=== PATIENT | male | born 1930 | race Caucasian/White ===

== ENCOUNTER 2018-09-04 19:25 | Inpatient (IN) ==
[2018-09-04] MEDS ORDERED: Piperacil/Tazo 3.375 GM Premix 50 ML IV.SIG ONE (21:11)
[2018-09-04] MEDS ORDERED: Vancomycin Inj 1 GM/200 ML PIGGYBACK IV.SIG ONE (21:11)
[2018-09-04] MEDS ORDERED: Sodium Chlor 0.9% Inj 500 ML IV.SIG ONE ×2 (21:11→23:18)
--- NOTE | 2018-09-04 21:28 | ED ---
HPI General Chief complaint: Skin/Abscess/Foreign Body Stated complaint: abscess on R arm and L groin Xtoday Time Seen by Provider: 09/04/18 20:51 Source: patient and family Mode of arrival: ambulatory Limitations: no limitations History of Present Illness HPI narrative: The patient is an 88 year old male who presents to the [facility] emergency department with a history of complaining of groin pain that he reported to his family was related to his hernia approximately a week ago. The patient performs his activities of daily living and grooming himself and showering, therefore the patient's family did not inspect the area until today. The patient reports that related to the pain in his groin he has been using a walker to assist him with his gait. The patient's past medical history is reportedly complicated by having leukopenia that is followed by Dr. Feliz a local stock wetter and oncologist. They report that in the past he was on Neupogen, however he did not respond. He has been referred to the [facility] and had his initial appointment on Tuesday. The patient's family reports that on he did have a low-grade fever with a T-max of 100.7. They report that today when he inspected his groin area he had redness noted and 2 open wounds with drainage in bilateral groins. The worst is on the right compared to the left. The patient's inguinal hernia is involving the left side of the scrotum. The patient's family reports that he has had this hernia for the last 10 years. He has been considered to be nonoperative due to concerns for his healing process with his low white blood cell count. Patient denies having any chest pain or chest pressure. He does report having some shortness of breath with exertion over the last week. He denies having any cough or congestion. He denies having any nausea or vomiting. He reports having problems chronically with constipation alternating with diarrhea. He reports that his last bowel movement was 4 days ago. He denies having any known blood in his stool or black or tarry stools. On review of systems otherwise, the patient denies having any neck pain, abdominal pain, urinary symptoms, or new or focal neurologic symptoms. Related Data Home Medications Medication Instructions Recorded Confirmed aspirin [Aspir-81] 81 mg PO DAILY 09/04/18 09/04/18 doxazosin 8 mg PO DAILY 09/04/18 09/04/18 levothyroxine 150 mcg PO DAILY 09/04/18 09/04/18 lisinopril 5 mg PO BID 09/04/18 09/04/18 nifedipine 30 mg PO DAILY 09/04/18 09/04/18 Allergies Allergy/AdvReac Type Severity Reaction Status Date / Time Sulfa (Sulfonamide Allergy Intermediate RASH, Verified 09/05/18 02:09 Antibiotics) SWELLING Review of Systems ROS: all other systems reviewed are negative PMFSH History History Provided By: Patient and Family Member Social History Social History Substance History: No History of Abuse Second Hand Smoke Exposure: No Smoking Status: Former smoker Tobacco Type: Cigarettes How Often Do You Have a Drink Containing Alcohol: 2 to 4 times a month Recent Travel in [facility] within the Last 8 Weeks: No Recent Out of Country Travel within the Last 8 Weeks: No Exam Const General: cooperative, no acute distress and well developed Nutritional Appearance: well nourished Orientation: alert, awake and oriented x3 HENMT Head: normocephalic and atraumatic Nose: no nasal discharge and no epistaxis Mouth: moist mucous membranes Throat: posterior oropharynx normal and uvula midline Eyes Sclera: normal sclerae Pupils: PERRL EOM: EOM intact bilaterally Neck Neck: no meningeal signs, trachea midline and no JVD Resp Effort & Inspection: no use of accessory muscles Auscultation: clear to auscultation bilaterally Cardio Rate: tachycardic (Sinus tachycardia in the low 100s. No pulse deficits to the extremities on simultaneous auscultation and palpation of his radial artery.) Rhythm: regular rhythm Heart Sounds: no murmurs GI Inspection: distended (The patient is distended related to central obesity. The patient has an abdominal pannus that was gently lifted. The patient has suprapubic, lower pelvis erythema, induration noted. When his hip is flexed on the right, the patient is noted to have erythema that extends down into the groin at the border between the scrotum and inner thigh, and an area of ulceration is noted with purulent foul smelling drainage. The area of ulceration is approximately 3-1/2 cm. When the patient's left hip is flexed and slightly externally rotated another area of ulceration with drainage is noted on the left side between the scrotum and the border to the inner aspect of the hip. This area of ulceration is approximately 2-3 cm. The patient has tenderness on palpation of these areas.) and obesity Palpation: soft, no hepatosplenomegaly, no guarding, not rigid and nontender Auscultation: normal bowel sounds External: scrotal swelling (The patient is noted to have a large inguinal hernia on the left. No palpable incarcerated component is noted. There is no significant tenderness on palpation of this site.) Penis: normal penis Back/Spine/Pelvis Back: no CVA tenderness Skin General: dry skin (warm) Neuro General: alert, awake and oriented x3 Cranial Nerves: CN's II-XI intact bilaterally Speech: speech normal Motor: strength 5/5 throughout and no movement abnormalities noted Sensory Exam: no sensory deficits noted Extrem General: normal to inspection (2+ pulses in all 4 extremities.), no calf tenderness, no clubbing, no cyanosis and edema (Trace pedal edema bilaterally.) Laterality: bilaterally Psych Mood: congruent mood Affect: normal affect Judgment: judgment good Course Consultations Consultation #1: The patient's case including history, pertinent physical examination findings, and laboratory studies were discussed with Dr. Dukes, the packaging line operator. It was agreed that the patient would be admitted to the packaging line operator 's service. Consultation #2: The patient's case including history, pertinent physical examination findings, and laboratory studies were discussed with Bita. He requested that I also discussed the patient's case with the general surgeon. He recommended the patient be transferred to the [facility] in case surgical intervention is necessary. Time: 23:25 Consultation #3: The patient's case including history, pertinent physical examination findings, and laboratory studies were discussed with Dr. Blake. He requested that the patient receive another liter of normal saline IV fluids. He agreed to see the patient in consultation. Time: 23:29 Initial Documented Vital Signs Temperature 99.0 F 09/04/18 19:53 Pulse Rate 109 H 09/04/18 19:53 Respiratory Rate 22 09/04/18 19:53 Blood Pressure 112/59 L 09/04/18 19:53 Pulse Oximetry 97 09/04/18 19:53 Last Documented Vital Signs Temperature 98.5 F 09/05/18 04:00 Pulse Rate 90 09/05/18 06:00 Respiratory Rate 25 H 09/05/18 06:00 Blood Pressure 127/69 09/05/18 06:00 Pulse Oximetry 99 09/05/18 06:00 Critical Care Time Critical Care Time: Yes Total Critical Care Time: 45 Attestation: Aggregate critical care time was 45 minutes. Time to perform other separately billable procedures was not included in the critical care time. My time did not include minutes spent treating any other patients simultaneously or on activities that did not directly contribute to the patient's treatment. The services I provided to this patient were to treat and/or prevent clinically significant deterioration that could result in: Cardiovascular collapse from sepsis, versus fluid overload from crystalloid resuscitation, versus progression of infection I provided critical care services requiring my management, as noted below: Chart data review, documentation time, medication orders and management, vital sign assessments/reviewing monitor data, ordering and reviewing lab tests, ordering and interpreting/reviewing x-rays and diagnostic studies, care of the patient and discussion of the patient with the admitting physicians. Medical Decision Making MDM Narrative Medical decision making narrative: During the course of the patient's emergency department visit, the patient's history, examination, and differential diagnosis were reviewed with the patient. The patient was placed on a cardiac catheterization technologist with oximetry and frequent blood pressure monitoring. The patient had IV access obtained and blood work sent for analysis. A diagnostic evaluation was started regarding the patient's groin wounds and cellulitis involving the pelvis. A sepsis workup was initiated. The patient was initially provided normal saline 500 mL bolus x1, Zosyn 3.375 g IV, vancomycin 1 g IV, coverage for necrotizing fasciitis was also added with clindamycin 900 mg IV. The patient's diagnostic studies are remarkable for a white count of 1.8, hemoglobin 10.1, platelets 493 with neutrophil percent 4, bands 1, lymphocytes 76, monocytes 17, 2 plasma cells, 0.1 neutrophil number. PT 14.5, INR 1.4, PTT 31.2, chemistries remarkable for BUN of 27, GFR 63, glucose 108, lactic acid 2.0 , calcium 7.9, CPK 10, troponin I less than 0.02, albumin 2.3, lipase 113, C- reactive protein is elevated at 12.9. Urinalysis is essentially unremarkable. Chest x-ray shows no focal lung consolidation, tortuous aorta, CT scan of the abdomen and pelvis shows a 7.5 cm inflammatory and edematous area in the right inguinal region containing probable small loculated abscesses, edematous changes extending inferiorly through the lower aspect of both inguinal canals into the scrotum with marked scrotal wall thickening and small locules of air in the upper left scrotum that could represent a necrotizing infection. There is herniation of fat through both inguinal canals, worse on the left side with herniated fat in the left scrotum measuring up to 9.5 cm in diameter. The patient is noted to have hepatospleno megaly, moderate coronary calcifications, small pericardial effusion. A call was placed out to the packaging line operator donor specialist. I spoke to Dr. Dukes he did agree to admit the patient he requested that I speak to the urologist regarding this patient's infection. I spoke to the urologist, Dr. Sunshine regarding this patient's case. He requested that I also get the general surgeon involved regarding the patient's bilateral groin infection. I spoke to Dr. Blake regarding this patient's case. He did agree to see the patient in consultation as well. The patient will be transferred over to the main [place] intensive care unit as the patient will likely require surgical debridement and the urologist requested that the patient be transferred over to that facility for the procedure. The patient's results were discussed with the patient, including the plan of care. I explained that further testing and/ or monitoring is indicated based on the patient's history, examination, and/ or laboratory findings. Therefore, I recommended admission for additional evaluation. The patient expressed understanding and was agreeable with this plan. The patient was admitted to the hospital in critical condition and sent to a bed under the care of the packaging line operator's service. Medical Screen Exam Complete: Yes Emergency Medical Condition: Yes Differential Diagnosis Differential Diagnosis: Necrotizing fasciitis, versus cellulitis, versus deep abscesses, versus sepsis Medical Records Medical records reviewed: Yes I reviewed the patient's medical records. Lab Data Lab results reviewed: Yes I reviewed the patient's lab results. Result diagrams: 09/04/18 21:30 09/04/18 21:30 Lab Results 09/04/18 09/04/18 09/04/18 Range/Units 21:30 21:30 21:30 CBC w Diff Slide review pending WBC 1.9 L (4.0-11.0) th/mm3 Corrected WBC 1.8 L (4.0-11.0) th/mm3 RBC 3.11 L (4.50-5.90) mil/mm3 Hgb 10.1 L (13.0-17.0) gm/dL Hct 29.9 L (39.0-51.0) % MCV 96.2 (80.0-100.0) fL MCH 32.5 (27.0-34.0) pg MCHC 33.8 (32.0-36.0) % RDW 18.5 H (11.6-17.2) % Plt Count 493 H (150-450) th/mm3 MPV 9.4 (7.0-11.0) fL WBC Differential Manual diff final Seg Neuts % (Manual) 4 L (16-70) % Band Neuts % (Manual) 1 (0-6) % Lymphocytes % (Manual) 76 H (9-44) % Monocytes % (Manual) 17 H (0-8) % Plasma Cell % (Manual) 2 H (0-0) % Abs Neuts (Manual) 0.1 L* (1.8-7.7) th/mm3 Nucleated RBCs/100 WBC 8 H (0-0) /100 WBC Differential Comment . Dohle Bodies Present H (None) Platelet Estimate High H (Normal) Platelet Morphology Enlarged H (Normal) Ovalocytes 1+ H (None) PT 14.5 H (9.8-11.6) sec INR 1.4 Ratio APTT 31.2 H (24.3-30.1) sec Sodium 136 (136-145) meq/L Potassium 4.0 (3.5-5.1) meq/L Chloride 104 (98-107) meq/L Carbon Dioxide 24.5 (21.0-32.0) meq/L Anion Gap 8 (5-15) meq/L BUN 27 H (7-18) mg/dL Creatinine 1.10 (0.60-1.30) mg/dL Estimated GFR 63 L (>89) mL/min POC Glucose (68-110) mg/dl Random Glucose 108 H (74-106) mg/dL Lactic Acid (0.4-2.0) mmol/L Calcium 7.9 L (8.5-10.1) mg/dL Magnesium 2.3 (1.5-2.5) mg/dL Total Bilirubin 1.0 (0.2-1.0) mg/dL AST 21 (15-37) U/L ALT 27 (12-78) U/L Alkaline Phosphatase 99 (45-117) U/L Total Creatine Kinase 10 L (39-308) U/L Troponin I Less than 0.02 L (0.02-0.05) ng/mL C-Reactive Protein (0.00-0.30) mg/dL Total Protein 7.9 (6.4-8.2) g/dL Albumin 2.3 L (3.4-5.0) g/dL Lipase 113 (73-393) U/L Urine Color (Yellw/Straw) Urine Clarity (Clear) Urine pH (5.0-8.5) Ur Specific [place] (1.002-1.035) Urine Protein (Neg-Trace) mg/dL Urine Glucose (UA) (Negative) mg/dL Urine Ketones (Negative) mg/dL Urine Occult Blood (Negative) Urine Nitrate (Negative) Urine Bilirubin (Negative) Urine Urobilinogen (Less than 2) mg/dL Ur Leukocyte Esterase (Negative) Urine WBC (0-5) /hpf Ur Squamous Epith Cells (0-5) /hpf Amorphous Sediment (None) /hpf Urine Bacteria (None) /hpf Urine Mucus (Occasional) /lpf Micro UA Comment Ur Microscopic Review Urine Culture Comments Nasal Screen MRSA (PCR) (Negative) 09/04/18 09/04/18 09/04/18 Range/Units 21:30 21:30 22:01 CBC w Diff WBC (4.0-11.0) th/mm3 Corrected WBC (4.0-11.0) th/mm3 RBC (4.50-5.90) mil/mm3 Hgb (13.0-17.0) gm/dL Hct (39.0-51.0) % MCV (80.0-100.0) fL MCH (27.0-34.0) pg MCHC (32.0-36.0) % RDW (11.6-17.2) % Plt Count (150-450) th/mm3 MPV (7.0-11.0) fL WBC Differential Seg Neuts % (Manual) (16-70) % Band Neuts % (Manual) (0-6) % Lymphocytes % (Manual) (9-44) % Monocytes % (Manual) (0-8) % Plasma Cell % (Manual) (0-0) % Abs Neuts (Manual) (1.8-7.7) th/mm3 Nucleated RBCs/100 WBC (0-0) /100 WBC Differential Comment Dohle Bodies (None) Platelet Estimate (Normal) Platelet Morphology (Normal) Ovalocytes (None) PT (9.8-11.6) sec INR Ratio APTT (24.3-30.1) sec Sodium (136-145) meq/L Potassium (3.5-5.1) meq/L Chloride (98-107) meq/L Carbon Dioxide (21.0-32.0) meq/L Anion Gap (5-15) meq/L BUN (7-18) mg/dL Creatinine (0.60-1.30) mg/dL Estimated GFR (>89) mL/min POC Glucose 129 H (68-110) mg/dl Random Glucose (74-106) mg/dL Lactic Acid 2.0 (0.4-2.0) mmol/L Calcium (8.5-10.1) mg/dL Magnesium (1.5-2.5) mg/dL Total Bilirubin (0.2-1.0) mg/dL AST (15-37) U/L ALT (12-78) U/L Alkaline Phosphatase (45-117) U/L Total Creatine Kinase (39-308) U/L Troponin I (0.02-0.05) ng/mL C-Reactive Protein 12.90 H (0.00-0.30) mg/dL Total Protein (6.4-8.2) g/dL Albumin (3.4-5.0) g/dL Lipase (73-393) U/L Urine Color (Yellw/Straw) Urine Clarity (Clear) Urine pH (5.0-8.5) Ur Specific [place] (1.002-1.035) Urine Protein (Neg-Trace) mg/dL Urine Glucose (UA) (Negative) mg/dL Urine Ketones (Negative) mg/dL Urine Occult Blood (Negative) Urine Nitrate (Negative) Urine Bilirubin (Negative) Urine Urobilinogen (Less than 2) mg/dL Ur Leukocyte Esterase (Negative) Urine WBC (0-5) /hpf Ur Squamous Epith Cells (0-5) /hpf Amorphous Sediment (None) /hpf Urine Bacteria (None) /hpf Urine Mucus (Occasional) /lpf Micro UA Comment Ur Microscopic Review Urine Culture Comments Nasal Screen MRSA (PCR) (Negative) 09/04/18 09/05/18 Range/Units 22:20 04:00 CBC w Diff WBC (4.0-11.0) th/mm3 Corrected WBC (4.0-11.0) th/mm3 RBC (4.50-5.90) mil/mm3 Hgb (13.0-17.0) gm/dL Hct (39.0-51.0) % MCV (80.0-100.0) fL MCH (27.0-34.0) pg MCHC (32.0-36.0) % RDW (11.6-17.2) % Plt Count (150-450) th/mm3 MPV (7.0-11.0) fL WBC Differential Seg Neuts % (Manual) (16-70) % Band Neuts % (Manual) (0-6) % Lymphocytes % (Manual) (9-44) % Monocytes % (Manual) (0-8) % Plasma Cell % (Manual) (0-0) % Abs Neuts (Manual) (1.8-7.7) th/mm3 Nucleated RBCs/100 WBC (0-0) /100 WBC Differential Comment Dohle Bodies (None) Platelet Estimate (Normal) Platelet Morphology (Normal) Ovalocytes (None) PT (9.8-11.6) sec INR Ratio APTT (24.3-30.1) sec Sodium (136-145) meq/L Potassium (3.5-5.1) meq/L Chloride (98-107) meq/L Carbon Dioxide (21.0-32.0) meq/L Anion Gap (5-15) meq/L BUN (7-18) mg/dL Creatinine (0.60-1.30) mg/dL Estimated GFR (>89) mL/min POC Glucose (68-110) mg/dl Random Glucose (74-106) mg/dL Lactic Acid (0.4-2.0) mmol/L Calcium (8.5-10.1) mg/dL Magnesium (1.5-2.5) mg/dL Total Bilirubin (0.2-1.0) mg/dL AST (15-37) U/L ALT (12-78) U/L Alkaline Phosphatase (45-117) U/L Total Creatine Kinase (39-308) U/L Troponin I (0.02-0.05) ng/mL C-Reactive Protein (0.00-0.30) mg/dL Total Protein (6.4-8.2) g/dL Albumin (3.4-5.0) g/dL Lipase (73-393) U/L Urine Color Yellow (Yellw/Straw) Urine Clarity Clear (Clear) Urine pH 5.5 (5.0-8.5) Ur Specific [place] 1.020 (1.002-1.035) Urine Protein 30 H (Neg-Trace) mg/dL Urine Glucose (UA) Negative (Negative) mg/dL Urine Ketones Negative (Negative) mg/dL Urine Occult Blood Negative (Negative) Urine Nitrate Negative (Negative) Urine Bilirubin Negative (Negative) Urine Urobilinogen 0.2 (Less than 2) mg/dL Ur Leukocyte Esterase Negative (Negative) Urine WBC 6-8 H (0-5) /hpf Ur Squamous Epith Cells 0-5 (0-5) /hpf Amorphous Sediment Rare H (None) /hpf Urine Bacteria Few H (None) /hpf Urine Mucus Few H (Occasional) /lpf Micro UA Comment Culture not ind Ur Microscopic Review Microscopic reviewed Urine Culture Comments Culture not ind Nasal Screen MRSA (PCR) Not detected (Negative) Imaging Data Radiologist's impression: Abdomen/Pelvis CT 09/04/18 21:11 CONCLUSION: 1. 7.5 cm inflammatory and edematous area in the right inguinal region containing probable small loculated abscesses. Edematous change extends inferiorly through the lower aspect of both inguinal canals into the scrotum with marked scrotal wall thickening and small locules of air in the upper left scrotum that could represent a necrotizing infection. There is herniation of fat through both inguinal canals, worse on the left side with herniated fat in the left scrotum measuring up to 9.5 cm in diameter. 2. Hepatosplenomegaly. Moderate coronary calcifications. Small pericardial effusion. Chest X-Ray 09/04/18 21:11 CONCLUSION: No focal lung consolidation. Tortuous aorta. ECG Data Attestation: I personally reviewed and interpreted this ECG as follows: Interpretation: The patient had an EKG done on arrival that shows what appears to be atrial flutter heart rate of 104, QRS duration 95 ms, QTC [address] segment elevation. An occasional premature ventricular complexes noted. Discharge Plan Discharge Disposition Patient Disposition: 30 Still Patient Discharge Details Diagnosis: Cellulitis, Infected wound, Abscess of groin Physicians Team ED Provider: Cady Chang Primary Care Provider: Frankie Colvin Attending Provider: Merlyn Dukes Other Providers: Obinna Blake ; Jorge Sunshine ; Marlyn Holland ; Tracy Wells Discharge Interventions Interventions: ED Discharge Assessment Last Done: 09/05/18 02:30 Vital Signs Last Done: 09/04/18 23:35 Status ED Status: Left Department Discharge Information Discharge Date/Time: 09/05/18 02:32
[2018-09-04 21:44] LABS: Hematocrit 29.9 % (39.0-51.0); Hemoglobin 10.1 gm/dL (13.0-17.0); Mean Corpuscular HGB Conc 33.8 % (32.0-36.0); Mean Corpuscular Hemoglobin 32.5 pg (27.0-34.0); Mean Corpuscular Volume 96.2 fL (80.0-100.0); Mean Platelet Volume 9.4 fL (7.0-11.0); Platelet Count 493 th/mm3 (150-450); Red Blood Count 3.11 mil/mm3 (4.50-5.90); Red Cell Distribution Width 18.5 % (11.6-17.2); White Blood Count 1.9 th/mm3 (4.0-11.0)
[2018-09-04 21:50] LABS: Chloride 104 meq/L (98-107); Sodium 136 meq/L (136-145)
[2018-09-04 21:53] LABS: Calcium 7.9 mg/dL (8.5-10.1)
[2018-09-04 21:54] LABS: Albumin 2.3 g/dL (3.4-5.0); Anion Gap 8 meq/L (5-15); Blood Urea Nitrogen 27 mg/dL (7-18); Carbon Dioxide 24.5 meq/L (21.0-32.0); Glucose,Random 108 mg/dL (74-106); Lipase 113 U/L (73-393); Magnesium 2.3 mg/dL (1.5-2.5)
[2018-09-04 21:56] LABS: Alanine Aminotransferase 27 U/L (12-78)
[2018-09-04 21:57] LABS: Aspartate Aminotransferase 21 U/L (15-37); Glomerular Filtration Rate 63 mL/min (>89)
[2018-09-04 21:58] LABS: Total Protein 7.9 g/dL (6.4-8.2)
[2018-09-04 21:59] LABS: Activated Partial Thrombo Time 31.2 sec (24.3-30.1); Alkaline Phosphatase 99 U/L (45-117); INR 1.4 Ratio; Prothrombin Time 14.5 sec (9.8-11.6)
[2018-09-04] MEDS ORDERED: Vancomycin Inj 1,000 MG in Sodium Chlor 0.9% Inj 250 ML IV.SIG ONE (22:00)
[2018-09-04 22:04] LABS: Creatine Kinase 10 U/L (39-308)
--- NOTE | 2018-09-04 22:04 | XR ---
EXAM DATE: 09/04/2018 10:00 PM EDT AGE/SEX: 88 years / Male INDICATIONS: Fever. CLINICAL DATA: This is the patient's initial encounter. Patient reports that signs and symptoms have been present for 1 day and indicates a pain score of 0/10. MEDICAL/SURGICAL HISTORY: None. None. COMPARISON: No prior exams available for comparison. FINDINGS: A single AP view of the chest demonstrates cardiomegaly. Tortuous aorta. No effusion. No pneumothorax . No focal consolidation. CONCLUSION: No focal lung consolidation. Tortuous aorta. Electronically signed by: Bhavesh Regalado MD 09/04/2018 10:03 PM EDT
[2018-09-04 22:18] LABS: Corrected White Blood Count 1.8 th/mm3 (4.0-11.0); Lymphocytes 76 % (9-44); Monocytes 17 % (0-8); Plasma Cells 2 % (0-0); Tallied Nucleated RBC 8 (0-0)
[2018-09-04 22:21] LABS: Dohle Bodies Present; Ovalocytes 1+
[2018-09-04 22:29] LABS: Bilirubin,Urine Negative (Negative); Clarity,Urine Clear (Clear); Color,Urine Yellow (Yellw/Straw); Glucose,Urine (UA) Negative (Negative); Leukocyte Esterase,Urine Negative (Negative); Nitrite,Urine Negative (Negative); PH,Urine 5.5 (5.0-8.5); Urobilinogen,Urine 0.2 mg/dL (Less than 2)
[2018-09-04 22:38] LABS: Amorphous Sediment,Urine Rare /hpf; Bacteria,Urine Few /hpf; Mucus,Urine Few /lpf (Occasional); Squamous Epithelial Cell,Urine 0-5 /hpf (0-5)
--- NOTE | 2018-09-04 23:14 | CT ---
EXAM DATE: 09/04/2018 10:57 PM EDT AGE/SEX: 88 years / Male INDICATIONS: Bilateral groin pain and drainage from open wounds. Constipation. Fever. CLINICAL DATA: This is the patient's initial encounter. Patient reports that signs and symptoms have been present for 1 week and indicates a pain score of 8/10. MEDICAL/SURGICAL HISTORY: . Inguinal hernia. None. ORAL CONTRAST: No oral contrast ingested. RADIATION DOSE: 21.94 CTDI (mGy) ; Patient body habitus COMPARISON: POI, CT ABDOMEN AND PELVIS W AND W/O CONTRAST, 09/08/2016. . TECHNIQUE: Multiple contiguous axial images were obtained through the abdomen and pelvis following b olus infusion of 100 ml Omnipaque 350 (iohexol) nonionic water-soluble contrast as a single exam do se. No oral contrast ingested. Using automated exposure control and adjustment of the mA and/or kV a ccording to patient size, radiation dose was kept as low as reasonably achievable to obtain optimal d iagnostic quality images. DICOM format image data is available electronically for review and compari son. FINDINGS: There is some dependent atelectasis in the lungs. Cardiomegaly. Moderate coronary calcifications. Sma ll pericardial effusion. There is hepatosplenomegaly with spleen measuring up to 18 cm and liver 29 cm in maximal length. No gallstones or biliary ductal dilatation. Bilateral renal cysts similar to September 2016. Previous laparotomy and bilateral hip replacement. Mild constipation. No free air. Trace free fluid p robably around the liver. Moderate atherosclerosis of the abdomen aorta without aneurysm. There is a 7.5 cm inflammatory mass in the right inguinal region containing several locules of fluid, probably small abscesses. Inflammatory change extends into the perineal region and scrotum. There is herniation of fat through the left inguinal canal into the scrotum and to a lesser extent on the rig ht. There are some tiny locules of air extending into the left upper scrotal region could represent a n early necrotizing infection. CONCLUSION: 1. 7.5 cm inflammatory and edematous area in the right inguinal region containing probable small loc ulated abscesses. Edematous change extends inferiorly through the lower aspect of both inguinal canal s into the scrotum with marked scrotal wall thickening and small locules of air in the upper left scr otum that could represent a necrotizing infection. There is herniation of fat through both inguinal c anals, worse on the left side with herniated fat in the left scrotum measuring up to 9.5 cm in diamet er. 2. Hepatosplenomegaly. Moderate coronary calcifications. Small pericardial effusion. Electronically signed by: Bhavesh Regalado MD 09/04/2018 11:13 PM EDT
[2018-09-04] MEDS ORDERED: Sod Chloride 0.9% Inj 1,000 ML IV.SIG ONE (23:32)
[2018-09-05] MEDS ORDERED: Sod Chloride 0.9% Inj 1,000 ML IV.CONT SCH (00:30)
[2018-09-05] MEDS ORDERED: Vancomycin Consult Pharmacy OTHER PRN (00:32)
[2018-09-05] MEDS ORDERED: Chlorhexidine Gluconate 2% 1 Pack (2 Cloths) TOPICAL PRN (04:00)
[2018-09-05] MEDS: Piperacil/Tazo 4.5 GM Premix 4.5 GM/100 ML BAG IV.SIG SCH ×4 (04:24→23:02)
--- NOTE | 2018-09-05 04:34 | P.HPCC ---
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 He is independent for ADLs and lives alone, family checks on him periodically. Patient has history of leukopenia, ?MDS followed by Dr. Feliz had Neupogen treatment before but did not respond. He had low-grade fever a few days ago. Initially the groin pain was attributed to his inguinal hernia, however he decided to present to the ER today as he had noticed redness and open wounds with drainage in bilateral groins. In the emergency department patient was evaluated by Dr. Chang, A stat CT of the abdomen pelvis showed 7.5 cm inflammatory and edematous area in the right inguinal region containing probable small loculated abscesses. Edematous change extends inferiorly through the lower aspect of both inguinal canals into the scrotum with marked scrotal wall thickening and small locules of air in the upper left scrotum that could represent a necrotizing infection. There is herniation of fat through both inguinal canals. Patient received crystalloid resuscitation with 3 L normal saline boluses, was also given vancomycin clindamycin and Zosyn. Blood cultures and wound cultures were sent. Dr. Blake from general surgery, and Dr. Sunshine from urology were consulted by Dr. Chang at [place] [facility]. Plan is to transfer patient to the [facility], resuscitate adequately given antibiotics and plan for OR in a.m. I evaluated the patient in the [facility]. Currently he is lying in bed somnolent but wakes up easily using his home BiPAP. Temperature is 99 patient is normotensive after fluid boluses initially was tachycardic. Patient has absolute neutropenia with neutrophil count of 0.1. I will consult hematology - Diagnosis (1) Melina's gangrene (2) Severe sepsis (3) Neutropenia (4) MDS (myelodysplastic syndrome) Inpatient Certification: I certify that the inpatient services were ordered in accordance with Medicare regulations governing the order. This includes certification that hospital inpatient services are reasonable and necessary and in the case of services not specified as inpatient-only under 42 CFR 419.22(n), that they are appropriately provided as inpatient services in accordance to with the 2-midnight benchmark under 43 CFR 412.3(e) Estimated Total Length of Stay (Days): 7 Plans for Post Hospital Care: Not yet determined Review of Systems All other systems reviewed negative except as stated in HPI [facility] - History History Provided By: Patient, Family Member - Medical History Medical History: Medical History (Last Reviewed 09/05/18 @ 04:47 by Merlyn Dukes MD) HTN (hypertension) History of prostate cancer Hx of osteoarthritis Hypothyroidism Myelofibrosis Sleep apnea - Surgical History Surgical History: Surgical History (Last Reviewed 09/05/18 @ 04:47 by Merlyn Dukes MD) History of hernia repair Hx of bilateral hip replacements Hx of prostatectomy - Tobacco History Second Hand Smoke Exposure: No Tobacco Use In Past 30 Days: No Smoking Status: Former smoker Tobacco Type: Cigarettes - Alcohol History How Often Do You Have a Drink Containing Alcohol: 2 to 4 times a month - Substance Use History Substance History: No History of Abuse - Travel History Recent Travel in the [place] Within the Last 8 Weeks: No Recent Travel Out of the Country Within the Last 8 Weeks: No - Immunization History Tetanus Immunization: >5 Years Hx Influenza Vaccine This Season: No Medications and Allergies Active Medications: Active Medications Albuterol (Albuterol Neb (Prn)) 2.5 mg NEB Q2HR NEB PRN PRN Reason: SHORTNESS OF BREATH/WHEEZING Chlorhexidine Gluconate (Chlorhexidine 2% Cloth) 3 pack TOPICAL DAILY@0400 CATHLEEN Stop: 09/10/18 03:59 Chlorhexidine Gluconate (Chlorhexidine 2% Cloth) 3 pack TOPICAL DAILY@0400 PRN PRN Reason: Extra cloth needed Stop: 09/10/18 03:59 Famotidine (Pepcid Pf Inj) 20 mg IV.PUSH Q12HR CATHLEEN Sodium Chloride (Ns Inj) 1,000 mls @ 84 mls/hr IV.CONT .[id number] [facility] Last Admin: 09/05/18 04:25 Dose: 84 mls/hr Piperacillin/Tazobactam/Dextrose (Zosyn 4.5 Gm Premix) 4.5 gm in 100 mls @ 200 mls/hr IV.SIG Q6H [facility] Last Admin: 09/05/18 04:24 Dose: 200 mls/hr Clindamycin Phosphate 900 mg/ (Sodium Chloride) 106 mls @ 100 mls/hr IV.SIG Q8H CATHLEEN Vancomycin HCl 1,250 mg/ (Sodium Chloride) 262.5 mls @ 250 mls/hr IV.SIG Q12H CATHLEEN Lactulose (Lactulose Liq) 30 ml PO DAILY PRN PRN Reason: SEVERE CONSITIPATION Miscellaneous Information ([facility] Ordered Lab Info) 0 each OTHER ONCE@ 0845 ONE Stop: 09/06/18 08:46 Morphine Sulfate (Morphine Inj) 2 mg IV.PUSH Q2H PRN PRN Reason: PAIN SCALE 6 TO 10 Pharmacy Profile Note (Vancomycin Consult Pharmacy) 1 each OTHER UNSCH PRN PRN Reason: Pharmacy to dose Senna/Docusate Sodium (Sunshine-Colace) 1 tab PO BID CATHLEEN Sodium Chloride (Ns Flush) 2 ml IV.FLUSH BID CATHLEEN Sodium Chloride (Ns Flush) 2 ml IV.FLUSH PRN PRN PRN Reason: FLUSH AFTER USING IV ACCESS Allergies Allergy/AdvReac Type Severity Reaction Status Date / Time Sulfa (Sulfonamide Allergy Intermediate RASH, Verified 09/05/18 02:09 Antibiotics) SWELLING Home Medications Medication Instructions Recorded Confirmed Type aspirin [Aspir-81] 81 mg PO DAILY 09/04/18 09/04/18 History doxazosin 8 mg PO DAILY 09/04/18 09/04/18 History levothyroxine 150 mcg PO DAILY 09/04/18 09/04/18 History lisinopril 5 mg PO BID 09/04/18 09/04/18 History nifedipine 30 mg PO DAILY 09/04/18 09/04/18 History Results - Labs CBC & Chem 7: 09/04/18 21:30 09/04/18 21:30 Labs: Short CBC 09/04/18 Range/Units 21:30 WBC 1.9 L (4.0-11.0) th/mm3 Hgb 10.1 L (13.0-17.0) gm/dL Hct 29.9 L (39.0-51.0) % Plt Count 493 H (150-450) th/mm3 BMP 09/04/18 21:30 Sodium 136 Potassium 4.0 Chloride 104 Carbon Dioxide 24.5 BUN 27 H Creatinine 1.10 Calcium 7.9 L Cardiac Enzymes 09/04/18 Range/Units 21:30 Total Creatine Kinase 10 L (39-308) U/L Troponin I Less than 0.02 L (0.02-0.05) ng/mL Liver Function 09/04/18 Range/Units 21:30 Total Bilirubin 1.0 (0.2-1.0) mg/dL AST 21 (15-37) U/L ALT 27 (12-78) U/L Alkaline Phosphatase 99 (45-117) U/L Albumin 2.3 L (3.4-5.0) g/dL Urine 09/04/18 Range/Units 22:20 Urine Color Yellow (Yellw/Straw) Urine Clarity Clear (Clear) Urine pH 5.5 (5.0-8.5) Ur Specific Nordman 1.020 (1.002-1.035) Urine Protein 30 H (Neg-Trace) mg/dL Urine Glucose (UA) Negative (Negative) mg/dL - Imaging Impressions Abdomen/Pelvis CT 09/04/18 21:11 CONCLUSION: 1. 7.5 cm inflammatory and edematous area in the right inguinal region containing probable small loculated abscesses. Edematous change extends inferiorly through the lower aspect of both inguinal canals into the scrotum with marked scrotal wall thickening and small locules of air in the upper left scrotum that could represent a necrotizing infection. There is herniation of fat through both inguinal canals, worse on the left side with herniated fat in the left scrotum measuring up to 9.5 cm in diameter. 2. Hepatosplenomegaly. Moderate coronary calcifications. Small pericardial effusion. Chest X-Ray 09/04/18 21:11 CONCLUSION: No focal lung consolidation. Tortuous aorta. Exam Vital signs: Vital Signs 09/04/18 19:53 09/04/18 21:55 09/04/18 23:35 Temperature 99.0 F 99.0 F Pulse Rate 109 H 93 H Respiratory Rate 22 16 Blood Pressure 112/59 L 121/62 Pulse Oximetry 97 96 95 09/05/18 02:14 Temperature Pulse Rate 89 Respiratory Rate 16 Blood Pressure 116/63 Pulse Oximetry 96 Intake & Output 09/04/18 09/04/18 09/05/18 06:59 18:59 06:59 Intake Total 2406 / 2406 Balance 2406 / 2406 Weight 121 kg Intake: IV 2406 / 2406 Cleocin Inj 900 MG In NS Inj 106 / 106 100 ML @ 100 mls/hr IV.SIG NOW ONE Rx#:[id number] Zosyn 3.375 GM Premix 50 ML @ 50 / 50 100 mls/hr IV.SIG ONCE ONE Rx#: [id number] NS Inj 1,000 ML @ Wide Open IV. 1000 / 1000 SIG BOLUS ONE Rx#:[id number] NS Inj 500 ML @ Wide Open IV. 1000 / 1000 SIG BOLUS ONE Rx#:[id number] Vancomycin Inj 1,000 MG In NS 250 / 250 Inj 250 ML @ 250 mls/hr IV.SIG ONCE ONE Rx#:[id number] Other: Weight On Admission 121 kg Narrative: General: 88-year-old male lying in bed currently on home CPAP machine. Well- nourished obese HEENT: normocephalic and atraumatic. Oral cavity is moist airway patent. Pupils equal Neck: no meningeal signs, trachea midline and no JVD Resp: Air entry equal bilaterally no wheezes or crackles CVS: Initial sinus tachycardia now resolved. No murmurs appreciated GI/: Erythema and induration in suprapubic, inguinal and bilateral scrotal regions. Bilateral draining wounds appears to be in the crease between scrotum and inner thighs, with foul-smelling discharge. No organomegaly or pain to palpation of her abdomen. Large inguinal hernia to the left Neuro: Awake alert hard of hearing. Strength 5/5. No obvious focal deficits Septic Shock Reassessment Septic shock perfusion: reassessment completed Caprini VTE Risk Assessment Caprini VTE Risk Assessment: Moderate/High Risk (score >= 2) Caprini Risk Assessment Model: Point Value = 1 Point Value = 2 Point Value = 3 Point Value = 5 Age 41-60 Minor surgery BMI > 25 kg/m2 Swollen legs Varicose veins or History of unexplained or recurrent spontaneous Oral contraceptives or hormone replacement Sepsis (< 1 month) Serious lung disease, including pneumonia (< 1 month) Abnormal pulmonary function Acute myocardial infarction Congestive heart failure (< 1 month) History of inflammatory bowel disease Medical patient at bed rest Age 61-74 Arthroscopic surgery Major open surgery (> 45 min) Laparoscopic surgery (> 45 min) Malignancy Confined to bed (> 72 hours) Immobilizing plaster cast Central venous access Age >= 75 History of VTE Family history of VTE Factor V Leiden Prothrombin [id number] Lupus anticoagulant Anticardiolipin antibodies Elevated serum homocysteine Heparin-induced thrombocytopenia Other congenital or acquired thrombophilia Stroke (< 1 month) Elective arthroplasty Hip, pelvis, or leg fracture Acute spinal cord injury (< 1 month) Prophylaxis Regimen: Total Risk Factor Score Risk Level Prophylaxis Regimen 0-1 Low Early ambulation 2 Moderate Order ONE of the following: *Sequential Compression Device (SCD) *Heparin 5000 units SQ BID 3-4 Higher Order ONE of the following medications: *Heparin 5000 units SQ TID *Enoxaparin/Lovenox 40 mg SQ daily (WT < 150 kg, CrCl > 30 mL/min) *Enoxaparin/Lovenox 30 mg SQ daily (WT < 150 kg, CrCl > 10-29 mL/min) *Enoxaparin/Lovenox 30 mg SQ BID (WT < 150 kg, CrCl > 30 mL/min) AND/OR *Sequential Compression Device (SCD) 5 or more Highest Order ONE of the following medications: *Heparin 5000 units SQ TID (Preferred with Epidurals) *Enoxaparin/Lovenox 40 mg SQ daily (WT < 150 kg, CrCl > 30 mL/min) *Enoxaparin/Lovenox 30 mg SQ daily (WT < 150 kg, CrCl > 10-29 mL/min) *Enoxaparin/Lovenox 30 mg SQ BID (WT < 150 kg, CrCl > 30 mL/min) AND *Sequential Compression Device (SCD) 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 Status: Acute (2) Severe sepsis Code(s): A41.9 - Sepsis, unspecified organism; R65.20 - Severe sepsis without septic shock Status: Acute (3) Neutropenia Code(s): D70.9 - Neutropenia, unspecified Status: Acute (4) MDS (myelodysplastic syndrome) Code(s): D46.9 - Myelodysplastic syndrome, unspecified Status: Chronic - Assessment and Plan Plan: NEURO: -Pain control with as needed morphine -Tylenol for fever RESP: -Aggressive pulmonary toilet -Albuterol inhaler every 2 hours as needed CV: Sinus tachycardia History of hypertension -Normal saline IV fluids 3 L bolus and 84 mL/h -Lactic acid was 2 -Hold home medications nifedipine and lisinopril GI: -N.p.o., IV famotidine /ID: Melina's gangrene Severe sepsis -Broad-spectrum antibiotics with IV vancomycin, IV Zosyn and IV clindamycin -OR plan for surgical debridement by general surgery Dr. Blake and urology Dr. Rae's -Monitor renal function closely. Diaz catheter. 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 (Dr. Feliz) -Monitor CBC, coags ENDO: Hypothyroidism -Electrolyte replacement per protocol -Change Synthroid to IV at half dose 75 mcg daily until p.o. permitted PROPH: -Bilateral lower extremity SCDs. IV famotidine. Hold chemical DVT prophylaxis in anticipation of surgical intervention LINES: -Utilize peripheral IVs, central line if needed CC time 40 min Code Status: Full Discussed Condition With: Dr. Blake H&P: Quality - VTE Deep Vein Thrombosis/Pulmonary Embolism Present on Admission: No
[2018-09-05] MEDS ORDERED: Potassium Chloride 25 MEQ Effervescent Tablet PO PRN (04:59)
[2018-09-05] MEDS ORDERED: Magnesium Oxide 400 MG Tablet PO PRN (04:59)
[2018-09-05] MEDS ORDERED: Potassium Chlor 20 mEq Premix 20 MEQ/100 ML PIGGYBACK IV.SIG PRN ×2 (04:59)
[2018-09-05] MEDS ORDERED: Sodium Phosphate Inj 30 MMOL in Sodium Chlor 0.9% Inj 250 ML IV.SIG PRN (04:59)
[2018-09-05] MEDS ORDERED: Potassium Phosphate Inj 30 MMOL in Sodium Chlor 0.9% Inj 250 ML IV.SIG PRN (04:59)
[2018-09-05] MEDS ORDERED: Potassium Chlor 40 mEq Premix 40 MEQ/100 ML PIGGYBACK IV.SIG PRN ×2 (04:59)
[2018-09-05] MEDS ORDERED: Magnesium Sulfate Inj 2 GM in Sodium Chlor 0.9% Inj 96 ML IV.SIG PRN (04:59)
[2018-09-05] MEDS ORDERED: Potassium Phosphate 500 MG Soluble Tablet PO PRN ×2 (04:59)
[2018-09-05] MEDS ORDERED: Magnesium Sulfate Inj 4 GM in Sodium Chlor 0.9% Inj 92 ML IV.SIG PRN (04:59)
[2018-09-05] MEDS: Chlorhexidine Gluconate 2% 1 Pack (2 Cloths) TOPICAL SCH (06:10)
[2018-09-05] MEDS ORDERED: Lidocaine 2% Inj 50 ML Vial ONE (06:54)
[2018-09-05] MEDS ORDERED: Bupivacaine PF 0.5% Inj 30 ML Vial ONE (06:55)
[2018-09-05] MEDS ORDERED: Lidocaine PF 1% Inj 5 ML Syringe OTHER ONE (07:09)
[2018-09-05] MEDS ORDERED: Succinylcholine Inj 100 MG/5 ML Syringe IV.PUSH ONE (07:09)
[2018-09-05] MEDS ORDERED: Phenylephrine/NS 1000 MCG/10ML Syringe IV.PUSH ONE (07:09)
[2018-09-05 08:59] LABS: ABG PCO2 47 mmHg (38-42); ABG PO2 108 mmHG (61-120)
[2018-09-05] MEDS ORDERED: Vancomycin Inj 1,250 MG in Sodium Chlor 0.9% Inj 250 ML IV.SIG SCH (09:00)
[2018-09-05] MEDS ORDERED: Ketamine Inj 500 MG/10 ML Vial ONE (09:10)
[2018-09-05] MEDS ORDERED: fentaNYL Citrate Inj 100 MCG/2 ML Ampul ONE (09:10)
--- NOTE | 2018-09-05 09:34 | MB ---
cc: Jorge Sunshine MD DATE: 09/05/2018 REASON FOR CONSULTATION: 1. Scrotal cellulitis. 2. Groin pain. HISTORY OF PRESENT ILLNESS: The patient is an 88-year-old male with a past medical history of prostate cancer, status post external beam radiation therapy with probable myelodysplastic syndrome, who presented to the emergency department late last night with complaints of bilateral groin pain for approximately 1 week. He initially thought his groin pain was attributed to his chronic bilateral inguinal hernias; however, he decided to come to the ER last night after his last 24 hours, he noticed some redness and drainage from his bilateral groin area. He also states he had a low-grade fever and chills for the last several days. In the emergency department, he was evaluated with a CT of the abdomen and pelvis with and without contrast done, which showed a large inflammatory edematous area in his right inguinal region with likely a small loculated abscess, and several questionable pockets of air in his upper left scrotum, concerning for possible Melina gangrene. Both urology and general surgery were consulted for possible bilateral groin cellulitis and Melina gangrene. During workup, he was found to be leukopenic with a white count of 1.9 as he was seen by Dr. Feliz, and given Neupogen treatment for his probable myelodysplastic syndrome. He denies history of diabetes or history of kidney stones or flank pain, abdominal pain at this time. His main complaint is his bilateral groin pain. PAST MEDICAL HISTORY: Significant for prostate cancer, hypertension, hypothyroidism, myelodysplastic syndrome, sleep apnea. PAST SURGICAL HISTORY: Hernia repair, bilateral hip replacements. ALLERGIES: SULFA. HOME MEDICATIONS: Include Synthroid and albuterol. SOCIAL HISTORY: History of tobacco use. Occasional alcohol. Denies illicit drug use. Currently lives alone. FAMILY HISTORY: No urolithiasis or urinary malignancies. REVIEW OF SYSTEMS: See HPI, all systems reviewed, otherwise were negative. PHYSICAL EXAMINATION: VITAL SIGNS: Temperature 98.5, pulse 98, respiratory rate 25, BP . Oxygen saturation 98% on room air. GENERAL: He is alert, oriented x3, in no apparent distress, pleasant and cooperative gentleman, who appears older than stated age. HEENT: Head is normocephalic, atraumatic. Eyes: Sclerae icterus. Extraocular muscles intact. External auditory ear canals normal. Hearing normal. NECK: Supple. Trachea is midline. No JVD. LUNGS: Clear to auscultation bilaterally, no wheezes, rales, rhonchi. HEART: Regular rate and rhythm. No murmur or gallop. ABDOMEN: Soft, but obese, nontender with bilateral erythema of his inguinal areas. On his right side, he has an approximately 2 x 2 cm area of necrotic tissue, that has foul odor, that is indurated, and draining purulent material. On his left side, he has a much smaller area of erythema and necrotic tissue, approximately 0.5 cm in size with draining foul odor of purulent material. GENITOURINARY: His scrotum is enlarged and swollen, but nontender. Edematous, but soft with hernia contents palpable in the left scrotum. His perineum appears to be normal. There is no evidence of necrosis, eschar, or crepitus. EXTREMITIES: Nontender. No clubbing, cyanosis or edema. PSYCHIATRIC: Normal affect. He answers questions appropriately. NEUROLOGIC: Cranial nerves II-XII intact. Strength 5/5 in all 4 extremities. SKIN: Warm and moist. LABORATORY DATA: White count 1.9, hemoglobin 10.1, hematocrit 29.9, platelet count 493. Sodium 136, potassium 4.0, chloride 104, bicarbonate 24.5, BUN 27, creatinine 1.10. INR 1.4. Urine showed 60 white blood cells. IMAGING STUDIES: CT abdomen and pelvis with and without contrast: Images reviewed with radiologist's report. The patient has several small pockets of air within the upper left scrotum with a large 7.5 cm indurated area in his left groin with large hernia contents extending into his left hemiscrotum. ASSESSMENT: The patient is an 88-year-old male with a history of prostate cancer, who presents with bilateral groin cellulitis, possible Melina gangrene of his scrotum. PLAN: Keep the patient n.p.o. Continue current IV antibiotics. We will take the patient to the OR emergently for incision and drainage of his bilateral inguinal region and possible scrotum. This case will be done in conjunction with Dr. Blake, general surgery. MD ANDREA King/rh , 08:03 AM , 08:14 AM
[2018-09-05] MEDS ORDERED: Propofol Inj 500 MG/50 ML Vial ONE (09:41)
--- NOTE | 2018-09-05 09:48 | MP ---
cc: Jorge Sunshine MD DATE OF OPERATION: 09/05/2018 PREOPERATIVE DIAGNOSES: 1. Bilateral inguinal abscess. 2. Melina's gangrene. POSTOPERATIVE DIAGNOSIS: 1. Bilateral inguinal abscess. 2. Melina's gangrene. PROCEDURE PERFORMED: 1. Incision and drainage of bilateral groin abscesses. 2. Exam under anesthesia. SURGEON: Jorge Sunshine MD FORM SETTER: Obinna Blake MD ANESTHESIA: General. COMPLICATIONS: None. DRAINS: Diaz catheter. SPECIMENS: Gram-stain and anaerobic cultures from groins. DISPOSITION: Stable. INDICATIONS: The patient is an 88-year-old male with a history of prostate cancer and myelodysplastic syndrome, who presented to [facility] last night with complaints of bilateral groin pain. 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 The patient was then transferred to the [facility] for further evaluation and care. Due to clinical exam, physical exam and CT findings, he was then set up for emergent debridement of his groin and possible scrotal mass. The risks, benefits and alternatives were explained to the patient, the patient agreed to proceed, and informed consent was obtained. DETAILS OF PROCEDURE: The patient was properly identified, brought back to the operating room, and laid supine on the operating room table. Proper timeout was performed. Under the direction of anesthesiology, the patient was intubated and induced under general anesthetic. Appropriate preoperative antibiotics were given within an hour to the start of the procedure. The patient was then placed in dorsal lithotomy position, prepped and draped in the normal sterile surgical fashion. Exam under anesthesia was carefully performed of his scrotum and perineum. His scrotum appeared to be edematous, but chronic in nature with hernia contents present in his left hemiscrotum. His perineum had some mild exfoliation on it, but there was no evidence of crepitus eschar or necrotic tissue. It appeared after careful examination that the source of the infection was coming from both of his inguinal regions, as this is where the open wounds were present. Starting on the left side, where the wound was already draining, we extended the incision approximately 5 inches cephalad in an oblique fashion to open up this cavity. A tonsil was then used to break up any underlying pockets. Cultures were then obtained from this area. Hemostasis was then achieved. There was minimal necrotic tissue that was visualized on this side. This side appeared to be fairly healthy with good blood flow. At this point, we turned our attention to the opposite side. The large 2 x 2 cm area of necrotic tissue was then excised in an elliptical manner with a scalpel. At this point, there was a foul odor that was emitting from this area. Using a combination of blunt dissection and a hemostat, we then opened up this incision extended cephalad. There was a significant amount of fluid that was drained from this area. The necrotic tissue was debrided with Metzenbaum scissors. Several large vessels were seen, and these were controlled with electrocautery and 3-0 silk ties. At this point, the wound was then copiously irrigated with antibiotic solution. Since the scrotum and perineum did not see any significant involvement, at this point I did step out of the case, and the remaining application of the wound VAC and case would be done by Dr. Blake, so please refer to his operative report for the rest of the case. This concluded my portion of the procedure. The patient remained intubated and stable on the table. I recommended we continue IV antibiotics and keep the Diaz catheter in place for now. Jorge Sunshine MD EMF/jil , 08:08 AM , 08:19 AM
[2018-09-05] MEDS: Senna/Docusate Sodium 8.6/50 MG Tablet PO SCH ×3 (10:20→21:57)
[2018-09-05] MEDS: Famotidine PF Inj 20 MG/2 ML Vial IV.PUSH SCH ×2 (10:21→20:56)
[2018-09-05] MEDS: Morphine Sulfate Inj 2 MG/ML Vial IV.PUSH PRN (10:38)
--- NOTE | 2018-09-05 10:48 | XR ---
EXAM DATE: 09/05/2018 10:45 AM EDT AGE/SEX: 88 years / Male INDICATIONS: Evaluate et tube placement. CLINICAL DATA: This is the patient's subsequent encounter. Patient reports that signs and symptoms h ave been present for 2 days and indicates a pain score of Nonresponsive. MEDICAL/SURGICAL HISTORY: None. None. COMPARISON: [facility], CHEST 1V SINGLE AP, 09/04/2018. . FINDINGS: A single AP view of the chest demonstrates the lungs to be symmetrically aerated without evidence of mass, infiltrate or effusion. ET tube approximately 3.5 cm above the sade. The cardiomediastinal c ontours are unremarkable. Osseous structures are intact. CONCLUSION: Adequate placement of endotracheal tube. Electronically signed by: Ayush Paredes MD 09/05/2018 10:46 AM EDT
[2018-09-05] MEDS: Vancomycin Inj 1,500 MG in Sodium Chlor 0.9% Inj 500 ML IV.SIG SCH (11:35)
[2018-09-05] MEDS: Propofol 1000 mg/100 ml Inj 1,000 MG/100 ML BOTTLE IV.CONT PRN ×3 (11:35→20:55)
[2018-09-05 12:03] LABS: ABG Base Excess -1.9 mmol/L (-2-2); ABG PCO2 42 mmHg (38-42); ABG PO2 126 mmHg (61-120)
--- NOTE | 2018-09-05 14:49 | P.CONID ---
History of Present Illness Service: ID Consult date: 09/05/18 Requesting Physician: Merlyn Dukes Reason for Consult: nec fasc groin Primary Care Provider: Frankie Colvin MD Chief Complaint: Scrotal pain History of Present Illness: 88 yo male unable to provide history HIstory per chart Presented yday with pain pain in his groin The patient's has h/o neutropenia he is followed by Dr. Feliz for it. Pt was on Neupogen in the past , however he did not respond. He has been referred to the [facility] and had his initial appointment on Tuesday. Per patient's family on he had low-grade fever with a T-max of 100.7. Apparently pt has inspected his groin area he had redness noted and 2 open wounds with drainage in bilateral groins. Per patient's family he has had this hernia for the last 10 years. Pt has been considered to be nonoperative due over concerns for his healing process with his low white blood cell count. CT showed 7.5 cm inflammatory and edematous area in the right inguinal region containing probable small loculated abscesses. Edematous change extends inferiorly through the lower aspect of both inguinal canals into the scrotum with marked scrotal wall thickening and small locules of air in the upper left scrotum that could represent a necrotizing infection, herniation of fat through both inguinal canals, worse on the left side with herniated fat in the left scrotum measuring up to 9.5 cm in diameter Pt was seen by urologist and gen surgent STAT and went for emergent surgery On 09/05/2018 he underwent . Incision and drainage of bilateral groin abscesses by Dr Sunshine OP report reviewed. + necrtotic tissue Post op dx confirmed 1. Bilateral inguinal abscess and Melina's gangrene. He is on Piperacillin/Tazobactam+Clindamycin +Vancomycin BP stable, not on pressors afebrile ANC 100 Review of Systems unobtainable due to endotracheal tube, unobtainable due to mental status PMFSH - History History Provided By: Patient, Family Member - Medical History Medical History: Medical History (Last Reviewed 09/05/18 @ 14:26 by Marlyn Holland MD) HTN (hypertension) History of prostate cancer Hx of osteoarthritis Hypothyroidism Myelofibrosis Sleep apnea - Surgical History Surgical History: Surgical History (Last Reviewed 09/05/18 @ 14:26 by Marlyn Holland MD) History of hernia repair Hx of bilateral hip replacements Hx of prostatectomy - Family History Family History: Family History (Last Updated 09/05/18 @ 14:26 by Marlyn Holland MD) Other Family history unobtainable - Social History I have reviewed the patient's Social History: Yes - Tobacco History Second Hand Smoke Exposure: No Tobacco Use In Past 30 Days: No Smoking Status: Former smoker Tobacco Type: Cigarettes - Alcohol History How Often Do You Have a Drink Containing Alcohol: 2 to 4 times a month - Substance Use History Substance History: No History of Abuse - Travel History Recent Travel in the [place] Within the Last 8 Weeks: No Recent Travel Out of the Country Within the Last 8 Weeks: No - Immunization History Tetanus Immunization: >5 Years Hx Influenza Vaccine This Season: No Medications and Allergies Active Medications: Active Medications Albuterol (Albuterol Neb (Prn)) 2.5 mg NEB Q2HR NEB PRN PRN Reason: SHORTNESS OF BREATH/WHEEZING Chlorhexidine Gluconate (Chlorhexidine 2% Cloth) 3 pack TOPICAL DAILY@0400 CATHLEEN Stop: 09/10/18 03:59 Last Admin: 09/05/18 06:10 Dose: 3 pack Chlorhexidine Gluconate (Chlorhexidine 2% Cloth) 3 pack TOPICAL DAILY@0400 PRN PRN Reason: Extra cloth needed Stop: 09/10/18 03:59 Famotidine (Pepcid Pf Inj) 20 mg IV.PUSH Q12HR [facility] Last Admin: 09/05/18 10:21 Dose: 20 mg Piperacillin/Tazobactam/Dextrose (Zosyn 4.5 Gm Premix) 4.5 gm in 100 mls @ 200 mls/hr IV.SIG Q6H [facility] Last Infusion: 09/05/18 11:35 Dose: Infused Clindamycin Phosphate 900 mg/ (Sodium Chloride) 106 mls @ 100 mls/hr IV.SIG Q8H CATHLEEN Last Admin: 09/05/18 14:05 Dose: 100 mls/hr Magnesium Sulfate 2 gm/ Sodium (Chloride) 100 mls @ 50 mls/hr IV.SIG UNSCH PRN PRN Reason: For Magnesium 1.2 - 1.6 mg/dL Potassium Chloride (Kcl 40 Meq Premix Inj) 40 meq in 100 mls @ 25 mls/hr IV.SIG Q2H PRN PRN Reason: For Potassium 2.8 - 3.2 mEq/L Potassium Chloride (Kcl 20 Meq Premix Inj) 20 meq in 100 mls @ 50 mls/hr IV.SIG Q2H PRN PRN Reason: For Potassium 3.3 - 3.5 mEq/L Potassium Chloride (Kcl 40 Meq Premix Inj) 40 meq in 100 mls @ 25 mls/hr IV.SIG UNSCH PRN PRN Reason: For Potassium 3.3 - 3.5 mEq/L Potassium Chloride (Kcl 20 Meq Premix Inj) 20 meq in 100 mls @ 50 mls/hr IV.SIG Q2H PRN PRN Reason: For Potassium 2.8 - 3.2 mEq/L Potassium Phosphate 30 mmol/ (Sodium Chloride) 260 mls @ 42 mls/hr IV.SIG UNSCH PRN PRN Reason: SEE LABEL COMMENTS Sodium Phosphate 30 mmol/ (Sodium Chloride) 260 mls @ 42 mls/hr IV.SIG UNSCH PRN PRN Reason: For Phosphorus < 2.5 mg/dL Magnesium Sulfate 4 gm/ Sodium (Chloride) 100 mls @ 50 mls/hr IV.SIG UNSCH PRN PRN Reason: For Magnesium 0.9 - 1.1 mg/dL Vancomycin HCl 1,500 mg/ (Sodium Chloride) 515 mls @ 250 mls/hr IV.SIG Q18H CATHLEEN Last Infusion: 09/05/18 14:06 Dose: Infused Lactated Ringer's (Lr 1000 Ml Inj) 1,000 mls @ 125 mls/hr IV.CONT .Q8H [facility]ATHLEEN Last Admin: 09/05/18 10:21 Dose: 125 mls/hr Propofol (Diprivan 1000 Mg/100 Ml Inj) 1,000 mg in 100 mls @ 3.63 mls/hr IV.CONT TITRATE PRN; Protocol PRN Reason: Per Protocol Last Admin: 09/05/18 11:35 Dose: 35 mcg/kg/min, 25.41 mls/hr Lactulose (Lactulose Liq) 30 ml PO DAILY PRN PRN Reason: SEVERE CONSITIPATION Levothyroxine Sodium (Synthroid) 150 mcg PO DAILY@0600 CATHLEEN Magnesium Oxide (Mag-Ox) 800 mg PO UNSCH PRN PRN Reason: For Magnesium 1.2 - 1.6 mg/dL Miscellaneous Information (Misc Pharmacy Ordered Lab Info) 0 each OTHER ONCE ONE Stop: 09/07/18 16:46 Morphine Sulfate (Morphine Inj) 2 mg IV.PUSH Q2H PRN PRN Reason: PAIN SCALE 6 TO 10 Last Admin: 09/05/18 10:38 Dose: 2 mg Pharmacy Profile Note (Vancomycin Consult Pharmacy) 1 each OTHER UNSCH PRN PRN Reason: Pharmacy to dose Potassium Bicarb/Potassium Chloride (K-Lyte Cl Eff) 50 meq PO UNSCH PRN PRN Reason: For Potassium 3.3 - 3.5 mEq/L Potassium Phosphate (K-Phos Original) 2,000 mg PO Q4H PRN PRN Reason: Phosphorus Less Than 2.5 mg/dL Potassium Phosphate (K-Phos Original) 2,000 mg PO UNSCH PRN PRN Reason: SEE LABEL COMMENTS Senna/Docusate Sodium (Sunshine-Colace) 1 tab PO BID [facility] Last Admin: 09/05/18 10:20 Dose: Not Given Sodium Chloride (Ns Flush) 2 ml IV.FLUSH BID [facility] Last Admin: 09/05/18 10:21 Dose: 2 ml Sodium Chloride (Ns Flush) 2 ml IV.FLUSH PRN PRN PRN Reason: FLUSH AFTER USING IV ACCESS Allergies Allergy/AdvReac Type Severity Reaction Status Date / Time Sulfa (Sulfonamide Allergy Intermediate RASH, Verified 09/05/18 02:09 Antibiotics) SWELLING Home Medications Medication Instructions Recorded Confirmed Type aspirin [Aspir-81] 81 mg PO DAILY 09/04/18 09/04/18 History doxazosin 8 mg PO DAILY 09/04/18 09/04/18 History levothyroxine 150 mcg PO DAILY 09/04/18 09/04/18 History lisinopril 5 mg PO BID 09/04/18 09/04/18 History nifedipine 30 mg PO DAILY 09/04/18 09/04/18 History Exam Vital signs: Vital Signs 09/04/18 19:53 09/04/18 21:55 09/04/18 23:35 Temperature 99.0 F 99.0 F Pulse Rate 109 H 93 H Respiratory Rate 22 16 Blood Pressure 112/59 L 121/62 Pulse Oximetry 97 96 95 09/05/18 02:14 09/05/18 03:00 09/05/18 04:00 Temperature 98.5 F Pulse Rate 89 98 H 90 Respiratory Rate 16 20 22 Blood Pressure 116/63 129/63 126/65 Pulse Oximetry 96 95 98 09/05/18 05:00 09/05/18 06:00 09/05/18 09:01 Temperature Pulse Rate 92 H 90 Respiratory Rate 19 25 H 14 Blood Pressure 124/66 127/69 Pulse Oximetry 98 99 94 L 09/05/18 09:16 09/05/18 09:24 09/05/18 10:00 Temperature 99.7 F H Pulse Rate 105 H 106 H 113 H Respiratory Rate 14 14 14 Blood Pressure 121/65 Pulse Oximetry 93 L 93 L 93 L 09/05/18 10:24 09/05/18 11:00 09/05/18 11:24 Temperature 99.5 F 99.1 F 99.5 F Pulse Rate 99 H 91 H 96 H Respiratory Rate 14 26 H 31 H Blood Pressure 103/57 L 93/54 L Pulse Oximetry 95 96 97 09/05/18 11:46 09/05/18 12:00 09/05/18 13:00 Temperature 99.5 F 99.0 F Pulse Rate 89 85 Respiratory Rate 20 19 20 Blood Pressure Pulse Oximetry 100 99 100 09/05/18 13:24 Temperature 98.8 F Pulse Rate 82 Respiratory Rate 20 Blood Pressure 93/53 L Pulse Oximetry 100 Intake & Output 09/04/18 09/05/18 09/05/18 18:59 06:59 18:59 Intake Total 2506 / 2506 2321 / 2321 Output Total 350 / 350 250 / 250 Balance 2156 / 2156 2071 / 2071 Weight 121 kg Intake: IV 2506 / 2506 1721 / 1721 Cleocin Inj 900 MG In NS Inj 106 / 106 106 / 106 100 ML @ 100 mls/hr IV.SIG Q8H CATHLEEN Rx#:[id number] LR 1000 mL Inj 1,000 ML @ As 1000 / 1000 Directed IV.SIG BOLUS ONE Rx#: [id number] Zosyn 3.375 GM Premix 50 ML @ 50 / 50 100 mls/hr IV.SIG ONCE ONE Rx#: [id number] Zosyn 4.5 GM Premix 4.5 gm In 100 / 100 100 / 100 100 ml @ 200 mls/hr IV.SIG Q6H CATHLEEN Rx#:[id number] NS Inj 1,000 ML @ Wide Open IV. 1000 / 1000 SIG BOLUS ONE Rx#:[id number] NS Inj 500 ML @ Wide Open IV. 1000 / 1000 SIG BOLUS ONE Rx#:[id number] Vancomycin Inj 1,000 MG In NS 250 / 250 Inj 250 ML @ 250 mls/hr IV.SIG ONCE ONE Rx#:[id number] Vancomycin Inj 1,500 MG In NS 515 / 515 Inj 500 ML @ 250 mls/hr IV.SIG Q18H CATHLEEN Rx#:[id number] Anesthesia Amount 600 / 600 Output: Estimated Blood Loss 100 / 100 Urine Amount (Catheter) 350 / 350 150 / 150 Indwelling Urethral Catheter 350 / 350 150 / 150 Other: Mode Setting Groin Continuous Date of Last Bowel Movement 08/31/18 08/31/18 Weight On Admission 121 kg - Constitutional no acute distress, morbidly obese - Routine HEENT Exam Head: Present: normocephalic, atraumatic Eye: Present: EOMI, PERRL ENT: Present: mucous membranes dry, oropharynx clear - Routine Neck Exam Present: supple. Absent: JVD - Routine Respiratory Exam Present: patient mechanically ventilated, CTA bilaterally. Absent: accessory muscle use - Routine Cardiovascular Exam Present: RRR, S1, S2. Absent: murmur, gallop - Routine Abdominal Exam Present: soft, normoactive bowel sounds, tenderness (Lower abdomen), distended. Absent: organomegaly, mass - Routine Exam Penile: Present: swelling Scrotal: Present: swelling Groin: Present: swelling, erythema Comments: Dressing in place suprapubic area is indurated and erythematous No crepitus VAC in place - Routine Extremities Exam Absent: cyanosis, clubbing, edema - Routine Skin Exam Present: dry, warm. Absent: rash - Routine Neurological Exam Present: moving all extremities. Absent: alert sedated, pt seen post op opens eye to voice - Routine Psychiatric Exam Present: unable to assess Results - Labs CBC & Chem 7: 09/04/18 21:30 09/04/18 21:30 Labs: Laboratory Results - last 24 hr 09/04/18 09/04/18 09/04/18 21:30 21:30 21:30 CBC w Diff Slide review pending WBC 1.9 L Corrected WBC 1.8 L RBC 3.11 L Hgb 10.1 L Hct 29.9 L MCV 96.2 MCH 32.5 MCHC 33.8 RDW 18.5 H Plt Count 493 H MPV 9.4 WBC Differential Manual diff final Seg Neuts % (Manual) 4 L Band Neuts % (Manual) 1 Lymphocytes % (Manual) 76 H Monocytes % (Manual) 17 H Plasma Cell % (Manual) 2 H Abs Neuts (Manual) 0.1 L* Nucleated RBCs/100 WBC 8 H Differential Comment . Dohle Bodies Present H Platelet Estimate High H Platelet Morphology Enlarged H Ovalocytes 1+ H PT 14.5 H INR 1.4 APTT 31.2 H Puncture Site Patient Temperature O2 Saturation ABG pH ABG pCO2 ABG pO2 ABG HCO3 ABG O2 Content ABG Base Excess ABG Methemoglobin Hemoglobin Carboxyhemoglobin O2 Delivery Device Vent Setting Inspired O2 Critical Value Sodium 136 Potassium 4.0 Chloride 104 Carbon Dioxide 24.5 Anion Gap 8 BUN 27 H Creatinine 1.10 Estimated GFR 63 L POC Glucose Random Glucose 108 H Lactic Acid Calcium 7.9 L Magnesium 2.3 Total Bilirubin 1.0 AST 21 ALT 27 Alkaline Phosphatase 99 Total Creatine Kinase 10 L Troponin I Less than 0.02 L C-Reactive Protein Total Protein 7.9 Albumin 2.3 L Lipase 113 Urine Color Urine Clarity Urine pH Ur Specific [place] Urine Protein Urine Glucose (UA) Urine Ketones Urine Occult Blood Urine Nitrate Urine Bilirubin Urine Urobilinogen Ur Leukocyte Esterase Urine WBC Ur Squamous Epith Cells Amorphous Sediment Urine Bacteria Urine Mucus Micro UA Comment Ur Microscopic Review Urine Culture Comments Nasal Screen MRSA (PCR) 09/04/18 09/04/18 09/04/18 21:30 21:30 22:01 CBC w Diff WBC Corrected WBC RBC Hgb Hct MCV MCH MCHC RDW Plt Count MPV WBC Differential Seg Neuts % (Manual) Band Neuts % (Manual) Lymphocytes % (Manual) Monocytes % (Manual) Plasma Cell % (Manual) Abs Neuts (Manual) Nucleated RBCs/100 WBC Differential Comment Dohle Bodies Platelet Estimate Platelet Morphology Ovalocytes PT INR APTT Puncture Site Patient Temperature O2 Saturation ABG pH ABG pCO2 ABG pO2 ABG HCO3 ABG O2 Content ABG Base Excess ABG Methemoglobin Hemoglobin Carboxyhemoglobin O2 Delivery Device Vent Setting Inspired O2 Critical Value Sodium Potassium Chloride Carbon Dioxide Anion Gap BUN Creatinine Estimated GFR POC Glucose 129 H Random Glucose Lactic Acid 2.0 Calcium Magnesium Total Bilirubin AST ALT Alkaline Phosphatase Total Creatine Kinase Troponin I C-Reactive Protein 12.90 H Total Protein Albumin Lipase Urine Color Urine Clarity Urine pH Ur Specific [place] Urine Protein Urine Glucose (UA) Urine Ketones Urine Occult Blood Urine Nitrate Urine Bilirubin Urine Urobilinogen Ur Leukocyte Esterase Urine WBC Ur Squamous Epith Cells Amorphous Sediment Urine Bacteria Urine Mucus Micro UA Comment Ur Microscopic Review Urine Culture Comments Nasal Screen MRSA (PCR) 09/04/18 09/05/18 09/05/18 22:20 04:00 08:51 CBC w Diff WBC Corrected WBC RBC Hgb Hct MCV MCH MCHC RDW Plt Count MPV WBC Differential Seg Neuts % (Manual) Band Neuts % (Manual) Lymphocytes % (Manual) Monocytes % (Manual) Plasma Cell % (Manual) Abs Neuts (Manual) Nucleated RBCs/100 WBC Differential Comment Dohle Bodies Platelet Estimate Platelet Morphology Ovalocytes PT INR APTT Puncture Site Unknown Patient Temperature 98.6 O2 Saturation 95 ABG pH 7.31 L ABG pCO2 47 H ABG pO2 108 ABG HCO3 23 ABG O2 Content 17.5 ABG Base Excess -2.0 ABG Methemoglobin 1.5 Hemoglobin 13.1 Carboxyhemoglobin 0.9 O2 Delivery Device Vent Setting Inspired O2 50 Critical Value No Sodium Potassium Chloride Carbon Dioxide Anion Gap BUN Creatinine Estimated GFR POC Glucose Random Glucose Lactic Acid Calcium Magnesium Total Bilirubin AST ALT Alkaline Phosphatase Total Creatine Kinase Troponin I C-Reactive Protein Total Protein Albumin Lipase Urine Color Yellow Urine Clarity Clear Urine pH 5.5 Ur Specific [place] 1.020 Urine Protein 30 H Urine Glucose (UA) Negative Urine Ketones Negative Urine Occult Blood Negative Urine Nitrate Negative Urine Bilirubin Negative Urine Urobilinogen 0.2 Ur Leukocyte Esterase Negative Urine WBC 6-8 H Ur Squamous Epith Cells 0-5 Amorphous Sediment Rare H Urine Bacteria Few H Urine Mucus Few H Micro UA Comment Culture not ind Ur Microscopic Review Microscopic reviewed Urine Culture Comments Culture not ind Nasal Screen MRSA (PCR) Not detected 09/05/18 11:55 CBC w Diff WBC Corrected WBC RBC Hgb Hct MCV MCH MCHC RDW Plt Count MPV WBC Differential Seg Neuts % (Manual) Band Neuts % (Manual) Lymphocytes % (Manual) Monocytes % (Manual) Plasma Cell % (Manual) Abs Neuts (Manual) Nucleated RBCs/100 WBC Differential Comment Dohle Bodies Platelet Estimate Platelet Morphology Ovalocytes PT INR APTT Puncture Site Art line Patient Temperature 98.6 O2 Saturation 96 ABG pH 7.35 L ABG pCO2 42 ABG pO2 126 H ABG HCO3 23 ABG O2 Content 13.1 ABG Base Excess -1.9 ABG Methemoglobin 1.1 Hemoglobin 9.5 L Carboxyhemoglobin 1.4 O2 Delivery Device Ventilator Vent Setting See comments Inspired O2 40 Critical Value No Sodium Potassium Chloride Carbon Dioxide Anion Gap BUN Creatinine Estimated GFR POC Glucose Random Glucose Lactic Acid Calcium Magnesium Total Bilirubin AST ALT Alkaline Phosphatase Total Creatine Kinase Troponin I C-Reactive Protein Total Protein Albumin Lipase Urine Color Urine Clarity Urine pH Ur Specific [place] Urine Protein Urine Glucose (UA) Urine Ketones Urine Occult Blood Urine Nitrate Urine Bilirubin Urine Urobilinogen Ur Leukocyte Esterase Urine WBC Ur Squamous Epith Cells Amorphous Sediment Urine Bacteria Urine Mucus Micro UA Comment Ur Microscopic Review Urine Culture Comments Nasal Screen MRSA (PCR) - Imaging Impressions Abdomen/Pelvis CT 09/04/18 21:11 CONCLUSION: 1. 7.5 cm inflammatory and edematous area in the right inguinal region containing probable small loculated abscesses. Edematous change extends inferiorly through the lower aspect of both inguinal canals into the scrotum with marked scrotal wall thickening and small locules of air in the upper left scrotum that could represent a necrotizing infection. There is herniation of fat through both inguinal canals, worse on the left side with herniated fat in the left scrotum measuring up to 9.5 cm in diameter. 2. Hepatosplenomegaly. Moderate coronary calcifications. Small pericardial effusion. Chest X-Ray 09/04/18 21:11 CONCLUSION: No focal lung consolidation. Tortuous aorta. Chest X-Ray 09/05/18 00:00 CONCLUSION: Adequate placement of endotracheal tube. Assessment and Plan - Plan Immunosuppresed pt with idiopathic neutropenia. ANC 100 Bilateral inguinal abscess. Melina's gangrene. Sp emergent debridement agree with initial abx choice P cultures Will also add micafungin - pt is immunosuppressed will fu clx dw Dr Naga Andrew
--- NOTE | 2018-09-05 15:09 | ECG ---
Date Performed: 09/05/2018 Time Performed: 05:29:36 PTAGE: 88 years EKG: Atrial fibrillation with rapid ventricular response with PVC(s) or aberrant ventricular con duction. Low QRS voltages in limb leads Since the previous tracing, no significant change noted Abnor mal ECG PREVIOUS TRACING : 09/04/2018 22.02 DOCTOR: Tadeo Holland Interpretating Date/Time 09/05/2018 14:56:25
--- NOTE | 2018-09-05 15:09 | ECG ---
Date Performed: 09/04/2018 Time Performed: 22:02:23 PTAGE: 88 years EKG: ATRIAL FLUTTER/TACHYCARDIA WITH RAPID VENTRICULAR RESPONSE WITH ABERRANT CONDUCTION OR VENT RICULAR PREMATURE COMPLEXES Since the previous tracing, no significant change noted ABNORMAL RHYTHM E CG PREVIOUS TRACING : 03/04/2006 08.13 DOCTOR: Tadeo Holland Interpretating Date/Time 09/05/2018 14:56:17
[2018-09-05] MEDS: Micafungin Inj 150 MG in Sodium Chlor 0.9% Inj 100 ML IV.SIG SCH (16:51)
--- NOTE | 2018-09-05 19:13 | P.CON ---
History of Present Illness Consult date: 09/05/18 Reason for Consult: Bilateral groin abscesses with possible necrotizing infection Primary Care Provider: Frankie Colvin MD Chief Complaint: Scrotal pain History of Present Illness: Patient is an 88-year-old male with a known history of leukopenia with at least a 1 week history of bilateral groin lesions. Family saw this and brought him to the hospital. Scans demonstrate some gas and findings consistent with abscess. He also has a known inguinal hernia that is reducible. PMFSH - History History Provided By: Patient, Family Member - Medical History Medical History: Medical History (Last Reviewed 09/05/18 @ 14:26 by Marlyn Holland MD) HTN (hypertension) History of prostate cancer Hx of osteoarthritis Hypothyroidism Myelofibrosis Sleep apnea - Surgical History Surgical History: Surgical History (Last Reviewed 09/05/18 @ 14:26 by Marlyn Holland MD) History of hernia repair Hx of bilateral hip replacements Hx of prostatectomy - Family History Family History: Family History (Last Updated 09/05/18 @ 14:26 by Marlyn Holland MD) Other Family history unobtainable - Tobacco History Second Hand Smoke Exposure: No Tobacco Use In Past 30 Days: No Smoking Status: Former smoker Tobacco Type: Cigarettes - Alcohol History How Often Do You Have a Drink Containing Alcohol: 2 to 4 times a month - Substance Use History Substance History: No History of Abuse - Travel History Recent Travel in the [place] Within the Last 8 Weeks: No Recent Travel Out of the Country Within the Last 8 Weeks: No - Immunization History Tetanus Immunization: >5 Years Hx Influenza Vaccine This Season: No Medications and Allergies Active Medications: Active Medications Albuterol (Albuterol Neb (Prn)) 2.5 mg NEB Q2HR NEB PRN PRN Reason: SHORTNESS OF BREATH/WHEEZING Chlorhexidine Gluconate (Chlorhexidine 2% Cloth) 3 pack TOPICAL DAILY@0400 [facility]ATH[facility]EN Stop: 09/10/18 03:59 Last Admin: 09/05/18 06:10 Dose: 3 pack Chlorhexidine Gluconate (Chlorhexidine 2% Cloth) 3 pack TOPICAL DAILY@0400 PRN PRN Reason: Extra cloth needed Stop: 09/10/18 03:59 Famotidine (Pepcid Pf Inj) 20 mg IV.PUSH Q12HR CATHLEEN Last Admin: 09/05/18 10:21 Dose: 20 mg Piperacillin/Tazobactam/Dextrose (Zosyn 4.5 Gm Premix) 4.5 gm in 100 mls @ 200 mls/hr IV.SIG Q6H [facility]ATH[facility]EN Last Infusion: 09/05/18 16:52 Dose: Infused Clindamycin Phosphate 900 mg/ (Sodium Chloride) 106 mls @ 100 mls/hr IV.SIG Q8H [facility] Last Infusion: 09/05/18 15:10 Dose: Infused Magnesium Sulfate 2 gm/ Sodium (Chloride) 100 mls @ 50 mls/hr IV.SIG UNSCH PRN PRN Reason: For Magnesium 1.2 - 1.6 mg/dL Potassium Chloride (Kcl 40 Meq Premix Inj) 40 meq in 100 mls @ 25 mls/hr IV.SIG Q2H PRN PRN Reason: For Potassium 2.8 - 3.2 mEq/L Potassium Chloride (Kcl 20 Meq Premix Inj) 20 meq in 100 mls @ 50 mls/hr IV.SIG Q2H PRN PRN Reason: For Potassium 3.3 - 3.5 mEq/L Potassium Chloride (Kcl 40 Meq Premix Inj) 40 meq in 100 mls @ 25 mls/hr IV.SIG UNSCH PRN PRN Reason: For Potassium 3.3 - 3.5 mEq/L Potassium Chloride (Kcl 20 Meq Premix Inj) 20 meq in 100 mls @ 50 mls/hr IV.SIG Q2H PRN PRN Reason: For Potassium 2.8 - 3.2 mEq/L Potassium Phosphate 30 mmol/ (Sodium Chloride) 260 mls @ 42 mls/hr IV.SIG UNSCH PRN PRN Reason: SEE LABEL COMMENTS Sodium Phosphate 30 mmol/ (Sodium Chloride) 260 mls @ 42 mls/hr IV.SIG UNSCH PRN PRN Reason: For Phosphorus < 2.5 mg/dL Magnesium Sulfate 4 gm/ Sodium (Chloride) 100 mls @ 50 mls/hr IV.SIG UNSCH PRN PRN Reason: For Magnesium 0.9 - 1.1 mg/dL Vancomycin HCl 1,500 mg/ (Sodium Chloride) 515 mls @ 250 mls/hr IV.SIG Q18H [facility] Last Infusion: 09/05/18 14:06 Dose: Infused Lactated Ringer's (Lr 1000 Ml Inj) 1,000 mls @ 125 mls/hr IV.CONT .Q8H [facility]ATHLEEN Last Admin: 09/05/18 18:10 Dose: Not Given Propofol (Diprivan 1000 Mg/100 Ml Inj) 1,000 mg in 100 mls @ 3.63 mls/hr IV.CONT TITRATE PRN; Protocol PRN Reason: Per Protocol Last Admin: 09/05/18 16:06 Dose: 25 mcg/kg/min, 18.15 mls/hr Micafungin Sodium 150 mg/ (Sodium Chloride) 100 mls @ 100 mls/hr IV.SIG Q24H [facility] Last Admin: 09/05/18 16:51 Dose: 100 mls/hr Lactulose (Lactulose Liq) 30 ml PO DAILY PRN PRN Reason: SEVERE CONSITIPATION Levothyroxine Sodium (Synthroid) 150 mcg PO DAILY@0600 [facility] Magnesium Oxide (Mag-Ox) 800 mg PO UNSCH PRN PRN Reason: For Magnesium 1.2 - 1.6 mg/dL Miscellaneous Information ([facility] Ordered Lab Info) 0 each OTHER ONCE ONE Stop: 09/07/18 16:46 Morphine Sulfate (Morphine Inj) 2 mg IV.PUSH Q2H PRN PRN Reason: PAIN SCALE 6 TO 10 Last Admin: 09/05/18 10:38 Dose: 2 mg Pharmacy Profile Note (Vancomycin Consult Pharmacy) 1 each OTHER UNSCH PRN PRN Reason: Pharmacy to dose Potassium Bicarb/Potassium Chloride (K-Lyte Cl Eff) 50 meq PO UNSCH PRN PRN Reason: For Potassium 3.3 - 3.5 mEq/L Potassium Phosphate (K-Phos Original) 2,000 mg PO Q4H PRN PRN Reason: Phosphorus Less Than 2.5 mg/dL Potassium Phosphate (K-Phos Original) 2,000 mg PO UNSCH PRN PRN Reason: SEE LABEL COMMENTS Senna/Docusate Sodium (Sunshine-Colace) 1 tab PO BID [facility] Last Admin: 09/05/18 10:20 Dose: Not Given Sodium Chloride (Ns Flush) 2 ml IV.FLUSH BID [facility] Last Admin: 09/05/18 10:21 Dose: 2 ml Sodium Chloride (Ns Flush) 2 ml IV.FLUSH PRN PRN PRN Reason: FLUSH AFTER USING IV ACCESS Allergies Allergy/AdvReac Type Severity Reaction Status Date / Time Sulfa (Sulfonamide Allergy Intermediate RASH, Verified 09/05/18 02:09 Antibiotics) SWELLING Home Medications Medication Instructions Recorded Confirmed Type aspirin [Aspir-81] 81 mg PO DAILY 09/04/18 09/04/18 History doxazosin 8 mg PO DAILY 09/04/18 09/04/18 History levothyroxine 150 mcg PO DAILY 09/04/18 09/04/18 History lisinopril 5 mg PO BID 09/04/18 09/04/18 History nifedipine 30 mg PO DAILY 09/04/18 09/04/18 History Physical Exam Vital signs: Vital Signs 09/04/18 19:53 09/04/18 21:55 09/04/18 23:35 Temperature 99.0 F 99.0 F Pulse Rate 109 H 93 H Respiratory Rate 22 16 Blood Pressure 112/59 L 121/62 Pulse Oximetry 97 96 95 09/05/18 02:14 09/05/18 03:00 09/05/18 04:00 Temperature 98.5 F Pulse Rate 89 98 H 90 Respiratory Rate 16 20 22 Blood Pressure 116/63 129/63 126/65 Pulse Oximetry 96 95 98 09/05/18 05:00 09/05/18 06:00 09/05/18 09:01 Temperature Pulse Rate 92 H 90 Respiratory Rate 19 25 H 14 Blood Pressure 124/66 127/69 Pulse Oximetry 98 99 94 L 09/05/18 09:16 09/05/18 09:24 09/05/18 10:00 Temperature 99.7 F H Pulse Rate 105 H 106 H 113 H Respiratory Rate 14 14 14 Blood Pressure 121/65 Pulse Oximetry 93 L 93 L 93 L 09/05/18 10:24 09/05/18 11:00 09/05/18 11:24 Temperature 99.5 F 99.1 F 99.5 F Pulse Rate 99 H 91 H 96 H Respiratory Rate 14 26 H 31 H Blood Pressure 103/57 L 93/54 L Pulse Oximetry 95 96 97 09/05/18 11:46 09/05/18 12:00 09/05/18 13:00 Temperature 99.5 F 99.0 F Pulse Rate 89 85 Respiratory Rate 20 19 20 Blood Pressure Pulse Oximetry 100 99 100 09/05/18 13:24 09/05/18 13:54 09/05/18 14:00 Temperature 98.8 F 98.8 F 98.6 F Pulse Rate 82 82 78 Respiratory Rate 20 20 19 Blood Pressure 93/53 L 101/59 L Pulse Oximetry 100 100 100 09/05/18 14:54 09/05/18 15:00 09/05/18 15:12 Temperature 98.8 F 98.8 F Pulse Rate 78 78 Respiratory Rate 20 19 19 Blood Pressure 96/54 L Pulse Oximetry 100 100 100 09/05/18 15:54 09/05/18 16:00 09/05/18 16:54 Temperature 99.5 F 99.3 F 99.0 F Pulse Rate 82 81 81 Respiratory Rate 27 H 27 H 27 H Blood Pressure 117/62 103/58 L Pulse Oximetry 100 100 99 09/05/18 17:00 09/05/18 17:54 09/05/18 18:00 Temperature 98.6 F 99.9 F H 99.9 F H Pulse Rate 77 81 81 Respiratory Rate 25 H 26 H 29 H Blood Pressure 109/58 L Pulse Oximetry 99 99 99 Intake & Output 09/05/18 09/05/18 09/06/18 06:59 18:59 06:59 Intake Total 2506 / 2506 3627 / 3627 Output Total 350 / 350 800 / 800 Balance 2156 / 2156 2827 / 2827 Weight 121 kg Intake: IV 2506 / 2506 3027 / 3027 Diprivan 1000 mg/100 ml Inj 1, 100 / 100 000 mg In 100 ml @ 5 MCG/KG/MIN 3.63 mls/hr IV.CONT TITRATE PRN Rx#:[id number] NS Inj 1,000 ML @ 84 mls/hr IV. 1000 / 1000 CONT .[id number] [facility]ATHLEEN Rx#: [id number] Cleocin Inj 900 MG In NS Inj 106 / 106 212 / 212 100 ML @ 100 mls/hr IV.SIG Q8H [facility] Rx#:[id number] LR 1000 mL Inj 1,000 ML @ As 1000 / 1000 Directed IV.SIG BOLUS ONE Rx#: [id number] Zosyn 3.375 GM Premix 50 ML @ 50 / 50 100 mls/hr IV.SIG ONCE ONE Rx#: [id number] Zosyn 4.5 GM Premix 4.5 gm In 100 / 100 200 / 200 100 ml @ 200 mls/hr IV.SIG Q6H [facility]ATHLEEN Rx#:[id number] NS Inj 1,000 ML @ Wide Open IV. 1000 / 1000 SIG BOLUS ONE Rx#:[id number] NS Inj 500 ML @ Wide Open IV. 1000 / 1000 SIG BOLUS ONE Rx#:[id number] Vancomycin Inj 1,000 MG In NS 250 / 250 Inj 250 ML @ 250 mls/hr IV.SIG ONCE ONE Rx#:[id number] Vancomycin Inj 1,500 MG In NS 515 / 515 Inj 500 ML @ 250 mls/hr IV.SIG Q18H [facility] Rx#:[id number] Anesthesia Amount 600 / 600 Output: Estimated Blood Loss 100 / 100 Urine Amount (Catheter) 350 / 350 550 / 550 Indwelling Urethral Catheter 350 / 350 550 / 550 Wound Vac Amount 150 / 150 Groin 150 / 150 Other: Mode Setting Groin Continuous Date of Last Bowel Movement 08/31/18 08/31/18 # Bowel Movements 0 Weight On Admission 121 kg - Constitutional no acute distress - Routine HEENT Exam Head: Present: normocephalic, atraumatic - Routine Respiratory Exam Present: CTA bilaterally - Routine Cardiovascular Exam Present: RRR - Routine Abdominal Exam Present: soft - Routine Exam Patient deferred: groin exam (Erythema and swelling in the suprapubic region on the right; skin breakdown over an area approximately 4 x 4 cm on the right and 1 x 2 cm on the left with drainage) Groin: Present: inguinal hernia, swelling, erythema Perineum Description: Intact - Routine Skin Exam Present: intact - Routine Neurological Exam Present: CN II-XII intact - Urinary Catheter Management Indwelling Urethral Catheter Cath placed during this visit: yes Reason for continuing: Severe pressure ulcer/wound Insertion date: 09/05/18 Insertion time: 00:53 Assessment and Plan - Assessment (1) Cellulitis Code(s): L03.90 - Cellulitis, unspecified Status: Acute (2) Infected wound Code(s): T14.8XXA - Other injury of unspecified body region, initial encounter; L08.9 - Local infection of the skin and subcutaneous tissue, unspecified Status: Acute (3) Neutropenia Code(s): D70.9 - Neutropenia, unspecified Status: Acute (4) Abscess of groin Code(s): L02.214 - Cutaneous abscess of groin Status: Acute Plan: Discussed with Dr. Rae; will examine under anesthesia and debride as needed. I expect he will require extensive debridement and VAC placement. I have discussed this with the patient's daughter and the likelihood of multiple procedures. She vocalizes understanding and agrees to proceed. Patient is aware also and agrees to proceed. - Attending Attestation I attest that I had a [id number] encounter with the patient on the same day, and personally performed and documented my assessment and findings in the medical record. The following services were provided during this hospital visit: Chart data review, vital sign assessments/reviewing monitor data Review of consultation notes if present Medication orders/review and/or management Ordering and/or reviewing lab tests Ordering and/or interpreting/reviewing x-rays and/or diagnostic studies Care of the patient and discussion of the patient with the care team Documentation time To help prompt me to consider important information that might be impacting today's encounter and assessment, Information from prior notes written by myself or my colleagues may have been "brought forward/copy and pasted" into today's note. (1) Cellulitis Qualifiers: Site of cellulitis: other site Qualified Code(s): L03.818 - Cellulitis of other sites
--- NOTE | 2018-09-05 19:26 | P.OP ---
- Preoperative Diagnosis (1) Infected wound (2) Abscess of groin - Postoperative Diagnosis (1) Infected wound (2) Abscess of groin Date of procedure: 09/05/18 Procedure: Incision and drainage bilateral groin abscesses Excision 100 cm skin and subcutaneous tissue. Placement of negative pressure VAC dressing Anesthesia: REGI Surgeon: Obinna Blake MD Applied Researcher: Jorge Sunshine MD Estimated blood loss (mL): 100 IV fluids (mL): 1,000 Pathology: other (Culture and sensitivity both groins to microbiology) Operation and Findings: Patient was taken to the operating room and placed on the operating table in the supine position. After an adequate level of general endotracheal anesthesia was achieved both legs were placed in yellow fin stirrups. The suprapubic region, and groins were shaved prepped and draped. Time-out was taken, confirming the correct patient, site, and procedures to be performed. Attention was turned to the left side first. Incision was made over the patient 's indurated tissue and a small amount of skin and subcutaneous tissue was excised on this side. All loculations were broken up and the wound was irrigated. A small vein was ligated with silk suture. Bleeding points were controlled with electrocautery and the wound packed with a laparotomy sponge. Attention was then turned to the right side. An incision was made around the patient's necrotic skin and a king-shaped piece of skin was removed. Subcutaneous tissue, which was necrotic as well, was sharply excised away. Approximately 100 cm of skin and subcutaneous tissue was removed from both sides. When this was completed, bleeding was meticulously controlled with electrocautery. All loculations were broken up and skin debrided back to bleeding skin. When this had been completed, VAC sponges were placed on both sides and the adhesive fixed down. Good seal was achieved on both sides. Please see Dr. Jorge Rae's dictation for his portion of the procedure. He examined the patient's genitals and perineum to confirm that there was no involvement of the scrotal tissues or penis. Sponge, needle, and instrument counts were reported to be correct. The patient was taken back to intensive care intubated and in stable but critical condition.
[2018-09-05 20:45] LABS: Hematocrit 26.1 % (39.0-51.0); Hemoglobin 8.4 gm/dL (13.0-17.0); Mean Corpuscular Hemoglobin 32.2 pg (27.0-34.0); Mean Corpuscular Volume 100.7 fL (80.0-100.0); Mean Platelet Volume 9.8 fL (7.0-11.0); Platelet Count 367 th/mm3 (150-450); Red Cell Distribution Width 18.8 % (11.6-17.2); White Blood Count 1.4 th/mm3 (4.0-11.0)
--- NOTE | 2018-09-06 00:10 | MB ---
cc: Lionel Wells MD DATE: 09/05/2018 REASON FOR CONSULTATION: Consult requested by bellows assembler, Dr. Dukes, for evaluation of neutropenia in a patient with a history of myelofibrosis. HISTORY OF PRESENT ILLNESS: Bhavesh is an 88-year-old male. He just came back from the OR after having surgery in the inguinal area for abscesses. He is still on the ventilator. History is obtained through review of the records and talking to his daughter over the phone. According to the patient's daughter, he was diagnosed with myelofibrosis in November of this year. He is under the care of Dr. Feliz. The details of exact treatment are not available. According to the daughter, he was given Neupogen for leukopenia, which did work for a while. Recently, his hemoglobin was dropping. Dr. Feliz recommended that the patient should get a second opinion from [facility]. The patient was evaluated by farm operator/oncologist at [facility] last week, Tuesday. They have recommended to repeat the bone marrow biopsy. The patient came home. Over the weekend, the patient noticed wound in his groin area. He has a history of inguinal hernia. There was significant swelling noted in the scrotum. The patient was brought into the emergency room last night. The patient was evaluated by ER physician, Dr. Chang. The patient had a CT scan of the abdomen and pelvis, which showed a 7.5 cm inflammatory edematous area in the right inguinal region containing small loculated abscesses. The edematous changes extends inferiorly through the lower aspect of both inguinal canals into the scrotum with marked scrotal wall thickening and small locules of air in the upper left scrotum that could represent a necrotizing infection. There is herniation of fat through both inguinal canals noted, worse on the left side. He also has hepatosplenomegaly, moderate coronary calcification, and a small pericardial effusion. The spleen is 18 cm and liver is 29 cm. Urologist, Dr. Sunshine, and general surgeon, Dr. Blake, were consulted. The patient was taken to the OR on an urgent basis this morning. He underwent I and D and drainage of the abscess. The patient's blood count on admission showed white count 1.9, hemoglobin 10.1, and platelet count of 493. His absolute neutrophil count is only 100. Because of the neutropenia and myelofibrosis I have been asked to see him for further evaluation. The patient's records of myelofibrosis from Dr. Feliz's office or [facility] are not available. REVIEW OF SYSTEMS: Not possible as the patient is on the ventilator. PAST MEDICAL HISTORY: Myelofibrosis, hypertension, history of prostate cancer, arthritis, hypothyroidism, sleep apnea. PAST SURGICAL HISTORY: Bilateral hip replacement and prostatectomy. ALLERGIES: SULFA. MEDICATIONS: Prior to coming to the hospital: 1. Aspirin. 2. Doxazosin. 3. Levothyroxine. 4. Lisinopril. 5. Nifedipine. FAMILY HISTORY: Unable to obtain. SOCIAL HISTORY: Unable to obtain. PHYSICAL EXAMINATION: GENERAL: A well-developed, elderly male who is on the ventilator, just came from the OR. VITAL SIGNS: Temperature 98.5, heart rate is 90, respiratory rate is 22, blood pressure 126/65. HEENT: ET tube noted. NECK: No lymphadenopathy. LUNGS: Clear. No wheezes, rhonchi or rales. CARDIOVASCULAR: Regular rate and rhythm. ABDOMEN: Spleen and liver both are palpable. GROIN AREA: The patient has surgical dressing from recent surgery. EXTREMITIES: No pedal edema. NEUROLOGIC: The patient is on the ventilator, sedated. SKIN: No significant lesions noted. ASSESSMENT: 1. Leukopenia with neutropenia, normocytic normochromic anemia and thrombocytosis with hepatosplenomegaly. This is consistent with a primary bone marrow disorder, consistent with a myeloproliferative disorder. 2. Neutropenic sepsis. 3. Melina gangrene of the scrotum. PLAN: I have reviewed his available records. I have discussed with the patient's daughter and got some of the information. The patient's white count is 1.9 and his absolute neutrophil count is only 100. Given the nature of the infection, I will start him on Neupogen at 480 mcg daily. Infectious disease has been consulted for the antibiotics management. The patient has been operated on by Dr. Blake early this morning. The patient remains on the ventilator for close monitoring. The patient's daughter states that he was scheduled to have a repeat bone marrow biopsy at [facility] sometime this week, which of course needs to be rescheduled. Once the patient is stable and will go home, his daughter will call [facility] to reschedule the bone marrow biopsy. I do not recommend for a bone marrow biopsy during this admission. The patient's daughter has asked questions and these were answered to her satisfaction. Thank you for asking my opinion. MD PAIGE Coleman/sajan , 10:22 PM , 10:38 PM VILMA
[2018-09-06] MEDS: Propofol 1000 mg/100 ml Inj 1,000 MG/100 ML BOTTLE IV.CONT PRN ×2 (01:37→06:06)
[2018-09-06 04:35] LABS: Hematocrit 26.3 % (39.0-51.0); Hemoglobin 8.4 gm/dL (13.0-17.0); Mean Corpuscular HGB Conc 32.1 % (32.0-36.0); Mean Corpuscular Hemoglobin 32.9 pg (27.0-34.0); Mean Corpuscular Volume 102.5 fL (80.0-100.0); Platelet Count 345 th/mm3 (150-450); Red Blood Count 2.57 mil/mm3 (4.50-5.90); Red Cell Distribution Width 19.2 % (11.6-17.2); White Blood Count 1.4 th/mm3 (4.0-11.0)
[2018-09-06] MEDS: Piperacil/Tazo 4.5 GM Premix 4.5 GM/100 ML BAG IV.SIG SCH ×4 (04:39→21:46)
[2018-09-06 04:41] LABS: INR 1.6 Ratio; Prothrombin Time 15.9 sec (9.8-11.6)
[2018-09-06 04:52] LABS: Calcium 7.4 mg/dL (8.5-10.1); Carbon Dioxide 24.9 meq/L (21.0-32.0); Magnesium 2.2 mg/dL (1.5-2.5); Potassium 3.8 meq/L (3.5-5.1); Total Protein 6.8 g/dL (6.4-8.2)
[2018-09-06] MEDS: Chlorhexidine Gluconate 2% 1 Pack (2 Cloths) TOPICAL SCH (05:22)
[2018-09-06] MEDS: Vancomycin Inj 1,500 MG in Sodium Chlor 0.9% Inj 500 ML IV.SIG SCH (05:25)
[2018-09-06] MEDS: Clindamycin 900 mg/NS Premix 900 MG/50 ML PIGGYBACK IV.SIG SCH ×2 (05:33→12:46)
[2018-09-06] MEDS: Levothyroxine 150 MCG Tablet PO SCH (06:12)
[2018-09-06 06:48] LABS: Lymphocytes 92 % (9-44); Monocytes 7 % (0-8); Tallied Nucleated RBC 2 (0-0)
[2018-09-06 06:50] LABS: Platelet Estimate Normal (Normal)
[2018-09-06 06:51] LABS: Ovalocytes 1+
--- NOTE | 2018-09-06 08:04 | P.PNCC ---
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 He is independent for ADLs and lives alone, family checks on him periodically. Patient has history of leukopenia, ?MDS followed by Dr. Feliz had Neupogen treatment before but did not respond. He had low-grade fever a few days ago. Initially the groin pain was attributed to his inguinal hernia, however he decided to present to the ER today as he had noticed redness and open wounds with drainage in bilateral groins. In the emergency department patient was evaluated by Dr. Chang, A stat CT of the abdomen pelvis showed 7.5 cm inflammatory and edematous area in the right inguinal region containing probable small loculated abscesses. Edematous change extends inferiorly through the lower aspect of both inguinal canals into the scrotum with marked scrotal wall thickening and small locules of air in the upper left scrotum that could represent a necrotizing infection. There is herniation of fat through both inguinal canals. Patient received crystalloid resuscitation with 3 L normal saline boluses, was also given vancomycin clindamycin and Zosyn. Blood cultures and wound cultures were sent. Dr. Blake from general surgery, and Dr. Sunshine from urology were consulted by Dr. Chang at [facility] ED. Plan is to transfer patient to the [facility], resuscitate adequately given antibiotics and plan for OR in a.m. 09/06: Patient is warm and well-perfused. Urine output is low but acceptable. I suspect he will need increased fluids as the day progresses however. Total neutrophil count of 100 is quite worrisome. Neupogen has been started by the hematology service. Timing of extubation will depend to some extent on the timing of subsequent debridement. Glucose control has not been a problem. Objective Vital Signs / I&O: Vital Signs 09/05/18 09:01 09/05/18 09:16 09/05/18 09:24 Temperature Pulse Rate 105 H 106 H Respiratory Rate 14 14 14 Blood Pressure 121/65 Pulse Oximetry 94 L 93 L 93 L 09/05/18 10:00 09/05/18 10:24 09/05/18 11:00 Temperature 99.7 F H 99.5 F 99.1 F Pulse Rate 113 H 99 H 91 H Respiratory Rate 14 14 26 H Blood Pressure 103/57 L Pulse Oximetry 93 L 95 96 09/05/18 11:24 09/05/18 11:46 09/05/18 12:00 Temperature 99.5 F 99.5 F Pulse Rate 96 H 89 Respiratory Rate 31 H 20 19 Blood Pressure 93/54 L Pulse Oximetry 97 100 99 09/05/18 13:00 09/05/18 13:24 09/05/18 13:54 Temperature 99.0 F 98.8 F 98.8 F Pulse Rate 85 82 82 Respiratory Rate 20 20 20 Blood Pressure 93/53 L 101/59 L Pulse Oximetry 100 100 100 09/05/18 14:00 09/05/18 14:54 09/05/18 15:00 Temperature 98.6 F 98.8 F 98.8 F Pulse Rate 78 78 78 Respiratory Rate 19 20 19 Blood Pressure 96/54 L Pulse Oximetry 100 100 100 09/05/18 15:12 09/05/18 15:54 09/05/18 16:00 Temperature 99.5 F 99.3 F Pulse Rate 82 81 Respiratory Rate 19 27 H 27 H Blood Pressure 117/62 Pulse Oximetry 100 100 100 09/05/18 16:54 09/05/18 17:00 09/05/18 17:54 Temperature 99.0 F 98.6 F 99.9 F H Pulse Rate 81 77 81 Respiratory Rate 27 H 25 H 26 H Blood Pressure 103/58 L 109/58 L Pulse Oximetry 99 99 99 09/05/18 18:00 09/05/18 19:00 09/05/18 19:25 Temperature 99.9 F H Pulse Rate 81 78 Respiratory Rate 29 H 27 H 26 H Blood Pressure 128/54 L Pulse Oximetry 99 100 98 09/05/18 20:00 09/05/18 21:00 09/05/18 22:00 Temperature 100.5 F H Pulse Rate 84 82 80 Respiratory Rate 25 H 26 H 21 Blood Pressure 128/52 L 122/52 L 114/48 L Pulse Oximetry 100 100 100 09/05/18 23:00 09/05/18 23:31 09/06/18 00:00 Temperature 98.4 F 98.2 F Pulse Rate 85 73 84 Respiratory Rate 22 24 28 H Blood Pressure 122/52 L 131/61 Pulse Oximetry 100 100 09/06/18 00:42 09/06/18 01:00 09/06/18 02:00 Temperature 99.5 F Pulse Rate 78 82 Respiratory Rate 24 23 25 H Blood Pressure 110/48 L 130/56 L Pulse Oximetry 100 100 100 09/06/18 03:00 09/06/18 04:00 09/06/18 04:27 Temperature 98.6 F Pulse Rate 76 78 Respiratory Rate 25 H 25 H 23 Blood Pressure 118/44 L 114/42 L Pulse Oximetry 100 100 100 09/06/18 05:00 09/06/18 06:00 Temperature 98.2 F 97.5 F L Pulse Rate 78 75 Respiratory Rate 17 20 Blood Pressure 115/50 L 132/58 L Pulse Oximetry 100 100 Intake & Output 09/05/18 09/06/18 09/06/18 18:59 06:59 18:59 Intake Total 3727 / 3727 1707.6 / 1707.6 Output Total 800 / 800 400 / 400 Balance 2927 / 2927 1307.6 / 1307.6 Intake: IV 3127 / 3127 1707.6 / 1707.6 LR 1000 mL Inj 1,000 ML @ 125 1000 / 1000 mls/hr IV.CONT .Q8H [facility] Rx#: [id number] Diprivan 1000 mg/100 ml Inj 1, 100 / 100 300 / 300 000 mg In 100 ml @ 5 MCG/KG/MIN 3.63 mls/hr IV.CONT TITRATE PRN Rx#:[id number] NS Inj 1,000 ML @ 84 mls/hr IV. 1000 / 1000 CONT .[id number] [facility] Rx#: [id number] Cleocin 900 mg/NS Premix 900 mg 50 / 50 In 50 ml @ 100 mls/hr IV.SIG Q8H [facility] Rx#:[id number] Cleocin Inj 900 MG In NS Inj 212 / 212 106 / 106 100 ML @ 100 mls/hr IV.SIG Q8H [facility] Rx#:[id number] Neupogen Inj 480 MCG In D5W Inj 51.6 / 51.6 50 ML @ 100 mls/hr IV.SIG ONCE ONE Rx#:[id number] LR 1000 mL Inj 1,000 ML @ As 1000 / 1000 Directed IV.SIG BOLUS ONE Rx#: [id number] Mycamine Inj 150 MG In NS Inj 100 / 100 100 ML @ 100 mls/hr IV.SIG Q24H [facility] Rx#:[id number] Zosyn 4.5 GM Premix 4.5 gm In 200 / 200 200 / 200 100 ml @ 200 mls/hr IV.SIG Q6H [facility] Rx#:[id number] Vancomycin Inj 1,500 MG In NS 515 / 515 Inj 500 ML @ 250 mls/hr IV.SIG Q18H [facility] Rx#:[id number] Anesthesia Amount 600 / 600 Output: Estimated Blood Loss 100 / 100 Urine Amount (Catheter) 550 / 550 300 / 300 Indwelling Urethral Catheter 550 / 550 300 / 300 Wound Vac Amount 150 / 150 100 / 100 Groin 150 / 150 100 / 100 Other: Mode Setting Groin Continuous Continuous Date of Last Bowel Movement 08/31/18 08/31/18 # Bowel Movements 0 Result Diagrams: 09/06/18 03:07 09/06/18 03:07 Objective Remarks: Narrative: General: 88-year-old male lying in bed, mechanically ventilated, calm. HEENT: normocephalic and atraumatic. Oral tracheal intubation. Pupils equally responsive. Neck: no meningeal signs, trachea midline. Resp: Air entry equal bilaterally no wheezes or crackles. Clear breath sounds, good excursions on ventilator. CVS: Normal S1-S2, regular rate and rhythm, no murmurs appreciated. No JVD. GI/: Wound VAC in place both groins. Abdomen without guarding, bowel sounds present. Neuro: Opens eyes to loud voice. Moves 4 limbs spontaneously. 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 Status: Acute (2) Severe sepsis Code(s): A41.9 - Sepsis, unspecified organism; R65.20 - Severe sepsis without septic shock Status: Acute (3) Neutropenia Code(s): D70.9 - Neutropenia, unspecified Status: Acute (4) MDS (myelodysplastic syndrome) Code(s): D46.9 - Myelodysplastic syndrome, unspecified Status: Chronic - Assessment and Plan Plan: NEURO: -Pain control with as needed morphine -Tylenol for fever RESP: -Aggressive pulmonary toilet -Albuterol inhaler every 2 hours as needed -PRVC vent mode CV: Sinus tachycardia History of hypertension -Normal saline IV fluids 3 L bolus and 84 mL/h -Lactic acid was 2 -Hold home medications nifedipine and lisinopril GI: -N.p.o., IV famotidine -NG to low intermittent suction, feed if okay with general surgery service. /ID: Melina's gangrene Severe sepsis -Broad-spectrum antibiotics with IV vancomycin, IV Zosyn and IV clindamycin. Adjust per ID service. -09/05 surgical debridement by general surgery Dr. Blake and urology Dr. Rae's -Monitor renal function closely. Diaz catheter. 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 (Dr. Feliz) -Monitor CBC, coags -Recommendations by hematology service has been placed. ENDO: Hypothyroidism -Electrolyte replacement per protocol -Change Synthroid to IV at half dose 75 mcg daily until p.o. permitted PROPH: -Bilateral lower extremity SCDs. IV famotidine. Hold chemical DVT prophylaxis in anticipation of surgical intervention, restart when okay with surgical service. LINES: -Utilize peripheral IVs, central line if needed Overall impression: This gentleman is critically ill having developed Melina' s gangrene and requiring surgical debridement in both groins. His care is complicated by neutropenia and age. Critical care 42 minutes aside from procedures.
[2018-09-06] MEDS ORDERED: [UNRECOGNIZED DRUG - REMARK] OTHER ONE (08:45)
[2018-09-06] MEDS: Senna/Docusate Sodium 8.6/50 MG Tablet PO SCH ×2 (09:23→20:16)
[2018-09-06] MEDS: Famotidine PF Inj 20 MG/2 ML Vial IV.PUSH SCH ×2 (09:23→20:16)
[2018-09-06] MEDS: Morphine Sulfate Inj 2 MG/ML Vial IV.PUSH PRN ×3 (09:24→19:37)
--- NOTE | 2018-09-06 10:55 | P.PN ---
Subjective Interval history: Uneventful night; son at bedside. Physical Exam Vital signs: Vital Signs 09/05/18 11:00 09/05/18 11:24 09/05/18 11:46 Temperature 99.1 F 99.5 F Pulse Rate 91 H 96 H Respiratory Rate 26 H 31 H 20 Blood Pressure 93/54 L Pulse Oximetry 96 97 100 09/05/18 12:00 09/05/18 13:00 09/05/18 13:24 Temperature 99.5 F 99.0 F 98.8 F Pulse Rate 89 85 82 Respiratory Rate 19 20 20 Blood Pressure 93/53 L Pulse Oximetry 99 100 100 09/05/18 13:54 09/05/18 14:00 09/05/18 14:54 Temperature 98.8 F 98.6 F 98.8 F Pulse Rate 82 78 78 Respiratory Rate 20 19 20 Blood Pressure 101/59 L 96/54 L Pulse Oximetry 100 100 100 09/05/18 15:00 09/05/18 15:12 09/05/18 15:54 Temperature 98.8 F 99.5 F Pulse Rate 78 82 Respiratory Rate 19 19 27 H Blood Pressure 117/62 Pulse Oximetry 100 100 100 09/05/18 16:00 09/05/18 16:54 09/05/18 17:00 Temperature 99.3 F 99.0 F 98.6 F Pulse Rate 81 81 77 Respiratory Rate 27 H 27 H 25 H Blood Pressure 103/58 L Pulse Oximetry 100 99 99 09/05/18 17:54 09/05/18 18:00 09/05/18 19:00 Temperature 99.9 F H 99.9 F H Pulse Rate 81 81 78 Respiratory Rate 26 H 29 H 27 H Blood Pressure 109/58 L 128/54 L Pulse Oximetry 99 99 100 09/05/18 19:25 09/05/18 20:00 09/05/18 21:00 Temperature 100.5 F H Pulse Rate 84 82 Respiratory Rate 26 H 25 H 26 H Blood Pressure 128/52 L 122/52 L Pulse Oximetry 98 100 100 09/05/18 22:00 09/05/18 23:00 09/05/18 23:31 Temperature 98.4 F Pulse Rate 80 85 73 Respiratory Rate 21 22 24 Blood Pressure 114/48 L 122/52 L Pulse Oximetry 100 100 09/06/18 00:00 09/06/18 00:42 09/06/18 01:00 Temperature 98.2 F Pulse Rate 84 78 Respiratory Rate 28 H 24 23 Blood Pressure 131/61 110/48 L Pulse Oximetry 100 100 100 09/06/18 02:00 09/06/18 03:00 09/06/18 04:00 Temperature 99.5 F 98.6 F Pulse Rate 82 76 78 Respiratory Rate 25 H 25 H 25 H Blood Pressure 130/56 L 118/44 L 114/42 L Pulse Oximetry 100 100 100 09/06/18 04:27 09/06/18 05:00 09/06/18 06:00 Temperature 98.2 F 97.5 F L Pulse Rate 78 75 Respiratory Rate 23 17 20 Blood Pressure 115/50 L 132/58 L Pulse Oximetry 100 100 100 09/06/18 07:42 Temperature Pulse Rate Respiratory Rate 28 H Blood Pressure Pulse Oximetry 100 Intake & Output 09/05/18 09/06/18 09/06/18 18:59 06:59 18:59 Intake Total 3727 / 3727 2707.6 / 2707.6 Output Total 800 / 800 400 / 400 Balance 2927 / 2927 2307.6 / 2307.6 Intake: IV 3127 / 3127 2707.6 / 2707.6 LR 1000 mL Inj 1,000 ML @ 125 2000 / 2000 mls/hr IV.CONT .Q8H [facility] Rx#: [id number] Diprivan 1000 mg/100 ml Inj 1, 100 / 100 300 / 300 000 mg In 100 ml @ 5 MCG/KG/MIN 3.63 mls/hr IV.CONT TITRATE PRN Rx#:[id number] NS Inj 1,000 ML @ 84 mls/hr IV. 1000 / 1000 CONT .[id number] [facility] Rx#: [id number] Cleocin 900 mg/NS Premix 900 mg 50 / 50 In 50 ml @ 100 mls/hr IV.SIG Q8H [facility] Rx#:[id number] Cleocin Inj 900 MG In NS Inj 212 / 212 106 / 106 100 ML @ 100 mls/hr IV.SIG Q8H [facility] Rx#:[id number] Neupogen Inj 480 MCG In D5W Inj 51.6 / 51.6 50 ML @ 100 mls/hr IV.SIG ONCE ONE Rx#:[id number] LR 1000 mL Inj 1,000 ML @ As 1000 / 1000 Directed IV.SIG BOLUS ONE Rx#: [id number] Mycamine Inj 150 MG In NS Inj 100 / 100 100 ML @ 100 mls/hr IV.SIG Q24H [facility] Rx#:[id number] Zosyn 4.5 GM Premix 4.5 gm In 200 / 200 200 / 200 100 ml @ 200 mls/hr IV.SIG Q6H [facility] Rx#:[id number] Vancomycin Inj 1,500 MG In NS 515 / 515 Inj 500 ML @ 250 mls/hr IV.SIG Q18H [facility] Rx#:[id number] Anesthesia Amount 600 / 600 Output: Estimated Blood Loss 100 / 100 Urine Amount (Catheter) 550 / 550 300 / 300 Indwelling Urethral Catheter 550 / 550 300 / 300 Wound Vac Amount 150 / 150 100 / 100 Groin 150 / 150 100 / 100 Other: Mode Setting Groin Continuous Continuous Date of Last Bowel Movement 08/31/18 08/31/18 # Bowel Movements 0 - Constitutional no acute distress - Routine Exam Groin: Present: swelling, erythema (improved) - Urinary Catheter Management Indwelling Urethral Catheter Cath placed during this visit: yes Reason for continuing: Severe pressure ulcer/wound Insertion date: 09/05/18 Insertion time: 00:53 Results - Labs CBC & Chem 7: 09/06/18 03:07 09/06/18 03:07 Laboratory Results - last 24 hr 09/05/18 09/05/18 09/06/18 11:55 19:47 03:07 WBC 1.4 L 1.4 L RBC 2.60 L 2.57 L Hgb 8.4 L 8.4 L Hct 26.1 L 26.3 L MCV 100.7 H D 102.5 H MCH 32.2 32.9 MCHC 32.0 32.1 RDW 18.8 H 19.2 H Plt Count 367 345 MPV 9.8 10.0 Prelim Diff (Auto) Manual diff required WBC Differential Manual diff final Seg Neuts % (Manual) 1 L Lymphocytes % (Manual) 92 H Monocytes % (Manual) 7 Abs Neuts (Manual) 0.0 L* Nucleated RBCs/100 WBC 2 H Differential Comment . Platelet Estimate Normal Platelet Morphology Enlarged H Ovalocytes 1+ H PT INR Puncture Site Art line Patient Temperature 98.6 O2 Saturation 96 ABG pH 7.35 L ABG pCO2 42 ABG pO2 126 H ABG HCO3 23 ABG O2 Content 13.1 ABG Base Excess -1.9 ABG Methemoglobin 1.1 Hemoglobin 9.5 L Carboxyhemoglobin 1.4 O2 Delivery Device Ventilator Vent Setting See comments Inspired O2 40 Critical Value No Sodium Potassium Chloride Carbon Dioxide Anion Gap BUN Creatinine Estimated GFR Random Glucose Calcium Prot Corrected Calcium Magnesium Total Bilirubin AST ALT Alkaline Phosphatase Total Protein Albumin 09/06/18 09/06/18 03:07 03:07 WBC RBC Hgb Hct MCV MCH MCHC RDW Plt Count MPV Prelim Diff (Auto) WBC Differential Seg Neuts % (Manual) Lymphocytes % (Manual) Monocytes % (Manual) Abs Neuts (Manual) Nucleated RBCs/100 WBC Differential Comment Platelet Estimate Platelet Morphology Ovalocytes PT 15.9 H INR 1.6 Puncture Site Patient Temperature O2 Saturation ABG pH ABG pCO2 ABG pO2 ABG HCO3 ABG O2 Content ABG Base Excess ABG Methemoglobin Hemoglobin Carboxyhemoglobin O2 Delivery Device Vent Setting Inspired O2 Critical Value Sodium 144 Potassium 3.8 Chloride 110 H Carbon Dioxide 24.9 Anion Gap 9 BUN 27 H Creatinine 1.38 H Estimated GFR 49 L Random Glucose 79 Calcium 7.4 L* Prot Corrected Calcium 7.6 L Magnesium 2.2 Total Bilirubin 1.1 H AST 9 L ALT 15 Alkaline Phosphatase 59 Total Protein 6.8 D Albumin 2.0 L Microbiology 09/05/18 07:40 Wound - Groin Fungal Smear - Final No fungal elements seen 09/05/18 07:40 Wound - Groin Gram Stain - Final 09/05/18 07:40 Wound - Groin Gram Stain - Final 09/04/18 21:15 Wound - Groin Gram Stain - Final 09/04/18 21:15 Wound - Groin Wound Culture - Preliminary Results Pending 09/04/18 21:15 Wound - Groin Gram Stain - Final 09/04/18 21:15 Wound - Groin Wound Culture - Preliminary Results Pending 09/04/18 21:49 Blood - Peripheral Aerobic Blood Culture - Preliminary No growth in 1 day 09/04/18 21:49 Blood - Peripheral Anaerobic Blood Culture - Preliminary No growth in 1 day 09/04/18 21:30 Blood - Peripheral Aerobic Blood Culture - Preliminary No growth in 1 day 09/04/18 21:30 Blood - Peripheral Anaerobic Blood Culture - Preliminary No growth in 1 day Assessment and Plan - Assessment (1) Cellulitis Code(s): L03.90 - Cellulitis, unspecified Status: Acute (2) Infected wound Code(s): T14.8XXA - Other injury of unspecified body region, initial encounter; L08.9 - Local infection of the skin and subcutaneous tissue, unspecified Status: Acute (3) Neutropenia Code(s): D70.9 - Neutropenia, unspecified Status: Acute (4) Abscess of groin Code(s): L02.214 - Cutaneous abscess of groin Status: Acute Plan: Stable postop; discussed with patient's office manager executive assistant, Dr. Renard Feliz; he recommends trying Neupogen to help with leukopenia. Continue VAC; will change in OR 09/08/18. Need to institute reverse isolation due to neutropenia for patient's protection. - Plan Discussed Condition With: Yolanda Conte RN Patient Son at bedside - Attending Attestation I attest that I had a [id number] encounter with the patient on the same day, and personally performed and documented my assessment and findings in the medical record. The following services were provided during this hospital visit: Chart data review, vital sign assessments/reviewing monitor data Review of consultation notes if present Medication orders/review and/or management Ordering and/or reviewing lab tests Ordering and/or interpreting/reviewing x-rays and/or diagnostic studies Care of the patient and discussion of the patient with the care team Documentation time To help prompt me to consider important information that might be impacting today's encounter and assessment, Information from prior notes written by myself or my colleagues may have been "brought forward/copy and pasted" into today's note. (1) Cellulitis Qualifiers: Qualified Code(s): L03.818 - Cellulitis of other sites
--- NOTE | 2018-09-06 11:11 | P.PNONC ---
Subjective Interval history: T-max 100.5 F. Patient remains intubated, he is getting ready to be extubated. He is alert and oriented he is writing to communicate. Dr. Blake was at the bedside and plans for additional debridement Tuesday at noon. Neutropenic precautions discussed with RN and family member. Objective Vital Signs/Intake & Output: Vital Signs 09/05/18 11:00 09/05/18 11:24 09/05/18 11:46 Temperature 99.1 F 99.5 F Pulse Rate 91 H 96 H Respiratory Rate 26 H 31 H 20 Blood Pressure 93/54 L Pulse Oximetry 96 97 100 09/05/18 12:00 09/05/18 13:00 09/05/18 13:24 Temperature 99.5 F 99.0 F 98.8 F Pulse Rate 89 85 82 Respiratory Rate 19 20 20 Blood Pressure 93/53 L Pulse Oximetry 99 100 100 09/05/18 13:54 09/05/18 14:00 09/05/18 14:54 Temperature 98.8 F 98.6 F 98.8 F Pulse Rate 82 78 78 Respiratory Rate 20 19 20 Blood Pressure 101/59 L 96/54 L Pulse Oximetry 100 100 100 09/05/18 15:00 09/05/18 15:12 09/05/18 15:54 Temperature 98.8 F 99.5 F Pulse Rate 78 82 Respiratory Rate 19 19 27 H Blood Pressure 117/62 Pulse Oximetry 100 100 100 09/05/18 16:00 09/05/18 16:54 09/05/18 17:00 Temperature 99.3 F 99.0 F 98.6 F Pulse Rate 81 81 77 Respiratory Rate 27 H 27 H 25 H Blood Pressure 103/58 L Pulse Oximetry 100 99 99 09/05/18 17:54 09/05/18 18:00 09/05/18 19:00 Temperature 99.9 F H 99.9 F H Pulse Rate 81 81 78 Respiratory Rate 26 H 29 H 27 H Blood Pressure 109/58 L 128/54 L Pulse Oximetry 99 99 100 09/05/18 19:25 09/05/18 20:00 09/05/18 21:00 Temperature 100.5 F H Pulse Rate 84 82 Respiratory Rate 26 H 25 H 26 H Blood Pressure 128/52 L 122/52 L Pulse Oximetry 98 100 100 09/05/18 22:00 09/05/18 23:00 09/05/18 23:31 Temperature 98.4 F Pulse Rate 80 85 73 Respiratory Rate 21 22 24 Blood Pressure 114/48 L 122/52 L Pulse Oximetry 100 100 09/06/18 00:00 09/06/18 00:42 09/06/18 01:00 Temperature 98.2 F Pulse Rate 84 78 Respiratory Rate 28 H 24 23 Blood Pressure 131/61 110/48 L Pulse Oximetry 100 100 100 09/06/18 02:00 09/06/18 03:00 09/06/18 04:00 Temperature 99.5 F 98.6 F Pulse Rate 82 76 78 Respiratory Rate 25 H 25 H 25 H Blood Pressure 130/56 L 118/44 L 114/42 L Pulse Oximetry 100 100 100 09/06/18 04:27 09/06/18 05:00 09/06/18 06:00 Temperature 98.2 F 97.5 F L Pulse Rate 78 75 Respiratory Rate 23 17 20 Blood Pressure 115/50 L 132/58 L Pulse Oximetry 100 100 100 09/06/18 07:42 Temperature Pulse Rate Respiratory Rate 28 H Blood Pressure Pulse Oximetry 100 Intake & Output 09/05/18 09/06/18 09/06/18 18:59 06:59 18:59 Intake Total 3727 / 3727 2707.6 / 2707.6 Output Total 800 / 800 400 / 400 Balance 2927 / 2927 2307.6 / 2307.6 Intake: IV 3127 / 3127 2707.6 / 2707.6 LR 1000 mL Inj 1,000 ML @ 125 2000 / 2000 mls/hr IV.CONT .Q8H [facility] Rx#: [id number] Diprivan 1000 mg/100 ml Inj 1, 100 / 100 300 / 300 000 mg In 100 ml @ 5 MCG/KG/MIN 3.63 mls/hr IV.CONT TITRATE PRN Rx#:[id number] NS Inj 1,000 ML @ 84 mls/hr IV. 1000 / 1000 CONT .[id number] [facility] Rx#: [id number] Cleocin 900 mg/NS Premix 900 mg 50 / 50 In 50 ml @ 100 mls/hr IV.SIG Q8H [facility] Rx#:[id number] Cleocin Inj 900 MG In NS Inj 212 / 212 106 / 106 100 ML @ 100 mls/hr IV.SIG Q8H [facility] Rx#:[id number] Neupogen Inj 480 MCG In D5W Inj 51.6 / 51.6 50 ML @ 100 mls/hr IV.SIG ONCE ONE Rx#:[id number] LR 1000 mL Inj 1,000 ML @ As 1000 / 1000 Directed IV.SIG BOLUS ONE Rx#: [id number] Mycamine Inj 150 MG In NS Inj 100 / 100 100 ML @ 100 mls/hr IV.SIG Q24H [facility] Rx#:[id number] Zosyn 4.5 GM Premix 4.5 gm In 200 / 200 200 / 200 100 ml @ 200 mls/hr IV.SIG Q6H [facility] Rx#:[id number] Vancomycin Inj 1,500 MG In NS 515 / 515 Inj 500 ML @ 250 mls/hr IV.SIG Q18H [facility] Rx#:[id number] Anesthesia Amount 600 / 600 Output: Estimated Blood Loss 100 / 100 Urine Amount (Catheter) 550 / 550 300 / 300 Indwelling Urethral Catheter 550 / 550 300 / 300 Wound Vac Amount 150 / 150 100 / 100 Groin 150 / 150 100 / 100 Other: Mode Setting Groin Continuous Continuous Date of Last Bowel Movement 08/31/18 08/31/18 # Bowel Movements 0 Result Diagrams: 09/06/18 03:07 09/06/18 03:07 Laboratory Results: Laboratory Results - last 24 hr 09/05/18 09/05/18 09/06/18 11:55 19:47 03:07 WBC 1.4 L 1.4 L RBC 2.60 L 2.57 L Hgb 8.4 L 8.4 L Hct 26.1 L 26.3 L MCV 100.7 H D 102.5 H MCH 32.2 32.9 MCHC 32.0 32.1 RDW 18.8 H 19.2 H Plt Count 367 345 MPV 9.8 10.0 Prelim Diff (Auto) Manual diff required WBC Differential Manual diff final Seg Neuts % (Manual) 1 L Lymphocytes % (Manual) 92 H Monocytes % (Manual) 7 Abs Neuts (Manual) 0.0 L* Nucleated RBCs/100 WBC 2 H Differential Comment . Platelet Estimate Normal Platelet Morphology Enlarged H Ovalocytes 1+ H PT INR Puncture Site Art line Patient Temperature 98.6 O2 Saturation 96 ABG pH 7.35 L ABG pCO2 42 ABG pO2 126 H ABG HCO3 23 ABG O2 Content 13.1 ABG Base Excess -1.9 ABG Methemoglobin 1.1 Hemoglobin 9.5 L Carboxyhemoglobin 1.4 O2 Delivery Device Ventilator Vent Setting See comments Inspired O2 40 Critical Value No Sodium Potassium Chloride Carbon Dioxide Anion Gap BUN Creatinine Estimated GFR Random Glucose Calcium Prot Corrected Calcium Magnesium Total Bilirubin AST ALT Alkaline Phosphatase Total Protein Albumin 09/06/18 09/06/18 03:07 03:07 WBC RBC Hgb Hct MCV MCH MCHC RDW Plt Count MPV Prelim Diff (Auto) WBC Differential Seg Neuts % (Manual) Lymphocytes % (Manual) Monocytes % (Manual) Abs Neuts (Manual) Nucleated RBCs/100 WBC Differential Comment Platelet Estimate Platelet Morphology Ovalocytes PT 15.9 H INR 1.6 Puncture Site Patient Temperature O2 Saturation ABG pH ABG pCO2 ABG pO2 ABG HCO3 ABG O2 Content ABG Base Excess ABG Methemoglobin Hemoglobin Carboxyhemoglobin O2 Delivery Device Vent Setting Inspired O2 Critical Value Sodium 144 Potassium 3.8 Chloride 110 H Carbon Dioxide 24.9 Anion Gap 9 BUN 27 H Creatinine 1.38 H Estimated GFR 49 L Random Glucose 79 Calcium 7.4 L* Prot Corrected Calcium 7.6 L Magnesium 2.2 Total Bilirubin 1.1 H AST 9 L ALT 15 Alkaline Phosphatase 59 Total Protein 6.8 D Albumin 2.0 L Culture Results: Microbiology 09/05/18 07:40 Fungal Smear - Final Wound - Groin No fungal elements seen 09/05/18 07:40 Gram Stain - Final Wound - Groin 09/05/18 07:40 Gram Stain - Final Wound - Groin 09/04/18 21:15 Gram Stain - Final Wound - Groin Wound Culture - Preliminary Results Pending 09/04/18 21:15 Gram Stain - Final Wound - Groin Wound Culture - Preliminary Results Pending 09/04/18 21:49 Aerobic Blood Culture - Preliminary Blood - Peripheral No growth in 1 day Anaerobic Blood Culture - Preliminary No growth in 1 day 09/04/18 21:30 Aerobic Blood Culture - Preliminary Blood - Peripheral No growth in 1 day Anaerobic Blood Culture - Preliminary No growth in 1 day Imaging Studies: Impressions Chest X-Ray 09/05/18 00:00 CONCLUSION: Adequate placement of endotracheal tube. Medications: Active Medications Generic Name Dose Route Start Last Admin Trade Name Freq PRN Reason Stop Dose Admin Albuterol 2.5 mg 09/05/18 00:27 09/05/18 23:31 Albuterol Neb (Prn) NEB 2.5 mg Q2HR NEB PRN Administration SHORTNESS OF BREATH/WHEEZING Chlorhexidine Gluconate 3 pack 09/05/18 04:00 09/06/18 05:22 Chlorhexidine 2% Cloth TOPICAL 09/10/18 03:59 3 pack DAILY@0400 [facility] Administration Famotidine 20 mg 09/05/18 09:00 09/06/18 09:23 Pepcid Pf Inj IV.PUSH 20 mg Q12HR [facility] Administration Piperacillin/Tazobactam/Dextrose 4.5 gm in 100 mls @ 200 mls/hr 09/05/18 04: 00 09/06/18 09:23 Zosyn 4.5 Gm Premix IV.SIG 100 mls/hr Q6H [facility] Administration Lactated Ringer's 1,000 mls @ 125 mls/hr 09/05/18 09:45 09/06/18 09:24 Lr 1000 Ml Inj IV.CONT 125 mls/hr .Q8H [facility] Administration Propofol 1,000 mg in 100 mls @ 3.63 mls/hr 09/05/18 09:48 09/06/18 06:06 Diprivan 1000 Mg/100 Ml Inj IV.CONT 30 mcg/kg/min TITRATE PRN 21.78 mls/hr Per Protocol Administration Protocol 5 MCG/KG/MIN Micafungin Sodium 150 mg/ 100 mls @ 100 mls/hr 09/05/18 16:00 09/05/18 17:50 Sodium Chloride IV.SIG Infused Q24H [facility] Infusion Clindamycin/Sodium Chloride 900 mg in 50 mls @ 100 mls/hr 09/06/18 05:00 06:37 Cleocin 900 Mg/Ns Premix IV.SIG Infused Q8H [facility] Infusion Levothyroxine Sodium 150 mcg 09/06/18 06:00 09/06/18 06:12 Synthroid PO 150 mcg DAILY@0600 [facility] Administration Morphine Sulfate 2 mg 09/05/18 00:27 09/06/18 09:24 Morphine Inj IV.PUSH 2 mg Q2H PRN Administration PAIN SCALE 6 TO 10 Senna/Docusate Sodium 1 tab 09/05/18 09:00 09/06/18 09:23 Sunshine-Colace PO Not Given BID [facility] Sodium Chloride 2 ml 09/05/18 09:00 09/06/18 09:25 Ns Flush IV.FLUSH 2 ml BID [facility] Administration Objective Remarks: GENERAL: Chronically ill-appearing elderly male patient, in no acute distress. SKIN: Warm and dry. HEAD: Normocephalic. EYES: No scleral icterus. No injection or drainage. NECK: Supple, trachea midline. CARDIOVASCULAR: Regular rate and rhythm without murmurs. RESPIRATORY: Breath sounds equal bilaterally. No accessory muscle use. +vent FiO2 35. GASTROINTESTINAL: Abdomen soft, non-tender, nondistended. Edema to the scrotum. EXTREMITIES: No cyanosis, or edema. Bilateral groin wound drains. MUSCULOSKELETAL: Adequate muscle tone. NEUROLOGICAL: No obvious focal deficit. Awake, alert, and oriented x3. PSYCHIATRIC: Appropriate mood and affect; insight and judgment normal. Assessment/Plan - Plan Mr. Bishop is a pleasant 88-year-old gentleman, who was hospitalized and currently being treated for inguinal area abscesses. He has been on the ventilator and oncology was consulted for neutropenia. The patient has a history of myelofibrosis, diagnosed in November 2017. He is currently under the care of Dr. Feliz and has recently been evaluated at [facility]. Recommendations: 1. Neutropenia, continue Neupogen. Continue neutropenic precautions. We will continue to monitor closely. 2. 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 Plans for another debridement scheduled for Tuesday at noon. 3. Continue supportive care. - Attending Statement The exam, history, and the medical decision-making described in the above note were completed with the assistance of the mid-level provider. I reviewed and agree with the findings presented. I attest that I had a [id number] encounter with the patient on the same day, and personally performed and documented my assessment and findings in the medical record. Patient is on the ventilator. Awake and alert. May be extubated later today Has low-grade fever Remains neutropenic Continue Neupogen IV On antibiotics per ID Patient may require another debridement per Dr. Blake this Tuesday Patient is improving Monitor CBC Continue supportive care
--- NOTE | 2018-09-06 14:49 | P.PNURO ---
Subjective Patient symptoms today: pt is s/p follow ing procedure on 09/05/18: PROCEDURE PERFORMED: 1. Incision and drainage of bilateral groin abscesses. 2. Exam under anesthesia. He was seen at bed side. no acute events overnight Labs are stable, afebrile. maddox drains yellow urine, he gets spasms of the bladder occasionally. Possibly will have a wound debridement tomorrow Objective Vital Signs: Vital Signs 09/05/18 14:54 09/05/18 15:00 09/05/18 15:12 Temperature 98.8 F 98.8 F Pulse Rate 78 78 Respiratory Rate 20 19 19 Blood Pressure 96/54 L Pulse Oximetry 100 100 100 09/05/18 15:54 09/05/18 16:00 09/05/18 16:54 Temperature 99.5 F 99.3 F 99.0 F Pulse Rate 82 81 81 Respiratory Rate 27 H 27 H 27 H Blood Pressure 117/62 103/58 L Pulse Oximetry 100 100 99 09/05/18 17:00 09/05/18 17:54 09/05/18 18:00 Temperature 98.6 F 99.9 F H 99.9 F H Pulse Rate 77 81 81 Respiratory Rate 25 H 26 H 29 H Blood Pressure 109/58 L Pulse Oximetry 99 99 99 09/05/18 19:00 09/05/18 19:25 09/05/18 20:00 Temperature 100.5 F H Pulse Rate 78 84 Respiratory Rate 27 H 26 H 25 H Blood Pressure 128/54 L 128/52 L Pulse Oximetry 100 98 100 09/05/18 21:00 09/05/18 22:00 09/05/18 23:00 Temperature 98.4 F Pulse Rate 82 80 85 Respiratory Rate 26 H 21 22 Blood Pressure 122/52 L 114/48 L 122/52 L Pulse Oximetry 100 100 100 09/05/18 23:31 09/06/18 00:00 09/06/18 00:42 Temperature 98.2 F Pulse Rate 73 84 Respiratory Rate 24 28 H 24 Blood Pressure 131/61 Pulse Oximetry 100 100 09/06/18 01:00 09/06/18 02:00 09/06/18 03:00 Temperature 99.5 F Pulse Rate 78 82 76 Respiratory Rate 23 25 H 25 H Blood Pressure 110/48 L 130/56 L 118/44 L Pulse Oximetry 100 100 100 09/06/18 04:00 09/06/18 04:27 09/06/18 05:00 Temperature 98.6 F 98.2 F Pulse Rate 78 78 Respiratory Rate 25 H 23 17 Blood Pressure 114/42 L 115/50 L Pulse Oximetry 100 100 100 09/06/18 06:00 09/06/18 07:00 09/06/18 07:42 Temperature 97.5 F L 97.2 F L Pulse Rate 75 74 Respiratory Rate 20 22 28 H Blood Pressure 132/58 L Pulse Oximetry 100 100 100 09/06/18 07:54 09/06/18 08:00 09/06/18 08:54 Temperature 99.1 F 98.8 F 99.3 F Pulse Rate 86 80 83 Respiratory Rate 34 H 27 H 25 H Blood Pressure 113/55 L 98/57 L Pulse Oximetry 99 99 97 09/06/18 09:00 09/06/18 09:54 09/06/18 10:00 Temperature 99.5 F 99.0 F 99.3 F Pulse Rate 83 81 81 Respiratory Rate 26 H 28 H 26 H Blood Pressure 111/66 Pulse Oximetry 98 98 98 09/06/18 10:20 09/06/18 10:54 09/06/18 11:00 Temperature Pulse Rate 83 82 Respiratory Rate 24 26 H Blood Pressure 112/59 L Pulse Oximetry 98 98 99 09/06/18 12:00 09/06/18 12:54 09/06/18 13:00 Temperature 97.9 F Pulse Rate 87 86 82 Respiratory Rate 24 26 H 25 H Blood Pressure 112/55 L Pulse Oximetry 99 95 95 Intake & Output 09/05/18 09/06/18 09/06/18 18:59 06:59 18:59 Intake Total 3727 / 3727 2707.6 / 2707.6 450 / 450 Output Total 800 / 800 400 / 400 Balance 2927 / 2927 2307.6 / 2307.6 450 / 450 Intake: IV 3127 / 3127 2707.6 / 2707.6 450 / 450 LR 1000 mL Inj 1,000 ML @ 125 2000 / 2000 mls/hr IV.CONT .Q8H [facility] Rx#: [id number] Diprivan 1000 mg/100 ml Inj 1, 100 / 100 300 / 300 50 / 50 000 mg In 100 ml @ 5 MCG/KG/MIN 3.63 mls/hr IV.CONT TITRATE PRN Rx#:[id number] NS Inj 1,000 ML @ 84 mls/hr IV. 1000 / 1000 CONT .[id number] [facility] Rx#: [id number] Cleocin 900 mg/NS Premix 900 mg 50 / 50 50 / 50 In 50 ml @ 100 mls/hr IV.SIG Q8H [facility] Rx#:[id number] Cleocin Inj 900 MG In NS Inj 212 / 212 106 / 106 100 ML @ 100 mls/hr IV.SIG Q8H [facility] Rx#:[id number] Neupogen Inj 480 MCG In D5W Inj 51.6 / 51.6 50 ML @ 100 mls/hr IV.SIG ONCE ONE Rx#:[id number] LR 1000 mL Inj 1,000 ML @ As 1000 / 1000 Directed IV.SIG BOLUS ONE Rx#: [id number] Mycamine Inj 150 MG In NS Inj 100 / 100 100 ML @ 100 mls/hr IV.SIG Q24H [facility] Rx#:[id number] Zosyn 4.5 GM Premix 4.5 gm In 200 / 200 200 / 200 100 / 100 100 ml @ 200 mls/hr IV.SIG Q6H [facility] Rx#:[id number] Vancomycin Inj 1,500 MG In NS 515 / 515 250 / 250 Inj 500 ML @ 250 mls/hr IV.SIG Q18H [facility] Rx#:[id number] Anesthesia Amount 600 / 600 Output: Estimated Blood Loss 100 / 100 Urine Amount (Catheter) 550 / 550 300 / 300 Indwelling Urethral Catheter 550 / 550 300 / 300 Wound Vac Amount 150 / 150 100 / 100 Groin 150 / 150 100 / 100 Other: Mode Setting Groin Continuous Continuous Continuous Date of Last Bowel Movement 08/31/18 08/31/18 08/31/18 # Bowel Movements 0 Result Diagrams: 09/06/18 03:07 09/06/18 03:07 Medications and IVs: Active Medications Generic Name Dose Route Start Last Admin Trade Name Freq PRN Reason Stop Dose Admin Acetaminophen 650 mg 09/05/18 22:19 Tylenol Liq NG/OG Q6H PRN TEMP > 101 Albuterol 2.5 mg 09/05/18 00:27 09/05/18 23:31 Albuterol Neb (Prn) NEB 2.5 mg Q2HR NEB PRN Administration SHORTNESS OF BREATH/WHEEZING Chlorhexidine Gluconate 3 pack 09/05/18 04:00 09/06/18 05:22 Chlorhexidine 2% Cloth TOPICAL 09/10/18 03:59 3 pack DAILY@0400 [facility] Administration Chlorhexidine Gluconate 3 pack 09/05/18 04:00 Chlorhexidine 2% Cloth TOPICAL 09/10/18 03:59 DAILY@0400 PRN Extra cloth needed Famotidine 20 mg 09/05/18 09:00 09/06/18 09:23 Pepcid Pf Inj IV.PUSH 20 mg Q12HR [facility] Administration Piperacillin/Tazobactam/Dextrose 4.5 gm in 100 mls @ 200 mls/hr 09/05/18 04: 00 09/06/18 10:30 Zosyn 4.5 Gm Premix IV.SIG Infused Q6H [facility] Infusion Magnesium Sulfate 2 gm/ Sodium 100 mls @ 50 mls/hr 09/05/18 04:59 Chloride IV.SIG UNSCH PRN For Magnesium 1.2 - 1.6 mg/dL Potassium Chloride 40 meq in 100 mls @ 25 mls/hr 09/05/18 04:59 Kcl 40 Meq Premix Inj IV.SIG Q2H PRN For Potassium 2.8 - 3.2 mEq/L Potassium Chloride 20 meq in 100 mls @ 50 mls/hr 09/05/18 04:59 Kcl 20 Meq Premix Inj IV.SIG Q2H PRN For Potassium 3.3 - 3.5 mEq/L Potassium Chloride 40 meq in 100 mls @ 25 mls/hr 09/05/18 04:59 Kcl 40 Meq Premix Inj IV.SIG UNSCH PRN For Potassium 3.3 - 3.5 mEq/L Potassium Chloride 20 meq in 100 mls @ 50 mls/hr 09/05/18 04:59 Kcl 20 Meq Premix Inj IV.SIG Q2H PRN For Potassium 2.8 - 3.2 mEq/L Potassium Phosphate 30 mmol/ 260 mls @ 42 mls/hr 09/05/18 04:59 Sodium Chloride IV.SIG UNSCH PRN SEE LABEL COMMENTS Sodium Phosphate 30 mmol/ 260 mls @ 42 mls/hr 09/05/18 04:59 Sodium Chloride IV.SIG UNSCH PRN For Phosphorus < 2.5 mg/dL Magnesium Sulfate 4 gm/ Sodium 100 mls @ 50 mls/hr 09/05/18 04:59 Chloride IV.SIG UNSCH PRN For Magnesium 0.9 - 1.1 mg/dL Lactated Ringer's 1,000 mls @ 125 mls/hr 09/05/18 09:45 09/06/18 09:24 Lr 1000 Ml Inj IV.CONT 125 mls/hr .Q8H [facility] Administration Propofol 1,000 mg in 100 mls @ 3.63 mls/hr 09/05/18 09:48 09/06/18 08:00 Diprivan 1000 Mg/100 Ml Inj IV.CONT 0 mcg/kg/min TITRATE PRN 0 mls/hr Per Protocol Titration Protocol 5 MCG/KG/MIN Micafungin Sodium 150 mg/ 100 mls @ 100 mls/hr 09/05/18 16:00 09/05/18 17:50 Sodium Chloride IV.SIG Infused Q24H [facility] Infusion Filgrastim 480 mcg/ Dextrose 51.6 mls @ 100 mls/hr 09/06/18 14:00 IV.SIG DAILY@1400 [facility] Clindamycin/Sodium Chloride 900 mg in 50 mls @ 100 mls/hr 09/06/18 05:00 13:23 Cleocin 900 Mg/Ns Premix IV.SIG Infused Q8H [facility] Infusion Vancomycin HCl 1,500 mg/ 515 mls @ 250 mls/hr 09/07/18 05:00 Sodium Chloride IV.SIG Q24H [facility] Lactulose 30 ml 09/05/18 00:27 Lactulose Liq PO DAILY PRN SEVERE CONSITIPATION Levothyroxine Sodium 150 mcg 09/06/18 06:00 09/06/18 06:12 Synthroid PO 150 mcg DAILY@0600 [facility] Administration Magnesium Oxide 800 mg 09/05/18 04:59 Mag-Ox PO UNSCH PRN For Magnesium 1.2 - 1.6 mg/dL Miscellaneous Information 0 each 09/08/18 04:45 [facility] Ordered Lab Info OTHER 09/08/18 04:46 ONCE ONE Morphine Sulfate 2 mg 09/05/18 00:27 09/06/18 09:24 Morphine Inj IV.PUSH 2 mg Q2H PRN Administration PAIN SCALE 6 TO 10 Pharmacy Profile Note 1 each 09/05/18 00:32 Vancomycin Consult Pharmacy OTHER UNSCH PRN Pharmacy to dose Potassium Bicarb/Potassium Chloride 50 meq 09/05/18 04:59 K-Lyte Cl Eff PO UNSCH PRN For Potassium 3.3 - 3.5 mEq/L Potassium Phosphate 2,000 mg 09/05/18 04:59 K-Phos Original PO Q4H PRN Phosphorus Less Than 2.5 mg/dL Potassium Phosphate 2,000 mg 09/05/18 04:59 K-Phos Original PO UNSCH PRN SEE LABEL COMMENTS Senna/Docusate Sodium 1 tab 09/05/18 09:00 09/06/18 09:23 Sunshine-Colace PO Not Given BID [facility] Sodium Chloride 2 ml 09/05/18 09:00 09/06/18 09:25 Ns Flush IV.FLUSH 2 ml BID [facility] Administration Sodium Chloride 2 ml 09/05/18 00:27 Ns Flush IV.FLUSH PRN PRN FLUSH AFTER USING IV ACCESS Objective Remarks: NAD RRR Clear lungs left groin erythema and some necrotic tissue In general healing well Assessment and Plan - Plan 88y/o POD #1 s/p 1. Incision and drainage of bilateral groin abscesses. 2. Exam under anesthesia. - Continue management as per primary / surgical team - Keep maddox in until no longer needed by surgery and treatment of decub small back ulcer Irrigate manually as needed - Flomax daily - Can use Oxybutynin ER 10mg for bladder spasms prn Urology remains available as needed Discussed Condition With: Dr Bita HOPE attending
--- NOTE | 2018-09-06 14:51 | P.DIET ---
Nutritional Evaluation Type of nutrition evaluation: initial Nutrition screening: Weight Loss > 10 lbs Subjective Subjective Comments: Pt reports poor appetite Objective - Diagnosis Pelvic Wall and Groin Cellulitis, Sepsis - Objective % IBW: 166 Body Weight Used for Calculations: IBW (72.7 kg) Energy Needs - Lower Range (kCal/kg): 25 Energy Needs - Upper Range (kCal/kg): 30 Lower Limit kCal/kg (kCals): 1,818 Upper Limit kCal/kg (kCals): 2,181 Lower Limit Protein Factor (Grams per Kg): 1.3 Upper Limit Protein Factor (Grams per Kg): 1.6 Lower Protein Needs (Protein): 95 Upper Protein Needs (Protein): 116 Dietitian Reviewed in Medical Record: Current diet, Curent medications, Intake & Output, Labs, Medical history Diet Order: Regular Objective Comments: PMH includes: 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 Pt has been NPO and diet advanced today. Monitor po intake. Ensure Original TID per MD. Monitor supplement acceptance. Labs reviewed-monitor renal labs. Dietitian will follow. Recommendations: 1. Monitor po intake 2. Ensure Original TID per MD 3. Dietitian will follow Dietitian to Monitor: Lab values, Renal labs, Supplement acceptance, Intake & Output, Diet tolerance, Weight change, PO Intake, Medical course
--- NOTE | 2018-09-06 16:28 | P.PNID ---
Subjective Remarks: pt is extubated doing well no fever growing MSSA and GBS from multiple wound clx ANC 0 BP stabe off pressors Antibiotics: clinda zosyn vanco Past Medical History: neutropenia Allergies/Adverse Reactions: Allergies Sulfa (Sulfonamide Antibiotics) Allergy (Intermediate, Verified 09/05/18 02:09) RASH, SWELLING Objective Vital Signs 09/05/18 16:54 09/05/18 17:00 09/05/18 17:54 Temperature 99.0 F 98.6 F 99.9 F H Pulse Rate 81 77 81 Respiratory Rate 27 H 25 H 26 H Blood Pressure 103/58 L 109/58 L Pulse Oximetry 99 99 99 09/05/18 18:00 09/05/18 19:00 09/05/18 19:25 Temperature 99.9 F H Pulse Rate 81 78 Respiratory Rate 29 H 27 H 26 H Blood Pressure 128/54 L Pulse Oximetry 99 100 98 09/05/18 20:00 09/05/18 21:00 09/05/18 22:00 Temperature 100.5 F H Pulse Rate 84 82 80 Respiratory Rate 25 H 26 H 21 Blood Pressure 128/52 L 122/52 L 114/48 L Pulse Oximetry 100 100 100 09/05/18 23:00 09/05/18 23:31 09/06/18 00:00 Temperature 98.4 F 98.2 F Pulse Rate 85 73 84 Respiratory Rate 22 24 28 H Blood Pressure 122/52 L 131/61 Pulse Oximetry 100 100 09/06/18 00:42 09/06/18 01:00 09/06/18 02:00 Temperature 99.5 F Pulse Rate 78 82 Respiratory Rate 24 23 25 H Blood Pressure 110/48 L 130/56 L Pulse Oximetry 100 100 100 09/06/18 03:00 09/06/18 04:00 09/06/18 04:27 Temperature 98.6 F Pulse Rate 76 78 Respiratory Rate 25 H 25 H 23 Blood Pressure 118/44 L 114/42 L Pulse Oximetry 100 100 100 09/06/18 05:00 09/06/18 06:00 09/06/18 07:00 Temperature 98.2 F 97.5 F L 97.2 F L Pulse Rate 78 75 74 Respiratory Rate 17 20 22 Blood Pressure 115/50 L 132/58 L Pulse Oximetry 100 100 100 09/06/18 07:42 09/06/18 07:54 09/06/18 08:00 Temperature 99.1 F 98.8 F Pulse Rate 86 80 Respiratory Rate 28 H 34 H 27 H Blood Pressure 113/55 L Pulse Oximetry 100 99 99 09/06/18 08:54 09/06/18 09:00 09/06/18 09:54 Temperature 99.3 F 99.5 F 99.0 F Pulse Rate 83 83 81 Respiratory Rate 25 H 26 H 28 H Blood Pressure 98/57 L 111/66 Pulse Oximetry 97 98 98 09/06/18 10:00 09/06/18 10:20 09/06/18 10:54 Temperature 99.3 F Pulse Rate 81 83 Respiratory Rate 26 H 24 Blood Pressure 112/59 L Pulse Oximetry 98 98 98 09/06/18 11:00 09/06/18 12:00 09/06/18 12:54 Temperature 97.9 F Pulse Rate 82 87 86 Respiratory Rate 26 H 24 26 H Blood Pressure 112/55 L Pulse Oximetry 99 99 95 09/06/18 13:00 Temperature Pulse Rate 82 Respiratory Rate 25 H Blood Pressure Pulse Oximetry 95 Intake & Output 09/05/18 09/06/18 09/06/18 18:59 06:59 18:59 Intake Total 3727 / 3727 2707.6 / 2707.6 450 / 450 Output Total 800 / 800 400 / 400 Balance 2927 / 2927 2307.6 / 2307.6 450 / 450 Intake: IV 3127 / 3127 2707.6 / 2707.6 450 / 450 LR 1000 mL Inj 1,000 ML @ 125 2000 / 2000 mls/hr IV.CONT .Q8H [facility] Rx#: [id number] Diprivan 1000 mg/100 ml Inj 1, 100 / 100 300 / 300 50 / 50 000 mg In 100 ml @ 5 MCG/KG/MIN 3.63 mls/hr IV.CONT TITRATE PRN Rx#:[id number] NS Inj 1,000 ML @ 84 mls/hr IV. 1000 / 1000 CONT .[id number] [facility] Rx#: [id number] Cleocin 900 mg/NS Premix 900 mg 50 / 50 50 / 50 In 50 ml @ 100 mls/hr IV.SIG Q8H [facility] Rx#:[id number] Cleocin Inj 900 MG In NS Inj 212 / 212 106 / 106 100 ML @ 100 mls/hr IV.SIG Q8H [facility] Rx#:[id number] Neupogen Inj 480 MCG In D5W Inj 51.6 / 51.6 50 ML @ 100 mls/hr IV.SIG ONCE ONE Rx#:[id number] LR 1000 mL Inj 1,000 ML @ As 1000 / 1000 Directed IV.SIG [facility] Rx#: [id number] Mycamine Inj 150 MG In NS Inj 100 / 100 100 ML @ 100 mls/hr IV.SIG Q24H [facility] Rx#:[id number] Zosyn 4.5 GM Premix 4.5 gm In 200 / 200 200 / 200 100 / 100 100 ml @ 200 mls/hr IV.SIG Q6H [facility] Rx#:[id number] Vancomycin Inj 1,500 MG In NS 515 / 515 250 / 250 Inj 500 ML @ 250 mls/hr IV.SIG Q18H [facility] Rx#:[id number] Anesthesia Amount 600 / 600 Output: Estimated Blood Loss 100 / 100 Urine Amount (Catheter) 550 / 550 300 / 300 Indwelling Urethral Catheter 550 / 550 300 / 300 Wound Vac Amount 150 / 150 100 / 100 Groin 150 / 150 100 / 100 Other: Mode Setting Groin Continuous Continuous Continuous Date of Last Bowel Movement 08/31/18 08/31/18 08/31/18 # Bowel Movements 0 09/05/18 07:40 Wound - Groin Acid Fast Bacilli Smear - Final No acid fast bacilli seen 09/05/18 07:40 Wound - Groin Mycobacterial Culture - Pending 09/05/18 07:40 Wound - Groin Acid Fast Bacilli Smear - Final No acid fast bacilli seen 09/05/18 07:40 Wound - Groin Mycobacterial Culture - Pending 09/05/18 07:40 Wound - Groin Gram Stain - Final 09/05/18 07:40 Wound - Groin Wound Culture - Preliminary Staphylococcus aureus 09/05/18 07:40 Wound - Groin Gram Stain - Final 09/05/18 07:40 Wound - Groin Wound Culture - Preliminary Staphylococcus aureus Group B beta Strep 09/04/18 21:15 Wound - Groin Gram Stain - Final 09/04/18 21:15 Wound - Groin Wound Culture - Preliminary Staphylococcus aureus Group B beta Strep 09/04/18 21:15 Wound - Groin Gram Stain - Final 09/04/18 21:15 Wound - Groin Wound Culture - Preliminary Staphylococcus aureus 09/04/18 21:49 Blood - Peripheral Aerobic Blood Culture - Preliminary No growth in 2 days 09/04/18 21:49 Blood - Peripheral Anaerobic Blood Culture - Preliminary No growth in 2 days 09/04/18 21:30 Blood - Peripheral Aerobic Blood Culture - Preliminary No growth in 2 days 09/04/18 21:30 Blood - Peripheral Anaerobic Blood Culture - Preliminary No growth in 2 days 09/05/18 07:40 Wound - Groin Fungal Smear - Final No fungal elements seen 09/05/18 07:40 Wound - Groin Fungal Culture - Pending 09/05/18 07:40 Wound - Groin Fungal Smear - Pending 09/05/18 07:40 Wound - Groin Fungal Culture - Pending Lab - Hematology Results 09/04/18 09/05/18 09/06/18 21:30 19:47 03:07 CBC w Diff Slide review pending WBC 1.9 L 1.4 L 1.4 L Corrected WBC 1.8 L RBC 3.11 L 2.60 L 2.57 L Hgb 10.1 L 8.4 L 8.4 L Hct 29.9 L 26.1 L 26.3 L MCV 96.2 100.7 H D 102.5 H MCH 32.5 32.2 32.9 MCHC 33.8 32.0 32.1 RDW 18.5 H 18.8 H 19.2 H Plt Count 493 H 367 345 MPV 9.4 9.8 10.0 Prelim Diff (Auto) Manual diff required WBC Differential Manual diff final Manual diff final Seg Neuts % (Manual) 4 L 1 L Band Neuts % (Manual) 1 Lymphocytes % (Manual) 76 H 92 H Monocytes % (Manual) 17 H 7 Plasma Cell % (Manual) 2 H Abs Neuts (Manual) 0.1 L* 0.0 L* Nucleated RBCs/100 WBC 8 H 2 H Differential Comment . . Dohle Bodies Present H Platelet Estimate High H Normal Platelet Morphology Enlarged H Enlarged H Ovalocytes 1+ H 1+ H Lab - Chemistry Results 09/04/18 09/04/18 09/04/18 21:30 21:30 21:30 Sodium 136 Potassium 4.0 Chloride 104 Carbon Dioxide 24.5 Anion Gap 8 BUN 27 H Creatinine 1.10 Estimated GFR 63 L POC Glucose Random Glucose 108 H Lactic Acid 2.0 Calcium 7.9 L Prot Corrected Calcium Magnesium 2.3 Total Bilirubin 1.0 AST 21 ALT 27 Alkaline Phosphatase 99 Total Creatine Kinase 10 L Troponin I Less than 0.02 L C-Reactive Protein 12.90 H Total Protein 7.9 Albumin 2.3 L Lipase 113 09/04/18 09/06/18 22:01 03:07 Sodium 144 Potassium 3.8 Chloride 110 H Carbon Dioxide 24.9 Anion Gap 9 BUN 27 H Creatinine 1.38 H Estimated GFR 49 L POC Glucose 129 H Random Glucose 79 Lactic Acid Calcium 7.4 L* Prot Corrected Calcium 7.6 L Magnesium 2.2 Total Bilirubin 1.1 H AST 9 L ALT 15 Alkaline Phosphatase 59 Total Creatine Kinase Troponin I C-Reactive Protein Total Protein 6.8 D Albumin 2.0 L Lipase Imaging: ITS Impressions Abdomen/Pelvis CT 09/04/18 21:11 CONCLUSION: 1. 7.5 cm inflammatory and edematous area in the right inguinal region containing probable small loculated abscesses. Edematous change extends inferiorly through the lower aspect of both inguinal canals into the scrotum with marked scrotal wall thickening and small locules of air in the upper left scrotum that could represent a necrotizing infection. There is herniation of fat through both inguinal canals, worse on the left side with herniated fat in the left scrotum measuring up to 9.5 cm in diameter. 2. Hepatosplenomegaly. Moderate coronary calcifications. Small pericardial effusion. Chest X-Ray 09/05/18 00:00 CONCLUSION: Adequate placement of endotracheal tube. Physical Exam: GENERAL: NAD SKIN: Warm and dry. no rash EYES: Pupils equal and round. No scleral icterus. No injection or drainage. ENT: No nasal bleeding or discharge. Mucous membranes pink and moist. NECK: Trachea midline. No JVD. CARDIOVASCULAR: Regular rate and rhythm. RESPIRATORY: No accessory muscle use. Clear to auscultation. Breath sounds equal bilaterally. GASTROINTESTINAL: Abdomen soft, non-tender, nondistended. Hepatic and splenic margins not palpable. : + some suprapubic edema, erythea, b/l groin VACs in pace with serosang d/c Penile soft edema maddox inplace with sarita urine MUSCULOSKELETAL: Extremities without clubbing, cyanosis, or edema. No obvious deformities. NEUROLOGICAL: Awake and alert. No obvious cranial nerve deficits. folllows commands Normal speech. PSYCHIATRIC: calm and cooperative Assessment and Plan - Plan Immunosuppresed pt with idiopathic neutropenia. 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
[2018-09-06] MEDS: Micafungin Inj 150 MG in Sodium Chlor 0.9% Inj 100 ML IV.SIG SCH (17:11)
[2018-09-07] MEDS: Piperacil/Tazo 4.5 GM Premix 4.5 GM/100 ML BAG IV.SIG SCH ×4 (04:38→21:24)
[2018-09-07] MEDS ORDERED: Vancomycin Inj 1,500 MG in Sodium Chlor 0.9% Inj 500 ML IV.SIG SCH (05:00)
[2018-09-07 06:20] LABS: Hematocrit 26.4 % (39.0-51.0); Hemoglobin 8.8 gm/dL (13.0-17.0); Mean Corpuscular HGB Conc 33.4 % (32.0-36.0); Mean Corpuscular Hemoglobin 33.1 pg (27.0-34.0); Mean Corpuscular Volume 99.3 fL (80.0-100.0); Mean Platelet Volume 10.2 fL (7.0-11.0); Platelet Count 329 th/mm3 (150-450); Red Blood Count 2.66 mil/mm3 (4.50-5.90); Red Cell Distribution Width 18.7 % (11.6-17.2); White Blood Count 1.9 th/mm3 (4.0-11.0)
[2018-09-07 06:23] LABS: INR 1.5 Ratio; Prothrombin Time 15.4 sec (9.8-11.6)
[2018-09-07 06:47] LABS: Calcium 7.1 mg/dL (8.5-10.1); Carbon Dioxide 23.6 meq/L (21.0-32.0); Potassium 3.6 meq/L (3.5-5.1)
[2018-09-07 07:40] LABS: Total Protein 6.7 g/dL (6.4-8.2)
[2018-09-07 07:44] LABS: Calcium-Albumin Corrected 7.3 mg/dL (8.5-10.1)
[2018-09-07 08:04] LABS: Blast Cells 4 % (0-0); Lymphocytes 55 % (9-44); Monocytes 28 % (0-8); Plasma Cells 2 % (0-0); Tallied Nucleated RBC 18 (0-0)
[2018-09-07 08:06] LABS: Ovalocytes 1+; Platelet Estimate Normal (Normal)
[2018-09-07 08:07] LABS: Basophilic Stippling Moderate
[2018-09-07 08:09] LABS: Dohle Bodies Present; Toxic Granulation 1+
[2018-09-07] MEDS: Famotidine PF Inj 20 MG/2 ML Vial IV.PUSH SCH ×2 (08:31→20:16)
[2018-09-07] MEDS: Levothyroxine 150 MCG Tablet PO SCH (08:31)
[2018-09-07] MEDS: Chlorhexidine Gluconate 2% 1 Pack (2 Cloths) TOPICAL SCH (08:31)
[2018-09-07] MEDS: Senna/Docusate Sodium 8.6/50 MG Tablet PO SCH ×2 (08:32→20:19)
[2018-09-07] MEDS: Morphine Sulfate Inj 2 MG/ML Vial IV.PUSH PRN ×4 (09:00→23:37)
--- NOTE | 2018-09-07 10:53 | P.PNCC ---
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 He is independent for ADLs and lives alone, family checks on him periodically. Patient has history of leukopenia, ?MDS followed by Dr. Feliz had Neupogen treatment before but did not respond. He had low-grade fever a few days ago. Initially the groin pain was attributed to his inguinal hernia, however he decided to present to the ER today as he had noticed redness and open wounds with drainage in bilateral groins. In the emergency department patient was evaluated by Dr. Chang, A stat CT of the abdomen pelvis showed 7.5 cm inflammatory and edematous area in the right inguinal region containing probable small loculated abscesses. Edematous change extends inferiorly through the lower aspect of both inguinal canals into the scrotum with marked scrotal wall thickening and small locules of air in the upper left scrotum that could represent a necrotizing infection. There is herniation of fat through both inguinal canals. Patient received crystalloid resuscitation with 3 L normal saline boluses, was also given vancomycin clindamycin and Zosyn. Blood cultures and wound cultures were sent. Dr. Blake from general surgery, and Dr. Sunshine from urology were consulted by Dr. Chang at [facility] ED. Plan is to transfer patient to the [facility], resuscitate adequately given antibiotics and plan for OR in a.m. 09/06: Patient is warm and well-perfused. Urine output is low but acceptable. I suspect he will need increased fluids as the day progresses however. Total neutrophil count of 100 is quite worrisome. Neupogen has been started by the hematology service. Timing of extubation will depend to some extent on the timing of subsequent debridement. Glucose control has not been a problem. 09/07: Total neutrophil count up to 190. Glucose control acceptable. Antibiotic coverage being narrowed, consistent with culture results. Tolerated extubation and comfortable on his home CPAP machine at night. Plan is for return to the OR on Tuesday. Objective Vital Signs / I&O: Vital Signs 09/06/18 10:54 09/06/18 11:00 09/06/18 12:00 Temperature 97.9 F Pulse Rate 83 82 87 Respiratory Rate 24 26 H 24 Blood Pressure 112/59 L Pulse Oximetry 98 99 99 09/06/18 12:54 09/06/18 13:00 09/06/18 14:00 Temperature Pulse Rate 86 82 85 Respiratory Rate 26 H 25 H 28 H Blood Pressure 112/55 L Pulse Oximetry 95 95 97 09/06/18 14:54 09/06/18 15:00 09/06/18 15:54 Temperature Pulse Rate 81 84 88 Respiratory Rate 26 H 26 H 24 Blood Pressure 119/56 L 117/56 L Pulse Oximetry 98 98 99 09/06/18 16:00 09/06/18 16:54 09/06/18 17:00 Temperature 98.0 F Pulse Rate 88 93 H 95 H Respiratory Rate 24 29 H 28 H Blood Pressure 131/73 Pulse Oximetry 99 94 L 97 09/06/18 17:54 09/06/18 18:00 09/06/18 20:00 Temperature 98.1 F Pulse Rate 89 82 90 Respiratory Rate 26 H 28 H 24 Blood Pressure 123/59 L 129/67 Pulse Oximetry 96 97 98 09/06/18 20:57 09/07/18 00:26 09/07/18 04:00 Temperature 100.6 F H 100.6 F H Pulse Rate 103 H 96 H Respiratory Rate 26 H 27 H Blood Pressure 135/56 L 133/65 Pulse Oximetry 97 93 L 09/07/18 08:00 09/07/18 08:54 09/07/18 09:00 Temperature 100.1 F H Pulse Rate 94 H 99 H 101 H Respiratory Rate 28 H 32 H 30 H Blood Pressure 136/66 Pulse Oximetry 91 L 92 L 91 L 09/07/18 09:54 09/07/18 10:00 Temperature Pulse Rate 98 H 99 H Respiratory Rate 25 H 27 H Blood Pressure 135/65 Pulse Oximetry 97 97 Intake & Output 09/06/18 09/07/18 09/07/18 18:59 06:59 18:59 Intake Total 3416.6 / 3416.6 1340 / 1340 100 / 100 Output Total 725 / 725 700 / 700 Balance 2691.6 / 2691.6 640 / 640 100 / 100 Weight 121 kg Intake: IV 2216.6 / 2216.6 1100 / 1100 100 / 100 LR 1000 mL Inj 1,000 ML @ 125 1000 / 1000 1000 / 1000 mls/hr IV.CONT .Q8H [facility] Rx#: [id number] Diprivan 1000 mg/100 ml Inj 1, 50 / 50 000 mg In 100 ml @ 5 MCG/KG/MIN 3.63 mls/hr IV.CONT TITRATE PRN Rx#:[id number] Cleocin 900 mg/NS Premix 900 mg 50 / 50 In 50 ml @ 100 mls/hr IV.SIG Q8H [facility] Rx#:[id number] Neupogen Inj 480 MCG In D5W Inj 51.6 / 51.6 50 ML @ 100 mls/hr IV.SIG DAILY@1400 [facility] Rx#:[id number] Mycamine Inj 150 MG In NS Inj 100 / 100 100 ML @ 100 mls/hr IV.SIG Q24H [facility] Rx#:[id number] Zosyn 4.5 GM Premix 4.5 gm In 200 / 200 100 / 100 100 / 100 100 ml @ 200 mls/hr IV.SIG Q6H [facility] Rx#:[id number] Vancomycin Inj 1,500 MG In NS 765 / 765 Inj 500 ML @ 250 mls/hr IV.SIG Q18H [facility] Rx#:[id number] Oral 1200 / 1200 240 / 240 Output: Urine 700 / 700 Urine Amount (Catheter) 450 / 450 Indwelling Urethral Catheter 450 / 450 Wound Vac Amount 275 / 275 Groin 275 / 275 Other: Bladder Irrigation Fluid - Amount Instilled Indwelling Urethral Catheter 30 Bladder Irrigation Fluid - Amount Drained Indwelling Urethral Catheter 30 Mode Setting Groin Continuous Continuous Continuous Date of Last Bowel Movement 08/31/18 08/31/18 09/07/18 Result Diagrams: 09/07/18 05:04 09/07/18 05:04 Objective Remarks: Narrative: General: 88-year-old male lying in bed, on home CPAP, calm. HEENT: normocephalic and atraumatic. Oral tracheal intubation. Pupils equally responsive. Neck: no meningeal signs, trachea midline. Airway widely patent, no obstructive noises. Resp: Air entry equal bilaterally no wheezes or crackles. Clear breath sounds, good excursion. CVS: Normal S1-S2, regular rate and rhythm, no murmurs appreciated. No JVD. GI/: Wound VAC in place both groins. Abdomen without guarding, bowel sounds present. Neuro: Opens eyes to loud voice. Conversant. Moves 4 limbs spontaneously. 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 Status: Acute (2) Severe sepsis Code(s): A41.9 - Sepsis, unspecified organism; R65.20 - Severe sepsis without septic shock Status: Acute (3) Neutropenia Code(s): D70.9 - Neutropenia, unspecified Status: Acute (4) MDS (myelodysplastic syndrome) Code(s): D46.9 - Myelodysplastic syndrome, unspecified Status: Chronic - Assessment and Plan Plan: NEURO: -Pain control with as needed morphine -Tylenol for fever RESP: -Aggressive pulmonary toilet -Albuterol inhaler every 2 hours as needed -Extubated 09/06 CV: Sinus tachycardia History of hypertension -Normal saline IV fluids 3 L bolus and 84 mL/h -Lactic acid was 2 -Hold home medications nifedipine and lisinopril GI: -N.p.o., IV famotidine -NG to low intermittent suction, feed if okay with general surgery service. /ID: Melina's gangrene Severe sepsis -Broad-spectrum antibiotics with IV vancomycin, IV Zosyn and IV clindamycin. Adjust per ID service. -09/05 surgical debridement by general surgery Dr. Blake and urology Dr. Rae's -Monitor renal function closely. Diaz catheter. 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 (Dr. Feliz) -Monitor CBC, coags -Recommendations by hematology service has been placed. ENDO: Hypothyroidism -Electrolyte replacement per protocol -Change Synthroid to IV at half dose 75 mcg daily until p.o. permitted PROPH: -Bilateral lower extremity SCDs. IV famotidine. Hold chemical DVT prophylaxis in anticipation of surgical intervention, restart when okay with surgical service. LINES: -Utilize peripheral IVs, central line if needed Overall impression: This gentleman is critically ill having developed Melina' s gangrene and requiring surgical debridement in both groins. His care is complicated by neutropenia and age. The wounds will be inspected tomorrow. Critical care time 35 minutes
--- NOTE | 2018-09-07 11:23 | P.PNGS ---
Subjective Interval history: Hard of hearing Son at bedside No issues overnight Physical Exam Vital signs: Vital Signs 09/06/18 12:00 09/06/18 12:54 09/06/18 13:00 Temperature 97.9 F Pulse Rate 87 86 82 Respiratory Rate 24 26 H 25 H Blood Pressure 112/55 L Pulse Oximetry 99 95 95 09/06/18 14:00 09/06/18 14:54 09/06/18 15:00 Temperature Pulse Rate 85 81 84 Respiratory Rate 28 H 26 H 26 H Blood Pressure 119/56 L Pulse Oximetry 97 98 98 09/06/18 15:54 09/06/18 16:00 09/06/18 16:54 Temperature 98.0 F Pulse Rate 88 88 93 H Respiratory Rate 24 24 29 H Blood Pressure 117/56 L 131/73 Pulse Oximetry 99 99 94 L 09/06/18 17:00 09/06/18 17:54 09/06/18 18:00 Temperature Pulse Rate 95 H 89 82 Respiratory Rate 28 H 26 H 28 H Blood Pressure 123/59 L Pulse Oximetry 97 96 97 09/06/18 20:00 09/06/18 20:57 09/07/18 00:26 Temperature 98.1 F 100.6 F H Pulse Rate 90 103 H Respiratory Rate 24 26 H Blood Pressure 129/67 135/56 L Pulse Oximetry 98 97 93 L 09/07/18 04:00 09/07/18 08:00 09/07/18 08:54 Temperature 100.6 F H 100.1 F H Pulse Rate 96 H 94 H 99 H Respiratory Rate 27 H 28 H 32 H Blood Pressure 133/65 136/66 Pulse Oximetry 91 L 92 L 09/07/18 09:00 09/07/18 09:54 09/07/18 10:00 Temperature Pulse Rate 101 H 98 H 99 H Respiratory Rate 30 H 25 H 27 H Blood Pressure 135/65 Pulse Oximetry 91 L 97 97 Intake & Output 09/06/18 09/07/18 09/07/18 18:59 06:59 18:59 Intake Total 3416.6 / 3416.6 1340 / 1340 100 / 100 Output Total 725 / 725 700 / 700 Balance 2691.6 / 2691.6 640 / 640 100 / 100 Weight 121 kg Intake: IV 2216.6 / 2216.6 1100 / 1100 100 / 100 LR 1000 mL Inj 1,000 ML @ 125 1000 / 1000 1000 / 1000 mls/hr IV.CONT .Q8H [facility] Rx#: [id number] Diprivan 1000 mg/100 ml Inj 1, 50 / 50 000 mg In 100 ml @ 5 MCG/KG/MIN 3.63 mls/hr IV.CONT TITRATE PRN Rx#:[id number] Cleocin 900 mg/NS Premix 900 mg 50 / 50 In 50 ml @ 100 mls/hr IV.SIG Q8H [facility] Rx#:[id number] Neupogen Inj 480 MCG In D5W Inj 51.6 / 51.6 50 ML @ 100 mls/hr IV.SIG DAILY@1400 [facility] Rx#:[id number] Mycamine Inj 150 MG In NS Inj 100 / 100 100 ML @ 100 mls/hr IV.SIG Q24H [facility] Rx#:[id number] Zosyn 4.5 GM Premix 4.5 gm In 200 / 200 100 / 100 100 / 100 100 ml @ 200 mls/hr IV.SIG Q6H [facility] Rx#:[id number] Vancomycin Inj 1,500 MG In NS 765 / 765 Inj 500 ML @ 250 mls/hr IV.SIG Q18H [facility] Rx#:[id number] Oral 1200 / 1200 240 / 240 Output: Urine 700 / 700 Urine Amount (Catheter) 450 / 450 Indwelling Urethral Catheter 450 / 450 Wound Vac Amount 275 / 275 Groin 275 / 275 Other: Bladder Irrigation Fluid - Amount Instilled Indwelling Urethral Catheter 30 Bladder Irrigation Fluid - Amount Drained Indwelling Urethral Catheter 30 Mode Setting Groin Continuous Continuous Continuous Date of Last Bowel Movement 08/31/18 08/31/18 09/07/18 Narrative: Alert and awake Groin: wound vac in place with good seal; induration noted ---LEFT worse than RIGHT - Urinary Catheter Management Indwelling Urethral Catheter Cath placed during this visit: yes Reason for continuing: Severe pressure ulcer/wound Insertion date: 09/05/18 Insertion time: 00:53 Results - Labs 09/09/18 03:58 09/09/18 03:58 Laboratory Results - last 24 hr 09/07/18 09/07/18 09/07/18 05:04 05:04 05:04 WBC 1.9 L RBC 2.66 L Hgb 8.8 L Hct 26.4 L MCV 99.3 MCH 33.1 MCHC 33.4 RDW 18.7 H Plt Count 329 MPV 10.2 Prelim Diff (Auto) Manual diff required WBC Differential Manual diff final Seg Neuts % (Manual) 10 L Band Neuts % (Manual) 1 Lymphocytes % (Manual) 55 H Monocytes % (Manual) 28 H Blast Cells % (Manual) 4 H Plasma Cell % (Manual) 2 H Abs Neuts (Manual) 0.2 L* Nucleated RBCs/100 WBC 18 H Differential Comment . Toxic Granulation 1+ H Dohle Bodies Present H Platelet Estimate Normal Platelet Morphology Enlarged H Basophilic Stippling Moderate H Ovalocytes 1+ H PT 15.4 H INR 1.5 Sodium 145 Potassium 3.6 Chloride 111 H Carbon Dioxide 23.6 Anion Gap 10 BUN 24 H Creatinine 1.29 Estimated GFR 53 L Random Glucose 105 Calcium 7.1 L* Prot Corrected Calcium 7.3 L* Total Protein 6.7 - Imaging Imaging: ITS Impressions Abdomen/Pelvis CT 09/04/18 21:11 CONCLUSION: 1. 7.5 cm inflammatory and edematous area in the right inguinal region containing probable small loculated abscesses. Edematous change extends inferiorly through the lower aspect of both inguinal canals into the scrotum with marked scrotal wall thickening and small locules of air in the upper left scrotum that could represent a necrotizing infection. There is herniation of fat through both inguinal canals, worse on the left side with herniated fat in the left scrotum measuring up to 9.5 cm in diameter. 2. Hepatosplenomegaly. Moderate coronary calcifications. Small pericardial effusion. Chest X-Ray 09/05/18 00:00 CONCLUSION: Adequate placement of endotracheal tube. Assessment and Plan - Assessment (1) Cellulitis Code(s): L03.90 - Cellulitis, unspecified Status: Acute Plan: 88 year old male with Immunosuppresed pt with idiopathic neutropenia. ANC 100; Bilateral inguinal abscess; Melina's gangrene. -S/p emergent debridement---Wound Vac placed -Plan for OR tomorrow -Cont zosyn, micafungin; ID following -Regular diet; NPO after MN -Obtain consents Wound VAC intact without leakage Discussed procedure with patient's son and patient For debridement/replacement VAC tomorrow. The exam, history, and the medical decision-making described in the above note were completed with the assistance of the mid-level provider. I reviewed and agree with the findings presented. I attest that I had a [id number] encounter with the patient on the same day, and personally performed and documented my assessment and findings in the medical record. (2) Infected wound Code(s): T14.8XXA - Other injury of unspecified body region, initial encounter; L08.9 - Local infection of the skin and subcutaneous tissue, unspecified Status: Acute (3) Neutropenia Code(s): D70.9 - Neutropenia, unspecified Status: Acute (4) Abscess of groin Code(s): L02.214 - Cutaneous abscess of groin Status: Acute (1) Cellulitis Qualifiers: Site of cellulitis: other site Qualified Code(s): L03.818 - Cellulitis of other sites
--- NOTE | 2018-09-07 12:44 | P.PNID ---
Subjective Remarks: On NC O2 doing well + low grade fever 100.1F growing MSSA, GBS and mixed anaerobs from multiple wound clx ANC 200 BP stabe off pressors Antibiotics: zosyn micafungin Past Medical History: neutropenia Allergies/Adverse Reactions: Allergies Sulfa (Sulfonamide Antibiotics) Allergy (Intermediate, Verified 09/05/18 02:09) RASH, SWELLING Objective Vital Signs 09/06/18 12:54 09/06/18 13:00 09/06/18 14:00 Temperature Pulse Rate 86 82 85 Respiratory Rate 26 H 25 H 28 H Blood Pressure 112/55 L Pulse Oximetry 95 95 97 09/06/18 14:54 09/06/18 15:00 09/06/18 15:54 Temperature Pulse Rate 81 84 88 Respiratory Rate 26 H 26 H 24 Blood Pressure 119/56 L 117/56 L Pulse Oximetry 98 98 99 09/06/18 16:00 09/06/18 16:54 09/06/18 17:00 Temperature 98.0 F Pulse Rate 88 93 H 95 H Respiratory Rate 24 29 H 28 H Blood Pressure 131/73 Pulse Oximetry 99 94 L 97 09/06/18 17:54 09/06/18 18:00 09/06/18 20:00 Temperature 98.1 F Pulse Rate 89 82 90 Respiratory Rate 26 H 28 H 24 Blood Pressure 123/59 L 129/67 Pulse Oximetry 96 97 98 09/06/18 20:57 09/07/18 00:26 09/07/18 04:00 Temperature 100.6 F H 100.6 F H Pulse Rate 103 H 96 H Respiratory Rate 26 H 27 H Blood Pressure 135/56 L 133/65 Pulse Oximetry 97 93 L 09/07/18 08:00 09/07/18 08:54 09/07/18 09:00 Temperature 100.1 F H Pulse Rate 94 H 99 H 101 H Respiratory Rate 28 H 32 H 30 H Blood Pressure 136/66 Pulse Oximetry 91 L 92 L 91 L 09/07/18 09:54 09/07/18 10:00 Temperature Pulse Rate 98 H 99 H Respiratory Rate 25 H 27 H Blood Pressure 135/65 Pulse Oximetry 97 97 Intake & Output 09/06/18 09/07/18 09/07/18 18:59 06:59 18:59 Intake Total 3416.6 / 3416.6 1340 / 1340 1200 / 1200 Output Total 725 / 725 700 / 700 Balance 2691.6 / 2691.6 640 / 640 1200 / 1200 Weight 121 kg Intake: IV 2216.6 / 2216.6 1100 / 1100 1200 / 1200 LR 1000 mL Inj 1,000 ML @ 75 1000 / 1000 1000 / 1000 1000 / 1000 mls/hr IV.CONT .[id number] [facility] Rx# :[id number] Diprivan 1000 mg/100 ml Inj 1, 50 / 50 000 mg In 100 ml @ 5 MCG/KG/MIN 3.63 mls/hr IV.CONT TITRATE PRN Rx#:[id number] Cleocin 900 mg/NS Premix 900 mg 50 / 50 In 50 ml @ 100 mls/hr IV.SIG Q8H [facility] Rx#:[id number] Neupogen Inj 480 MCG In D5W Inj 51.6 / 51.6 50 ML @ 100 mls/hr IV.SIG DAILY@1400 [facility] Rx#:[id number] Mycamine Inj 150 MG In NS Inj 100 / 100 100 ML @ 100 mls/hr IV.SIG Q24H [facility] Rx#:[id number] Zosyn 4.5 GM Premix 4.5 gm In 200 / 200 100 / 100 200 / 200 100 ml @ 200 mls/hr IV.SIG Q6H [facility] Rx#:[id number] Vancomycin Inj 1,500 MG In NS 765 / 765 Inj 500 ML @ 250 mls/hr IV.SIG Q18H [facility] Rx#:[id number] Oral 1200 / 1200 240 / 240 Output: Urine 700 / 700 Urine Amount (Catheter) 450 / 450 Indwelling Urethral Catheter 450 / 450 Wound Vac Amount 275 / 275 Groin 275 / 275 Other: Bladder Irrigation Fluid - Amount Instilled Indwelling Urethral Catheter 30 Bladder Irrigation Fluid - Amount Drained Indwelling Urethral Catheter 30 Mode Setting Groin Continuous Continuous Continuous Date of Last Bowel Movement 08/31/18 08/31/18 09/07/18 09/05/18 07:40 Wound - Groin Gram Stain - Final 09/05/18 07:40 Wound - Groin Wound Culture - Final Staphylococcus aureus anaerobic gram negative rods 09/04/18 21:49 Blood - Peripheral Aerobic Blood Culture - Preliminary No growth in 3 days 09/04/18 21:49 Blood - Peripheral Anaerobic Blood Culture - Preliminary No growth in 3 days 09/04/18 21:30 Blood - Peripheral Aerobic Blood Culture - Preliminary No growth in 3 days 09/04/18 21:30 Blood - Peripheral Anaerobic Blood Culture - Preliminary No growth in 3 days 09/04/18 21:15 Wound - Groin Gram Stain - Final 09/04/18 21:15 Wound - Groin Wound Culture - Final Staphylococcus aureus Group B beta Strep Mixed Anaerobes 09/04/18 21:15 Wound - Groin Gram Stain - Final 09/04/18 21:15 Wound - Groin Wound Culture - Final Staphylococcus aureus Mixed Anaerobes 09/05/18 07:40 Wound - Groin Gram Stain - Final 09/05/18 07:40 Wound - Groin Wound Culture - Final Staphylococcus aureus Group B beta Strep 09/05/18 07:40 Wound - Groin Fungal Smear - Final No fungal elements seen 09/05/18 07:40 Wound - Groin Fungal Culture - Pending 09/05/18 07:40 Wound - Groin Acid Fast Bacilli Smear - Final No acid fast bacilli seen 09/05/18 07:40 Wound - Groin Mycobacterial Culture - Pending 09/05/18 07:40 Wound - Groin Acid Fast Bacilli Smear - Final No acid fast bacilli seen 09/05/18 07:40 Wound - Groin Mycobacterial Culture - Pending 09/05/18 07:40 Wound - Groin Fungal Smear - Final No fungal elements seen 09/05/18 07:40 Wound - Groin Fungal Culture - Pending Lab - Hematology Results 09/05/18 09/06/18 09/07/18 19:47 03:07 05:04 WBC 1.4 L 1.4 L 1.9 L RBC 2.60 L 2.57 L 2.66 L Hgb 8.4 L 8.4 L 8.8 L Hct 26.1 L 26.3 L 26.4 L MCV 100.7 H D 102.5 H 99.3 MCH 32.2 32.9 33.1 MCHC 32.0 32.1 33.4 RDW 18.8 H 19.2 H 18.7 H Plt Count 367 345 329 MPV 9.8 10.0 10.2 Prelim Diff (Auto) Manual diff required Manual diff required WBC Differential Manual diff final Manual diff final Seg Neuts % (Manual) 1 L 10 L Band Neuts % (Manual) 1 Lymphocytes % (Manual) 92 H 55 H Monocytes % (Manual) 7 28 H Blast Cells % (Manual) 4 H Plasma Cell % (Manual) 2 H Abs Neuts (Manual) 0.0 L* 0.2 L* Nucleated RBCs/100 WBC 2 H 18 H Differential Comment . . Toxic Granulation 1+ H Dohle Bodies Present H Platelet Estimate Normal Normal Platelet Morphology Enlarged H Enlarged H Basophilic Stippling Moderate H Ovalocytes 1+ H 1+ H Lab - Chemistry Results 09/06/18 09/07/18 03:07 05:04 Sodium 144 145 Potassium 3.8 3.6 Chloride 110 H 111 H Carbon Dioxide 24.9 23.6 Anion Gap 9 10 BUN 27 H 24 H Creatinine 1.38 H 1.29 Estimated GFR 49 L 53 L Random Glucose 79 105 Calcium 7.4 L* 7.1 L* Prot Corrected Calcium 7.6 L 7.3 L* Magnesium 2.2 Total Bilirubin 1.1 H AST 9 L ALT 15 Alkaline Phosphatase 59 Total Protein 6.8 D 6.7 Albumin 2.0 L Imaging: ITS Impressions Abdomen/Pelvis CT 09/04/18 21:11 CONCLUSION: 1. 7.5 cm inflammatory and edematous area in the right inguinal region containing probable small loculated abscesses. Edematous change extends inferiorly through the lower aspect of both inguinal canals into the scrotum with marked scrotal wall thickening and small locules of air in the upper left scrotum that could represent a necrotizing infection. There is herniation of fat through both inguinal canals, worse on the left side with herniated fat in the left scrotum measuring up to 9.5 cm in diameter. 2. Hepatosplenomegaly. Moderate coronary calcifications. Small pericardial effusion. Chest X-Ray 09/05/18 00:00 CONCLUSION: Adequate placement of endotracheal tube. Physical Exam: GENERAL: NAD SKIN: Warm and dry. no rash EYES: Pupils equal and round. No scleral icterus. No injection or drainage. ENT: No nasal bleeding or discharge. Mucous membranes pink and moist. NECK: Trachea midline. No JVD. CARDIOVASCULAR: Regular rate and rhythm. RESPIRATORY: No accessory muscle use. Clear to auscultation. Breath sounds equal bilaterally. GASTROINTESTINAL: Abdomen soft, non-tender, nondistended. Hepatic and splenic margins not palpable. : + some suprapubic edema, erythema, L groin w/o induration R groin tender to palpation and indurated b/l groin VACs in pace with serosang d/c Penile soft edema maddox inplace with sarita urine MUSCULOSKELETAL: Extremities without clubbing, cyanosis, or edema. No obvious deformities. NEUROLOGICAL: Awake and alert. No obvious cranial nerve deficits. folllows commands Normal speech. PSYCHIATRIC: calm and cooperative Assessment and Plan - Plan Immunosuppresed pt with idiopathic neutropenia. 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
--- NOTE | 2018-09-07 14:07 | P.PNONC ---
Subjective Interval history: T-max 100.6 F. Patient sleeping on approach, awakens easily to voice. He reports that he is feeling better. He was extubated yesterday. He is accompanied by his son, who reports that he recently had Diaz catheter replacement due to sedimentation. Objective Vital Signs/Intake & Output: Vital Signs 09/06/18 14:54 09/06/18 15:00 09/06/18 15:54 Temperature Pulse Rate 81 84 88 Respiratory Rate 26 H 26 H 24 Blood Pressure 119/56 L 117/56 L Pulse Oximetry 98 98 99 09/06/18 16:00 09/06/18 16:54 09/06/18 17:00 Temperature 98.0 F Pulse Rate 88 93 H 95 H Respiratory Rate 24 29 H 28 H Blood Pressure 131/73 Pulse Oximetry 99 94 L 97 09/06/18 17:54 09/06/18 18:00 09/06/18 20:00 Temperature 98.1 F Pulse Rate 89 82 90 Respiratory Rate 26 H 28 H 24 Blood Pressure 123/59 L 129/67 Pulse Oximetry 96 97 98 09/06/18 20:57 09/07/18 00:26 09/07/18 04:00 Temperature 100.6 F H 100.6 F H Pulse Rate 103 H 96 H Respiratory Rate 26 H 27 H Blood Pressure 135/56 L 133/65 Pulse Oximetry 97 93 L 09/07/18 08:00 09/07/18 08:54 09/07/18 09:00 Temperature 100.1 F H Pulse Rate 94 H 99 H 101 H Respiratory Rate 28 H 32 H 30 H Blood Pressure 136/66 Pulse Oximetry 91 L 92 L 91 L 09/07/18 09:54 09/07/18 10:00 Temperature Pulse Rate 98 H 99 H Respiratory Rate 25 H 27 H Blood Pressure 135/65 Pulse Oximetry 97 97 Intake & Output 09/06/18 09/07/18 09/07/18 18:59 06:59 18:59 Intake Total 3416.6 / 3416.6 1340 / 1340 1200 / 1200 Output Total 725 / 725 700 / 700 Balance 2691.6 / 2691.6 640 / 640 1200 / 1200 Weight 121 kg Intake: IV 2216.6 / 2216.6 1100 / 1100 1200 / 1200 LR 1000 mL Inj 1,000 ML @ 75 1000 / 1000 1000 / 1000 1000 / 1000 mls/hr IV.CONT .[id number] [facility] Rx# :[id number] Diprivan 1000 mg/100 ml Inj 1, 50 / 50 000 mg In 100 ml @ 5 MCG/KG/MIN 3.63 mls/hr IV.CONT TITRATE PRN Rx#:[id number] Cleocin 900 mg/NS Premix 900 mg 50 / 50 In 50 ml @ 100 mls/hr IV.SIG Q8H [facility] Rx#:[id number] Neupogen Inj 480 MCG In D5W Inj 51.6 / 51.6 50 ML @ 100 mls/hr IV.SIG DAILY@1400 [facility] Rx#:[id number] Mycamine Inj 150 MG In NS Inj 100 / 100 100 ML @ 100 mls/hr IV.SIG Q24H [facility] Rx#:[id number] Zosyn 4.5 GM Premix 4.5 gm In 200 / 200 100 / 100 200 / 200 100 ml @ 200 mls/hr IV.SIG Q6H [facility] Rx#:[id number] Vancomycin Inj 1,500 MG In NS 765 / 765 Inj 500 ML @ 250 mls/hr IV.SIG Q18H [facility] Rx#:[id number] Oral 1200 / 1200 240 / 240 Output: Urine 700 / 700 Urine Amount (Catheter) 450 / 450 Indwelling Urethral Catheter 450 / 450 Wound Vac Amount 275 / 275 Groin 275 / 275 Other: Bladder Irrigation Fluid - Amount Instilled Indwelling Urethral Catheter 30 Bladder Irrigation Fluid - Amount Drained Indwelling Urethral Catheter 30 Mode Setting Groin Continuous Continuous Continuous Date of Last Bowel Movement 08/31/18 08/31/18 09/07/18 Result Diagrams: 09/07/18 05:04 09/07/18 05:04 Laboratory Results: Laboratory Results - last 24 hr 09/07/18 09/07/18 09/07/18 05:04 05:04 05:04 WBC 1.9 L RBC 2.66 L Hgb 8.8 L Hct 26.4 L MCV 99.3 MCH 33.1 MCHC 33.4 RDW 18.7 H Plt Count 329 MPV 10.2 Prelim Diff (Auto) Manual diff required WBC Differential Manual diff final Seg Neuts % (Manual) 10 L Band Neuts % (Manual) 1 Lymphocytes % (Manual) 55 H Monocytes % (Manual) 28 H Blast Cells % (Manual) 4 H Plasma Cell % (Manual) 2 H Abs Neuts (Manual) 0.2 L* Nucleated RBCs/100 WBC 18 H Differential Comment . Toxic Granulation 1+ H Dohle Bodies Present H Platelet Estimate Normal Platelet Morphology Enlarged H Basophilic Stippling Moderate H Ovalocytes 1+ H PT 15.4 H INR 1.5 Sodium 145 Potassium 3.6 Chloride 111 H Carbon Dioxide 23.6 Anion Gap 10 BUN 24 H Creatinine 1.29 Estimated GFR 53 L Random Glucose 105 Calcium 7.1 L* Prot Corrected Calcium 7.3 L* Total Protein 6.7 Culture Results: Microbiology 09/05/18 07:40 Gram Stain - Final Wound - Groin Wound Culture - Final Staphylococcus aureus anaerobic gram negative rods 09/04/18 21:49 Aerobic Blood Culture - Preliminary Blood - Peripheral No growth in 3 days Anaerobic Blood Culture - Preliminary No growth in 3 days 09/04/18 21:30 Aerobic Blood Culture - Preliminary Blood - Peripheral No growth in 3 days Anaerobic Blood Culture - Preliminary No growth in 3 days 09/04/18 21:15 Gram Stain - Final Wound - Groin Wound Culture - Final Staphylococcus aureus Group B beta Strep Mixed Anaerobes 09/04/18 21:15 Gram Stain - Final Wound - Groin Wound Culture - Final Staphylococcus aureus Mixed Anaerobes 09/05/18 07:40 Gram Stain - Final Wound - Groin Wound Culture - Final Staphylococcus aureus Group B beta Strep 09/05/18 07:40 Fungal Smear - Final Wound - Groin No fungal elements seen 09/05/18 07:40 Acid Fast Bacilli Smear - Final Wound - Groin No acid fast bacilli seen 09/05/18 07:40 Acid Fast Bacilli Smear - Final Wound - Groin No acid fast bacilli seen 09/05/18 07:40 Fungal Smear - Final Wound - Groin No fungal elements seen Medications: Active Medications Generic Name Dose Route Start Last Admin Trade Name Freq PRN Reason Stop Dose Admin Albuterol 2.5 mg 09/05/18 00:27 09/05/18 23:31 Albuterol Neb (Prn) NEB 2.5 mg Q2HR NEB PRN Administration SHORTNESS OF BREATH/WHEEZING Chlorhexidine Gluconate 3 pack 09/05/18 04:00 09/07/18 08:31 Chlorhexidine 2% Cloth TOPICAL 09/10/18 03:59 Not Given DAILY@0400 [facility] Famotidine 20 mg 09/05/18 09:00 09/07/18 08:31 Pepcid Pf Inj IV.PUSH 20 mg Q12HR [facility] Administration Piperacillin/Tazobactam/Dextrose 4.5 gm in 100 mls @ 200 mls/hr 09/05/18 04: 00 09/07/18 12:06 Zosyn 4.5 Gm Premix IV.SIG Infused Q6H [facility] Infusion Lactated Ringer's 1,000 mls @ 75 mls/hr 09/05/18 09:45 09/07/18 12:06 Lr 1000 Ml Inj IV.CONT 75 mls/hr .[id number] [facility] Administration Propofol 1,000 mg in 100 mls @ 3.63 mls/hr 09/05/18 09:48 09/06/18 08:00 Diprivan 1000 Mg/100 Ml Inj IV.CONT 0 mcg/kg/min TITRATE PRN 0 mls/hr Per Protocol Titration Protocol 5 MCG/KG/MIN Filgrastim 480 mcg/ Dextrose 51.6 mls @ 100 mls/hr 09/06/18 14:00 09/06/18 18 :45 IV.SIG Infused DAILY@1400 [facility] In[facility] Levothyroxine Sodium 150 mcg 09/06/18 06:00 09/07/18 08:31 Synthroid PO 150 mcg DAILY@0600 [facility] Administration Morphine Sulfate 2 mg 09/05/18 00:27 09/07/18 09:00 Morphine Inj IV.PUSH 2 mg Q2H PRN Administration PAIN SCALE 6 TO 10 Senna/Docusate Sodium 1 tab 09/05/18 09:00 09/07/18 08:32 Sunshine-Colace PO Not Given BID [facility] Sodium Chloride 2 ml 09/05/18 09:00 09/07/18 08:32 Ns Flush IV.FLUSH 2 ml BID [facility] Administration Tamsulosin HCl 0.4 mg 09/06/18 20:00 09/07/18 08:31 Flomax PO 0.4 mg DAILY [facility] Administration Objective Remarks: GENERAL: Chronically ill-appearing elderly male patient, in no acute distress. SKIN: Warm and dry. HEAD: Normocephalic. EYES: No scleral icterus. No injection or drainage. NECK: Supple, trachea midline. CARDIOVASCULAR: Regular rate and rhythm without murmurs. RESPIRATORY: Breath sounds equal bilaterally. Nonlabored at rest. GASTROINTESTINAL: Abdomen soft, non-tender, nondistended. Edema to the scrotum. + Diaz catheter, draining yellow urine with sediment. EXTREMITIES: No cyanosis, or edema. Bilateral groin wound drains, draining dark fluid. MUSCULOSKELETAL: Adequate muscle tone. NEUROLOGICAL: No obvious focal deficit. Awake, alert, and oriented x3. PSYCHIATRIC: Appropriate mood and affect; insight and judgment normal. Assessment/Plan - Plan Mr. Bishop is a pleasant 88-year-old gentleman, who was hospitalized and currently being treated for inguinal area abscesses. He has been on the ventilator and oncology was consulted for neutropenia. The patient has a history of myelofibrosis, diagnosed in November 2017. He is currently under the care of Dr. Feliz and has recently been evaluated at [facility]. Recommendations: 1. Neutropenia, continues. Continue Neupogen. 2. 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 Plans for another debridement scheduled for Tuesday at noon. 3. Repeat CBC in the a.m. 4. Continue neutropenic precautions. - Attending Statement The exam, history, and the medical decision-making described in the above note were completed with the assistance of the mid-level provider. I reviewed and agree with the findings presented. I attest that I had a [id number] encounter with the patient on the same day, and personally performed and documented my assessment and findings in the medical record. Patient was extubated yesterday Patient just had morphine and he is sleeping now Patient's daughter is at bedside Patient still has severe neutropenia in spite of Neupogen Continue Neupogen and monitor the CBC Patient is scheduled to have another debridement tomorrow Extensive discussion with the patient's daughter I have answered her questions to her satisfaction
[2018-09-07] MEDS ORDERED: Pharmacy Ordered Lab Info OTHER ONE (16:45)
[2018-09-08] MEDS: Piperacil/Tazo 4.5 GM Premix 4.5 GM/100 ML BAG IV.SIG SCH ×4 (03:53→22:07)
[2018-09-08] MEDS: Chlorhexidine Gluconate 2% 1 Pack (2 Cloths) TOPICAL SCH (03:53)
[2018-09-08] MEDS: Morphine Sulfate Inj 2 MG/ML Vial IV.PUSH PRN ×3 (04:04→23:37)
[2018-09-08] MEDS ORDERED: Pharmacy Ordered Lab Info OTHER ONE (04:45)
[2018-09-08 04:48] LABS: Hematocrit 28.7 % (39.0-51.0); Hemoglobin 9.5 gm/dL (13.0-17.0); Mean Corpuscular HGB Conc 33.1 % (32.0-36.0); Mean Corpuscular Hemoglobin 32.9 pg (27.0-34.0); Mean Corpuscular Volume 99.4 fL (80.0-100.0); Mean Platelet Volume 10.4 fL (7.0-11.0); Platelet Count 333 th/mm3 (150-450); Red Blood Count 2.88 mil/mm3 (4.50-5.90); Red Cell Distribution Width 18.7 % (11.6-17.2); White Blood Count 2.6 th/mm3 (4.0-11.0)
[2018-09-08 04:50] LABS: INR 1.5 Ratio; Prothrombin Time 14.9 sec (9.8-11.6)
[2018-09-08 05:12] LABS: Calcium 7.3 mg/dL (8.5-10.1); Carbon Dioxide 25.7 meq/L (21.0-32.0); Potassium 3.8 meq/L (3.5-5.1); Vancomycin,Trough 5.5 mcg/mL (5.0-10.0)
[2018-09-08] MEDS: Levothyroxine 150 MCG Tablet PO SCH (05:46)
[2018-09-08 06:00] LABS: Calcium-Albumin Corrected 7.5 mg/dL (8.5-10.1); Total Protein 6.8 g/dL (6.4-8.2)
[2018-09-08 07:50] LABS: Blast Cells 11 % (0-0); Lymphocytes 58 % (9-44); Monocytes 24 % (0-8); Plasma Cells 2 % (0-0); Tallied Nucleated RBC 47 (0-0)
[2018-09-08 07:54] LABS: Platelet Estimate Normal (Normal)
[2018-09-08] MEDS: Senna/Docusate Sodium 8.6/50 MG Tablet PO SCH ×2 (09:52→20:19)
[2018-09-08] MEDS: Famotidine PF Inj 20 MG/2 ML Vial IV.PUSH SCH ×2 (09:52→20:25)
--- NOTE | 2018-09-08 12:31 | P.PNCC ---
Subjective Subjective Remarks/Hospital Course: The patient is an 88 year old male with past medical history significant for probable MDS, hypertension, hypothyroidism, history of prostate cancer, chronic bilateral inguinal hernias who presented to the [place] emergency department today with groin pain lasting for approximately 1 week. He is independent for ADLs and lives alone, family checks on him periodically. Patient has history of leukopenia, ?MDS followed by Dr. Feliz had Neupogen treatment before but did not respond. He had low-grade fever a few days ago. Initially the groin pain was attributed to his inguinal hernia, however he decided to present to the ER today as he had noticed redness and open wounds with drainage in bilateral groins. In the emergency department patient was evaluated by Dr. Chang, A stat CT of the abdomen pelvis showed 7.5 cm inflammatory and edematous area in the right inguinal region containing probable small loculated abscesses. Edematous change extends inferiorly through the lower aspect of both inguinal canals into the scrotum with marked scrotal wall thickening and small locules of air in the upper left scrotum that could represent a necrotizing infection. There is herniation of fat through both inguinal canals. Patient received crystalloid resuscitation with 3 L normal saline boluses, was also given vancomycin clindamycin and Zosyn. Blood cultures and wound cultures were sent. Dr. Blake from general surgery, and Dr. Sunshine from urology were consulted by Dr. Chang at [place] ED. Plan is to transfer patient to the [facility], resuscitate adequately given antibiotics and plan for OR in a.m. 09/06: Patient is warm and well-perfused. Urine output is low but acceptable. I suspect he will need increased fluids as the day progresses however. Total neutrophil count of 100 is quite worrisome. Neupogen has been started by the hematology service. Timing of extubation will depend to some extent on the timing of subsequent debridement. Glucose control has not been a problem. 09/07: Total neutrophil count up to 190. Glucose control acceptable. Antibiotic coverage being narrowed, consistent with culture results. Tolerated extubation and comfortable on his home CPAP machine at night. Plan is for return to the OR on Tuesday. 09/08: Lying in bed remains stable. Remains leukopenic 2.6K. Plan for OR today. Family at bedside updated Objective Vital Signs / I&O: Vital Signs 09/07/18 14:00 09/07/18 14:54 09/07/18 15:00 Temperature Pulse Rate 93 H 94 H 101 H Respiratory Rate 24 25 H 28 H Blood Pressure 147/67 H Pulse Oximetry 97 99 99 09/07/18 15:54 09/07/18 16:00 09/07/18 16:54 Temperature 99.6 F Pulse Rate 95 H 91 H 97 H Respiratory Rate 24 22 26 H Blood Pressure 138/65 142/67 H Pulse Oximetry 98 98 94 L 09/07/18 17:00 09/07/18 17:54 09/07/18 18:00 Temperature Pulse Rate 93 H 101 H 98 H Respiratory Rate 24 27 H 26 H Blood Pressure 131/71 Pulse Oximetry 93 L 94 L 92 L 09/07/18 20:00 09/07/18 20:55 09/07/18 22:00 Temperature 98.1 F Pulse Rate 98 H 95 H Respiratory Rate 22 Blood Pressure 156/75 H Pulse Oximetry 95 99 09/08/18 00:00 09/08/18 04:00 09/08/18 07:00 Temperature 98 F 97.6 F Pulse Rate 98 H 100 H 92 H Respiratory Rate 18 14 22 Blood Pressure 153/79 H 159/82 H 128/82 Pulse Oximetry 98 94 L Intake & Output 09/07/18 09/08/18 09/08/18 18:59 06:59 18:59 Intake Total 2851.6 / 2851.6 1200 / 1200 150 / 150 Output Total 800 / 800 950 / 950 Balance 2051.6 / 2051.6 250 / 250 150 / 150 Intake: IV 1351.6 / 1351.6 1200 / 1200 100 / 100 LR 1000 mL Inj 1,000 ML @ 75 1000 / 1000 1000 / 1000 mls/hr IV.CONT .[id number] [facility] Rx# :[id number] Neupogen Inj 480 MCG In D5W Inj 51.6 / 51.6 50 ML @ 100 mls/hr IV.SIG DAILY@1400 [facility] Rx#:[id number] Zosyn 4.5 GM Premix 4.5 gm In 300 / 300 200 / 200 100 / 100 100 ml @ 200 mls/hr IV.SIG Q6H [facility] Rx#:[id number] Oral 1500 / 1500 50 / 50 Output: Urine Amount (Catheter) 700 / 700 900 / 900 Indwelling Urethral Catheter 700 / 700 900 / 900 Wound Vac Amount 100 / 100 50 / 50 Groin 100 / 100 50 / 50 Other: Mode Setting Groin Continuous Continuous Date of Last Bowel Movement 09/07/18 09/08/18 09/08/18 # Bowel Movements 2 1 1 Result Diagrams: 09/08/18 03:29 09/08/18 03:29 Objective Remarks: General: 88-year-old male lying in bed, no distress, calm. HEENT: normocephalic and atraumatic. Airway patent. Pupils equally responsive. Neck: no meningeal signs, trachea midline. Airway widely patent, no obstructive noises. Resp: Air entry equal bilaterally no wheezes or crackles. Clear breath sounds, good excursion. CVS: Normal S1-S2, regular rate and rhythm, no murmurs appreciated. No JVD. GI/: Wound VAC in place bilateral groins. Abdomen without guarding, bowel sounds present. Neuro: Alert awake very hard of hearing. Conversant. Moves 4 limbs spontaneously. 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 Status: Acute (2) Severe sepsis Code(s): A41.9 - Sepsis, unspecified organism; R65.20 - Severe sepsis without septic shock Status: Acute (3) Neutropenia Code(s): D70.9 - Neutropenia, unspecified Status: Acute (4) MDS (myelodysplastic syndrome) Code(s): D46.9 - Myelodysplastic syndrome, unspecified Status: Chronic - Assessment and Plan Plan: NEURO: -Pain control with as needed morphine -Tylenol for fever RESP: -Aggressive pulmonary toilet -Albuterol inhaler every 2 hours as needed -Extubated 09/06 CV: Sinus tachycardia History of hypertension -s/p Normal saline IV fluids 3 L bolus and 84 mL/h -Lactic acid was 2 -Holding home medications nifedipine and lisinopril GI: -N.p.o., IV famotidine -NG to low intermittent suction, feed if okay with general surgery service. /ID: Melina's gangrene Severe sepsis -Broad-spectrum antibiotics with IV vancomycin, IV Zosyn and IV clindamycin. Adjust per ID service. -09/05 surgical debridement by general surgery Dr. Blake and urology Dr. Dyes -Repeat OR planned for today -Monitor renal function closely. Diaz catheter. -Follow-up on blood and urine culture -Predominant organisms MSSA and group B strep, recent cx from 09/05/2018 also gram-negative anaerobes HEME: Neutropenia History of probable MDS History of prostate cancer -Hematology following -Previously has failed Neupogen. (Dr. Feliz) -Monitor CBC, coags -Recommendations by hematology service has been placed. ENDO: Hypothyroidism -Electrolyte replacement per protocol -Synthroid IV 75 mcg daily PROPH: -Bilateral lower extremity SCDs. IV famotidine. Hold chemical DVT prophylaxis in anticipation of surgical intervention, restart when okay with surgical service. LINES: -Utilize peripheral IVs, central line if needed Overall impression: This gentleman is critically ill having developed Melina' s gangrene and requiring surgical debridement in both groins. His care is complicated by neutropenia and age. Going OR today for reexploration. Wound is gangrene along with neutropenia, keep him continue to be critical. Continue ICU management resuscitation and antibiotics surgical intervention Critical care time 35 minutes Code Status: Full
[2018-09-08] MEDS ORDERED: Lidocaine 1% Inj 50 ML Vial ONE (13:30)
[2018-09-08] MEDS ORDERED: Succinylcholine Inj 100 MG/5 ML Syringe IV.PUSH ONE (13:57)
[2018-09-08] MEDS ORDERED: Lidocaine PF 1% Inj 5 ML Syringe OTHER ONE (13:57)
[2018-09-08] MEDS ORDERED: Phenylephrine/NS 1000 MCG/10ML Syringe IV.PUSH ONE (13:57)
--- NOTE | 2018-09-08 13:57 | P.PNID ---
Subjective Remarks: On NC O2 afebrile neutropenic @ 100 to OR today Large formed BM, followed by liquid BMs Antibiotics: zosyn micafungin Past Medical History: neutropenia Allergies/Adverse Reactions: Allergies Sulfa (Sulfonamide Antibiotics) Allergy (Intermediate, Verified 09/05/18 02:09) RASH, SWELLING Objective Vital Signs 09/07/18 14:00 09/07/18 14:54 09/07/18 15:00 Temperature Pulse Rate 93 H 94 H 101 H Respiratory Rate 24 25 H 28 H Blood Pressure 147/67 H Pulse Oximetry 97 99 99 09/07/18 15:54 09/07/18 16:00 09/07/18 16:54 Temperature 99.6 F Pulse Rate 95 H 91 H 97 H Respiratory Rate 24 22 26 H Blood Pressure 138/65 142/67 H Pulse Oximetry 98 98 94 L 09/07/18 17:00 09/07/18 17:54 09/07/18 18:00 Temperature Pulse Rate 93 H 101 H 98 H Respiratory Rate 24 27 H 26 H Blood Pressure 131/71 Pulse Oximetry 93 L 94 L 92 L 09/07/18 20:00 09/07/18 20:55 09/07/18 22:00 Temperature 98.1 F Pulse Rate 98 H 95 H Respiratory Rate 22 Blood Pressure 156/75 H Pulse Oximetry 95 99 09/08/18 00:00 09/08/18 04:00 09/08/18 07:00 Temperature 98 F 97.6 F Pulse Rate 98 H 100 H 92 H Respiratory Rate 18 14 22 Blood Pressure 153/79 H 159/82 H 128/82 Pulse Oximetry 98 94 L 09/08/18 08:00 Temperature Pulse Rate Respiratory Rate Blood Pressure Pulse Oximetry 98 Intake & Output 09/07/18 09/08/18 09/08/18 18:59 06:59 18:59 Intake Total 2851.6 / 2851.6 1200 / 1200 150 / 150 Output Total 800 / 800 950 / 950 550 / 550 Balance 2051.6 / 2051.6 250 / 250 -400 / -400 Intake: IV 1351.6 / 1351.6 1200 / 1200 100 / 100 LR 1000 mL Inj 1,000 ML @ 75 1000 / 1000 1000 / 1000 mls/hr IV.CONT .[id number] [facility] Rx# :[id number] Neupogen Inj 480 MCG In D5W Inj 51.6 / 51.6 50 ML @ 100 mls/hr IV.SIG DAILY@1400 [facility] Rx#:[id number] Zosyn 4.5 GM Premix 4.5 gm In 300 / 300 200 / 200 100 / 100 100 ml @ 200 mls/hr IV.SIG Q6H [facility] Rx#:[id number] Oral 1500 / 1500 50 / 50 Output: Urine Amount (Catheter) 700 / 700 900 / 900 500 / 500 Indwelling Urethral Catheter 700 / 700 900 / 900 500 / 500 Wound Vac Amount 100 / 100 50 / 50 50 / 50 Groin 100 / 100 50 / 50 50 / 50 Other: Mode Setting Groin Continuous Continuous Continuous Date of Last Bowel Movement 09/07/18 09/08/18 09/08/18 # Bowel Movements 2 1 1 09/04/18 21:49 Blood - Peripheral Aerobic Blood Culture - Preliminary No growth in 4 days 09/04/18 21:49 Blood - Peripheral Anaerobic Blood Culture - Preliminary No growth in 4 days 09/04/18 21:30 Blood - Peripheral Aerobic Blood Culture - Preliminary No growth in 4 days 09/04/18 21:30 Blood - Peripheral Anaerobic Blood Culture - Preliminary No growth in 4 days 09/05/18 07:40 Wound - Groin Gram Stain - Final 09/05/18 07:40 Wound - Groin Wound Culture - Final Staphylococcus aureus anaerobic gram negative rods 09/04/18 21:15 Wound - Groin Gram Stain - Final 09/04/18 21:15 Wound - Groin Wound Culture - Final Staphylococcus aureus Group B beta Strep Mixed Anaerobes 09/04/18 21:15 Wound - Groin Gram Stain - Final 09/04/18 21:15 Wound - Groin Wound Culture - Final Staphylococcus aureus Mixed Anaerobes 09/05/18 07:40 Wound - Groin Gram Stain - Final 09/05/18 07:40 Wound - Groin Wound Culture - Final Staphylococcus aureus Group B beta Strep 09/05/18 07:40 Wound - Groin Fungal Smear - Final No fungal elements seen 09/05/18 07:40 Wound - Groin Fungal Culture - Pending 09/05/18 07:40 Wound - Groin Acid Fast Bacilli Smear - Final No acid fast bacilli seen 09/05/18 07:40 Wound - Groin Mycobacterial Culture - Pending 09/05/18 07:40 Wound - Groin Acid Fast Bacilli Smear - Final No acid fast bacilli seen 09/05/18 07:40 Wound - Groin Mycobacterial Culture - Pending 09/05/18 07:40 Wound - Groin Fungal Smear - Final No fungal elements seen 09/05/18 07:40 Wound - Groin Fungal Culture - Pending Lab - Hematology Results 09/07/18 09/08/18 05:04 03:29 WBC 1.9 L 2.6 L RBC 2.66 L 2.88 L Hgb 8.8 L 9.5 L Hct 26.4 L 28.7 L MCV 99.3 99.4 MCH 33.1 32.9 MCHC 33.4 33.1 RDW 18.7 H 18.7 H Plt Count 329 333 MPV 10.2 10.4 Prelim Diff (Auto) Manual diff required Manual diff required WBC Differential Manual diff final Manual diff final Seg Neuts % (Manual) 10 L 5 L Band Neuts % (Manual) 1 Lymphocytes % (Manual) 55 H 58 H Monocytes % (Manual) 28 H 24 H Blast Cells % (Manual) 4 H 11 H Plasma Cell % (Manual) 2 H 2 H Abs Neuts (Manual) 0.2 L* 0.1 L* Nucleated RBCs/100 WBC 18 H 47 H Differential Comment . . Toxic Granulation 1+ H Dohle Bodies Present H Platelet Estimate Normal Normal Platelet Morphology Enlarged H Enlarged H Basophilic Stippling Moderate H Ovalocytes 1+ H Lab - Chemistry Results 09/07/18 09/08/18 05:04 03:29 Sodium 145 144 Potassium 3.6 3.8 Chloride 111 H 110 H Carbon Dioxide 23.6 25.7 Anion Gap 10 8 BUN 24 H 23 H Creatinine 1.29 1.28 Estimated GFR 53 L 53 L Random Glucose 105 122 H Calcium 7.1 L* 7.3 L* Prot Corrected Calcium 7.3 L* 7.5 L Total Protein 6.7 6.8 Imaging: ITS Impressions Abdomen/Pelvis CT 09/04/18 21:11 CONCLUSION: 1. 7.5 cm inflammatory and edematous area in the right inguinal region containing probable small loculated abscesses. Edematous change extends inferiorly through the lower aspect of both inguinal canals into the scrotum with marked scrotal wall thickening and small locules of air in the upper left scrotum that could represent a necrotizing infection. There is herniation of fat through both inguinal canals, worse on the left side with herniated fat in the left scrotum measuring up to 9.5 cm in diameter. 2. Hepatosplenomegaly. Moderate coronary calcifications. Small pericardial effusion. Chest X-Ray 09/05/18 00:00 CONCLUSION: Adequate placement of endotracheal tube. Physical Exam: GENERAL: NAD SKIN: Warm and dry. no rash EYES: Pupils equal and round. No scleral icterus. No injection or drainage. ENT: No nasal bleeding or discharge. Mucous membranes pink and moist. NECK: Trachea midline. No JVD. CARDIOVASCULAR: Regular rate and rhythm. RESPIRATORY: No accessory muscle use. Clear to auscultation. Breath sounds equal bilaterally. GASTROINTESTINAL: Abdomen soft, non-tender, nondistended. Hepatic and splenic margins not palpable. : + some suprapubic edema, erythema, L groin w/o induration R groin tender to palpation and indurated, but seems less prominent than yday b/l groin VACs in pace with serosang d/c Penile soft edema maddox inplace with sarita urine MUSCULOSKELETAL: Extremities without clubbing, cyanosis, or edema. No obvious deformities. NEUROLOGICAL: Awake and alert. No obvious cranial nerve deficits. folllows commands Normal speech. PSYCHIATRIC: calm and cooperative Assessment and Plan - Plan Immunosuppresed pt with idiopathic neutropenia. ANC 100 Bilateral inguinal abscess. Melina's gangrene: mixed aerobic/anaerobic infx Sp emergent debridement JIM - GFR improved slighly cont zosyn plan for closure L groin wound and debridement of R wound will chk stool for c.diff if cont to have liquid BMs dw RN dw son @ b/s
[2018-09-08 15:11] LABS: Bilirubin,Urine Negative (Negative); Clarity,Urine Hazy (Clear); Color,Urine Yellow (Yellw/Straw); Glucose,Urine (UA) Negative (Negative); Leukocyte Esterase,Urine Negative (Negative); Mucus,Urine Few /lpf (Occasional); Nitrite,Urine Negative (Negative); Specific Gravity,Urine 1.017 (1.002-1.035)
--- NOTE | 2018-09-08 15:42 | P.OP ---
- Preoperative Diagnosis (1) Infected wound (2) MDS (myelodysplastic syndrome) (3) Abscess of groin - Postoperative Diagnosis (1) Infected wound (2) MDS (myelodysplastic syndrome) (3) Abscess of groin Date of procedure: 09/08/18 Procedure: Irrigation and debridement bilateral groin wounds with 100 cm skin and subcutaneous tissue debrided. Reapplication of VAC dressings bilaterally with partial wound closure Anesthesia: SHIA Surgeon: Obinna Blake MD Explosive Specialist: ANAND Hillman Estimated blood loss (mL): 50 IV fluids (mL): 1,000 Pathology: none sent Operation and Findings: Patient was taken to the operating room and placed on the operating table in the supine position. After an adequate level of general endotracheal anesthesia was achieved, the patient's legs were placed in yellow fins and the groins were prepped and draped bilaterally after removal of the VAC dressings. Timeout was taken, confirming the correct patient, site, and procedures to be performed. Skin and subcutaneous tissue on the left side was debrided back and pulse lavage irrigation was used to irrigate the groin. When this was completed, the inferior portion of the wound was closed with 0 Prolene sutures as was the most superior portion. The wound was otherwise left largely open with a VAC sponge applied and the adhesive placed over the sponge. The sponge was suctioned down and good seal was achieved after placing a section suction device with sponge over the sutured portion of the scrotum. Attention was then turned to the right side where further debridement was required of skin and subcutaneous tissues. A total of 100 cm of skin and subcutaneous tissue was debrided from both sides with the bulk of the debridement coming from the right side. Over three quarters of the debridement was on the right side. When this was completed, small bleeding points were controlled with electrocautery. Pulse lavage irrigation was utilized on this side as well and when this was completed the lower portion of the wound was closed slightly with 0 Prolene sutures as well as the very superior portion with 2 sutures. VAC sponges were placed inside once again with 3 pieces of sponge utilized. Adhesive strips were placed down and good suction and seal was achieved. Sponge needle and instrument counts were reported to be correct. The patient was placed back supine and taken back to the intensive care unit in stable condition. He tolerated the procedure well.
[2018-09-08] MEDS ORDERED: fentaNYL Citrate Inj 100 MCG/2 ML Ampul ONE (16:10)
--- NOTE | 2018-09-08 17:08 | P.PNONC ---
Subjective Interval history: Patient denies any new complaint Objective Vital Signs/Intake & Output: Vital Signs 09/07/18 17:54 09/07/18 18:00 09/07/18 20:00 Temperature Pulse Rate 101 H 98 H 98 H Respiratory Rate 27 H 26 H Blood Pressure 131/71 Pulse Oximetry 94 L 92 L 09/07/18 20:55 09/07/18 22:00 09/08/18 00:00 Temperature 98.1 F 98 F Pulse Rate 95 H 98 H Respiratory Rate 22 18 Blood Pressure 156/75 H 153/79 H Pulse Oximetry 95 99 98 09/08/18 04:00 09/08/18 07:00 09/08/18 07:54 Temperature 97.6 F Pulse Rate 100 H 92 H 96 H Respiratory Rate 14 22 22 Blood Pressure 159/82 H 128/82 161/88 H Pulse Oximetry 94 L 97 09/08/18 08:00 09/08/18 08:13 09/08/18 08:54 Temperature 98.0 F Pulse Rate 103 H 106 H 101 H Respiratory Rate 22 38 H 30 H Blood Pressure 136/68 136/68 132/63 Pulse Oximetry 97 93 L 94 L 09/08/18 09:00 09/08/18 09:54 09/08/18 10:00 Temperature Pulse Rate 102 H 104 H 95 H Respiratory Rate 27 H 25 H 23 Blood Pressure 148/82 H Pulse Oximetry 95 96 96 09/08/18 10:54 09/08/18 11:00 09/08/18 11:54 Temperature Pulse Rate 101 H 96 H 93 H Respiratory Rate 28 H 25 H 25 H Blood Pressure 143/84 H 160/79 H Pulse Oximetry 84 L 95 100 09/08/18 12:00 09/08/18 12:54 09/08/18 13:00 Temperature 98.2 F Pulse Rate 101 H 91 H 92 H Respiratory Rate 24 23 24 Blood Pressure 150/80 H 150/80 H Pulse Oximetry 85 L 97 100 09/08/18 15:56 Temperature Pulse Rate Respiratory Rate Blood Pressure Pulse Oximetry 99 Intake & Output 09/07/18 09/08/18 09/08/18 18:59 06:59 18:59 Intake Total 2851.6 / 2851.6 1200 / 1200 150 / 150 Output Total 800 / 800 950 / 950 550 / 550 Balance 2051.6 / 2051.6 250 / 250 -400 / -400 Intake: IV 1351.6 / 1351.6 1200 / 1200 100 / 100 LR 1000 mL Inj 1,000 ML @ 75 1000 / 1000 1000 / 1000 mls/hr IV.CONT .[id number] [facility] Rx# :[id number] Neupogen Inj 480 MCG In D5W Inj 51.6 / 51.6 50 ML @ 100 mls/hr IV.SIG DAILY@1400 [facility] Rx#:[id number] Zosyn 4.5 GM Premix 4.5 gm In 300 / 300 200 / 200 100 / 100 100 ml @ 200 mls/hr IV.SIG Q6H [facility] Rx#:[id number] Oral 1500 / 1500 50 / 50 Output: Urine Amount (Catheter) 700 / 700 900 / 900 500 / 500 Indwelling Urethral Catheter 700 / 700 900 / 900 500 / 500 Wound Vac Amount 100 / 100 50 / 50 50 / 50 Groin 100 / 100 50 / 50 50 / 50 Other: Mode Setting Groin Continuous Continuous Continuous Date of Last Bowel Movement 09/07/18 09/08/18 09/08/18 # Bowel Movements 2 1 1 Result Diagrams: 09/08/18 03:29 09/08/18 03:29 Laboratory Results: Laboratory Results - last 24 hr 09/08/18 09/08/18 09/08/18 03:29 03:29 03:29 WBC 2.6 L RBC 2.88 L Hgb 9.5 L Hct 28.7 L MCV 99.4 MCH 32.9 MCHC 33.1 RDW 18.7 H Plt Count 333 MPV 10.4 Prelim Diff (Auto) Manual diff required WBC Differential Manual diff final Seg Neuts % (Manual) 5 L Lymphocytes % (Manual) 58 H Monocytes % (Manual) 24 H Blast Cells % (Manual) 11 H Plasma Cell % (Manual) 2 H Abs Neuts (Manual) 0.1 L* Nucleated RBCs/100 WBC 47 H Differential Comment . Platelet Estimate Normal Platelet Morphology Enlarged H PT 14.9 H INR 1.5 Sodium 144 Potassium 3.8 Chloride 110 H Carbon Dioxide 25.7 Anion Gap 8 BUN 23 H Creatinine 1.28 Estimated GFR 53 L POC Glucose Random Glucose 122 H Calcium 7.3 L* Prot Corrected Calcium 7.5 L Total Protein 6.8 Urine Color Urine Clarity Urine pH Ur Specific [place] Urine Protein Urine Glucose (UA) Urine Ketones Urine Occult Blood Urine Nitrate Urine Bilirubin Urine Urobilinogen Ur Leukocyte Esterase Urine RBC Urine WBC Urine Mucus Micro UA Comment Ur Microscopic Review Urine Culture Comments Vancomycin Trough 5.5 09/08/18 09/08/18 12:28 15:49 WBC RBC Hgb Hct MCV MCH MCHC RDW Plt Count MPV Prelim Diff (Auto) WBC Differential Seg Neuts % (Manual) Lymphocytes % (Manual) Monocytes % (Manual) Blast Cells % (Manual) Plasma Cell % (Manual) Abs Neuts (Manual) Nucleated RBCs/100 WBC Differential Comment Platelet Estimate Platelet Morphology PT INR Sodium Potassium Chloride Carbon Dioxide Anion Gap BUN Creatinine Estimated GFR POC Glucose 124 H Random Glucose Calcium Prot Corrected Calcium Total Protein Urine Color Yellow Urine Clarity Hazy H Urine pH 5.0 Ur Specific [place] 1.017 Urine Protein 30 H Urine Glucose (UA) Negative Urine Ketones Negative Urine Occult Blood Small H Urine Nitrate Negative Urine Bilirubin Negative Urine Urobilinogen Less than 2 Ur Leukocyte Esterase Negative Urine RBC 4 H Urine WBC 1 Urine Mucus Few H Micro UA Comment Cath-culture ind Ur Microscopic Review Not Reportable Urine Culture Comments Cath-cult indicated Vancomycin Trough Culture Results: Microbiology 09/04/18 21:49 Aerobic Blood Culture - Preliminary Blood - Peripheral No growth in 4 days Anaerobic Blood Culture - Preliminary No growth in 4 days 09/04/18 21:30 Aerobic Blood Culture - Preliminary Blood - Peripheral No growth in 4 days Anaerobic Blood Culture - Preliminary No growth in 4 days 09/05/18 07:40 Gram Stain - Final Wound - Groin Wound Culture - Final Staphylococcus aureus anaerobic gram negative rods 09/04/18 21:15 Gram Stain - Final Wound - Groin Wound Culture - Final Staphylococcus aureus Group B beta Strep Mixed Anaerobes 09/04/18 21:15 Gram Stain - Final Wound - Groin Wound Culture - Final Staphylococcus aureus Mixed Anaerobes 09/05/18 07:40 Gram Stain - Final Wound - Groin Wound Culture - Final Staphylococcus aureus Group B beta Strep 09/05/18 07:40 Fungal Smear - Final Wound - Groin No fungal elements seen 09/05/18 07:40 Acid Fast Bacilli Smear - Final Wound - Groin No acid fast bacilli seen 09/05/18 07:40 Acid Fast Bacilli Smear - Final Wound - Groin No acid fast bacilli seen 09/05/18 07:40 Fungal Smear - Final Wound - Groin No fungal elements seen Medications: Active Medications Generic Name Dose Route Start Last Admin Trade Name Freq PRN Reason Stop Dose Admin Albuterol 2.5 mg 09/05/18 00:27 09/05/18 23:31 Albuterol Neb (Prn) NEB 2.5 mg Q2HR NEB PRN Administration SHORTNESS OF BREATH/WHEEZING Chlorhexidine Gluconate 3 pack 09/05/18 04:00 09/08/18 03:53 Chlorhexidine 2% Cloth TOPICAL 09/10/18 03:59 3 pack DAILY@0400 [facility] Administration Famotidine 20 mg 09/05/18 09:00 09/08/18 09:52 Pepcid Pf Inj IV.PUSH 20 mg Q12HR [facility] Administration Piperacillin/Tazobactam/Dextrose 4.5 gm in 100 mls @ 200 mls/hr 09/05/18 04: 00 09/08/18 11:19 Zosyn 4.5 Gm Premix IV.SIG Infused Q6H [facility] Infusion Lactated Ringer's 1,000 mls @ 75 mls/hr 09/05/18 09:45 09/08/18 02:09 Lr 1000 Ml Inj IV.CONT 75 mls/hr .[id number] [facility] Administration Propofol 1,000 mg in 100 mls @ 3.63 mls/hr 09/05/18 09:48 09/06/18 08:00 Diprivan 1000 Mg/100 Ml Inj IV.CONT 0 mcg/kg/min TITRATE PRN 0 mls/hr Per Protocol Titration Protocol 5 MCG/KG/MIN Filgrastim 480 mcg/ Dextrose 51.6 mls @ 100 mls/hr 09/06/18 14:00 09/08/18 15 :20 IV.SIG 100 mls/hr DAILY@1400 [facility] Administration Levothyroxine Sodium 150 mcg 09/06/18 06:00 09/08/18 05:46 Synthroid PO 150 mcg DAILY@0600 [facility] Administration Morphine Sulfate 2 mg 09/05/18 00:27 09/08/18 04:04 Morphine Inj IV.PUSH 2 mg Q2H PRN Administration PAIN SCALE 6 TO 10 Senna/Docusate Sodium 1 tab 09/05/18 09:00 09/08/18 09:52 Sunshine-Colace PO Not Given BID [facility] Sodium Chloride 2 ml 09/05/18 09:00 09/08/18 09:53 Ns Flush IV.FLUSH 2 ml BID [facility] Administration Tamsulosin HCl 0.4 mg 09/06/18 20:00 09/08/18 09:52 Flomax PO 0.4 mg DAILY [facility] Administration Objective Remarks: GENERAL: Chronically ill-appearing elderly male patient, in no acute distress. SKIN: Warm and dry. HEAD: Normocephalic. EYES: No scleral icterus. No injection or drainage. NECK: Supple, trachea midline. CARDIOVASCULAR: Regular rate and rhythm without murmurs. RESPIRATORY: Breath sounds equal bilaterally. Nonlabored at rest. GASTROINTESTINAL: Abdomen soft, non-tender, nondistended. Edema to the scrotum. + Diaz catheter, draining yellow urine with sediment. EXTREMITIES: No cyanosis, or edema. Bilateral groin wound drains, draining dark fluid. NEUROLOGICAL: No obvious focal deficit. Awake, alert, and oriented x3. Assessment/Plan - Plan Mr. Bishop is a pleasant 88-year-old gentleman, who was hospitalized and currently being treated for inguinal area abscesses. He has been on the ventilator and oncology was consulted for neutropenia. The patient has a history of myelofibrosis, diagnosed in November 2017. He is currently under the care of Dr. Feliz and has recently been evaluated at [facility]. Recommendations: 1. Neutropenia, continues. Continue Neupogen. 2. 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 Plans for another debridement scheduled for Tuesday at noon. 3. Repeat CBC in the a.m. 4. Continue neutropenic precautions. 09/08/2018 Leukopenia is improving but remains profoundly neutropenic. ANC is 100 Continue daily Neupogen Patient will be taken to or are later today for second debridement by Dr. Blake Continue to monitor CBC Over team will follow
[2018-09-09] MEDS: Chlorhexidine Gluconate 2% 1 Pack (2 Cloths) TOPICAL SCH (05:08)
[2018-09-09] MEDS: Piperacil/Tazo 4.5 GM Premix 4.5 GM/100 ML BAG IV.SIG SCH ×4 (05:08→22:18)
[2018-09-09] MEDS: Morphine Sulfate Inj 2 MG/ML Vial IV.PUSH PRN (05:08)
[2018-09-09] MEDS: Levothyroxine 150 MCG Tablet PO SCH (05:08)
[2018-09-09 05:09] LABS: Hematocrit 27.3 % (39.0-51.0); Hemoglobin 9.1 gm/dL (13.0-17.0); Mean Corpuscular HGB Conc 33.1 % (32.0-36.0); Mean Corpuscular Hemoglobin 33.2 pg (27.0-34.0); Mean Corpuscular Volume 100.3 fL (80.0-100.0); Mean Platelet Volume 10.6 fL (7.0-11.0); Platelet Count 289 th/mm3 (150-450); Red Blood Count 2.73 mil/mm3 (4.50-5.90); Red Cell Distribution Width 19.1 % (11.6-17.2); White Blood Count 3.1 th/mm3 (4.0-11.0)
[2018-09-09 05:44] LABS: Calcium 6.7 mg/dL (8.5-10.1); Carbon Dioxide 23.9 meq/L (21.0-32.0); Potassium 4.2 meq/L (3.5-5.1)
[2018-09-09 06:02] LABS: Total Protein 6.7 g/dL (6.4-8.2)
[2018-09-09 06:18] LABS: Calcium-Albumin Corrected 6.9 mg/dL (8.5-10.1)
[2018-09-09] MEDS: Famotidine PF Inj 20 MG/2 ML Vial IV.PUSH SCH ×2 (08:46→22:17)
[2018-09-09] MEDS: Senna/Docusate Sodium 8.6/50 MG Tablet PO SCH ×2 (08:46→22:17)
[2018-09-09 11:07] LABS: Blast Cells 16 % (0-0); Lymphocytes 42 % (9-44); Monocytes 23 % (0-8); Plasma Cells 7 % (0-0); Tallied Nucleated RBC 42 (0-0)
--- NOTE | 2018-09-09 11:13 | P.PNCC ---
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 He is independent for ADLs and lives alone, family checks on him periodically. Patient has history of leukopenia, ?MDS followed by Dr. Feliz had Neupogen treatment before but did not respond. He had low-grade fever a few days ago. Initially the groin pain was attributed to his inguinal hernia, however he decided to present to the ER today as he had noticed redness and open wounds with drainage in bilateral groins. In the emergency department patient was evaluated by Dr. Chang, A stat CT of the abdomen pelvis showed 7.5 cm inflammatory and edematous area in the right inguinal region containing probable small loculated abscesses. Edematous change extends inferiorly through the lower aspect of both inguinal canals into the scrotum with marked scrotal wall thickening and small locules of air in the upper left scrotum that could represent a necrotizing infection. There is herniation of fat through both inguinal canals. Patient received crystalloid resuscitation with 3 L normal saline boluses, was also given vancomycin clindamycin and Zosyn. Blood cultures and wound cultures were sent. Dr. Blake from general surgery, and Dr. Sunshine from urology were consulted by Dr. Chang at [place] ED. Plan is to transfer patient to the [facility], resuscitate adequately given antibiotics and plan for OR in a.m. 09/06: Patient is warm and well-perfused. Urine output is low but acceptable. I suspect he will need increased fluids as the day progresses however. Total neutrophil count of 100 is quite worrisome. Neupogen has been started by the hematology service. Timing of extubation will depend to some extent on the timing of subsequent debridement. Glucose control has not been a problem. 09/07: Total neutrophil count up to 190. Glucose control acceptable. Antibiotic coverage being narrowed, consistent with culture results. Tolerated extubation and comfortable on his home CPAP machine at night. Plan is for return to the OR on Tuesday. 09/08: Lying in bed remains stable. Remains leukopenic 2.6K. Plan for OR today. Family at bedside updated. 09/09: Improving leukopenia. Patient verbal and well spoken this morning. He does appear a bit confused however. No complaints of pain and he is hungry. He underwent an additional debridement yesterday afternoon which was well- tolerated. He requires a Diaz catheter in order to prevent contamination of the local area where there are large open wounds. Objective Vital Signs / I&O: Vital Signs 09/08/18 11:54 09/08/18 12:00 09/08/18 12:54 Temperature 98.2 F Pulse Rate 93 H 101 H 91 H Respiratory Rate 25 H 24 23 Blood Pressure 160/79 H 150/80 H 150/80 H Pulse Oximetry 100 85 L 97 09/08/18 13:00 09/08/18 15:56 09/08/18 16:00 Temperature 98.4 F Pulse Rate 92 H 96 H Respiratory Rate 24 24 Blood Pressure 150/72 H Pulse Oximetry 100 99 100 09/08/18 16:30 09/08/18 17:19 09/08/18 17:21 Temperature 98.4 F Pulse Rate 104 H 92 H Respiratory Rate 24 26 H Blood Pressure 128/77 162/96 H 156/87 H Pulse Oximetry 100 87 L 09/08/18 17:24 09/08/18 17:26 09/08/18 17:29 Temperature Pulse Rate 92 H 93 H 90 Respiratory Rate 26 H 26 H 24 Blood Pressure 171/85 H 154/82 H 148/79 H Pulse Oximetry 100 100 100 09/08/18 17:31 09/08/18 17:34 09/08/18 17:36 Temperature Pulse Rate 92 H 90 89 Respiratory Rate 25 H 22 21 Blood Pressure 141/73 H 161/78 H 150/79 H Pulse Oximetry 100 100 100 09/08/18 17:39 09/08/18 17:41 09/08/18 17:44 Temperature Pulse Rate 88 90 88 Respiratory Rate 21 27 H 23 Blood Pressure 149/81 H 154/91 H 143/87 H Pulse Oximetry 100 100 100 09/08/18 17:46 09/08/18 17:49 09/08/18 17:51 Temperature Pulse Rate 88 91 H 92 H Respiratory Rate 21 25 H 26 H Blood Pressure 157/80 H 190/105 H 139/85 Pulse Oximetry 100 100 100 09/08/18 17:54 09/08/18 17:56 09/08/18 17:59 Temperature Pulse Rate 88 91 H 89 Respiratory Rate 24 23 21 Blood Pressure 160/79 H 149/81 H 148/82 H Pulse Oximetry 100 100 100 09/08/18 18:00 09/08/18 18:01 09/08/18 18:04 Temperature Pulse Rate 88 Respiratory Rate 21 Blood Pressure 155/84 H 155/84 H 155/81 H Pulse Oximetry 100 09/08/18 18:06 09/08/18 18:09 09/08/18 18:11 Temperature Pulse Rate 86 91 H 91 H Respiratory Rate 21 24 25 H Blood Pressure 143/80 H 163/91 H 155/108 H Pulse Oximetry 100 100 100 09/08/18 18:14 09/08/18 18:16 09/08/18 18:19 Temperature Pulse Rate 88 89 86 Respiratory Rate 26 H 23 20 Blood Pressure 158/88 H 153/84 H 153/83 H Pulse Oximetry 100 100 100 09/08/18 19:00 09/08/18 20:00 09/08/18 21:00 Temperature 99.8 F H Pulse Rate 88 88 96 H Respiratory Rate 26 H 25 H 20 Blood Pressure 148/82 H 146/77 H 147/79 H Pulse Oximetry 99 100 100 09/08/18 21:08 09/08/18 22:00 09/08/18 23:00 Temperature Pulse Rate 82 80 Respiratory Rate 18 Blood Pressure 150/78 H 141/77 H Pulse Oximetry 100 100 09/09/18 00:00 09/09/18 02:00 09/09/18 03:00 Temperature Pulse Rate 88 84 83 Respiratory Rate 20 19 19 Blood Pressure 145/77 H 140/77 158/87 H Pulse Oximetry 91 L 99 99 09/09/18 04:00 09/09/18 04:02 09/09/18 05:00 Temperature 98.8 F Pulse Rate 105 H 101 H Respiratory Rate 18 40 H Blood Pressure 180/100 H 164/88 H 180/107 H Pulse Oximetry 98 09/09/18 05:26 09/09/18 08:00 09/09/18 11:05 Temperature Pulse Rate 87 86 Respiratory Rate 19 18 Blood Pressure 143/84 H Pulse Oximetry 100 100 99 Intake & Output 09/08/18 09/09/18 09/09/18 18:59 06:59 18:59 Intake Total 1301.6 / 1301.6 200 / 200 1100 / 1100 Output Total 770 / 770 1100 / 1100 Balance 531.6 / 531.6 -900 / -900 1100 / 1100 Intake: IV 1251.6 / 1251.6 200 / 200 1100 / 1100 LR 1000 mL Inj 1,000 ML @ 75 1000 / 1000 1000 / 1000 mls/hr IV.CONT .[id number] [facility] Rx# :[id number] Neupogen Inj 480 MCG In D5W Inj 51.6 / 51.6 50 ML @ 100 mls/hr IV.SIG DAILY@1400 [facility] Rx#:[id number] Zosyn 4.5 GM Premix 4.5 gm In 200 / 200 200 / 200 100 / 100 100 ml @ 200 mls/hr IV.SIG Q6H [facility] Rx#:[id number] Oral 50 / 50 Output: Urine Amount (Catheter) 720 / 720 1100 / 1100 Indwelling Urethral Catheter 720 / 720 1100 / 1100 Wound Vac Amount 50 / 50 Groin 50 / 50 Other: Mode Setting Groin Continuous Continuous Continuous Date of Last Bowel Movement 09/08/18 09/08/18 09/08/18 # Bowel Movements 1 1 Result Diagrams: 09/09/18 03:58 09/09/18 03:58 Objective Remarks: General: 88-year-old male lying in bed, no distress, calm. Conversant. HEENT: Normocephalic and atraumatic. Pupils equally responsive. Neck: Appropriately stiff for age, trachea midline. Airway widely patent, no obstructive noises. Resp: Air entry equal bilaterally no wheezes or crackles. Clear breath sounds, good excursion. Nonlabored pattern. CVS: Normal S1-S2, regular rate and rhythm, no murmurs appreciated. No JVD. GI/: Wound VAC in place bilateral groins. Abdomen without guarding, bowel sounds present. Neuro: Alert, awake very hard of hearing. Conversant. Moves 4 limbs spontaneously. 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 Status: Acute (2) Severe sepsis Code(s): A41.9 - Sepsis, unspecified organism; R65.20 - Severe sepsis without septic shock Status: Acute (3) Neutropenia Code(s): D70.9 - Neutropenia, unspecified Status: Acute (4) MDS (myelodysplastic syndrome) Code(s): D46.9 - Myelodysplastic syndrome, unspecified Status: Chronic - Assessment and Plan Plan: NEURO: -Pain control with as needed morphine -Tylenol for fever RESP: -Aggressive pulmonary toilet -Albuterol inhaler every 2 hours as needed -Extubated 09/06 CV: Sinus tachycardia History of hypertension -s/p Normal saline IV fluids 3 L bolus and 84 mL/h -Lactic acid was 2 -Holding home medications nifedipine and lisinopril GI: -N.p.o., IV famotidine -NG to low intermittent suction, feed if okay with general surgery service. /ID: Melina's gangrene Severe sepsis -Broad-spectrum antibiotics with IV vancomycin, IV Zosyn and IV clindamycin. Adjust per ID service. -09/05 surgical debridement by general surgery Dr. Blake and urology Dr. Rae's -Repeat OR planned for today -Monitor renal function closely. Diaz catheter. -Follow-up on blood and urine culture -Predominant organisms MSSA and group B strep, recent cx from 09/05/2018 also gram-negative anaerobes -Diaz catheter is required to prevent contamination of the local wounds. 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 (Dr. Feliz) -Monitor CBC, coags -Recommendations by hematology service reviewed, appreciated ENDO: Hypothyroidism -Electrolyte replacement per protocol -Synthroid IV 75 mcg daily PROPH: -Bilateral lower extremity SCDs. IV famotidine. Hold chemical DVT prophylaxis in anticipation of surgical intervention, restart when okay with surgical service. LINES: -Utilize peripheral IVs, central line if needed Overall impression: This gentleman is ill having developed Melina's gangrene and requiring surgical debridement in both groins. His care is complicated by neutropenia and age. Continue antibiotics and surgical debridement.
[2018-09-09 11:14] LABS: Ovalocytes 1+; Platelet Estimate Normal (Normal); Toxic Granulation 2+
[2018-09-09 11:15] LABS: Dohle Bodies Present
[2018-09-09] MEDS ORDERED: Calcium Chloride Inj 2 GM in Sodium Chlor 0.9% Inj 100 ML IV.SIG ONE (13:30)
--- NOTE | 2018-09-09 16:38 | P.PNONC ---
Subjective Interval history: Afebrile Patient mildly confused Son at bedside Patient had additional debridement yesterday of Melina gangrene of scrotum Currently has bilateral wound vac in place No acute complaints Objective Vital Signs/Intake & Output: Vital Signs 09/08/18 17:19 09/08/18 17:21 09/08/18 17:24 Temperature Pulse Rate 92 H 92 H Respiratory Rate 26 H 26 H Blood Pressure 162/96 H 156/87 H 171/85 H Pulse Oximetry 87 L 100 09/08/18 17:26 09/08/18 17:29 09/08/18 17:31 Temperature Pulse Rate 93 H 90 92 H Respiratory Rate 26 H 24 25 H Blood Pressure 154/82 H 148/79 H 141/73 H Pulse Oximetry 100 100 100 09/08/18 17:34 09/08/18 17:36 09/08/18 17:39 Temperature Pulse Rate 90 89 88 Respiratory Rate 22 21 21 Blood Pressure 161/78 H 150/79 H 149/81 H Pulse Oximetry 100 100 100 09/08/18 17:41 09/08/18 17:44 09/08/18 17:46 Temperature Pulse Rate 90 88 88 Respiratory Rate 27 H 23 21 Blood Pressure 154/91 H 143/87 H 157/80 H Pulse Oximetry 100 100 100 09/08/18 17:49 09/08/18 17:51 09/08/18 17:54 Temperature Pulse Rate 91 H 92 H 88 Respiratory Rate 25 H 26 H 24 Blood Pressure 190/105 H 139/85 160/79 H Pulse Oximetry 100 100 100 09/08/18 17:56 09/08/18 17:59 09/08/18 18:00 Temperature Pulse Rate 91 H 89 88 Respiratory Rate 23 21 21 Blood Pressure 149/81 H 148/82 H 155/84 H Pulse Oximetry 100 100 100 09/08/18 18:01 09/08/18 18:04 09/08/18 18:06 Temperature Pulse Rate 86 Respiratory Rate 21 Blood Pressure 155/84 H 155/81 H 143/80 H Pulse Oximetry 100 09/08/18 18:09 09/08/18 18:11 09/08/18 18:14 Temperature Pulse Rate 91 H 91 H 88 Respiratory Rate 24 25 H 26 H Blood Pressure 163/91 H 155/108 H 158/88 H Pulse Oximetry 100 100 100 09/08/18 18:16 11/02/18 18:19 09/08/18 19:00 Temperature 99.8 F H Pulse Rate 89 86 88 Respiratory Rate 23 20 26 H Blood Pressure 153/84 H 153/83 H 148/82 H Pulse Oximetry 100 100 99 09/08/18 20:00 09/08/18 21:00 09/08/18 21:08 Temperature Pulse Rate 88 96 H Respiratory Rate 25 H 20 Blood Pressure 146/77 H 147/79 H Pulse Oximetry 100 100 100 09/08/18 22:00 09/08/18 23:00 09/09/18 00:00 Temperature Pulse Rate 82 80 88 Respiratory Rate 18 20 Blood Pressure 150/78 H 141/77 H 145/77 H Pulse Oximetry 100 91 L 09/09/18 02:00 09/09/18 03:00 09/09/18 04:00 Temperature 98.8 F Pulse Rate 84 83 105 H Respiratory Rate 19 19 18 Blood Pressure 140/77 158/87 H 180/100 H Pulse Oximetry 99 99 09/09/18 04:02 09/09/18 05:00 09/09/18 05:26 Temperature Pulse Rate 101 H 87 Respiratory Rate 40 H 19 Blood Pressure 164/88 H 180/107 H 143/84 H Pulse Oximetry 98 100 09/09/18 06:00 09/09/18 07:00 09/09/18 08:00 Temperature 98.6 F Pulse Rate 82 79 78 Respiratory Rate 17 19 19 Blood Pressure 157/81 H 143/75 H 155/74 H Pulse Oximetry 100 95 97 09/09/18 09:00 09/09/18 09:07 09/09/18 10:00 Temperature Pulse Rate 90 89 88 Respiratory Rate 24 26 H 20 Blood Pressure 162/120 H 132/82 159/79 H Pulse Oximetry 94 L 95 98 09/09/18 11:00 09/09/18 11:05 Temperature Pulse Rate 90 Respiratory Rate 20 Blood Pressure 151/74 H Pulse Oximetry 99 99 Intake & Output 09/08/18 09/09/18 09/09/18 18:59 06:59 18:59 Intake Total 1301.6 / 1301.6 200 / 200 1220 / 1220 Output Total 770 / 770 1100 / 1100 Balance 531.6 / 531.6 -900 / -900 1220 / 1220 Intake: IV 1251.6 / 1251.6 200 / 200 1220 / 1220 LR 1000 mL Inj 1,000 ML @ 75 1000 / 1000 1000 / 1000 mls/hr IV.CONT .[id number] [facility] Rx# :[id number] Calcium Chloride Inj 2 GM In NS 120 / 120 Inj 100 ML @ 120 mls/hr IV.SIG ONCE ONE Rx#:[id number] Neupogen Inj 480 MCG In D5W Inj 51.6 / 51.6 50 ML @ 100 mls/hr IV.SIG DAILY@1400 [facility] Rx#:[id number] Zosyn 4.5 GM Premix 4.5 gm In 200 / 200 200 / 200 100 / 100 100 ml @ 200 mls/hr IV.SIG Q6H [facility] Rx#:[id number] Oral 50 / 50 Output: Urine Amount (Catheter) 720 / 720 1100 / 1100 Indwelling Urethral Catheter 720 / 720 1100 / 1100 Wound Vac Amount 50 / 50 Groin 50 / 50 Other: Mode Setting Groin Continuous Continuous Continuous Date of Last Bowel Movement 09/08/18 09/08/18 09/09/18 # Bowel Movements 1 1 Result Diagrams: 09/09/18 03:58 09/09/18 03:58 Laboratory Results: Laboratory Results - last 24 hr 09/09/18 09/09/18 03:58 03:58 WBC 3.1 L RBC 2.73 L Hgb 9.1 L Hct 27.3 L MCV 100.3 H MCH 33.2 MCHC 33.1 RDW 19.1 H Plt Count 289 MPV 10.6 Prelim Diff (Auto) Slide review pending WBC Differential Manual diff final Seg Neuts % (Manual) 6 L Band Neuts % (Manual) 5 Lymphocytes % (Manual) 42 Monocytes % (Manual) 23 H Basophils % (Manual) 1 Blast Cells % (Manual) 16 H Plasma Cell % (Manual) 7 H Abs Neuts (Manual) 0.3 L* Nucleated RBCs/100 WBC 42 H Differential Comment . Toxic Granulation 2+ H Dohle Bodies Present H Platelet Estimate Normal Platelet Morphology Enlarged H Ovalocytes 1+ H Sodium 145 Potassium 4.2 Chloride 112 H Carbon Dioxide 23.9 Anion Gap 9 BUN 24 H Creatinine 1.32 H Estimated GFR 51 L Random Glucose 105 Calcium 6.7 L* Prot Corrected Calcium 6.9 L* Total Protein 6.7 Culture Results: Microbiology 09/08/18 12:28 Urine Culture - Preliminary Clean Catch Urine No growth in 24 hours 09/04/18 21:49 Aerobic Blood Culture - Final Blood - Peripheral No growth in 5 days Anaerobic Blood Culture - Final No growth in 5 days 09/04/18 21:30 Aerobic Blood Culture - Final Blood - Peripheral No growth in 5 days Anaerobic Blood Culture - Final No growth in 5 days 09/05/18 07:40 Gram Stain - Final Wound - Groin Wound Culture - Final Staphylococcus aureus anaerobic gram negative rods 09/04/18 21:15 Gram Stain - Final Wound - Groin Wound Culture - Final Staphylococcus aureus Group B beta Strep Mixed Anaerobes 09/04/18 21:15 Gram Stain - Final Wound - Groin Wound Culture - Final Staphylococcus aureus Mixed Anaerobes 09/05/18 07:40 Gram Stain - Final Wound - Groin Wound Culture - Final Staphylococcus aureus Group B beta Strep 09/05/18 07:40 Fungal Smear - Final Wound - Groin No fungal elements seen 09/05/18 07:40 Acid Fast Bacilli Smear - Final Wound - Groin No acid fast bacilli seen 09/05/18 07:40 Acid Fast Bacilli Smear - Final Wound - Groin No acid fast bacilli seen Medications: Active Medications Generic Name Dose Route Start Last Admin Trade Name Freq PRN Reason Stop Dose Admin Albuterol 2.5 mg 09/05/18 00:27 09/05/18 23:31 Albuterol Neb (Prn) NEB 2.5 mg Q2HR NEB PRN Administration SHORTNESS OF BREATH/WHEEZING Chlorhexidine Gluconate 3 pack 09/05/18 04:00 09/09/18 05:08 Chlorhexidine 2% Cloth TOPICAL 09/10/18 03:59 3 pack DAILY@0400 [facility] Administration Famotidine 20 mg 09/05/18 09:00 09/09/18 08:46 Pepcid Pf Inj IV.PUSH 20 mg Q12HR [facility] Administration Piperacillin/Tazobactam/Dextrose 4.5 gm in 100 mls @ 200 mls/hr 09/05/18 04: 00 09/09/18 16:29 Zosyn 4.5 Gm Premix IV.SIG 100 mls/hr Q6H [facility] Administration Lactated Ringer's 1,000 mls @ 75 mls/hr 09/05/18 09:45 09/09/18 09:48 Lr 1000 Ml Inj IV.CONT 75 mls/hr .[id number] [facility] Administration Propofol 1,000 mg in 100 mls @ 3.63 mls/hr 09/05/18 09:48 09/06/18 08:00 Diprivan 1000 Mg/100 Ml Inj IV.CONT 0 mcg/kg/min TITRATE PRN 0 mls/hr Per Protocol Titration Protocol 5 MCG/KG/MIN Filgrastim 480 mcg/ Dextrose 51.6 mls @ 100 mls/hr 09/06/18 14:00 09/09/18 13 :19 IV.SIG 100 mls/hr DAILY@1400 [facility] Administration Levothyroxine Sodium 150 mcg 09/06/18 06:00 09/09/18 05:08 Synthroid PO 150 mcg DAILY@0600 [facility] Administration Morphine Sulfate 2 mg 09/05/18 00:27 09/09/18 05:08 Morphine Inj IV.PUSH 2 mg Q2H PRN Administration PAIN SCALE 6 TO 10 Senna/Docusate Sodium 1 tab 09/05/18 09:00 09/09/18 08:46 Sunshine-Colace PO 1 tab BID [facility] Administration Sodium Chloride 2 ml 09/05/18 09:00 09/09/18 08:47 Ns Flush IV.FLUSH 2 ml BID [facility] Administration Tamsulosin HCl 0.4 mg 09/06/18 20:00 09/09/18 08:46 Flomax PO 0.4 mg DAILY [facility] Administration Objective Remarks: GENERAL: Chronically ill-appearing elderly male patient, in no acute distress. SKIN: Warm and dry. HEAD: Normocephalic. EYES: No scleral icterus. No injection or drainage. NECK: Supple, trachea midline. CARDIOVASCULAR: Irregular rhythm RESPIRATORY: Breath sounds equal bilaterally. Nonlabored at rest. GASTROINTESTINAL: Abdomen soft, non-tender, nondistended. : Significant scrotal edema. Wound VAC in place bilaterally to scrotum/ groin. + Diaz catheter EXTREMITIES: No cyanosis, or edema. MUSCULOSKELETAL: Generalized weakness Assessment/Plan - Plan Mr. Bishop is a pleasant 88-year-old gentleman, who was hospitalized and currently being treated for inguinal area abscesses. He has been on the ventilator and oncology was consulted for neutropenia. The patient has a history of myelofibrosis, diagnosed in November 2017. He is currently under the care of Dr. Feliz and has recently been evaluated at [facility]. Recommendations: 1. Patient continues on Neupogen for his leukopenia/neutropenia. His ANC is up to 300 today. 2. 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 Patient is status post a second debridement yesterday 3. Daily CBC 4. Continue neutropenic precautions. - Attending Statement The exam, history, and the medical decision-making described in the above note were completed with the assistance of the mid-level provider. I reviewed and agree with the findings presented. I attest that I had a [id number] encounter with the patient on the same day, and personally performed and documented my assessment and findings in the medical record. Discussed with patient and son at bedside the Neupogen IV administered. He seems to be responding with improvement in the leukopenia. ANC is still noted to be low. He is afebrile. He feels hot despite the room temperature cool. Continues to have a lot of scrotal edema. Diaz catheter in place. Pneumatic compression stockings are in place for DVT prevention. He is encouraged to move his legs.
[2018-09-10 04:22] LABS: Hematocrit 27.8 % (39.0-51.0); Mean Corpuscular HGB Conc 32.5 % (32.0-36.0); Mean Corpuscular Volume 101.7 fL (80.0-100.0); Mean Platelet Volume 10.8 fL (7.0-11.0); Platelet Count 245 th/mm3 (150-450); Red Blood Count 2.73 mil/mm3 (4.50-5.90); White Blood Count 1.6 th/mm3 (4.0-11.0)
[2018-09-10 04:51] LABS: Calcium 7.8 mg/dL (8.5-10.1)
[2018-09-10 04:52] LABS: Lymphocytes 90 % (9-44); Monocytes 2 % (0-8); Ovalocytes 1+; Platelet Estimate Normal (Normal); Platelet Morphology Normal (Normal); Tallied Nucleated RBC 37 (0-0)
[2018-09-10] MEDS: Piperacil/Tazo 4.5 GM Premix 4.5 GM/100 ML BAG IV.SIG SCH ×2 (05:45→10:28)
[2018-09-10] MEDS: Levothyroxine 150 MCG Tablet PO SCH (05:46)
[2018-09-10] MEDS: Senna/Docusate Sodium 8.6/50 MG Tablet PO SCH ×2 (10:03→20:26)
[2018-09-10] MEDS: Famotidine PF Inj 20 MG/2 ML Vial IV.PUSH SCH ×2 (10:27→20:25)
--- NOTE | 2018-09-10 11:08 | P.PNCC ---
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 He is independent for ADLs and lives alone, family checks on him periodically. Patient has history of leukopenia, ?MDS followed by Dr. Feliz had Neupogen treatment before but did not respond. He had low-grade fever a few days ago. Initially the groin pain was attributed to his inguinal hernia, however he decided to present to the ER today as he had noticed redness and open wounds with drainage in bilateral groins. In the emergency department patient was evaluated by Dr. Chang, A stat CT of the abdomen pelvis showed 7.5 cm inflammatory and edematous area in the right inguinal region containing probable small loculated abscesses. Edematous change extends inferiorly through the lower aspect of both inguinal canals into the scrotum with marked scrotal wall thickening and small locules of air in the upper left scrotum that could represent a necrotizing infection. There is herniation of fat through both inguinal canals. Patient received crystalloid resuscitation with 3 L normal saline boluses, was also given vancomycin clindamycin and Zosyn. Blood cultures and wound cultures were sent. Dr. Blake from general surgery, and Dr. Sunshine from urology were consulted by Dr. Chang at [facility]. Plan is to [facility], resuscitate adequately given antibiotics and plan for OR in a.m. 09/06: Patient is warm and well-perfused. Urine output is low but acceptable. I suspect he will need increased fluids as the day progresses however. Total neutrophil count of 100 is quite worrisome. Neupogen has been started by the hematology service. Timing of extubation will depend to some extent on the timing of subsequent debridement. Glucose control has not been a problem. 09/07: Total neutrophil count up to 190. Glucose control acceptable. Antibiotic coverage being narrowed, consistent with culture results. Tolerated extubation and comfortable on his home CPAP machine at night. Plan is for return to the OR on Tuesday. 09/08: Lying in bed remains stable. Remains leukopenic 2.6K. Plan for OR today. Family at bedside updated. 09/09: Improving leukopenia. Patient verbal and well spoken this morning. He does appear a bit confused however. No complaints of pain and he is hungry. He underwent an additional debridement yesterday afternoon which was well- tolerated. He requires a Diaz catheter in order to prevent contamination of the local area where there are large open wounds. 09/10: Pain controlled. Alert, conversant. Tolerating diet. Objective Vital Signs / I&O: Vital Signs 09/09/18 13:00 09/09/18 14:00 09/09/18 15:00 Temperature 98.7 F Pulse Rate 82 79 84 Respiratory Rate 19 18 21 Blood Pressure 131/80 145/74 H 156/74 H Pulse Oximetry 99 99 98 09/09/18 20:00 09/09/18 20:33 09/10/18 00:00 Temperature 98.0 F 98.4 F Pulse Rate 92 H 81 Respiratory Rate 21 20 Blood Pressure 154/86 H 143/78 H Pulse Oximetry 99 99 98 09/10/18 04:00 Temperature 98.6 F Pulse Rate 84 Respiratory Rate 22 Blood Pressure 155/83 H Pulse Oximetry 97 Intake & Output 09/09/18 09/10/18 09/10/18 19:59 06:59 18:59 Intake Total 100 / 100 Output Total Balance 100 / 100 Weight Intake: IV 100 / 100 LR 1000 mL Inj 1,000 ML @ 75 mls/hr IV.CONT .[id number] COUNTS INCLUDE 234 BEDS AT THE [facility] Rx# :[id number] Calcium Chloride Inj 2 GM In NS Inj 100 ML @ 120 mls/hr IV.SIG ONCE ONE Rx#:[id number] Neupogen Inj 480 MCG In D5W Inj 50 ML @ 100 mls/hr IV.SIG DAILY@1400 COUNTS INCLUDE 234 BEDS AT THE [facility] Rx#:[id number] Zosyn 4.5 GM Premix 4.5 gm In 100 / 100 100 ml @ 200 mls/hr IV.SIG Q6H COUNTS INCLUDE 234 BEDS AT THE [facility] Rx#:[id number] Oral Output: Urine Amount (Catheter) Indwelling Urethral Catheter Wound Vac Amount Groin Other: Mode Setting Groin Date of Last Bowel Movement # Bowel Movements Result Diagrams: 09/10/18 03:34 09/10/18 03:34 Objective Remarks: General: 88-year-old male lying in bed, no distress, calm. Conversant. HEENT: Normocephalic and atraumatic. Pupils equally responsive. Neck: Appropriately stiff for age, trachea midline. Airway widely patent, no obstructive noises. Resp: Air entry equal bilaterally no wheezes or crackles. Clear breath sounds, good excursion. Nonlabored pattern. CVS: Normal S1-S2, regular rate and rhythm, no murmurs appreciated. No JVD. GI/: Wound VAC in place bilateral groins. Abdomen without guarding, bowel sounds present. BS active. Neuro: Alert, awake very hard of hearing. Conversant. Moves 4 limbs spontaneously. 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 Status: Acute (2) Severe sepsis Code(s): A41.9 - Sepsis, unspecified organism; R65.20 - Severe sepsis without septic shock Status: Acute (3) Neutropenia Code(s): D70.9 - Neutropenia, unspecified Status: Acute (4) MDS (myelodysplastic syndrome) Code(s): D46.9 - Myelodysplastic syndrome, unspecified Status: Chronic - Assessment and Plan Plan: NEURO: -Pain control with as needed morphine -Tylenol for fever RESP: -Aggressive pulmonary toilet -Albuterol inhaler every 2 hours as needed -Extubated 09/06 CV: Sinus tachycardia History of hypertension -s/p Normal saline IV fluids 3 L bolus and 84 mL/h -Lactic acid was 2 -Holding home medications nifedipine and lisinopril GI: -N.p.o., IV famotidine -NG to low intermittent suction, feed if okay with general surgery service. /ID: Melina's gangrene Severe sepsis -Broad-spectrum antibiotics with IV vancomycin, IV Zosyn and IV clindamycin. Adjust per ID service. -09/05 surgical debridement by general surgery Dr. Blake and urology Dr. Rae's -Repeat OR planned for today -Monitor renal function closely. Diaz catheter. -Follow-up on blood and urine culture -Predominant organisms MSSA and group B strep, recent cx from 09/05/2018 also gram-negative anaerobes -Diaz catheter is required to prevent contamination of the local wounds. 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 (Dr. Feliz) -Monitor CBC, coags -Recommendations by hematology service reviewed, appreciated ENDO: Hypothyroidism -Electrolyte replacement per protocol -Synthroid IV 75 mcg daily PROPH: -Bilateral lower extremity SCDs. IV famotidine. Hold chemical DVT prophylaxis in anticipation of surgical intervention, restart when okay with surgical service. LINES: -Utilize peripheral IVs, central line if needed Overall impression: This gentleman is ill having developed Emlina's gangrene and requiring surgical debridement in both groins. His care is complicated by neutropenia and age. Continue antibiotics and surgical debridement.
--- NOTE | 2018-09-10 11:10 | P.PNONC ---
Subjective Interval history: Afebrile Complains of some tenderness in his scrotum Son at bedside; discussed drop in ANC overnight Objective Vital Signs/Intake & Output: Vital Signs 09/09/18 13:00 09/09/18 14:00 09/09/18 15:00 Temperature 98.7 F Pulse Rate 82 79 84 Respiratory Rate 19 18 21 Blood Pressure 131/80 145/74 H 156/74 H Pulse Oximetry 99 99 98 09/09/18 20:00 09/09/18 20:33 09/10/18 00:00 Temperature 98.0 F 98.4 F Pulse Rate 92 H 81 Respiratory Rate 21 20 Blood Pressure 154/86 H 143/78 H Pulse Oximetry 99 99 98 09/10/18 04:00 Temperature 98.6 F Pulse Rate 84 Respiratory Rate 22 Blood Pressure 155/83 H Pulse Oximetry 97 Intake & Output 09/09/18 09/10/18 09/10/18 19:59 06:59 18:59 Intake Total 100 / 100 Output Total Balance 100 / 100 Weight Intake: IV 100 / 100 LR 1000 mL Inj 1,000 ML @ 75 mls/hr IV.CONT .[id number] [facility] Rx# :[id number] Calcium Chloride Inj 2 GM In NS Inj 100 ML @ 120 mls/hr IV.SIG ONCE ONE Rx#:[id number] Neupogen Inj 480 MCG In D5W Inj 50 ML @ 100 mls/hr IV.SIG DAILY@1400 [facility] Rx#:[id number] Zosyn 4.5 GM Premix 4.5 gm In 100 / 100 100 ml @ 200 mls/hr IV.SIG Q6H [facility] Rx#:[id number] Oral Output: Urine Amount (Catheter) Indwelling Urethral Catheter Wound Vac Amount Groin Other: Mode Setting Groin Date of Last Bowel Movement # Bowel Movements Result Diagrams: 09/10/18 03:34 09/10/18 03:34 Laboratory Results: Laboratory Results - last 24 hr 09/10/18 09/10/18 03:34 03:34 WBC 1.6 L RBC 2.73 L Hgb 9.0 L Hct 27.8 L MCV 101.7 H MCH 33.0 MCHC 32.5 RDW 19.0 H Plt Count 245 MPV 10.8 Prelim Diff (Auto) Slide review pending WBC Differential Manual diff final Seg Neuts % (Manual) 8 L Lymphocytes % (Manual) 90 H Monocytes % (Manual) 2 Abs Neuts (Manual) 0.1 L* Nucleated RBCs/100 WBC 37 H Differential Comment . Platelet Estimate Normal Platelet Morphology Normal Ovalocytes 1+ H Sodium 144 Potassium 4.0 Chloride 111 H Carbon Dioxide 25.0 Anion Gap 8 BUN 26 H Creatinine 1.46 H Estimated GFR 46 L Random Glucose 89 Calcium 7.8 L D Culture Results: Microbiology 09/08/18 12:28 Urine Culture - Final Clean Catch Urine No growth in 48 hours 09/04/18 21:49 Aerobic Blood Culture - Final Blood - Peripheral No growth in 5 days Anaerobic Blood Culture - Final No growth in 5 days 09/04/18 21:30 Aerobic Blood Culture - Final Blood - Peripheral No growth in 5 days Anaerobic Blood Culture - Final No growth in 5 days 09/05/18 07:40 Gram Stain - Final Wound - Groin Wound Culture - Final Staphylococcus aureus anaerobic gram negative rods 09/04/18 21:15 Gram Stain - Final Wound - Groin Wound Culture - Final Staphylococcus aureus Group B beta Strep Mixed Anaerobes 09/04/18 21:15 Gram Stain - Final Wound - Groin Wound Culture - Final Staphylococcus aureus Mixed Anaerobes 09/05/18 07:40 Gram Stain - Final Wound - Groin Wound Culture - Final Staphylococcus aureus Group B beta Strep Medications: Active Medications Generic Name Dose Route Start Last Admin Trade Name Freq PRN Reason Stop Dose Admin Albuterol 2.5 mg 09/05/18 00:27 09/05/18 23:31 Albuterol Neb (Prn) NEB 2.5 mg Q2HR NEB PRN Administration SHORTNESS OF BREATH/WHEEZING Famotidine 20 mg 09/05/18 09:00 09/10/18 10:27 Pepcid Pf Inj IV.PUSH 20 mg Q12HR CATHLEEN Administration Piperacillin/Tazobactam/Dextrose 4.5 gm in 100 mls @ 200 mls/hr 09/05/18 04: 00 09/10/18 10:28 Zosyn 4.5 Gm Premix IV.SIG 200 mls/hr Q6H CATHLEEN Administration Lactated Ringer's 1,000 mls @ 75 mls/hr 09/05/18 09:45 09/10/18 02:09 Lr 1000 Ml Inj IV.CONT 75 mls/hr .[id number] CATHLEEN Administration Propofol 1,000 mg in 100 mls @ 3.63 mls/hr 09/05/18 09:48 09/06/18 08:00 Diprivan 1000 Mg/100 Ml Inj IV.CONT 0 mcg/kg/min TITRATE PRN 0 mls/hr Per Protocol Titration Protocol 5 MCG/KG/MIN Filgrastim 480 mcg/ Dextrose 51.6 mls @ 100 mls/hr 09/06/18 14:00 09/09/18 16 :53 IV.SIG Infused DAILY@1400 CATHLEEN Infusion Levothyroxine Sodium 150 mcg 09/06/18 06:00 09/10/18 05:46 Synthroid PO 150 mcg DAILY@0600 CATHLEEN Administration Morphine Sulfate 2 mg 09/05/18 00:27 09/09/18 05:08 Morphine Inj IV.PUSH 2 mg Q2H PRN Administration PAIN SCALE 6 TO 10 Senna/Docusate Sodium 1 tab 09/05/18 09:00 09/10/18 10:03 Sunshine-Colace PO Not Given BID CATHLEEN Sodium Chloride 2 ml 09/05/18 09:00 09/10/18 10:28 Ns Flush IV.FLUSH 2 ml BID CATHLEEN Administration Tamsulosin HCl 0.4 mg 09/06/18 20:00 09/10/18 10:27 Flomax PO 0.4 mg DAILY CATHLEEN Administration Objective Remarks: GENERAL: Chronically ill-appearing elderly male patient, in no acute distress. SKIN: Warm and dry. HEAD: Normocephalic. EYES: No scleral icterus. No injection or drainage. NECK: Supple, trachea midline. CARDIOVASCULAR: Irregular rhythm RESPIRATORY: Breath sounds equal bilaterally. Nonlabored at rest. GASTROINTESTINAL: Abdomen soft, non-tender, nondistended. : Significant scrotal edema. Wound VAC in place bilaterally to scrotum/ groin. + Diaz catheter EXTREMITIES: No cyanosis, or edema. MUSCULOSKELETAL: Generalized weakness Assessment/Plan - Plan Mr. Bishop is a pleasant 88-year-old gentleman, who was hospitalized and currently being treated for inguinal area abscesses. He has been on the ventilator and oncology was consulted for neutropenia. The patient has a history of myelofibrosis, diagnosed in November 2017. He is currently under the care of Dr. Feliz and has recently been evaluated at [facility]. Recommendations: 1. Patient continues on Neupogen for his leukopenia/neutropenia. His ANC trended down to 100 today. 2. Patient had a second debridement on Tuesday by Dr. Blake for his Melina gangrene of the scrotum 3. Daily CBC 4. Continue neutropenic precautions. - Attending Statement The exam, history, and the medical decision-making described in the above note were completed with the assistance of the mid-level provider. I reviewed and agree with the findings presented. I attest that I had a [id number] encounter with the patient on the same day, and personally performed and documented my assessment and findings in the medical record. Lengthy discussion with family at bedside. They had many questions about what about [facility] in the bone marrow biopsy that was pending to be done there. Discussed that there is been no response to Neupogen administered over the last several days. Supportive treatment continue. Debridement is pending for tomorrow. Encouraged him to reach out to the [facility] physician about the patient's status. Bone marrow biopsy can be done locally however it is the [facility] expertise that they are seeking. Dr. Wells discussed with the patient's local oncologist Dr. Feliz about his recent admission. We will continue these but discussion about the best option for support.
--- NOTE | 2018-09-10 12:04 | P.PNID ---
Subjective Remarks: On [place] O2 afebrile neutropenic @ 100 Antibiotics: zosyn micafungin Past Medical History: neutropenia Allergies/Adverse Reactions: Allergies Sulfa (Sulfonamide Antibiotics) Allergy (Intermediate, Verified 09/05/18 02:09) RASH, SWELLING Objective Vital Signs 09/09/18 13:00 09/09/18 14:00 09/09/18 15:00 Temperature 98.7 F Pulse Rate 82 79 84 Respiratory Rate 19 18 21 Blood Pressure 131/80 145/74 H 156/74 H Pulse Oximetry 99 99 98 09/09/18 20:00 09/09/18 20:33 09/10/18 00:00 Temperature 98.0 F 98.4 F Pulse Rate 92 H 81 Respiratory Rate 21 20 Blood Pressure 154/86 H 143/78 H Pulse Oximetry 99 99 98 09/10/18 04:00 09/10/18 07:00 09/10/18 08:00 Temperature 98.6 F 97.9 F Pulse Rate 84 77 88 Respiratory Rate 22 17 23 Blood Pressure 155/83 H 157/88 H 169/85 H Pulse Oximetry 97 99 95 09/10/18 09:00 09/10/18 10:00 09/10/18 11:00 Temperature Pulse Rate 87 94 H 89 Respiratory Rate 22 24 22 Blood Pressure 169/89 H 163/91 H 161/82 H Pulse Oximetry 96 96 96 Intake & Output 09/09/18 09/10/18 09/10/18 19:59 06:59 18:59 Intake Total 200 / 200 Output Total Balance 200 / 200 Weight Intake: IV 200 / 200 LR 1000 mL Inj 1,000 ML @ 75 mls/hr IV.CONT .[id number] [facility] Rx# :[id number] Calcium Chloride Inj 2 GM In NS Inj 100 ML @ 120 mls/hr IV.SIG ONCE ONE Rx#:[id number] Neupogen Inj 480 MCG In D5W Inj 50 ML @ 100 mls/hr IV.SIG DAILY@1400 [facility] Rx#:[id number] Zosyn 4.5 GM Premix 4.5 gm In 200 / 200 100 ml @ 200 mls/hr IV.SIG Q6H [facility] Rx#:[id number] Oral Output: Urine Amount (Catheter) Indwelling Urethral Catheter Wound Vac Amount Groin Other: Mode Setting Groin Date of Last Bowel Movement # Bowel Movements 09/08/18 12:28 Clean Catch Urine Urine Culture - Final No growth in 48 hours 09/04/18 21:49 Blood - Peripheral Aerobic Blood Culture - Final No growth in 5 days 09/04/18 21:49 Blood - Peripheral Anaerobic Blood Culture - Final No growth in 5 days 09/04/18 21:30 Blood - Peripheral Aerobic Blood Culture - Final No growth in 5 days 09/04/18 21:30 Blood - Peripheral Anaerobic Blood Culture - Final No growth in 5 days 09/05/18 07:40 Wound - Groin Gram Stain - Final 09/05/18 07:40 Wound - Groin Wound Culture - Final Staphylococcus aureus anaerobic gram negative rods 09/04/18 21:15 Wound - Groin Gram Stain - Final 09/04/18 21:15 Wound - Groin Wound Culture - Final Staphylococcus aureus Group B beta Strep Mixed Anaerobes 09/04/18 21:15 Wound - Groin Gram Stain - Final 09/04/18 21:15 Wound - Groin Wound Culture - Final Staphylococcus aureus Mixed Anaerobes 09/05/18 07:40 Wound - Groin Gram Stain - Final 09/05/18 07:40 Wound - Groin Wound Culture - Final Staphylococcus aureus Group B beta Strep Lab - Hematology Results 09/09/18 09/10/18 03:58 03:34 WBC 3.1 L 1.6 L RBC 2.73 L 2.73 L Hgb 9.1 L 9.0 L Hct 27.3 L 27.8 L MCV 100.3 H 101.7 H MCH 33.2 33.0 MCHC 33.1 32.5 RDW 19.1 H 19.0 H Plt Count 289 245 MPV 10.6 10.8 Prelim Diff (Auto) Slide review pending Slide review pending WBC Differential Manual diff final Manual diff final Seg Neuts % (Manual) 6 L 8 L Band Neuts % (Manual) 5 Lymphocytes % (Manual) 42 90 H Monocytes % (Manual) 23 H 2 Basophils % (Manual) 1 Blast Cells % (Manual) 16 H Plasma Cell % (Manual) 7 H Abs Neuts (Manual) 0.3 L* 0.1 L* Nucleated RBCs/100 WBC 42 H 37 H Differential Comment . . Toxic Granulation 2+ H Dohle Bodies Present H Platelet Estimate Normal Normal Platelet Morphology Enlarged H Normal Ovalocytes 1+ H 1+ H Lab - Chemistry Results 09/08/18 09/09/18 09/10/18 15:49 03:58 03:34 Sodium 145 144 Potassium 4.2 4.0 Chloride 112 H 111 H Carbon Dioxide 23.9 25.0 Anion Gap 9 8 BUN 24 H 26 H Creatinine 1.32 H 1.46 H Estimated GFR 51 L 46 L POC Glucose 124 H Random Glucose 105 89 Calcium 6.7 L* 7.8 L D Prot Corrected Calcium 6.9 L* Total Protein 6.7 Imaging: ITS Impressions Abdomen/Pelvis CT 09/04/18 21:11 CONCLUSION: 1. 7.5 cm inflammatory and edematous area in the right inguinal region containing probable small loculated abscesses. Edematous change extends inferiorly through the lower aspect of both inguinal canals into the scrotum with marked scrotal wall thickening and small locules of air in the upper left scrotum that could represent a necrotizing infection. There is herniation of fat through both inguinal canals, worse on the left side with herniated fat in the left scrotum measuring up to 9.5 cm in diameter. 2. Hepatosplenomegaly. Moderate coronary calcifications. Small pericardial effusion. Chest X-Ray 09/05/18 00:00 CONCLUSION: Adequate placement of endotracheal tube. Physical Exam: GENERAL: NAD SKIN: Warm and dry. no rash EYES: Pupils equal and round. No scleral icterus. No injection or drainage. ENT: No nasal bleeding or discharge. Mucous membranes pink and moist. NECK: Trachea midline. No JVD. CARDIOVASCULAR: Regular rate and rhythm. RESPIRATORY: No accessory muscle use. Clear to auscultation. Breath sounds equal bilaterally. GASTROINTESTINAL: Abdomen soft, non-tender, nondistended. Hepatic and splenic margins not palpable. : + some suprapubic edema, erythema, L groin w/o induration R groin tender to palpation and indurated, b/l groin VACs in pace with serosang d/c Penile soft edema maddox in place with sarita urine MUSCULOSKELETAL: Extremities without clubbing, cyanosis, or edema. No obvious deformities. NEUROLOGICAL: Awake and alert. No obvious cranial nerve deficits. folllows commands Normal speech. PSYCHIATRIC: calm and cooperative Assessment and Plan - Plan Immunosuppresed pt with idiopathic neutropenia. ANC 100 - probably myelofibrosis Bilateral inguinal abscess. Melina's gangrene: mixed aerobic/anaerobic infx Sp emergent debridement JIM - GFR improved slighly will change zosyn to unasyn will chk stool for c.diff dw RN dw hem/onc [employer]
[2018-09-10] MEDS: Ampicillin/Sulbactam Inj 3 GM in Sodium Chloride 0.9% Inj 100 ML IV.SIG SCH ×2 (13:29→20:25)
--- NOTE | 2018-09-10 15:53 | P.PNGS ---
Subjective Patient reports: feels better (He says he is bored) Interval history: DAILY PROGRESS NOTE FOR SURGICAL ATTENDING, DR. [address] Patient wants to know when he is going home Minimal discomfort Knows he has surgery tomorrow Physical Exam Vital signs: Vital Signs 09/09/18 20:00 09/09/18 20:33 09/10/18 00:00 Temperature 98.0 F 98.4 F Pulse Rate 92 H 81 Respiratory Rate 21 20 Blood Pressure 154/86 H 143/78 H Pulse Oximetry 99 99 98 09/10/18 04:00 09/10/18 07:00 09/10/18 08:00 Temperature 98.6 F 97.9 F Pulse Rate 84 77 88 Respiratory Rate 22 17 23 Blood Pressure 155/83 H 157/88 H 169/85 H Pulse Oximetry 97 99 95 09/10/18 09:00 09/10/18 10:00 09/10/18 11:00 Temperature Pulse Rate 87 94 H 89 Respiratory Rate 22 24 22 Blood Pressure 169/89 H 163/91 H 161/82 H Pulse Oximetry 96 96 96 Intake & Output 09/09/18 09/10/18 09/10/18 19:59 06:59 18:59 Intake Total 200 / 200 Output Total Balance 200 / 200 Weight Intake: IV 200 / 200 LR 1000 mL Inj 1,000 ML @ 75 mls/hr IV.CONT .[id number] [facility] Rx# :[id number] Calcium Chloride Inj 2 GM In NS Inj 100 ML @ 120 mls/hr IV.SIG ONCE ONE Rx#:[id number] Neupogen Inj 480 MCG In D5W Inj 50 ML @ 100 mls/hr IV.SIG DAILY@1400 [facility] Rx#:[id number] Zosyn 4.5 GM Premix 4.5 gm In 200 / 200 100 ml @ 200 mls/hr IV.SIG Q6H [facility] Rx#:[id number] Oral Output: Urine Amount (Catheter) Indwelling Urethral Catheter Wound Vac Amount Groin Other: Mode Setting Groin Continuous Date of Last Bowel Movement 09/09/18 # Bowel Movements Narrative: Alert and awake Groin: wound vac in place with good seal; induration noted ---LEFT worse than RIGHT - Urinary Catheter Management Indwelling Urethral Catheter Cath placed during this visit: yes Reason for continuing: Severe pressure ulcer/wound Insertion date: 09/05/18 Insertion time: 00:53 Results - Labs 09/10/18 03:34 09/10/18 03:34 Laboratory Results - last 24 hr 09/10/18 09/10/18 03:34 03:34 WBC 1.6 L RBC 2.73 L Hgb 9.0 L Hct 27.8 L MCV 101.7 H MCH 33.0 MCHC 32.5 RDW 19.0 H Plt Count 245 MPV 10.8 Prelim Diff (Auto) Slide review pending WBC Differential Manual diff final Seg Neuts % (Manual) 8 L Lymphocytes % (Manual) 90 H Monocytes % (Manual) 2 Abs Neuts (Manual) 0.1 L* Nucleated RBCs/100 WBC 37 H Differential Comment . Platelet Estimate Normal Platelet Morphology Normal Ovalocytes 1+ H Sodium 144 Potassium 4.0 Chloride 111 H Carbon Dioxide 25.0 Anion Gap 8 BUN 26 H Creatinine 1.46 H Estimated GFR 46 L Random Glucose 89 Calcium 7.8 L D - Imaging Imaging: ITS Impressions Abdomen/Pelvis CT 09/04/18 21:11 CONCLUSION: 1. 7.5 cm inflammatory and edematous area in the right inguinal region containing probable small loculated abscesses. Edematous change extends inferiorly through the lower aspect of both inguinal canals into the scrotum with marked scrotal wall thickening and small locules of air in the upper left scrotum that could represent a necrotizing infection. There is herniation of fat through both inguinal canals, worse on the left side with herniated fat in the left scrotum measuring up to 9.5 cm in diameter. 2. Hepatosplenomegaly. Moderate coronary calcifications. Small pericardial effusion. Chest X-Ray 09/05/18 00:00 CONCLUSION: Adequate placement of endotracheal tube. Assessment and Plan - Assessment (1) Cellulitis Code(s): L03.90 - Cellulitis, unspecified Status: Acute Plan: 88 year old male with Immunosuppresed pt with idiopathic neutropenia. ANC 100; Bilateral inguinal abscess; Melina's gangrene. -S/p emergent debridement---Wound Vac placed -Plan for OR tomorrow -Cont zosyn, micafungin; ID following -Regular diet; NPO after MN -Obtain consents Wound VAC intact without leakage Discussed procedure with patient's son and patient For debridement/replacement VAC tomorrow. (2) Infected wound Code(s): T14.8XXA - Other injury of unspecified body region, initial encounter; L08.9 - Local infection of the skin and subcutaneous tissue, unspecified Status: Acute (3) Neutropenia Code(s): D70.9 - Neutropenia, unspecified Status: Acute (4) Abscess of groin Code(s): L02.214 - Cutaneous abscess of groin Status: Acute (1) Cellulitis Qualifiers: Site of cellulitis: other site Qualified Code(s): L03.818 - Cellulitis of other sites
[2018-09-10] MEDS: Morphine Sulfate Inj 2 MG/ML Vial IV.PUSH PRN (20:25)
[2018-09-11] MEDS: Ampicillin/Sulbactam Inj 3 GM in Sodium Chloride 0.9% Inj 100 ML IV.SIG SCH ×4 (01:19→20:25)
[2018-09-11] MEDS: Levothyroxine 150 MCG Tablet PO SCH (05:49)
[2018-09-11 06:07] LABS: Hematocrit 28.8 % (39.0-51.0); Hemoglobin 9.5 gm/dL (13.0-17.0); Mean Corpuscular HGB Conc 32.9 % (32.0-36.0); Mean Corpuscular Hemoglobin 33.2 pg (27.0-34.0); Mean Corpuscular Volume 100.9 fL (80.0-100.0); Mean Platelet Volume 10.6 fL (7.0-11.0); Platelet Count 272 th/mm3 (150-450); Red Blood Count 2.85 mil/mm3 (4.50-5.90); White Blood Count 1.9 th/mm3 (4.0-11.0)
[2018-09-11 06:18] LABS: Calcium 7.9 mg/dL (8.5-10.1); Carbon Dioxide 25.1 meq/L (21.0-32.0); Potassium 3.7 meq/L (3.5-5.1)
[2018-09-11] MEDS ORDERED: Lidocaine PF 1% Inj 5 ML Syringe OTHER ONE (07:25)
[2018-09-11] MEDS ORDERED: Phenylephrine/NS 1000 MCG/10ML Syringe IV.PUSH ONE (07:25)
[2018-09-11] MEDS ORDERED: ceFAZolin 1 GM Premix Inj 0 GM/0 ML FROZ.PIGGY IV.SIG ONE (07:49)
[2018-09-11] MEDS ORDERED: Ampicillin/Sulbactam Inj 3 GM in Sodium Chloride 0.9% Inj 100 ML IV.SIG ONE (08:00)
--- NOTE | 2018-09-11 08:21 | P.OP ---
- Preoperative Diagnosis (1) Abscess of groin - Postoperative Diagnosis (1) Abscess of groin Date of procedure: 09/11/18 Procedure: Irrigation bilateral groin wounds with replacement of VAC dressing on the right Packing of wound on the left Anesthesia: REGI Surgeon: Obinna Blake MD Racing Manager: Karel Diaz CFA Estimated blood loss (mL): 5 IV fluids (mL): 400 Pathology: none sent Operation and Findings: Patient was taken to the operating room and placed on the operating table in the supine position. After an adequate level of general endotracheal anesthesia was achieved the patient's legs were placed in yellowfin stirrups; the old VAC dressings were removed on both sides and the groins prepped and draped. Time-out was taken, confirming the correct patient, site, and procedures to be performed. The left side was addressed first. This was irrigated with antibiotic irrigation. No necrotic tissue was encountered and no bleeding was noted. The wound was packed with a Betadine soaked 4 inch Franck. Attention was turned to the right side. The wound was irrigated copiously with the remaining antibiotic irrigation. One small bleeding point was controlled with electrocautery. Once again, no necrotic tissue was noted and no debridement was necessary. A small sponge vac was applied to this side with minimal undermining superiorly. Sponge was placed inferiorly and medially where there was still a fair amount of undermining, approximately 8 cm medially and approximately 6 cm inferiorly. The adhesive was applied and good seal was obtained. The patient was extubated and taken back to the recovery room in stable condition. Sponge and needle counts were reported to be correct.
[2018-09-11] MEDS: Famotidine PF Inj 20 MG/2 ML Vial IV.PUSH SCH ×2 (08:47→20:24)
[2018-09-11] MEDS: Senna/Docusate Sodium 8.6/50 MG Tablet PO SCH ×2 (08:47→20:24)
[2018-09-11 09:33] LABS: Blast Cells 34 % (0-0); Lymphocytes 56 % (9-44); Monocytes 4 % (0-8); Platelet Estimate Normal (Normal); Tallied Nucleated RBC 45 (0-0)
[2018-09-11] MEDS: Morphine Sulfate Inj 2 MG/ML Vial IV.PUSH PRN (10:19)
--- NOTE | 2018-09-11 12:52 | P.PN ---
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 He is independent for ADLs and lives alone, family checks on him periodically. Patient has history of leukopenia, ?MDS followed by Dr. Feliz had Neupogen treatment before but did not respond. He had low-grade fever a few days ago. Initially the groin pain was attributed to his inguinal hernia, however he decided to present to the ER today as he had noticed redness and open wounds with drainage in bilateral groins. In the emergency department patient was evaluated by Dr. Chang, A stat CT of the abdomen pelvis showed 7.5 cm inflammatory and edematous area in the right inguinal region containing probable small loculated abscesses. Edematous change extends inferiorly through the lower aspect of both inguinal canals into the scrotum with marked scrotal wall thickening and small locules of air in the upper left scrotum that could represent a necrotizing infection. There is herniation of fat through both inguinal canals. Patient received crystalloid resuscitation with 3 L normal saline boluses, was also given vancomycin clindamycin and Zosyn. Blood cultures and wound cultures were sent. Dr. Blake from general surgery, and Dr. Sunshine from urology were consulted by Dr. Chang at [place] ED. Plan is to transfer patient to the [facility], resuscitate adequately given antibiotics and plan for OR in a.m. 09/06: Patient is warm and well-perfused. Urine output is low but acceptable. I suspect he will need increased fluids as the day progresses however. Total neutrophil count of 100 is quite worrisome. Neupogen has been started by the hematology service. Timing of extubation will depend to some extent on the timing of subsequent debridement. Glucose control has not been a problem. 09/07: Total neutrophil count up to 190. Glucose control acceptable. Antibiotic coverage being narrowed, consistent with culture results. Tolerated extubation and comfortable on his home CPAP machine at night. Plan is for return to the OR on Tuesday. 09/08: Lying in bed remains stable. Remains leukopenic 2.6K. Plan for OR today. Family at bedside updated. 09/09: Improving leukopenia. Patient verbal and well spoken this morning. He does appear a bit confused however. No complaints of pain and he is hungry. He underwent an additional debridement yesterday afternoon which was well- tolerated. He requires a Diaz catheter in order to prevent contamination of the local area where there are large open wounds. 09/10: Pain controlled. Alert, conversant. Tolerating diet. Hospitalist Notes: 09/11: now transferred to medical Team, patient seen in his bedroom and discussed with patient and his Son in the room asking to be discharged. no nausea, vomit or diarrhea, continue antibiotics. Physical Exam Vital signs: Vital Signs 09/10/18 13:00 09/10/18 14:00 09/10/18 15:00 Temperature Pulse Rate 86 88 90 Respiratory Rate 24 24 26 H Blood Pressure 159/79 H 159/86 H 177/82 H Pulse Oximetry 95 95 96 09/10/18 16:00 09/10/18 17:00 09/10/18 18:00 Temperature 97.9 F Pulse Rate 88 94 H 96 H Respiratory Rate 24 25 H 25 H Blood Pressure 143/83 H 150/78 H 174/100 H Pulse Oximetry 95 95 95 09/10/18 18:08 09/10/18 18:39 09/10/18 18:49 Temperature Pulse Rate 103 H 113 H 111 H Respiratory Rate 30 H 26 H 27 H Blood Pressure 188/97 H 189/102 H 178/91 H Pulse Oximetry 91 L 96 95 09/10/18 19:00 09/10/18 20:00 09/10/18 21:00 Temperature 98.2 F Pulse Rate 104 H 103 H 98 H Respiratory Rate 26 H 20 24 Blood Pressure 161/92 H 168/77 H 156/86 H Pulse Oximetry 95 95 97 09/10/18 22:00 09/10/18 23:00 09/11/18 00:00 Temperature Pulse Rate 100 H 97 H 98 H Respiratory Rate 24 23 26 H Blood Pressure 155/83 H 163/86 H Pulse Oximetry 96 95 82 L 09/11/18 01:00 09/11/18 02:00 09/11/18 03:00 Temperature Pulse Rate 95 H 92 H 85 Respiratory Rate 24 23 22 Blood Pressure 166/82 H 168/96 H 175/97 H Pulse Oximetry 95 97 96 09/11/18 04:00 09/11/18 05:00 09/11/18 06:00 Temperature Pulse Rate 87 76 88 Respiratory Rate 20 19 19 Blood Pressure 164/91 H 158/88 H 187/86 H Pulse Oximetry 97 97 98 09/11/18 06:28 09/11/18 07:00 09/11/18 08:26 Temperature 97.4 F L Pulse Rate 92 H 90 115 H Respiratory Rate 21 21 Blood Pressure 176/88 H 168/97 H 139/66 Pulse Oximetry 99 97 09/11/18 08:30 09/11/18 08:45 09/11/18 09:00 Temperature Pulse Rate 110 H 105 H 103 H Respiratory Rate 25 H 20 20 Blood Pressure 144/74 H 159/86 H 162/88 H Pulse Oximetry 96 96 95 Intake & Output 09/10/18 09/11/18 09/11/18 18:59 06:59 18:59 Intake Total 1831.6 / 1831.6 320 / 320 400 / 400 Output Total 825 / 825 650 / 650 80 / 80 Balance 1006.6 / 1006.6 -330 / -330 320 / 320 Weight 131.1 kg Intake: IV 1351.6 / 1351.6 200 / 200 LR 1000 mL Inj 1,000 ML @ 75 1000 / 1000 mls/hr IV.CONT .[id number] [facility] Rx# :[id number] Unasyn Inj 3 GM In NS Inj 100 100 / 100 200 / 200 ML @ 200 mls/hr IV.SIG Q6H [facility] Rx#:[id number] Neupogen Inj 480 MCG In D5W Inj 51.6 / 51.6 50 ML @ 100 mls/hr IV.SIG DAILY@1400 [facility] Rx#:[id number] Zosyn 4.5 GM Premix 4.5 gm In 200 / 200 100 ml @ 200 mls/hr IV.SIG Q6H [facility] Rx#:[id number] Oral 480 / 480 120 / 120 Anesthesia Amount 400 / 400 Output: Estimated Blood Loss 5 / 5 Urine Amount (Catheter) 800 / 800 650 / 650 75 / 75 Indwelling Urethral Catheter 800 / 800 650 / 650 75 / 75 Wound Vac Amount 25 / 25 Groin 25 / 25 Other: Mode Setting Groin Continuous Continuous Right Groin Continuous Date of Last Bowel Movement 09/10/18 09/10/18 # Bowel Movements 1 2 Narrative: GENERAL: No acute distress. CARDIOVASCULAR: Regular rate and rhythm without murmurs, gallops, or rubs. RESPIRATORY: Clear to auscultation. Breath sounds equal bilaterally. No wheezes , rales, or rhonchi. GASTROINTESTINAL: Abdomen soft, non-tender, Right groin with wound vac in place indurated bilateral. MUSCULOSKELETAL: Extremities without clubbing, cyanosis, or edema. NEURO: Alert & Oriented x4 to person, place, time, situation. Moves all ext x4 - Urinary Catheter Management Indwelling Urethral Catheter Cath placed during this visit: yes Reason for continuing: Severe pressure ulcer/wound Insertion date: 09/05/18 Insertion time: 00:53 Results - Labs CBC & Chem 7: 09/11/18 05:19 09/11/18 05:19 Laboratory Results - last 24 hr 09/10/18 09/11/18 09/11/18 16:50 05:19 05:19 WBC 1.9 L RBC 2.85 L Hgb 9.5 L Hct 28.8 L MCV 100.9 H MCH 33.2 MCHC 32.9 RDW 19.0 H Plt Count 272 MPV 10.6 Prelim Diff (Auto) Manual diff required WBC Differential Manual diff final Seg Neuts % (Manual) 4 L Band Neuts % (Manual) 2 Lymphocytes % (Manual) 56 H Monocytes % (Manual) 4 Blast Cells % (Manual) 34 H Abs Neuts (Manual) 0.1 L* Nucleated RBCs/100 WBC 90 H Differential Comment . Platelet Estimate Normal Platelet Morphology Enlarged H Sodium 144 Potassium 3.7 Chloride 111 H Carbon Dioxide 25.1 Anion Gap 8 BUN 26 H Creatinine 1.62 H Estimated GFR 41 L Random Glucose 102 Calcium 7.9 L Stl C.difficile DNA Amp Negative St C. diff Tox Epid 027 Negative Microbiology 09/08/18 12:28 Clean Catch Urine Urine Culture - Final No growth in 48 hours - Imaging Abdomen/Pelvis CT 09/04/18 21:11 CONCLUSION: 1. 7.5 cm inflammatory and edematous area in the right inguinal region containing probable small loculated abscesses. Edematous change extends inferiorly through the lower aspect of both inguinal canals into the scrotum with marked scrotal wall thickening and small locules of air in the upper left scrotum that could represent a necrotizing infection. There is herniation of fat through both inguinal canals, worse on the left side with herniated fat in the left scrotum measuring up to 9.5 cm in diameter. 2. Hepatosplenomegaly. Moderate coronary calcifications. Small pericardial effusion. Chest X-Ray 09/05/18 00:00 CONCLUSION: Adequate placement of endotracheal tube. - Procedures - Preoperative Diagnosis (1) Infected wound (2) Abscess of groin - Postoperative Diagnosis (1) Infected wound (2) Abscess of groin Date of procedure: 09/05/18 Procedure: Incision and drainage bilateral groin abscesses Excision 100 cm skin and subcutaneous tissue. 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 on Broad spectrum antibiotics Vancomycin, Zosyn, Clindamycin, ID specialist following 09/05 status post Surgical debridement by Doctor Blake and Urology specialist Doctor Sunshine Following Blood cultures and Urine culture, MSSA and Group B strep, culture 09/05/18 showed Gram negative anaerobes, Discontinued Vancomycin yesterday and continued on Zosyn and Micafungin discontinued Clindamycin yesterday. today status post I and D bilateral and Vacuum replacement dressed on the right and Packing on the Left. 2. Neutropenia/History of MDS/History of Prostate Cancer, public affairs specialist following failed Neupogen, 3. Hypothyroidism to continue Hormonal replacement. 4. VDRF improved, to continue Aggressive Pulmonary Toilet, Bronchodilators Extubated 09/06 5. Hypertension controlled off antihypertensives continue on hold GI prophylaxis with Famotidine Hold chemical prophylaxis due to Code Status: Full code. Discussed Condition With: Patient, Nurse and his Son in the room Discharge Planning: once cleared by specialists.
--- NOTE | 2018-09-11 17:32 | P.PNONC ---
Subjective Interval history: Patient sleeping on approach, awakens easily to voice. His son is at the bedside. He is status post wound debridement this a.m. Objective Vital Signs/Intake & Output: Vital Signs 09/10/18 18:00 09/10/18 18:08 09/10/18 18:39 Temperature Pulse Rate 96 H 103 H 113 H Respiratory Rate 25 H 30 H 26 H Blood Pressure 174/100 H 188/97 H 189/102 H Pulse Oximetry 95 91 L 96 09/10/18 18:49 09/10/18 19:00 09/10/18 20:00 Temperature 98.2 F Pulse Rate 111 H 104 H 103 H Respiratory Rate 27 H 26 H 20 Blood Pressure 178/91 H 161/92 H 168/77 H Pulse Oximetry 95 95 95 09/10/18 21:00 09/10/18 22:00 09/10/18 23:00 Temperature Pulse Rate 98 H 100 H 97 H Respiratory Rate 24 24 23 Blood Pressure 156/86 H 155/83 H 163/86 H Pulse Oximetry 97 96 95 09/11/18 00:00 09/11/18 01:00 09/11/18 02:00 Temperature Pulse Rate 98 H 95 H 92 H Respiratory Rate 26 H 24 23 Blood Pressure 166/82 H 168/96 H Pulse Oximetry 82 L 95 97 09/11/18 03:00 09/11/18 04:00 09/11/18 05:00 Temperature Pulse Rate 85 87 76 Respiratory Rate 22 20 19 Blood Pressure 175/97 H 164/91 H 158/88 H Pulse Oximetry 96 97 97 09/11/18 06:00 09/11/18 06:28 09/11/18 07:00 Temperature Pulse Rate 88 92 H 90 Respiratory Rate 19 21 21 Blood Pressure 187/86 H 176/88 H 168/97 H Pulse Oximetry 98 99 97 09/11/18 07:15 09/11/18 08:26 09/11/18 08:30 Temperature 97.4 F L Pulse Rate 97 H 115 H 110 H Respiratory Rate 24 25 H Blood Pressure 139/66 144/74 H Pulse Oximetry 97 96 09/11/18 08:45 09/11/18 09:00 09/11/18 09:13 Temperature Pulse Rate 105 H 103 H Respiratory Rate 20 20 Blood Pressure 159/86 H 162/88 H 158/91 H Pulse Oximetry 96 95 09/11/18 09:14 09/11/18 10:00 09/11/18 10:22 Temperature Pulse Rate 96 H 97 H 95 H Respiratory Rate 23 25 H 24 Blood Pressure 196/100 H 168/89 H Pulse Oximetry 96 99 99 09/11/18 10:48 09/11/18 11:00 09/11/18 11:48 Temperature Pulse Rate 91 H 93 H 85 Respiratory Rate 23 24 19 Blood Pressure 178/85 H 162/85 H Pulse Oximetry 99 100 99 09/11/18 12:00 09/11/18 12:48 09/11/18 13:00 Temperature 97.7 F Pulse Rate 83 94 H 86 Respiratory Rate 18 15 21 Blood Pressure 209/93 H Pulse Oximetry 99 91 L 97 09/11/18 13:06 09/11/18 13:08 09/11/18 13:48 Temperature Pulse Rate 84 86 89 Respiratory Rate 19 22 23 Blood Pressure 165/131 H 176/93 H 166/93 H Pulse Oximetry 96 99 94 L 09/11/18 14:00 09/11/18 14:48 09/11/18 15:00 Temperature Pulse Rate 88 88 87 Respiratory Rate 20 21 19 Blood Pressure 160/85 H Pulse Oximetry 90 L 94 L 93 L 09/11/18 15:48 09/11/18 16:00 09/11/18 16:48 Temperature Pulse Rate 89 86 84 Respiratory Rate 19 21 21 Blood Pressure 153/84 H 172/88 H Pulse Oximetry 96 97 97 09/11/18 16:50 09/11/18 17:00 Temperature Pulse Rate 84 Respiratory Rate 22 Blood Pressure Pulse Oximetry 96 95 Intake & Output 09/10/18 09/11/18 09/11/18 18:59 06:59 18:59 Intake Total 1831.6 / 1831.6 320 / 320 1651.6 / 1651.6 Output Total 825 / 825 650 / 650 80 / 80 Balance 1006.6 / 1006.6 -330 / -330 1571.6 / 1571.6 Weight 131.1 kg Intake: IV 1351.6 / 1351.6 200 / 200 1251.6 / 1251.6 LR 1000 mL Inj 1,000 ML @ 75 1000 / 1000 1000 / 1000 mls/hr IV.CONT .[id number] [facility] Rx# :[id number] Unasyn Inj 3 GM In NS Inj 100 100 / 100 200 / 200 200 / 200 ML @ 200 mls/hr IV.SIG Q6H [facility] Rx#:[id number] Neupogen Inj 480 MCG In D5W Inj 51.6 / 51.6 51.6 / 51.6 50 ML @ 100 mls/hr IV.SIG DAILY@1400 [facility] Rx#:[id number] Zosyn 4.5 GM Premix 4.5 gm In 200 / 200 100 ml @ 200 mls/hr IV.SIG Q6H [facility] Rx#:[id number] Oral 480 / 480 120 / 120 Anesthesia Amount 400 / 400 Output: Estimated Blood Loss 5 / 5 Urine Amount (Catheter) 800 / 800 650 / 650 75 / 75 Indwelling Urethral Catheter 800 / 800 650 / 650 75 / 75 Wound Vac Amount 25 / 25 Groin 25 / 25 Other: Mode Setting Groin Continuous Continuous Right Groin Continuous Date of Last Bowel Movement 09/10/18 09/10/18 # Bowel Movements 1 2 Result Diagrams: 09/11/18 05:19 09/11/18 05:19 Laboratory Results: Laboratory Results - last 24 hr 09/10/18 09/11/18 09/11/18 16:50 05:19 05:19 WBC 1.9 L RBC 2.85 L Hgb 9.5 L Hct 28.8 L MCV 100.9 H MCH 33.2 MCHC 32.9 RDW 19.0 H Plt Count 272 MPV 10.6 Prelim Diff (Auto) Manual diff required WBC Differential Manual diff final Seg Neuts % (Manual) 4 L Band Neuts % (Manual) 2 Lymphocytes % (Manual) 56 H Monocytes % (Manual) 4 Blast Cells % (Manual) 34 H Abs Neuts (Manual) 0.1 L* Nucleated RBCs/100 WBC 90 H Differential Comment . Platelet Estimate Normal Platelet Morphology Enlarged H Sodium 144 Potassium 3.7 Chloride 111 H Carbon Dioxide 25.1 Anion Gap 8 BUN 26 H Creatinine 1.62 H Estimated GFR 41 L Random Glucose 102 Calcium 7.9 L Stl C.difficile DNA Amp Negative St C. diff Tox Epid 027 Negative Culture Results: Microbiology 09/08/18 12:28 Urine Culture - Final Clean Catch Urine No growth in 48 hours 09/04/18 21:49 Aerobic Blood Culture - Final Blood - Peripheral No growth in 5 days Anaerobic Blood Culture - Final No growth in 5 days 09/04/18 21:30 Aerobic Blood Culture - Final Blood - Peripheral No growth in 5 days Anaerobic Blood Culture - Final No growth in 5 days Medications: Active Medications Generic Name Dose Route Start Last Admin Trade Name Freq PRN Reason Stop Dose Admin Albuterol 2.5 mg 09/05/18 00:27 09/05/18 23:31 Albuterol Neb (Prn) NEB 2.5 mg Q2HR NEB PRN Administration SHORTNESS OF BREATH/WHEEZING Famotidine 20 mg 09/05/18 09:00 09/11/18 08:47 Pepcid Pf Inj IV.PUSH Not Given Q12HR [facility] Lactated Ringer's 1,000 mls @ 75 mls/hr 09/05/18 09:45 09/11/18 15:05 Lr 1000 Ml Inj IV.CONT 75 mls/hr .[id number] [facility] Administration Propofol 1,000 mg in 100 mls @ 3.63 mls/hr 09/05/18 09:48 09/06/18 08:00 Diprivan 1000 Mg/100 Ml Inj IV.CONT 0 mcg/kg/min TITRATE PRN 0 mls/hr Per Protocol Titration Protocol 5 MCG/KG/MIN Filgrastim 480 mcg/ Dextrose 51.6 mls @ 100 mls/hr 09/06/18 14:00 09/11/18 14 :05 IV.SIG Infused DAILY@1400 [facility] Infusion Ampicillin Sodium/Sulbactam 100 mls @ 200 mls/hr 09/10/18 14:00 09/11/18 14: 00 Sodium 3 gm/ Sodium Chloride IV.SIG Infused Q6H [facility] In[facility] Levothyroxine Sodium 150 mcg 09/06/18 06:00 09/11/18 05:49 Synthroid PO 150 mcg DAILY@0600 [facility] Administration Morphine Sulfate 2 mg 09/05/18 00:27 09/11/18 10:19 Morphine Inj IV.PUSH 2 mg Q2H PRN Administration PAIN SCALE 6 TO 10 Senna/Docusate Sodium 1 tab 09/05/18 09:00 09/11/18 08:47 Sunshine-Colace PO Not Given BID [facility] Sodium Chloride 2 ml 09/05/18 09:00 09/11/18 08:47 Ns Flush IV.FLUSH Not Given BID [facility] Tamsulosin HCl 0.4 mg 09/06/18 20:00 09/11/18 08:47 Flomax PO Not Given DAILY [facility] Objective Remarks: GENERAL: Chronically ill-appearing elderly male patient, in no acute distress. SKIN: Warm and dry. HEAD: Normocephalic. EYES: No scleral icterus. No injection or drainage. NECK: Supple, trachea midline. CARDIOVASCULAR: Regular rate and rhythm without murmurs. RESPIRATORY: Breath sounds equal bilaterally. Nonlabored at rest. GASTROINTESTINAL: Abdomen soft, non-tender, nondistended. Edema to the scrotum. + Diaz catheter, draining yellow urine with sediment. EXTREMITIES: No cyanosis, or edema. Right groin wound drain, left groin dressing. MUSCULOSKELETAL: Adequate muscle tone. NEUROLOGICAL: No obvious focal deficit. alert, and oriented x3. PSYCHIATRIC: Appropriate mood and affect; insight and judgment normal. Assessment/Plan - Plan Mr. Bishop is a pleasant 88-year-old gentleman, who was hospitalized and currently being treated for inguinal area abscesses. He has been on the ventilator and oncology was consulted for neutropenia. The patient has a history of myelofibrosis, diagnosed in November 2017. He is currently under the care of Dr. Feliz and has recently been evaluated at [facility]. Recommendations: 1. Neutropenia, ANC 100 today. Continue Neupogen. 2. Patient had third debridement this a.m. by Dr. Blake for his Melina gangrene of the scrotum. 3. Daily CBC 4. Continue neutropenic precautions. - Attending Statement The exam, history, and the medical decision-making described in the above note were completed with the assistance of the mid-level provider. I reviewed and agree with the findings presented. I attest that I had a [id number] encounter with the patient on the same day, and personally performed and documented my assessment and findings in the medical record. Patient is awake and alert He was taken to the OR third time today for another debridement. Patient does not have any more fever He is on the antibiotics He has a wound VAC on the right side and the left side is been removed Extensive discussion with the patient's son at the bedside Patient remains profoundly neutropenic in spite of high doses of Neupogen for at least 1 week. ANC is on 100 despite of having Neupogen high-dose for at least 7 days.. I will discontinue Neupogen Discussed with patient's RN Monitor CBC
[2018-09-12] MEDS: Ampicillin/Sulbactam Inj 3 GM in Sodium Chloride 0.9% Inj 100 ML IV.SIG SCH ×4 (01:21→19:45)
[2018-09-12] MEDS: Levothyroxine 150 MCG Tablet PO SCH (06:15)
[2018-09-12] MEDS: Morphine Sulfate Inj 2 MG/ML Vial IV.PUSH PRN ×4 (06:18→22:03)
[2018-09-12] MEDS: Senna/Docusate Sodium 8.6/50 MG Tablet PO SCH ×2 (08:23→21:11)
[2018-09-12] MEDS: Famotidine PF Inj 20 MG/2 ML Vial IV.PUSH SCH ×2 (08:23→21:11)
--- NOTE | 2018-09-12 09:40 | P.PNIM ---
Subjective Interval history: Follow-up bilateral inguinal hernia with I&D, hypertension, hypothyroidism, and chronic neutropenia with history of MDS and prostate cancer. Patient seen and examined laying in bed, slightly hard of hearing, complaint of shortness of breath. Patient denies any pain at this time, however with some discomfort on the abdomen and the groin area. Patient complaining about pain in urination stated he cannot urinate, discussed he had Diaz catheter and should be able to go and does not need to bear and going. Patient verbalized understanding. Patient denies any fever or chills, denies any headache or dizziness, denies any chest pain. Nurse in the room, repositioned in bed Nurse address concern about patient complaining of pain with the medication treatment not enough for him. Physical Exam Vital signs: Vital Signs 09/11/18 10:00 09/11/18 10:22 09/11/18 10:48 Temperature Pulse Rate 97 H 95 H 91 H Respiratory Rate 25 H 24 23 Blood Pressure 196/100 H 168/89 H 178/85 H Pulse Oximetry 99 99 99 09/11/18 11:00 09/11/18 11:48 09/11/18 12:00 Temperature 97.7 F Pulse Rate 93 H 85 83 Respiratory Rate 24 19 18 Blood Pressure 162/85 H Pulse Oximetry 100 99 99 09/11/18 12:48 09/11/18 13:00 09/11/18 13:06 Temperature Pulse Rate 94 H 86 84 Respiratory Rate 15 21 19 Blood Pressure 209/93 H 165/131 H Pulse Oximetry 91 L 97 96 09/11/18 13:08 09/11/18 13:48 09/11/18 14:00 Temperature Pulse Rate 86 89 88 Respiratory Rate 22 23 20 Blood Pressure 176/93 H 166/93 H Pulse Oximetry 99 94 L 90 L 09/11/18 14:48 09/11/18 15:00 09/11/18 15:48 Temperature Pulse Rate 88 87 89 Respiratory Rate 21 19 19 Blood Pressure 160/85 H 153/84 H Pulse Oximetry 94 L 93 L 96 09/11/18 16:00 09/11/18 16:48 09/11/18 16:50 Temperature Pulse Rate 86 84 Respiratory Rate 21 21 Blood Pressure 172/88 H Pulse Oximetry 97 97 96 09/11/18 17:00 09/11/18 17:48 09/11/18 18:00 Temperature Pulse Rate 84 89 79 Respiratory Rate 22 20 19 Blood Pressure 163/90 H Pulse Oximetry 95 91 L 92 L 09/11/18 18:48 09/11/18 19:00 09/11/18 19:48 Temperature Pulse Rate 80 80 83 Respiratory Rate 19 20 20 Blood Pressure 162/79 H 162/89 H Pulse Oximetry 93 L 93 L 92 L 09/11/18 20:00 09/11/18 20:42 09/11/18 21:00 Temperature 98.2 F Pulse Rate 85 77 Respiratory Rate 20 19 Blood Pressure 173/90 H 150/81 H Pulse Oximetry 92 L 92 L 92 L 09/11/18 23:00 09/12/18 04:00 Temperature 97.2 F L 97.2 F L Pulse Rate 79 82 Respiratory Rate 18 18 Blood Pressure 163/89 H 165/88 H Pulse Oximetry 97 95 Intake & Output 09/11/18 09/12/18 09/12/18 18:59 06:59 18:59 Intake Total 2151.6 / 2151.6 1320 / 1320 100 / 100 Output Total 630 / 630 200 / 200 Balance 1521.6 / 1521.6 1120 / 1120 100 / 100 Weight 134.6 kg Intake: IV 1251.6 / 1251.6 1200 / 1200 100 / 100 LR 1000 mL Inj 1,000 ML @ 75 1000 / 1000 1000 / 1000 mls/hr IV.CONT .[id number] [facility] Rx# :[id number] Unasyn Inj 3 GM In NS Inj 100 200 / 200 200 / 200 100 / 100 ML @ 200 mls/hr IV.SIG Q6H [facility] Rx#:[id number] Neupogen Inj 480 MCG In D5W Inj 51.6 / 51.6 50 ML @ 100 mls/hr IV.SIG DAILY@1400 [facility] Rx#:[id number] Oral 500 / 500 120 / 120 Anesthesia Amount 400 / 400 Output: Estimated Blood Loss 5 / 5 Urine Amount (Catheter) 625 / 625 200 / 200 Indwelling Urethral Catheter 625 / 625 200 / 200 Other: Mode Setting Right Groin Continuous Continuous Date of Last Bowel Movement 09/11/18 # Bowel Movements 3 1 Narrative: GENERAL: Well-developed, obese male, lying in bed in no acute distress SKIN: Warm and dry. HEAD: Atraumatic. Normocephalic. EYES: Pupils equal and round. No scleral icterus. No injection or drainage. ENT: No nasal bleeding or discharge. Mucous membranes pink and moist. NECK: Trachea midline. No JVD. CARDIOVASCULAR: Regular rate and rhythm. RESPIRATORY: No accessory muscle use. Clear to auscultation. Breath sounds equal bilaterally. GASTROINTESTINAL: Abdomen obese soft, non-tender, slight distended. Hepatic and splenic margins not palpable. : Diaz catheter in place, scrotal and penile edema noted. Right groin site with wound VAC in place noted some slight drainage. Left groin site dressed with packing slight drainage noted MUSCULOSKELETAL: Extremities without clubbing, cyanosis, or edema. No obvious deformities. NEUROLOGICAL: Awake and alert and oriented x3. No obvious cranial nerve deficits. Motor grossly within normal limits. Generalized weakness, moving all 4 extremities. Normal speech PSYCHIATRIC: Appropriate mood and affect; insight and judgment unreliable - Urinary Catheter Management Indwelling Urethral Catheter Cath placed during this visit: yes Reason for continuing: Severe pressure ulcer/wound Insertion date: 09/05/18 Insertion time: 00:53 Results - Labs CBC & Chem 7: 09/11/18 05:19 09/11/18 05:19 - Procedures - Preoperative Diagnosis (1) Infected wound (2) Abscess of groin - Postoperative Diagnosis (1) Infected wound (2) Abscess of groin Date of procedure: 09/05/18 Procedure: Incision and drainage bilateral groin abscesses Excision 100 cm skin and subcutaneous tissue. Placement of negative pressure VAC dressing Anesthesia: SHIA Surgeon: Obinna Blake MD Side Panel Padder: Jorge Sunshine MD - Preoperative Diagnosis (1) Abscess of groin - Postoperative Diagnosis (1) Abscess of groin Date of procedure: 09/11/18 Procedure: Irrigation bilateral groin wounds with replacement of VAC dressing on the right Packing of wound on the left Anesthesia: GETA Surgeon: Obinna Blake MD Assessment and Plan - Assessment (1) Cellulitis Code(s): L03.90 - Cellulitis, unspecified Status: Acute (2) Infected wound Code(s): T14.8XXA - Other injury of unspecified body region, initial encounter; L08.9 - Local infection of the skin and subcutaneous tissue, unspecified Status: Acute (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 Status: Acute (4) Severe sepsis Code(s): A41.9 - Sepsis, unspecified organism; R65.20 - Severe sepsis without septic shock Status: Acute (5) Neutropenia Code(s): D70.9 - Neutropenia, unspecified Status: Acute (6) MDS (myelodysplastic syndrome) Code(s): D46.9 - Myelodysplastic syndrome, unspecified Status: Chronic (7) Abscess of groin Code(s): L02.214 - Cutaneous abscess of groin Status: Acute - Plan The patient is an 88 year old male with past medical history significant for probable MDS, hypertension, hypothyroidism, history of prostate cancer, chronic bilateral inguinal hernias who presented to the [place] emergency department today with groin pain lasting for approximately 1 week. Melina's Gangrene/Severe Sepsis/Bilateral Inguinal abscess/ Immunosuppression. - on Broad spectrum antibiotics Vancomycin, Zosyn, Clindamycin, -ID specialist following - 09/05 status post Surgical debridement by Doctor Blake and Urology specialist Doctor Sunshine - Following Blood cultures and Urine culture, MSSA and Group B strep, culture showed Gram negative anaerobes, - Discontinued Vancomycin and Clindamycin - changed Zosyn to Unasyn IV, per ID recommendation -Status post I and D bilateral groin with right groin wound Vacuum replacement , left groin dressed with Packing -start on prn pain medication for pain control and bowel regimen -check CXray and KUB for SOB and bowel distention -CXRAY: slight CHF -Abdominal Xray: nonobstructive bowel gas pattern most characteristic of an ileus or gastroenteritis -increase frieda-colace, add Miralax and prn Dulcolax Suppository Neutropenia/History of MDS History of Prostate Cancer -early childhood specialist following -failed Neupogen -monitor Hypothyroidism -monitor TSH -continue Levothyroxine VDRF improved -continue Aggressive Pulmonary Toilet - Bronchodilators Extubated 09/06 Hypertension Sinus Tachycardia, improved BP elevated -restart on Nifedipine -hold on Lisinopril due to JIM -monitor BP JIM Creat 1.1 on admission, increasing to 1.62 today -avoid nephrotoxins -monitor BMP -continue IVF DVT prophylaxis: Hold chemical prophylaxis due to surgery, will restart when cleared with surgical services GI prophylaxis with Famotidine E-FORCSE Prescription Drug Monitoring Database has been queried and verified prior to prescribing the controlled substance. Acute pain exception. This patient has normal, predicted, physiological, and time limited response to an adverse mechanical stimulus associated with surgery, trauma, or acute illness as described in my notes. There is a lack of alternative treatment options other than to include the prescribed narcotic treatment for this condition. Code Status: full code Discussed Condition With: patient, nurse Gen Surgery: Kristel Bell (1) Cellulitis Qualifiers: Site of cellulitis: other site Qualified Code(s): L03.818 - Cellulitis of other sites
--- NOTE | 2018-09-12 11:21 | XR ---
EXAM DATE: 09/12/2018 11:14 AM EST AGE/SEX: 88 years / Male INDICATIONS: Distention CLINICAL DATA: This is the patient's initial encounter. Patient reports that signs and symptoms have been present for 2 days and indicates a pain score of Nonresponsive. MEDICAL/SURGICAL HISTORY: . inguinal hernia . none known COMPARISON: No prior exams available for comparison. FINDINGS: 2 AP supine views of the abdomen and pelvis were obtained and demonstrate gas and stool noted segmen ts of colon. There are multiple loops of nondilated air-containing small bowel in the central abdomen . There is no evidence of free air or mass effect on the supine study. The patient is status post alexy ateral hip arthroplasties. There are multiple surgical clips and estela in the pelvis. Degenerative disc changes are noted greatest in the lumbar spine. CONCLUSION: Nonspecific, nonobstructive bowel gas pattern most characteristic of an ileus or gastroenteritis. Electronically signed by: Obinna Almonte MD 09/12/2018 11:20 AM EST
--- NOTE | 2018-09-12 11:28 | XR ---
EXAM DATE: 09/12/2018 11:11 AM EST AGE/SEX: 88 years / Male INDICATIONS: Short of breath. CLINICAL DATA: This is the patient's initial encounter. Patient reports that signs and symptoms have been present for 2 days and indicates a pain score of Nonresponsive. MEDICAL/SURGICAL HISTORY: . inguinal hernia . not known COMPARISON: [facility] [place], CHEST 1V SINGLE AP, 09/05/2018. . FINDINGS: There is mild haziness to the perivascular structures most likely pulmonary edema. Slight cardiomegaly seen. Focal consolidation is not seen. CONCLUSION: Slight CHF. Electronically signed by: Johan Terrazas MD 09/12/2018 11:27 AM EST
[2018-09-12] MEDS ORDERED: Bisacodyl 10 MG Supp RECTAL PRN (13:25)
[2018-09-12] MEDS: Polyethylene Glycol 3350 17 GM Packet PO SCH (14:34)
--- NOTE | 2018-09-12 15:02 | P.PNGS ---
Subjective Interval history: Seen this AM---quite upset and agitated--asking for a fan Grunt like breathing Repositioned in bed with FRONT END LOADER OPERATOR Penelope---appears more comfortable Physical Exam Vital signs: Vital Signs 09/11/18 15:00 09/11/18 15:48 09/11/18 16:00 Temperature Pulse Rate 87 89 86 Respiratory Rate 19 19 21 Blood Pressure 153/84 H Pulse Oximetry 93 L 96 97 09/11/18 16:48 09/11/18 16:50 09/11/18 17:00 Temperature Pulse Rate 84 84 Respiratory Rate 21 22 Blood Pressure 172/88 H Pulse Oximetry 97 96 95 09/11/18 17:48 09/11/18 18:00 09/11/18 18:48 Temperature Pulse Rate 89 79 80 Respiratory Rate 20 19 19 Blood Pressure 163/90 H 162/79 H Pulse Oximetry 91 L 92 L 93 L 09/11/18 19:00 09/11/18 19:48 09/11/18 20:00 Temperature 98.2 F Pulse Rate 80 83 85 Respiratory Rate 20 20 20 Blood Pressure 162/89 H 173/90 H Pulse Oximetry 93 L 92 L 92 L 09/11/18 20:42 09/11/18 21:00 09/11/18 23:00 Temperature 97.2 F L Pulse Rate 77 79 Respiratory Rate 19 18 Blood Pressure 150/81 H 163/89 H Pulse Oximetry 92 L 92 L 97 09/12/18 04:00 09/12/18 08:00 09/12/18 12:00 Temperature 97.2 F L 98.6 F 97.1 F L Pulse Rate 82 96 H 88 Respiratory Rate 18 15 16 Blood Pressure 165/88 H 172/92 H 158/85 H Pulse Oximetry 95 95 97 Intake & Output 09/11/18 09/12/18 09/12/18 18:59 06:59 18:59 Intake Total 2151.6 / 2151.6 1320 / 1320 100 / 100 Output Total 630 / 630 200 / 200 Balance 1521.6 / 1521.6 1120 / 1120 100 / 100 Weight 134.6 kg Intake: IV 1251.6 / 1251.6 1200 / 1200 100 / 100 LR 1000 mL Inj 1,000 ML @ 75 1000 / 1000 1000 / 1000 mls/hr IV.CONT .[id number] [facility] Rx# :[id number] Unasyn Inj 3 GM In NS Inj 100 200 / 200 200 / 200 100 / 100 ML @ 200 mls/hr IV.SIG Q6H [facility] Rx#:[id number] Neupogen Inj 480 MCG In D5W Inj 51.6 / 51.6 50 ML @ 100 mls/hr IV.SIG DAILY@1400 [facility] Rx#:[id number] Oral 500 / 500 120 / 120 Anesthesia Amount 400 / 400 Output: Estimated Blood Loss 5 / 5 Urine Amount (Catheter) 625 / 625 200 / 200 Indwelling Urethral Catheter 625 / 625 200 / 200 Other: Mode Setting Right Groin Continuous Continuous Continuous Date of Last Bowel Movement 09/11/18 # Bowel Movements 3 1 Narrative: Alert and awake although extremely hard of hearing Abd: soft; distended RIGHT groin--- wound vac in place with good seal LEFT groin--We tot dry dressing in place - Urinary Catheter Management Indwelling Urethral Catheter Cath placed during this visit: yes Reason for continuing: Severe pressure ulcer/wound Insertion date: 09/05/18 Insertion time: 00:53 Results - Labs 09/13/18 07:37 09/13/18 07:37 - Imaging Imaging: ITS Impressions Abdomen/Pelvis CT 09/04/18 21:11 CONCLUSION: 1. 7.5 cm inflammatory and edematous area in the right inguinal region containing probable small loculated abscesses. Edematous change extends inferiorly through the lower aspect of both inguinal canals into the scrotum with marked scrotal wall thickening and small locules of air in the upper left scrotum that could represent a necrotizing infection. There is herniation of fat through both inguinal canals, worse on the left side with herniated fat in the left scrotum measuring up to 9.5 cm in diameter. 2. Hepatosplenomegaly. Moderate coronary calcifications. Small pericardial effusion. Abdomen X-Ray 09/12/18 00:00 CONCLUSION: Nonspecific, nonobstructive bowel gas pattern most characteristic of an ileus or gastroenteritis. Chest X-Ray 09/12/18 00:00 CONCLUSION: Slight CHF. Assessment and Plan - Assessment (1) Cellulitis Code(s): L03.90 - Cellulitis, unspecified Status: Acute Plan: 88 year old male with Immunosuppresed pt with idiopathic neutropenia. ANC 100; Bilateral inguinal abscess; Melina's gangrene. -Dressing change to LEFT groin daily and PRN -Continue Wound vac to RIGHT groin -CXR and KUB today -Diet as tolerated -OOB as tolerated -ID following Left groin clean Right groin VAC intact The exam, history, and the medical decision-making described in the above note were completed with the assistance of the mid-level provider. I reviewed and agree with the findings presented. I attest that I had a [id number] encounter with the patient on the same day, and personally performed and documented my assessment and findings in the medical record. (2) Infected wound Code(s): T14.8XXA - Other injury of unspecified body region, initial encounter; L08.9 - Local infection of the skin and subcutaneous tissue, unspecified Status: Acute (3) Neutropenia Code(s): D70.9 - Neutropenia, unspecified Status: Acute (4) Abscess of groin Code(s): L02.214 - Cutaneous abscess of groin Status: Acute (1) Cellulitis Qualifiers: Site of cellulitis: other site Qualified Code(s): L03.818 - Cellulitis of other sites
--- NOTE | 2018-09-12 15:36 | P.PNONC ---
Subjective Interval history: Afebrile. Patient sleeping on approach, awakens easily to voice. His son is at the bedside. Patient remains neutropenic despite Neupogen. His son has been talking to the patient's dental floss packer at [facility] and has questions in regards to possible bone marrow biopsy here. Patient reports "feeling pretty good". He denies abdominal pain. His son reports he has been sleeping a lot. Objective Vital Signs/Intake & Output: Vital Signs 09/11/18 15:48 09/11/18 16:00 09/11/18 16:48 Temperature Pulse Rate 89 86 84 Respiratory Rate 19 21 21 Blood Pressure 153/84 H 172/88 H Pulse Oximetry 96 97 97 09/11/18 16:50 09/11/18 17:00 09/11/18 17:48 Temperature Pulse Rate 84 89 Respiratory Rate 22 20 Blood Pressure 163/90 H Pulse Oximetry 96 95 91 L 09/11/18 18:00 09/11/18 18:48 09/11/18 19:00 Temperature Pulse Rate 79 80 80 Respiratory Rate 19 19 20 Blood Pressure 162/79 H Pulse Oximetry 92 L 93 L 93 L 09/11/18 19:48 09/11/18 20:00 09/11/18 20:42 Temperature 98.2 F Pulse Rate 83 85 Respiratory Rate 20 20 Blood Pressure 162/89 H 173/90 H Pulse Oximetry 92 L 92 L 92 L 09/11/18 21:00 09/11/18 23:00 09/12/18 04:00 Temperature 97.2 F L 97.2 F L Pulse Rate 77 79 82 Respiratory Rate 19 18 18 Blood Pressure 150/81 H 163/89 H 165/88 H Pulse Oximetry 92 L 97 95 09/12/18 08:00 09/12/18 12:00 Temperature 98.6 F 97.1 F L Pulse Rate 96 H 88 Respiratory Rate 15 16 Blood Pressure 172/92 H 158/85 H Pulse Oximetry 95 97 Intake & Output 09/11/18 09/12/18 09/12/18 18:59 06:59 18:59 Intake Total 2151.6 / 2151.6 1320 / 1320 100 / 100 Output Total 630 / 630 200 / 200 Balance 1521.6 / 1521.6 1120 / 1120 100 / 100 Weight 134.6 kg Intake: IV 1251.6 / 1251.6 1200 / 1200 100 / 100 LR 1000 mL Inj 1,000 ML @ 75 1000 / 1000 1000 / 1000 mls/hr IV.CONT .[id number] [facility] Rx# :[id number] Unasyn Inj 3 GM In NS Inj 100 200 / 200 200 / 200 100 / 100 ML @ 200 mls/hr IV.SIG Q6H [facility] Rx#:[id number] Neupogen Inj 480 MCG In D5W Inj 51.6 / 51.6 50 ML @ 100 mls/hr IV.SIG DAILY@1400 [facility] Rx#:[id number] Oral 500 / 500 120 / 120 Anesthesia Amount 400 / 400 Output: Estimated Blood Loss 5 / 5 Urine Amount (Catheter) 625 / 625 200 / 200 Indwelling Urethral Catheter 625 / 625 200 / 200 Other: Mode Setting Right Groin Continuous Continuous Continuous Date of Last Bowel Movement 09/11/18 # Bowel Movements 3 1 Result Diagrams: 09/11/18 05:19 09/11/18 05:19 Culture Results: Microbiology 09/05/18 07:40 Fungal Smear - Final Wound - Groin No fungal elements seen Fungal Culture - Preliminary No growth in 1 week 09/05/18 07:40 Acid Fast Bacilli Smear - Final Wound - Groin No acid fast bacilli seen Mycobacterial Culture - Preliminary No growth in 1 week 09/05/18 07:40 Fungal Smear - Final Wound - Groin No fungal elements seen Fungal Culture - Preliminary No growth in 1 week 09/05/18 07:40 Acid Fast Bacilli Smear - Final Wound - Groin No acid fast bacilli seen Mycobacterial Culture - Preliminary No growth in 1 week 09/08/18 12:28 Urine Culture - Final Clean Catch Urine No growth in 48 hours Imaging Studies: Impressions Abdomen X-Ray 09/12/18 00:00 CONCLUSION: Nonspecific, nonobstructive bowel gas pattern most characteristic of an ileus or gastroenteritis. Chest X-Ray 09/12/18 00:00 CONCLUSION: Slight CHF. Medications: Active Medications Generic Name Dose Route Start Last Admin Trade Name Freq PRN Reason Stop Dose Admin Albuterol 2.5 mg 09/05/18 00:27 09/05/18 23:31 Albuterol Neb (Prn) NEB 2.5 mg Q2HR NEB PRN Administration SHORTNESS OF BREATH/WHEEZING Famotidine 20 mg 09/05/18 09:00 09/12/18 08:23 Pepcid Pf Inj IV.PUSH 20 mg Q12HR [facility] Administration Lactated Ringer's 1,000 mls @ 75 mls/hr 09/05/18 09:45 09/12/18 05:52 Lr 1000 Ml Inj IV.CONT Not Given .[id number] [facility] Propofol 1,000 mg in 100 mls @ 3.63 mls/hr 09/05/18 09:48 09/06/18 08:00 Diprivan 1000 Mg/100 Ml Inj IV.CONT 0 mcg/kg/min TITRATE PRN 0 mls/hr Per Protocol Titration Protocol 5 MCG/KG/MIN Ampicillin Sodium/Sulbactam 100 mls @ 200 mls/hr 09/10/18 14:00 09/12/18 14: 34 Sodium 3 gm/ Sodium Chloride IV.SIG 200 mls/hr Q6H [facility] Administration Morphine Sulfate 2 mg 09/05/18 00:27 09/12/18 10:26 Morphine Inj IV.PUSH 2 mg Q2H PRN Administration PAIN SCALE 6 TO 10 Nifedipine 30 mg 09/12/18 13:45 09/12/18 14:34 Procardia Xl PO 30 mg DAILY [facility] Administration Polyethylene Glycol 17 gm 09/12/18 13:30 09/12/18 14:34 Miralax PO Not Given DAILY [facility] Senna/Docusate Sodium 1 tab 09/05/18 09:00 09/12/18 08:23 Sunshine-Colace PO 1 tab BID [facility] Administration Sodium Chloride 2 ml 09/05/18 09:00 09/12/18 08:56 Ns Flush IV.FLUSH Not Given BID [facility] Tamsulosin HCl 0.4 mg 09/06/18 20:00 09/12/18 08:23 Flomax PO 0.4 mg DAILY [facility] Administration Objective Remarks: GENERAL: Chronically ill-appearing elderly male patient, sleeping on approach, awakens easily to voice. SKIN: Warm and dry. Wound VAC to right groin, left groin with dressing dry/ intact. HEAD: Normocephalic. EYES: No scleral icterus. No injection or drainage. NECK: Supple, trachea midline. CARDIOVASCULAR: Regular rate and rhythm without murmurs. RESPIRATORY: Breath sounds equal bilaterally. Nonlabored at rest. GASTROINTESTINAL: Abdomen large, soft, non-tender, nondistended. Edema to the scrotum. + Diaz catheter, draining yellow urine with sediment. EXTREMITIES: No cyanosis, or edema. MUSCULOSKELETAL: Adequate muscle tone. NEUROLOGICAL: No obvious focal deficit. Sleeping on approach, awakens easily to voice. PSYCHIATRIC: Appropriate mood and affect; insight and judgment normal. Assessment/Plan - Plan Mr. Bishop is a pleasant 88-year-old gentleman, who was hospitalized and currently being treated for inguinal area abscesses. He has been on the ventilator and oncology was consulted for neutropenia. The patient has a history of myelofibrosis, diagnosed in November 2017. He is currently under the care of Dr. Feliz and has recently been evaluated at [facility]. Recommendations: 1. Neutropenia, ANC remains low at 100 today. Neupogen has been discontinued. 2. Patient had third debridement yesterday by Dr. Blake for his Melina gangrene of the scrotum. 3. Lethargic, likely secondary to medications. Monitor for oversedation. 4. Patient under the care of Kamari Chen, dental floss packer at [facility]. He was pending bone marrow biopsy prior to this hospitalization. 5. Continue neutropenic precautions.
[2018-09-13] MEDS: Ampicillin/Sulbactam Inj 3 GM in Sodium Chloride 0.9% Inj 100 ML IV.SIG SCH ×4 (01:22→19:47)
[2018-09-13] MEDS: Morphine Sulfate Inj 2 MG/ML Vial IV.PUSH PRN (01:22)
[2018-09-13] MEDS: Levothyroxine 150 MCG Tablet PO SCH (06:18)
[2018-09-13] MEDS: Famotidine PF Inj 20 MG/2 ML Vial IV.PUSH SCH ×2 (08:04→21:25)
[2018-09-13] MEDS: Senna/Docusate Sodium 8.6/50 MG Tablet PO SCH ×2 (08:05→21:25)
[2018-09-13] MEDS: Polyethylene Glycol 3350 17 GM Packet PO SCH (08:05)
[2018-09-13 08:29] LABS: Hematocrit 28.2 % (39.0-51.0); Hemoglobin 9.2 gm/dL (13.0-17.0); Mean Corpuscular HGB Conc 32.8 % (32.0-36.0); Mean Corpuscular Hemoglobin 33.4 pg (27.0-34.0); Mean Corpuscular Volume 101.9 fL (80.0-100.0); Mean Platelet Volume 10.6 fL (7.0-11.0); Platelet Count 177 th/mm3 (150-450); Red Blood Count 2.76 mil/mm3 (4.50-5.90); Red Cell Distribution Width 19.6 % (11.6-17.2); White Blood Count 3.7 th/mm3 (4.0-11.0)
[2018-09-13 08:46] LABS: Albumin 2.1 g/dL (3.4-5.0); Anion Gap 10 meq/L (5-15); Aspartate Aminotransferase 17 U/L (15-37); Blood Urea Nitrogen 26 mg/dL (7-18); Carbon Dioxide 24.5 meq/L (21.0-32.0); Chloride 114 meq/L (98-107); Glomerular Filtration Rate 39 mL/min (>89); Glucose,Random 108 mg/dL (74-106); Potassium 3.7 meq/L (3.5-5.1); Sodium 148 meq/L (136-145)
[2018-09-13 08:48] LABS: Alanine Aminotransferase 12 U/L (12-78)
[2018-09-13 08:49] LABS: Alkaline Phosphatase 53 U/L (45-117); Total Protein 6.8 g/dL (6.4-8.2)
[2018-09-13 10:40] LABS: Blast Cells 40 % (0-0); Lymphocytes 35 % (9-44); Monocytes 23 % (0-8); Ovalocytes 1+; Platelet Estimate Normal (Normal); Platelet Morphology Normal (Normal); Tallied Nucleated RBC 141 (0-0)
--- NOTE | 2018-09-13 11:46 | P.PNIM ---
Subjective Interval history: Follow-up bilateral inguinal hernia with I&D, hypertension, hypothyroidism, and chronic neutropenia with history of MDS and prostate cancer. Patient seen and examined, laying in bed, denies any pain or shortness of breath. Patient denies any abdominal pain, groin pain or discomfort. Family at bedside, address concern about pain medication, stated does not not want to be on the pain medication and was worried about patient participating in his care and will not be able to do that while on morphine. Son wants the patient to be totally of pain medication. Discussed also discharge planning son wants him to be going home and not going to any rehab facility. Stated that his sister lives with the father and should be able to take care of him. The patient denies any headache or dizziness, denies any chest pain or shortness of breath, denies any abdominal pain, diarrhea or constipation. Patient stated he just had a bowel movement today. Patient denies any fever or chills. Physical Exam Vital signs: Vital Signs 09/12/18 12:00 09/12/18 16:00 09/12/18 20:00 Temperature 97.1 F L 98.1 F 97.2 F L Pulse Rate 88 87 88 Respiratory Rate 16 15 20 Blood Pressure 158/85 H 175/97 H 159/90 H Pulse Oximetry 97 96 95 09/13/18 00:00 09/13/18 04:00 09/13/18 08:00 Temperature 97.1 F L 97.9 F 98.3 F Pulse Rate 92 H 95 H 89 Respiratory Rate 18 20 20 Blood Pressure 170/98 H 152/78 H 156/92 H Pulse Oximetry 94 L 94 L 91 L Intake & Output 09/12/18 09/13/18 09/13/18 18:59 06:59 18:59 Intake Total 200 / 200 1320 / 1320 1100 / 1100 Output Total 1900 / 1900 Balance 200 / 200 -580 / -580 1100 / 1100 Weight 135.2 kg Intake: IV 200 / 200 1200 / 1200 1100 / 1100 LR 1000 mL Inj 1,000 ML @ 75 1000 / 1000 1000 / 1000 mls/hr IV.CONT .[id number] [facility] Rx# :[id number] Unasyn Inj 3 GM In NS Inj 100 200 / 200 200 / 200 100 / 100 ML @ 200 mls/hr IV.SIG Q6H [facility] Rx#:[id number] Oral 120 / 120 Output: Urine 1900 / 1900 Other: Mode Setting Right Groin Continuous Continuous Continuous Date of Last Bowel Movement 09/11/18 09/11/18 - Urinary Catheter Management Indwelling Urethral Catheter Cath placed during this visit: yes, but has since been removed by the nurse Reason for continuing: Severe pressure ulcer/wound Insertion date: 09/05/18 Insertion time: 00:53 Removal date: 09/13/18 Removal time: 01:15 Results - Labs CBC & Chem 7: 09/13/18 07:37 09/13/18 07:37 Laboratory Results - last 24 hr 09/13/18 09/13/18 07:37 07:37 WBC 3.7 L RBC 2.76 L Hgb 9.2 L Hct 28.2 L MCV 101.9 H MCH 33.4 MCHC 32.8 RDW 19.6 H Plt Count 177 D MPV 10.6 Prelim Diff (Auto) Manual diff required WBC Differential Manual diff final Seg Neuts % (Manual) 2 L Lymphocytes % (Manual) 35 Monocytes % (Manual) 23 H Blast Cells % (Manual) 40 H Abs Neuts (Manual) 0.1 L* Nucleated RBCs/100 WBC 141 H Differential Comment . Platelet Estimate Normal Platelet Morphology Normal Ovalocytes 1+ H Sodium 148 H Potassium 3.7 Chloride 114 H Carbon Dioxide 24.5 Anion Gap 10 BUN 26 H Creatinine 1.66 H Estimated GFR 39 L Random Glucose 108 H Calcium 8.0 L Total Bilirubin 0.7 AST 17 ALT 12 Alkaline Phosphatase 53 Total Protein 6.8 Albumin 2.1 L Microbiology 09/05/18 07:40 Wound - Groin Fungal Smear - Final No fungal elements seen 09/05/18 07:40 Wound - Groin Fungal Culture - Preliminary No growth in 1 week 09/05/18 07:40 Wound - Groin Acid Fast Bacilli Smear - Final No acid fast bacilli seen 09/05/18 07:40 Wound - Groin Mycobacterial Culture - Preliminary No growth in 1 week 09/05/18 07:40 Wound - Groin Fungal Smear - Final No fungal elements seen 09/05/18 07:40 Wound - Groin Fungal Culture - Preliminary No growth in 1 week 09/05/18 07:40 Wound - Groin Acid Fast Bacilli Smear - Final No acid fast bacilli seen 09/05/18 07:40 Wound - Groin Mycobacterial Culture - Preliminary No growth in 1 week - Procedures - Preoperative Diagnosis (1) Infected wound (2) Abscess of groin - Postoperative Diagnosis (1) Infected wound (2) Abscess of groin Date of procedure: 09/05/18 Procedure: Incision and drainage bilateral groin abscesses Excision 100 cm skin and subcutaneous tissue. Placement of negative pressure VAC dressing Anesthesia: SHIA Surgeon: Obinna Blake MD Sergeant At Arms: oJrge Sunshine MD - Preoperative Diagnosis (1) Abscess of groin - Postoperative Diagnosis (1) Abscess of groin Date of procedure: 09/11/18 Procedure: Irrigation bilateral groin wounds with replacement of VAC dressing on the right Packing of wound on the left Anesthesia: GETA Surgeon: Obinna Blake MD Assessment and Plan - Assessment (1) Cellulitis Code(s): L03.90 - Cellulitis, unspecified Status: Acute (2) Infected wound Code(s): T14.8XXA - Other injury of unspecified body region, initial encounter; L08.9 - Local infection of the skin and subcutaneous tissue, unspecified Status: Acute (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 Status: Acute (4) Severe sepsis Code(s): A41.9 - Sepsis, unspecified organism; R65.20 - Severe sepsis without septic shock Status: Acute (5) Neutropenia Code(s): D70.9 - Neutropenia, unspecified Status: Acute (6) MDS (myelodysplastic syndrome) Code(s): D46.9 - Myelodysplastic syndrome, unspecified Status: Chronic (7) Abscess of groin Code(s): L02.214 - Cutaneous abscess of groin Status: Acute - Plan The patient is an 88 year old male with past medical history significant for probable MDS, hypertension, hypothyroidism, history of prostate cancer, chronic bilateral inguinal hernias who presented to the [place] emergency department today with groin pain lasting for approximately 1 week. Melina's Gangrene/Severe Sepsis/Bilateral Inguinal abscess/ Immunosuppression. - on Broad spectrum antibiotics Vancomycin, Zosyn, Clindamycin, -ID specialist following - 09/05 status post Surgical debridement by Doctor Blake and Urology specialist Doctor Sunshine - Following Blood cultures and Urine culture, MSSA and Group B strep, culture showed Gram negative anaerobes, - Discontinued Vancomycin and Clindamycin - changed Zosyn to Unasyn IV, per ID recommendation -Status post I and D bilateral groin with right groin wound Vacuum replacement , left groin dressed with Packing -start on prn pain medication for pain control and bowel regimen -check CXray and KUB for SOB and bowel distention -CXRAY: slight CHF -Abdominal Xray: nonobstructive bowel gas pattern most characteristic of an ileus or gastroenteritis -increase frieda-colace, add Miralax and prn Dulcolax Suppository Neutropenia/History of MDS History of Prostate Cancer -claim processing specialist following -failed Neupogen -monitor Hypothyroidism -monitor TSH -continue Levothyroxine VDRF improved -continue Aggressive Pulmonary Toilet - Bronchodilators Extubated 09/06 Hypertension Sinus Tachycardia, improved BP elevated -restart on Nifedipine -hold on Lisinopril due to JIM -monitor BP JIM Creat 1.1 on admission, increasing to 1.62 today -avoid nephrotoxins -monitor BMP -continue IVF DVT prophylaxis: Hold chemical prophylaxis due to surgery, will restart when cleared with surgical services GI prophylaxis with Famotidine E-FORCSE Prescription Drug Monitoring Database has been queried and verified prior to prescribing the controlled substance. Acute pain exception. This patient has normal, predicted, physiological, and time limited response to an adverse mechanical stimulus associated with surgery, trauma, or acute illness as described in my notes. There is a lack of alternative treatment options other than to include the prescribed narcotic treatment for this condition. (1) Cellulitis Qualifiers: Site of cellulitis: other site Qualified Code(s): L03.818 - Cellulitis of other sites
[2018-09-13] MEDS ORDERED: Morphine Sulfate Inj 2 MG/ML Vial IV.PUSH PRN (13:07)
--- NOTE | 2018-09-13 13:31 | P.PNIM ---
Subjective Interval history: Follow-up bilateral inguinal hernia with I&D, hypertension, hypothyroidism, and chronic neutropenia with history of MDS and prostate cancer. Patient seen and examined, laying in bed, denies any pain or shortness of breath. Patient denies any abdominal pain, groin pain or discomfort. Family at bedside, addressed concern about pain medication, stated does not not want to be on the pain medication and was worried about patient participating in his care and will not be able to do that while on morphine. Son wants the patient to be totally of pain medication. Discussed also discharge planning son wants him to be going home and not going to any rehab facility. Stated that his sister lives with the father and should be able to take care of him. The patient denies any headache or dizziness, denies any chest pain or shortness of breath, denies any abdominal pain, diarrhea or constipation. Patient stated he just had a bowel movement today. Patient denies any fever or chills. Physical Exam Vital signs: Vital Signs 09/12/18 16:00 09/12/18 20:00 09/13/18 00:00 Temperature 98.1 F 97.2 F L 97.1 F L Pulse Rate 87 88 92 H Respiratory Rate 15 20 18 Blood Pressure 175/97 H 159/90 H 170/98 H Pulse Oximetry 96 95 94 L 09/13/18 04:00 09/13/18 08:00 Temperature 97.9 F 98.3 F Pulse Rate 95 H 89 Respiratory Rate 20 20 Blood Pressure 152/78 H 156/92 H Pulse Oximetry 94 L 91 L Intake & Output 09/12/18 09/13/18 09/13/18 18:59 06:59 18:59 Intake Total 200 / 200 1320 / 1320 1100 / 1100 Output Total 1900 / 1900 Balance 200 / 200 -580 / -580 1100 / 1100 Weight 135.2 kg Intake: IV 200 / 200 1200 / 1200 1100 / 1100 LR 1000 mL Inj 1,000 ML @ 75 1000 / 1000 1000 / 1000 mls/hr IV.CONT .[id number] [facility] Rx# :[id number] Unasyn Inj 3 GM In NS Inj 100 200 / 200 200 / 200 100 / 100 ML @ 200 mls/hr IV.SIG Q6H [facility] Rx#:[id number] Oral 120 / 120 Output: Urine 1900 / 1900 Other: Mode Setting Right Groin Continuous Continuous Continuous Date of Last Bowel Movement 09/11/18 09/11/18 Narrative: GENERAL: Well-developed, obese male, lying in bed in no acute distress SKIN: Warm and dry. HEAD: Atraumatic. Normocephalic. EYES: Pupils equal and round. No scleral icterus. No injection or drainage. ENT: No nasal bleeding or discharge. Mucous membranes pink and moist. NECK: Trachea midline. No JVD. CARDIOVASCULAR: Regular rate and rhythm. RESPIRATORY: No accessory muscle use. Clear to auscultation. Breath sounds equal bilaterally. GASTROINTESTINAL: Abdomen obese soft, non-tender, no abdominal distention. Hepatic and splenic margins not palpable. : Diaz catheter in place, scrotal and penile edema noted. Right groin site with wound VAC in place noted some slight drainage. Left groin site dressed with gauze packing no drainage noted MUSCULOSKELETAL: Extremities without clubbing, cyanosis, or edema. No obvious deformities. NEUROLOGICAL: Awake and alert and oriented x3. No obvious cranial nerve deficits. Motor grossly within normal limits. Generalized weakness, moving all 4 extremities. Normal speech PSYCHIATRIC: Appropriate mood and affect; insight and judgment unreliable - Urinary Catheter Management Indwelling Urethral Catheter Cath placed during this visit: yes, but has since been removed by the nurse Reason for continuing: Severe pressure ulcer/wound Insertion date: 09/05/18 Insertion time: 00:53 Removal date: 09/13/18 Removal time: 01:15 Results - Labs CBC & Chem 7: 09/13/18 07:37 09/13/18 07:37 Laboratory Results - last 24 hr 09/13/18 09/13/18 07:37 07:37 WBC 3.7 L RBC 2.76 L Hgb 9.2 L Hct 28.2 L MCV 101.9 H MCH 33.4 MCHC 32.8 RDW 19.6 H Plt Count 177 D MPV 10.6 Prelim Diff (Auto) Manual diff required WBC Differential Manual diff final Seg Neuts % (Manual) 2 L Lymphocytes % (Manual) 35 Monocytes % (Manual) 23 H Blast Cells % (Manual) 40 H Abs Neuts (Manual) 0.1 L* Nucleated RBCs/100 WBC 141 H Differential Comment . Platelet Estimate Normal Platelet Morphology Normal Ovalocytes 1+ H Sodium 148 H Potassium 3.7 Chloride 114 H Carbon Dioxide 24.5 Anion Gap 10 BUN 26 H Creatinine 1.66 H Estimated GFR 39 L Random Glucose 108 H Calcium 8.0 L Total Bilirubin 0.7 AST 17 ALT 12 Alkaline Phosphatase 53 Total Protein 6.8 Albumin 2.1 L Microbiology 09/05/18 07:40 Wound - Groin Fungal Smear - Final No fungal elements seen 09/05/18 07:40 Wound - Groin Fungal Culture - Preliminary No growth in 1 week 09/05/18 07:40 Wound - Groin Acid Fast Bacilli Smear - Final No acid fast bacilli seen 09/05/18 07:40 Wound - Groin Mycobacterial Culture - Preliminary No growth in 1 week 09/05/18 07:40 Wound - Groin Fungal Smear - Final No fungal elements seen 09/05/18 07:40 Wound - Groin Fungal Culture - Preliminary No growth in 1 week 09/05/18 07:40 Wound - Groin Acid Fast Bacilli Smear - Final No acid fast bacilli seen 09/05/18 07:40 Wound - Groin Mycobacterial Culture - Preliminary No growth in 1 week - Procedures - Preoperative Diagnosis (1) Infected wound (2) Abscess of groin - Postoperative Diagnosis (1) Infected wound (2) Abscess of groin Date of procedure: 09/05/18 Procedure: Incision and drainage bilateral groin abscesses Excision 100 cm skin and subcutaneous tissue. Placement of negative pressure VAC dressing Anesthesia: SHIA Surgeon: Obinna Blake MD Personal Fitness Manager: Jorge Sunshine MD - Preoperative Diagnosis (1) Abscess of groin - Postoperative Diagnosis (1) Abscess of groin Date of procedure: 09/11/18 Procedure: Irrigation bilateral groin wounds with replacement of VAC dressing on the right Packing of wound on the left Anesthesia: SHIA Surgeon: Obinna Blake MD Assessment and Plan - Assessment (1) Cellulitis Code(s): L03.90 - Cellulitis, unspecified Status: Acute (2) Infected wound Code(s): T14.8XXA - Other injury of unspecified body region, initial encounter; L08.9 - Local infection of the skin and subcutaneous tissue, unspecified Status: Acute (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 Status: Acute (4) Severe sepsis Code(s): A41.9 - Sepsis, unspecified organism; R65.20 - Severe sepsis without septic shock Status: Acute (5) Neutropenia Code(s): D70.9 - Neutropenia, unspecified Status: Acute (6) MDS (myelodysplastic syndrome) Code(s): D46.9 - Myelodysplastic syndrome, unspecified Status: Chronic (7) Abscess of groin Code(s): L02.214 - Cutaneous abscess of groin Status: Acute - Plan The patient is an 88 year old male with past medical history significant for probable MDS, hypertension, hypothyroidism, history of prostate cancer, chronic bilateral inguinal hernias who presented to the [facility] emergency department today with groin pain lasting for approximately 1 week. Melina's Gangrene/Severe Sepsis/Bilateral Inguinal abscess/ Immunosuppression. - on Broad spectrum antibiotics Vancomycin, Zosyn, Clindamycin, -ID specialist following - 09/05 status post Surgical debridement by Doctor Blake and Urology specialist Doctor Sunshine - Following Blood cultures and Urine culture, MSSA and Group B strep, culture showed Gram negative anaerobes, - Discontinued Vancomycin and Clindamycin - changed Zosyn to Unasyn IV, per ID recommendation -Status post I and D bilateral groin with right groin wound Vacuum replacement , left groin dressed with Packing -start on prn pain medication for pain control and bowel regimen -check CXray and KUB for SOB and bowel distention -Abdominal Xray: nonobstructive bowel gas pattern most characteristic of an ileus or gastroenteritis -continue increase dose frieda-colace,continue Miralax and prn Dulcolax Suppository, had good bowel movement today Neutropenia/History of MDS History of Prostate Cancer -project management it specialist following -failed Neupogen -monitor Hypothyroidism -monitor TSH -continue Levothyroxine VDRF improved -continue Aggressive Pulmonary Toilet - Bronchodilators Extubated 09/06 Hypertension Sinus Tachycardia, improved BP elevated CHF on CXray, no known history, likely due to IVF CXray: slight CHF/pulmonary edema, No SOB, DC IVF, give Lasix 20 mg IV now and KCL, monitor BMP -2Decho, repeat CXray in am -continue dose of Nifedipine, resume doxazosin -hold on Lisinopril due to JIM -prn clonidine for SBP>160 or DBP >90 -monitor BP, adjust medications as necessary JIM Creat 1.1 on admission, increasing to 1.66 today -avoid nephrotoxins, Hold Lisinopril -monitor BMP -continue IVF DVT prophylaxis: Hold chemical prophylaxis due to surgery, will restart when cleared with surgical services GI prophylaxis with Famotidine E-FORCSE Prescription Drug Monitoring Database has been queried and verified prior to prescribing the controlled substance. Acute pain exception. This patient has normal, predicted, physiological, and time limited response to an adverse mechanical stimulus associated with surgery, trauma, or acute illness as described in my notes. There is a lack of alternative treatment options other than to include the prescribed narcotic treatment for this condition. Code Status: full code Discussed Condition With: patient, family/son and nurse Discharge Planning: Plan to discharge home with family when cleared with general surgery and oncology. banking services advisor please assist with home health care and physical therapy in- house for strengthening and gait training (1) Cellulitis Qualifiers: Site of cellulitis: other site Qualified Code(s): L03.818 - Cellulitis of other sites
--- NOTE | 2018-09-13 13:44 | P.PNONC ---
Subjective Interval history: Pt awake and alert, eating lunch. Discussed bone marrow biopsy with pt and son. The son wishes to proceed with BM biopsy. Pt reports continued pain, per son transitioning to Tylenol so that the pt is not as lethargic. Objective Vital Signs/Intake & Output: Vital Signs 09/12/18 16:00 09/12/18 20:00 09/13/18 00:00 Temperature 98.1 F 97.2 F L 97.1 F L Pulse Rate 87 88 92 H Respiratory Rate 15 20 18 Blood Pressure 175/97 H 159/90 H 170/98 H Pulse Oximetry 96 95 94 L 09/13/18 04:00 09/13/18 08:00 09/13/18 12:00 Temperature 97.9 F 98.3 F 98.1 F Pulse Rate 95 H 89 83 Respiratory Rate 20 20 20 Blood Pressure 152/78 H 156/92 H 153/85 H Pulse Oximetry 94 L 91 L 92 L 09/13/18 13:17 Temperature Pulse Rate Respiratory Rate Blood Pressure Pulse Oximetry 92 L Intake & Output 09/12/18 09/13/18 09/13/18 18:59 06:59 18:59 Intake Total 200 / 200 1320 / 1320 1100 / 1100 Output Total 1900 / 1900 Balance 200 / 200 -580 / -580 1100 / 1100 Weight 135.2 kg Intake: IV 200 / 200 1200 / 1200 1100 / 1100 LR 1000 mL Inj 1,000 ML @ 75 1000 / 1000 1000 / 1000 mls/hr IV.CONT .[id number] [facility] Rx# :[id number] Unasyn Inj 3 GM In NS Inj 100 200 / 200 200 / 200 100 / 100 ML @ 200 mls/hr IV.SIG Q6H [facility] Rx#:[id number] Oral 120 / 120 Output: Urine 1900 / 1900 Other: Mode Setting Right Groin Continuous Continuous Continuous Date of Last Bowel Movement 09/11/18 09/11/18 Result Diagrams: 09/13/18 07:37 09/13/18 07:37 Laboratory Results: Laboratory Results - last 24 hr 09/13/18 09/13/18 07:37 07:37 WBC 3.7 L RBC 2.76 L Hgb 9.2 L Hct 28.2 L MCV 101.9 H MCH 33.4 MCHC 32.8 RDW 19.6 H Plt Count 177 D MPV 10.6 Prelim Diff (Auto) Manual diff required WBC Differential Manual diff final Seg Neuts % (Manual) 2 L Lymphocytes % (Manual) 35 Monocytes % (Manual) 23 H Blast Cells % (Manual) 40 H Abs Neuts (Manual) 0.1 L* Nucleated RBCs/100 WBC 141 H Differential Comment . Platelet Estimate Normal Platelet Morphology Normal Ovalocytes 1+ H Sodium 148 H Potassium 3.7 Chloride 114 H Carbon Dioxide 24.5 Anion Gap 10 BUN 26 H Creatinine 1.66 H Estimated GFR 39 L Random Glucose 108 H Calcium 8.0 L Total Bilirubin 0.7 AST 17 ALT 12 Alkaline Phosphatase 53 Total Protein 6.8 Albumin 2.1 L Culture Results: Microbiology 09/05/18 07:40 Fungal Smear - Final Wound - Groin No fungal elements seen Fungal Culture - Preliminary No growth in 1 week 09/05/18 07:40 Acid Fast Bacilli Smear - Final Wound - Groin No acid fast bacilli seen Mycobacterial Culture - Preliminary No growth in 1 week 09/05/18 07:40 Fungal Smear - Final Wound - Groin No fungal elements seen Fungal Culture - Preliminary No growth in 1 week 09/05/18 07:40 Acid Fast Bacilli Smear - Final Wound - Groin No acid fast bacilli seen Mycobacterial Culture - Preliminary No growth in 1 week 09/08/18 12:28 Urine Culture - Final Clean Catch Urine No growth in 48 hours Medications: Active Medications Generic Name Dose Route Start Last Admin Trade Name Freq PRN Reason Stop Dose Admin Albuterol 2.5 mg 09/05/18 00:27 09/05/18 23:31 Albuterol Neb (Prn) NEB 2.5 mg Q2HR NEB PRN Administration SHORTNESS OF BREATH/WHEEZING Clonidine HCl 0.1 mg 09/12/18 18:29 09/12/18 18:48 Catapres PO 0.1 mg Q8H PRN Administration SBP>160 DBP>90 Famotidine 10 mg 09/12/18 21:00 09/13/18 08:04 Pepcid Pf Inj IV.PUSH 10 mg Q12HR [facility] Administration Propofol 1,000 mg in 100 mls @ 3.63 mls/hr 09/05/18 09:48 09/06/18 08:00 Diprivan 1000 Mg/100 Ml Inj IV.CONT 0 mcg/kg/min TITRATE PRN 0 mls/hr Per Protocol Titration Protocol 5 MCG/KG/MIN Ampicillin Sodium/Sulbactam 100 mls @ 200 mls/hr 09/10/18 14:00 09/13/18 10: 02 Sodium 3 gm/ Sodium Chloride IV.SIG Infused Q6H [facility] Infusion Levothyroxine Sodium 150 mcg 09/13/18 06:00 09/13/18 06:18 Synthroid PO 150 mcg DAILY@0600 [facility] Administration Polyethylene Glycol 17 gm 09/12/18 13:30 09/13/18 08:05 Miralax PO 17 gm DAILY [facility] Administration Senna/Docusate Sodium 1 tab 09/05/18 09:00 09/13/18 08:05 Sunshine-Colace PO 1 tab BID [facility] Administration Sodium Chloride 2 ml 09/05/18 09:00 09/13/18 08:05 Ns Flush IV.FLUSH Not Given BID [facility] Tamsulosin HCl 0.4 mg 09/06/18 20:00 09/13/18 08:05 Flomax PO 0.4 mg DAILY [facility] Administration Objective Remarks: GENERAL: Chronically ill-appearing elderly male patient, in no acute distress. SKIN: Warm and dry. Wound VAC to right groin, left groin with dressing dry/ intact. HEAD: Normocephalic. EYES: No scleral icterus. No injection or drainage. NECK: Supple, trachea midline. CARDIOVASCULAR: Regular rate and rhythm without murmurs. RESPIRATORY: Breath sounds equal bilaterally. Nonlabored at rest. GASTROINTESTINAL: Abdomen large, hard, non-tender. Edema to the scrotum. + Diaz catheter, draining yellow urine with sediment. EXTREMITIES: No cyanosis, or edema. MUSCULOSKELETAL: Adequate muscle tone. NEUROLOGICAL: No obvious focal deficit. Awake and alert. PSYCHIATRIC: Appropriate mood and affect; insight and judgment normal. Assessment/Plan - Plan Mr. Bishop is a pleasant 88-year-old gentleman, who was hospitalized and currently being treated for inguinal area abscesses. He has been on the ventilator and oncology was consulted for neutropenia. The patient has a history of myelofibrosis, diagnosed in November 2017. He is currently under the care of Dr. Feliz and has recently been evaluated at [facility]. Recommendations: 1. Neutropenia, ANC remains low at 100 today. Neupogen has been discontinued. Pt received 8 days of neupogen. 2. 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 3. Patient under the care of Kamari Chen, inside sales account representative at [facility]. He was pending bone marrow biopsy prior to this hospitalization. Pt son would like BM biopsy here. This will be scheduled. 4. Continue neutropenic precautions. - Attending Statement The exam, history, and the medical decision-making described in the above note were completed with the assistance of the mid-level provider. I reviewed and agree with the findings presented. I attest that I had a [id number] encounter with the patient on the same day, and personally performed and documented my assessment and findings in the medical record. Patient is awake and alert He is feeling better Antibiotics per ID Bilateral inguinal infection per surgery No response to 8 days of Neupogen Patient son wanted to have a bone marrow biopsy done here We will consult IR for the procedure
[2018-09-13] MEDS: Doxazosin 4 MG Tablet PO SCH (14:28)
--- NOTE | 2018-09-13 16:15 | P.DIET ---
Nutritional Evaluation Type of nutrition evaluation: follow-up Nutrition screening: Weight Loss > 10 lbs Subjective Subjective Comments: Pt receiving care/therapy when visit attempted. RN Viola confirms pt w/very poor po intake. Pt's son has been encouraged to bring food in from outside for this pt. Objective - Diagnosis Pelvic Wall and Groin Cellulitis, Sepsis - Objective % IBW: 166 Body Weight Used for Calculations: IBW (72.7 kg) Energy Needs - Lower Range (kCal/kg): 25 Energy Needs - Upper Range (kCal/kg): 30 Lower Limit kCal/kg (kCals): 1,818 Upper Limit kCal/kg (kCals): 2,181 Lower Limit Protein Factor (Grams per Kg): 1.3 Upper Limit Protein Factor (Grams per Kg): 1.6 Lower Protein Needs (Protein): 95 Upper Protein Needs (Protein): 116 Dietitian Reviewed in Medical Record: Current diet, Curent medications, Intake & Output, Labs, Medical history, Wound/DTI Diet Order: Regular Objective Comments: PMH includes: 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 Pt w/Inadequate po intake 50% or less for meals. Continue Ensure Original TID per MD. Send Ensure Pudding TID(= 170 kcal and 4g protein per serving). Labs reviewed-continue to monitor renal labs closely. Wt changes noted. Dietitian following. Recommendations: 1. Continue Ensure Original TID per MD 2. Send Ensure Pudding TID 3. Dietitian following Dietitian to Monitor: Lab values, Renal labs, Supplement acceptance, Intake & Output, Diet tolerance, Weight change, PO Intake, Medical course
--- NOTE | 2018-09-13 17:20 | P.PNGS ---
Subjective Interval history: Up to chair Family at bedside asking if they can bring food from home Physical Exam Vital signs: Vital Signs 09/12/18 20:00 09/13/18 00:00 09/13/18 04:00 Temperature 97.2 F L 97.1 F L 97.9 F Pulse Rate 88 92 H 95 H Respiratory Rate 20 18 20 Blood Pressure 159/90 H 170/98 H 152/78 H Pulse Oximetry 95 94 L 94 L 09/13/18 08:00 09/13/18 12:00 09/13/18 13:17 Temperature 98.3 F 98.1 F Pulse Rate 89 83 Respiratory Rate 20 20 Blood Pressure 156/92 H 153/85 H Pulse Oximetry 91 L 92 L 92 L 09/13/18 16:00 Temperature Pulse Rate Respiratory Rate 18 Blood Pressure Pulse Oximetry Intake & Output 09/12/18 09/13/18 09/13/18 18:59 06:59 18:59 Intake Total 200 / 200 1320 / 1320 1200 / 1200 Output Total 1900 / 1900 Balance 200 / 200 -580 / -580 1200 / 1200 Weight 135.2 kg Intake: IV 200 / 200 1200 / 1200 1200 / 1200 LR 1000 mL Inj 1,000 ML @ 75 1000 / 1000 1000 / 1000 mls/hr IV.CONT .[id number] [facility] Rx# :[id number] Unasyn Inj 3 GM In NS Inj 100 200 / 200 200 / 200 200 / 200 ML @ 200 mls/hr IV.SIG Q6H [facility] Rx#:[id number] Oral 120 / 120 Output: Urine 1900 / 1900 Other: Mode Setting Right Groin Continuous Continuous Continuous Date of Last Bowel Movement 09/11/18 09/11/18 Narrative: Alert and awake RIGHT groin wound vac in place LEFT wet to dry dressing in place - Urinary Catheter Management Indwelling Urethral Catheter Cath placed during this visit: yes, but has since been removed by the nurse Reason for continuing: Severe pressure ulcer/wound Insertion date: 09/05/18 Insertion time: 00:53 Removal date: 09/13/18 Removal time: 01:15 Results - Labs 09/17/18 07:50 09/17/18 07:50 Laboratory Results - last 24 hr 09/13/18 09/13/18 07:37 07:37 WBC 3.7 L RBC 2.76 L Hgb 9.2 L Hct 28.2 L MCV 101.9 H MCH 33.4 MCHC 32.8 RDW 19.6 H Plt Count 177 D MPV 10.6 Prelim Diff (Auto) Manual diff required WBC Differential Manual diff final Seg Neuts % (Manual) 2 L Lymphocytes % (Manual) 35 Monocytes % (Manual) 23 H Blast Cells % (Manual) 40 H Abs Neuts (Manual) 0.1 L* Nucleated RBCs/100 WBC 141 H Differential Comment . Platelet Estimate Normal Platelet Morphology Normal Ovalocytes 1+ H Sodium 148 H Potassium 3.7 Chloride 114 H Carbon Dioxide 24.5 Anion Gap 10 BUN 26 H Creatinine 1.66 H Estimated GFR 39 L Random Glucose 108 H Calcium 8.0 L Total Bilirubin 0.7 AST 17 ALT 12 Alkaline Phosphatase 53 Total Protein 6.8 Albumin 2.1 L - Imaging Imaging: ITS Impressions Abdomen/Pelvis CT 09/04/18 21:11 CONCLUSION: 1. 7.5 cm inflammatory and edematous area in the right inguinal region containing probable small loculated abscesses. Edematous change extends inferiorly through the lower aspect of both inguinal canals into the scrotum with marked scrotal wall thickening and small locules of air in the upper left scrotum that could represent a necrotizing infection. There is herniation of fat through both inguinal canals, worse on the left side with herniated fat in the left scrotum measuring up to 9.5 cm in diameter. 2. Hepatosplenomegaly. Moderate coronary calcifications. Small pericardial effusion. Abdomen X-Ray 09/12/18 00:00 CONCLUSION: Nonspecific, nonobstructive bowel gas pattern most characteristic of an ileus or gastroenteritis. Chest X-Ray 09/12/18 00:00 CONCLUSION: Slight CHF. Assessment and Plan - Assessment (1) Cellulitis Code(s): L03.90 - Cellulitis, unspecified Status: Acute Plan: 88 year old male with Immunosuppresed pt with idiopathic neutropenia. ANC 100; Bilateral inguinal abscess; Melina's gangrene. -Dressing change to LEFT groin daily and PRN -Continue Wound vac to RIGHT groin---will remove tomorrow and transition to wet to dry dressing -Diet as tolerated---okay for family to bring food from home -OOB as tolerated -ID following Left wound is clean; VAC intact on right groin. No erythema. Plan as above. Patient will need to go to rehab. Family aware, as is the patient The exam, history, and the medical decision-making described in the above note were completed with the assistance of the mid-level provider. I reviewed and agree with the findings presented. I attest that I had a [id number] encounter with the patient on the same day, and personally performed and documented my assessment and findings in the medical record. (2) Infected wound Code(s): T14.8XXA - Other injury of unspecified body region, initial encounter; L08.9 - Local infection of the skin and subcutaneous tissue, unspecified Status: Acute (3) Neutropenia Code(s): D70.9 - Neutropenia, unspecified Status: Acute (4) Abscess of groin Code(s): L02.214 - Cutaneous abscess of groin Status: Acute (1) Cellulitis Qualifiers: Site of cellulitis: other site Qualified Code(s): L03.818 - Cellulitis of other sites
[2018-09-14] MEDS: Ampicillin/Sulbactam Inj 3 GM in Sodium Chloride 0.9% Inj 100 ML IV.SIG SCH ×4 (02:00→21:35)
[2018-09-14] MEDS: Levothyroxine 150 MCG Tablet PO SCH (05:52)
--- NOTE | 2018-09-14 06:44 | XR ---
EXAM DATE: 09/14/2018 6:34 AM EST AGE/SEX: 88 years / Male INDICATIONS: Short of breath CLINICAL DATA: This is the patient's subsequent encounter. Patient reports that signs and symptoms h ave been present for 4 - 6 days and indicates a pain score of Nonresponsive. MEDICAL/SURGICAL HISTORY: Sepsis. pelvic wall and groin cellulitis Non-responsive. COMPARISON: [facility], CHEST 1V SINGLE AP, 09/12/2018. . FINDINGS: Vascular congestion with hazy bilateral primarily perihilar and basilar pleural-parenchymal opacity p ersists. Borderline heart size. No new acute findings. CONCLUSION: Stable chest appearance Electronically signed by: Ernst Decker MD 09/14/2018 6:43 AM EST
[2018-09-14 07:12] LABS: Hematocrit 26.5 % (39.0-51.0); Hemoglobin 8.9 gm/dL (13.0-17.0); Mean Corpuscular HGB Conc 33.6 % (32.0-36.0); Mean Corpuscular Hemoglobin 33.4 pg (27.0-34.0); Mean Corpuscular Volume 99.5 fL (80.0-100.0); Mean Platelet Volume 10.7 fL (7.0-11.0); Platelet Count 156 th/mm3 (150-450); Red Blood Count 2.67 mil/mm3 (4.50-5.90); Red Cell Distribution Width 19.8 % (11.6-17.2); White Blood Count 3.3 th/mm3 (4.0-11.0)
[2018-09-14 07:38] LABS: Albumin 2.1 g/dL (3.4-5.0); Anion Gap 9 meq/L (5-15); Aspartate Aminotransferase 21 U/L (15-37); Blood Urea Nitrogen 21 mg/dL (7-18); Calcium 8.1 mg/dL (8.5-10.1); Carbon Dioxide 25.8 meq/L (21.0-32.0); Chloride 114 meq/L (98-107); Glomerular Filtration Rate 40 mL/min (>89); Glucose,Random 105 mg/dL (74-106); Potassium 3.7 meq/L (3.5-5.1); Sodium 149 meq/L (136-145)
[2018-09-14 07:39] LABS: Alanine Aminotransferase 12 U/L (12-78)
[2018-09-14 07:49] LABS: Alkaline Phosphatase 51 U/L (45-117); Total Protein 6.9 g/dL (6.4-8.2)
[2018-09-14] MEDS: Senna/Docusate Sodium 8.6/50 MG Tablet PO SCH ×2 (08:12→21:35)
[2018-09-14] MEDS: Doxazosin 4 MG Tablet PO SCH (08:12)
[2018-09-14] MEDS: Famotidine PF Inj 20 MG/2 ML Vial IV.PUSH SCH ×2 (08:12→21:35)
[2018-09-14] MEDS: Polyethylene Glycol 3350 17 GM Packet PO SCH (08:12)
[2018-09-14 08:39] LABS: Blast Cells 31 % (0-0); Lymphocytes 47 % (9-44); Monocytes 19 % (0-8); Plasma Cells 1 % (0-0); Tallied Nucleated RBC 179 (0-0)
[2018-09-14 08:40] LABS: Basophilic Stippling Moderate; Ovalocytes 1+
[2018-09-14 08:41] LABS: Platelet Estimate Normal (Normal); Platelet Morphology Normal (Normal)
[2018-09-14] MEDS ORDERED: fentaNYL Citrate Inj 250 MCG/5 ML Ampul ONE (10:03)
--- NOTE | 2018-09-14 11:16 | P.RAD ---
Post CT Procedure Prog Note - Procedure Information Procedure Date: 09/14/18 Supervising Radiologist: Anjel Boss MD Estimated blood loss (mL): 5 Anesthesia: Conscious Sedation - Plan of Activity Patient to Unit: [facility] Patient condition: Good See PACS Report for procedural detail/treatment.
[2018-09-14] MEDS ORDERED: Lidocaine 1%/Epinephrine 1:100,000 Inj 20 ML Vial I-DERMAL ONE (11:36)
--- NOTE | 2018-09-14 13:56 | P.PNIM ---
Subjective Interval history: The patient is an 88 year old male with past medical history significant for probable MDS, hypertension, hypothyroidism, history of prostate cancer, chronic bilateral inguinal hernias who presented to the [place] emergency department today with groin pain lasting for approximately 1 week. He is independent for ADLs and lives alone, family checks on him periodically. Patient has history of leukopenia, ?MDS followed by Dr. Feliz had Neupogen treatment before but did not respond. He had low-grade fever a few days ago. Initially the groin pain was attributed to his inguinal hernia, however he decided to present to the ER today as he had noticed redness and open wounds with drainage in bilateral groins. In the emergency department patient was evaluated by Dr. Chang, A stat CT of the abdomen pelvis showed 7.5 cm inflammatory and edematous area in the right inguinal region containing probable small loculated abscesses. Edematous change extends inferiorly through the lower aspect of both inguinal canals into the scrotum with marked scrotal wall thickening and small locules of air in the upper left scrotum that could represent a necrotizing infection. There is herniation of fat through both inguinal canals. Patient received crystalloid resuscitation with 3 L normal saline boluses, was also given vancomycin clindamycin and Zosyn. Blood cultures and wound cultures were sent. Dr. Blake from general surgery, and Dr. Sunshine from urology were consulted by Dr. Chang at [place] ED. Plan is to transfer patient to the [facility], resuscitate adequately given antibiotics and plan for OR in a.m. 09/06: Patient is warm and well-perfused. Urine output is low but acceptable. I suspect he will need increased fluids as the day progresses however. Total neutrophil count of 100 is quite worrisome. Neupogen has been started by the hematology service. Timing of extubation will depend to some extent on the timing of subsequent debridement. Glucose control has not been a problem. 09/07: Total neutrophil count up to 190. Glucose control acceptable. Antibiotic coverage being narrowed, consistent with culture results. Tolerated extubation and comfortable on his home CPAP machine at night. Plan is for return to the OR on Tuesday. 09/08: Lying in bed remains stable. Remains leukopenic 2.6K. Plan for OR today. Family at bedside updated. 09/09: Improving leukopenia. Patient verbal and well spoken this morning. He does appear a bit confused however. No complaints of pain and he is hungry. He underwent an additional debridement yesterday afternoon which was well- tolerated. He requires a Diaz catheter in order to prevent contamination of the local area where there are large open wounds. 09/10: Pain controlled. Alert, conversant. Tolerating diet. 11-5 now transferred to medical Team, patient seen in his bedroom and discussed with patient and his Son in the room asking to be discharged. no nausea, vomit or diarrhea, continue antibiotics. 11-6 Follow-up bilateral inguinal hernia with I&D, hypertension, hypothyroidism , and chronic neutropenia with history of MDS and prostate cancer. Patient seen and examined laying in bed, slightly hard of hearing, complaint of shortness of breath. Patient denies any pain at this time, however with some discomfort on the abdomen and the groin area. Patient complaining about pain in urination stated he cannot urinate, discussed he had Diaz catheter and should be able to go and does not need to bear and going. Patient verbalized understanding. Patient denies any fever or chills, denies any headache or dizziness, denies any chest pain. Nurse in the room, repositioned in bed Nurse address concern about patient complaining of pain with the medication treatment not enough for him. 11-7 Follow-up bilateral inguinal hernia with I&D, hypertension, hypothyroidism , and chronic neutropenia with history of MDS and prostate cancer. Patient seen and examined, laying in bed, denies any pain or shortness of breath. Patient denies any abdominal pain, groin pain or discomfort. Family at bedside , address concern about pain medication, stated does not not want to be on the pain medication and was worried about patient participating in his care and will not be able to do that while on morphine. Son wants the patient to be totally of pain medication. Discussed also discharge planning son wants him to be going home and not going to any rehab facility. Stated that his sister lives with the father and should be able to take care of him. The patient denies any headache or dizziness, denies any chest pain or shortness of breath, denies any abdominal pain, diarrhea or constipation. Patient stated he just had a bowel movement today. Patient denies any fever or chills. 11-8 HAD BONE MARROW BIOPSY TODAY WITH INTERVENTIONAL RADIOLOGY DW RN AND PT AND FAMILY AND CM STILL HAS WOUND VACC IN PLACE DW SURGERY AM LABS Physical Exam Vital signs: Vital Signs 09/13/18 16:00 09/13/18 20:00 09/14/18 00:00 Temperature 97.2 F L 97.2 F L 97.4 F L Pulse Rate 92 H 89 86 Respiratory Rate 20 18 18 Blood Pressure 115/64 145/76 H 149/79 H Pulse Oximetry 94 L 93 L 96 09/14/18 00:44 09/14/18 08:00 09/14/18 11:35 Temperature 97.3 F L 97.8 F Pulse Rate 81 94 H 93 H Respiratory Rate 20 18 18 Blood Pressure 165/87 H 129/79 Pulse Oximetry 93 L 92 L 09/14/18 11:50 09/14/18 12:20 Temperature Pulse Rate 98 H 101 H Respiratory Rate 18 20 Blood Pressure 129/73 118/74 Pulse Oximetry 95 94 L Intake & Output 09/13/18 09/14/18 09/14/18 18:59 06:59 18:59 Intake Total 1200 / 1200 1200 / 1200 100 / 100 Output Total 1550 / 1550 2325 / 2325 Balance -350 / -350 -1125 / -1125 100 / 100 Weight 138.2 kg Intake: IV 1200 / 1200 200 / 200 100 / 100 LR 1000 mL Inj 1,000 ML @ 75 1000 / 1000 mls/hr IV.CONT .[id number] [facility] Rx# :[id number] Unasyn Inj 3 GM In NS Inj 100 200 / 200 200 / 200 100 / 100 ML @ 200 mls/hr IV.SIG Q6H [facility] Rx#:[id number] Oral 1000 / 1000 Output: Urine 1550 / 1550 2300 / 2300 Wound Vac Amount 25 / 25 Right Groin 25 / 25 Other: Mode Setting Right Groin Continuous Continuous Continuous Date of Last Bowel Movement 09/11/18 09/13/18 09/14/18 # Bowel Movements 4 1 Narrative: GENERAL: Well-developed, obese male, lying in bed in no acute distress SKIN: Warm and dry. HEAD: Atraumatic. Normocephalic. EYES: Pupils equal and round. No scleral icterus. No injection or drainage. ENT: No nasal bleeding or discharge. Mucous membranes pink and moist. NECK: Trachea midline. No JVD. CARDIOVASCULAR: Regular rate and rhythm. RESPIRATORY: No accessory muscle use. Clear to auscultation. Breath sounds equal bilaterally. GASTROINTESTINAL: Abdomen obese soft, non-tender, no abdominal distention. Hepatic and splenic margins not palpable. : Diaz catheter in place, scrotal and penile edema noted. Right groin site with wound VAC in place noted some slight drainage. Left groin site dressed with gauze packing no drainage noted MUSCULOSKELETAL: Extremities without clubbing, cyanosis, or edema. No obvious deformities. NEUROLOGICAL: Awake and alert and oriented x3. No obvious cranial nerve deficits. Motor grossly within normal limits. Generalized weakness, moving all 4 extremities. Normal speech PSYCHIATRIC: Appropriate mood and affect; insight and judgment unreliable - Urinary Catheter Management Indwelling Urethral Catheter Cath placed during this visit: yes, but has since been removed by the nurse Reason for continuing: Severe pressure ulcer/wound Insertion date: 09/05/18 Insertion time: 00:53 Removal date: 09/13/18 Removal time: 01:15 Results - Labs CBC & Chem 7: 09/14/18 06:34 09/14/18 06:34 Laboratory Results - last 24 hr 09/14/18 09/14/18 06:34 06:34 WBC 3.3 L RBC 2.67 L Hgb 8.9 L Hct 26.5 L MCV 99.5 MCH 33.4 MCHC 33.6 RDW 19.8 H Plt Count 156 MPV 10.7 Prelim Diff (Auto) Manual diff required WBC Differential Manual diff final Seg Neuts % (Manual) 2 L Lymphocytes % (Manual) 47 H Monocytes % (Manual) 19 H Blast Cells % (Manual) 31 H Plasma Cell % (Manual) 1 H Abs Neuts (Manual) 0.1 L* Nucleated RBCs/100 WBC 179 H Differential Comment . Platelet Estimate Normal Platelet Morphology Normal Basophilic Stippling Moderate H Ovalocytes 1+ H Sodium 149 H Potassium 3.7 Chloride 114 H Carbon Dioxide 25.8 Anion Gap 9 BUN 21 H Creatinine 1.64 H Estimated GFR 40 L Random Glucose 105 Calcium 8.1 L Total Bilirubin 0.8 AST 21 ALT 12 Alkaline Phosphatase 51 Total Protein 6.9 Albumin 2.1 L TSH 2.160 - Imaging Impressions Chest X-Ray 09/14/18 06:00 CONCLUSION: Stable chest appearance - Procedures - Preoperative Diagnosis (1) Infected wound (2) Abscess of groin - Postoperative Diagnosis (1) Infected wound (2) Abscess of groin Date of procedure: 09/05/18 Procedure: Incision and drainage bilateral groin abscesses Excision 100 cm skin and subcutaneous tissue. Placement of negative pressure VAC dressing Anesthesia: GETA Surgeon: Obinna Blake MD Fire Extinguisher Mechanic: Jorge Sunshine MD - Preoperative Diagnosis (1) Abscess of groin - Postoperative Diagnosis (1) Abscess of groin Date of procedure: 09/11/18 Procedure: Irrigation bilateral groin wounds with replacement of VAC dressing on the right Packing of wound on the left Anesthesia: GETA Surgeon: Obinna Blake MD 11-8 BONE MARROW BIOPSY BY INTERVENTIONAL RADIOLOGY Assessment and Plan - Assessment (1) Cellulitis Code(s): L03.90 - Cellulitis, unspecified Status: Acute (2) Infected wound Code(s): T14.8XXA - Other injury of unspecified body region, initial encounter; L08.9 - Local infection of the skin and subcutaneous tissue, unspecified Status: Acute (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 Status: Acute (4) Severe sepsis Code(s): A41.9 - Sepsis, unspecified organism; R65.20 - Severe sepsis without septic shock Status: Acute (5) Neutropenia Code(s): D70.9 - Neutropenia, unspecified Status: Acute (6) MDS (myelodysplastic syndrome) Code(s): D46.9 - Myelodysplastic syndrome, unspecified Status: Chronic (7) Abscess of groin Code(s): L02.214 - Cutaneous abscess of groin Status: Acute - Plan The patient is an 88 year old male with past medical history significant for probable MDS, hypertension, hypothyroidism, history of prostate cancer, chronic bilateral inguinal hernias who presented to the [place] emergency department today with groin pain lasting for approximately 1 week. Melina's Gangrene/Severe Sepsis/Bilateral Inguinal abscess/ Immunosuppression. - on Broad spectrum antibiotics Vancomycin, Zosyn, Clindamycin, -ID specialist following - 09/05 status post Surgical debridement by Doctor Blake and Urology specialist Doctor Sunshine - Following Blood cultures and Urine culture, MSSA and Group B strep, culture showed Gram negative anaerobes, - Discontinued Vancomycin and Clindamycin - changed Zosyn to Unasyn IV, per ID recommendation -Status post I and D bilateral groin with right groin wound Vacuum replacement , left groin dressed with Packing -start on prn pain medication for pain control and bowel regimen -check CXray and KUB for SOB and bowel distention -Abdominal Xray: nonobstructive bowel gas pattern most characteristic of an ileus or gastroenteritis -continue increase dose frieda-colace,continue Miralax and prn Dulcolax Suppository, had good bowel movement today Neutropenia/History of MDS History of Prostate Cancer -web site specialist following -failed Neupogen -monitor -SP BONE MARROW BIOPSY ON 09-14 Hypothyroidism -monitor TSH -continue Levothyroxine VDRF improved -continue Aggressive Pulmonary Toilet - Bronchodilators - Extubated 09/06 Hypertension Sinus Tachycardia, improved BP elevated CHF on CXray, no known history, likely due to IVF CXray: slight CHF/pulmonary edema, No SOB, DC IVF, give Lasix 20 mg IV now and KCL, monitor BMP -2Decho, repeat CXray in am -continue dose of Nifedipine, resume doxazosin -hold on Lisinopril due to JIM -prn clonidine for SBP>160 or DBP >90 -monitor BP, adjust medications as necessary JIM Creat 1.1 on admission, increasing to 1.66 today -avoid nephrotoxins, Hold Lisinopril -monitor BMP -continue IVF DVT prophylaxis: Hold chemical prophylaxis due to surgery, will restart when cleared with surgical services GI prophylaxis with Famotidine Code Status: FULL CODE Discussed Condition With: RN AND PT AND CM AND FAMILY AND SURGERY Discharge Planning: PENDING CLEARANCE BY ALL (1) Cellulitis Qualifiers: Site of cellulitis: other site Qualified Code(s): L03.818 - Cellulitis of other sites
[2018-09-14 14:04] LABS: Iron Stain Bone Marrow Done
--- NOTE | 2018-09-14 14:08 | ECHRPT ---
Indication: HEART FAILURE CONCLUSIONS Normal left ventricular size. Moderate concentric left ventricular hypertrophy. The left ventricular systolic function is low normal with an estimated ejection fraction in the rang e of 50- 55%. Trace mitral valve regurgitation. Mild thickening of the aortic valve leaflets. The estimated pulmonary arterial pressure is 49 mmHg. BP: / HR: Rhythm: MEASUREMENTS (Male / Female) Normal Values Technical Quality: 2D ECHO LV Diastolic Diameter PLAX 5.0 cm 4.2 - 5.9 / 3.9 - 5.3 cm LV Systolic Diameter PLAX 3.1 cm IVS Diastolic Thickness 1.7 cm 0.6 - 1.0 / 0.6 - 0.9 cm LVPW Diastolic Thickness 1.6 cm 0.6 - 1.0 / 0.6 - 0.9 cm LV Relative Wall Thickness 0.7 RV Internal Dim ED PLAX 3.7 cm LVOT Diameter 2.4 cm Aortic Root Diameter 3.9 cm LA Systolic Diameter LX 4.9 cm 3.0 - 4.0 / 2.7 - 3.8 cm LV Ejection Fraction MOD BP 48.7 % >= 55 % LV Ejection Fraction MOD 4C 50.0 % LV Ejection Fraction 4C AL 50.5 % LV Ejection Fraction MOD 2C 52.3 % LV Ejection Fraction 2C AL 54.3 % M-MODE Aortic Root Diameter MM 4.1 cm LA Systolic Diameter MM 5.9 cm LA Ao Ratio MM 1.4 AV Cusp Separation MM 2.5 cm DOPPLER AV Peak Velocity 139.0 cm/s AV Peak Gradient 7.7 mmHg AI Peak Velocity 302.0 cm/s AI Peak Gradient 36.5 mmHg AI Pressure Half Time 335.0 ms Mitral E Point Velocity 71.1 cm/s Mitral A Point Velocity 40.1 cm/s Mitral E to A Ratio 1.8 LV E' Lateral Velocity 9.1 cm/s Mitral E to LV E' Lateral Ratio 7.8 LV E' Septal Velocity 9.2 cm/s Mitral E to LV E' Septal Ratio 7.8 TR Peak Velocity 312.0 cm/s TR Peak Gradient 38.9 mmHg Right Atrial Pressure 10.0 mmHg Pulmonary Artery Systolic Pressu 48.9 mmHg Right Ventricular Systolic Press 48.9 mmHg PV Peak Velocity 84.2 cm/s PV Peak Gradient 2.8 mmHg FINDINGS LEFT VENTRICLE Normal left ventricular size. Moderate concentric left ventricular hypertrophy. The left ventricular systolic function is low normal with an estimated ejection fraction in the rang e of 50- 55%. RIGHT VENTRICLE Normal right ventricular size and systolic function. LEFT ATRIUM The left atrial size is normal. RIGHT ATRIUM The right atrial size is normal. ATRIAL SEPTUM Normal atrial septal thickness without atrial level shunting by limited color doppler interrogation. AORTA The aortic root and proximal ascending aorta are normal in size on limited imaging. MITRAL VALVE Trace mitral valve regurgitation. AORTIC VALVE Mild thickening of the aortic valve leaflets. TRICUSPID VALVE The estimated pulmonary arterial pressure is 49 mmHg. PULMONARY VALVE No pulmonary valve regurgitation or stenosis. VESSELS The inferior vena cava is normal in size. PERICARDIUM No pericardial effusion. Tadeo Holland MD, FACC, FSCAI (Electronically Signed) Final Date:14 September 2018 14:07
--- NOTE | 2018-09-14 14:57 | P.PNONC ---
Subjective Interval history: Afebrile, remains neutropenic. Patient status post bone marrow biopsy today. Objective Vital Signs/Intake & Output: Vital Signs 09/13/18 16:00 09/13/18 20:00 09/14/18 00:00 Temperature 97.2 F L 97.2 F L 97.4 F L Pulse Rate 92 H 89 86 Respiratory Rate 20 18 18 Blood Pressure 115/64 145/76 H 149/79 H Pulse Oximetry 94 L 93 L 96 09/14/18 00:44 09/14/18 08:00 09/14/18 11:35 Temperature 97.3 F L 97.8 F Pulse Rate 81 94 H 93 H Respiratory Rate 20 18 18 Blood Pressure 165/87 H 129/79 Pulse Oximetry 93 L 92 L 09/14/18 11:50 09/14/18 12:20 Temperature Pulse Rate 98 H 101 H Respiratory Rate 18 20 Blood Pressure 129/73 118/74 Pulse Oximetry 95 94 L Intake & Output 09/13/18 09/14/18 09/14/18 18:59 06:59 18:59 Intake Total 1200 / 1200 1200 / 1200 100 / 100 Output Total 1550 / 1550 2325 / 2325 Balance -350 / -350 -1125 / -1125 100 / 100 Weight 138.2 kg Intake: IV 1200 / 1200 200 / 200 100 / 100 LR 1000 mL Inj 1,000 ML @ 75 1000 / 1000 mls/hr IV.CONT .[id number] [facility] Rx# :[id number] Unasyn Inj 3 GM In NS Inj 100 200 / 200 200 / 200 100 / 100 ML @ 200 mls/hr IV.SIG Q6H [facility] Rx#:[id number] Oral 1000 / 1000 Output: Urine 1550 / 1550 2300 / 2300 Wound Vac Amount 25 / 25 Right Groin 25 / 25 Other: Mode Setting Right Groin Continuous Continuous Continuous Date of Last Bowel Movement 09/11/18 09/13/18 09/14/18 # Bowel Movements 4 1 Result Diagrams: 09/14/18 06:34 09/14/18 06:34 Laboratory Results: Laboratory Results - last 24 hr 09/14/18 09/14/18 06:34 06:34 WBC 3.3 L RBC 2.67 L Hgb 8.9 L Hct 26.5 L MCV 99.5 MCH 33.4 MCHC 33.6 RDW 19.8 H Plt Count 156 MPV 10.7 Prelim Diff (Auto) Manual diff required WBC Differential Manual diff final Seg Neuts % (Manual) 2 L Lymphocytes % (Manual) 47 H Monocytes % (Manual) 19 H Blast Cells % (Manual) 31 H Plasma Cell % (Manual) 1 H Abs Neuts (Manual) 0.1 L* Nucleated RBCs/100 WBC 179 H Differential Comment . Platelet Estimate Normal Platelet Morphology Normal Basophilic Stippling Moderate H Ovalocytes 1+ H Sodium 149 H Potassium 3.7 Chloride 114 H Carbon Dioxide 25.8 Anion Gap 9 BUN 21 H Creatinine 1.64 H Estimated GFR 40 L Random Glucose 105 Calcium 8.1 L Total Bilirubin 0.8 AST 21 ALT 12 Alkaline Phosphatase 51 Total Protein 6.9 Albumin 2.1 L TSH 2.160 Culture Results: Microbiology 09/05/18 07:40 Fungal Smear - Final Wound - Groin No fungal elements seen Fungal Culture - Preliminary No growth in 1 week 09/05/18 07:40 Acid Fast Bacilli Smear - Final Wound - Groin No acid fast bacilli seen Mycobacterial Culture - Preliminary No growth in 1 week 09/05/18 07:40 Fungal Smear - Final Wound - Groin No fungal elements seen Fungal Culture - Preliminary No growth in 1 week 09/05/18 07:40 Acid Fast Bacilli Smear - Final Wound - Groin No acid fast bacilli seen Mycobacterial Culture - Preliminary No growth in 1 week Imaging Studies: Impressions Chest X-Ray 09/14/18 06:00 CONCLUSION: Stable chest appearance Medications: Active Medications Generic Name Dose Route Start Last Admin Trade Name Freq PRN Reason Stop Dose Admin Acetaminophen 650 mg 09/05/18 22:19 09/13/18 14:24 Tylenol Liq NG/OG 650 mg Q6H PRN Administration TEMP > 101 Albuterol 2.5 mg 09/05/18 00:27 09/14/18 00:46 Albuterol Neb (Prn) NEB 2.5 mg Q2HR NEB PRN Administration SHORTNESS OF BREATH/WHEEZING Clonidine HCl 0.1 mg 09/12/18 18:29 09/12/18 18:48 Catapres PO 0.1 mg Q8H PRN Administration SBP>160 DBP>90 Diphenhydramine HCl 25 mg 09/13/18 23:57 09/14/18 00:00 Benadryl PO 25 mg HS PRN Administration INSOMNIA Doxazosin Mesylate 8 mg 09/13/18 15:00 09/14/18 08:12 Cardura PO 8 mg DAILY [facility] Administration Famotidine 10 mg 09/12/18 21:00 09/14/18 08:12 Pepcid Pf Inj IV.PUSH 10 mg Q12HR [facility] Administration Propofol 1,000 mg in 100 mls @ 3.63 mls/hr 09/05/18 09:48 09/06/18 08:00 Diprivan 1000 Mg/100 Ml Inj IV.CONT 0 mcg/kg/min TITRATE PRN 0 mls/hr Per Protocol Titration Protocol 5 MCG/KG/MIN Ampicillin Sodium/Sulbactam 100 mls @ 200 mls/hr 09/10/18 14:00 09/14/18 09: 00 Sodium 3 gm/ Sodium Chloride IV.SIG Infused Q6H [facility] Infusion Levothyroxine Sodium 150 mcg 09/13/18 06:00 09/14/18 05:52 Synthroid PO 150 mcg DAILY@0600 [facility] Administration Nifedipine 30 mg 09/13/18 14:15 09/14/18 08:12 Procardia Xl PO 30 mg DAILY [facility] Administration Polyethylene Glycol 17 gm 09/12/18 13:30 09/14/18 08:12 Miralax PO 17 gm DAILY [facility] Administration Senna/Docusate Sodium 1 tab 09/05/18 09:00 09/14/18 08:12 Sunshine-Colace PO 1 tab BID [facility] Administration Sodium Chloride 2 ml 09/05/18 09:00 09/14/18 08:12 Ns Flush IV.FLUSH Not Given BID [facility] Tamsulosin HCl 0.4 mg 09/06/18 20:00 09/14/18 08:12 Flomax PO 0.4 mg DAILY [facility] Administration Objective Remarks: GENERAL: Chronically ill-appearing elderly male patient, in no acute distress. SKIN: Warm and dry. Wound VAC to right groin, left groin with dressing dry/ intact. 2 x 2 gauze dressing to posterior iliac dry, intact. HEAD: Normocephalic. EYES: No scleral icterus. No injection or drainage. NECK: Supple, trachea midline. CARDIOVASCULAR: Regular rate and rhythm without murmurs. RESPIRATORY: Breath sounds equal bilaterally. Nonlabored at rest. GASTROINTESTINAL: Abdomen large, soft, non-tender. Edema to the scrotum. + Diaz catheter, draining yellow urine with sediment. EXTREMITIES: No cyanosis, or edema. MUSCULOSKELETAL: Decreased muscle tone. NEUROLOGICAL: No obvious focal deficit. Awake and alert. TETLIN. PSYCHIATRIC: Appropriate mood and affect; insight and judgment normal. Assessment/Plan - Plan Mr. Bishop is a pleasant 88-year-old gentleman, who was hospitalized and currently being treated for inguinal area abscesses. He has been on the ventilator and oncology was consulted for neutropenia. The patient has a history of myelofibrosis, diagnosed in November 2017. He is currently under the care of Dr. Feliz and has recently been evaluated at [facility]. Recommendations: 1. Neutropenia, ANC remains low at 100 today. Neupogen has been discontinued. Pt received 8 days of neupogen. Status post bone marrow biopsy today. 2. 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 Surgery plans to remove wound VAC today. 3. Await bone marrow biopsy results. 4. Continue neutropenic precautions.
--- NOTE | 2018-09-14 16:33 | CT ---
EXAM DATE: 09/14/2018 11:31 AM EST AGE/SEX: 88 years / Male INDICATIONS: Leukemia. CLINICAL DATA: This is the patient's initial encounter. Patient reports that signs and symptoms have been present for 1 day and indicates a pain score of 0/10. MEDICAL/SURGICAL HISTORY: Hypertension. Osteoarthritis. Hypothyroidism. Prostatectomy. Bilate ral hip surgery. COMPARISON: No prior exams available for comparison. BIOPSY SITE: Right bone marrow MEDICATION(S): 1.5mg midazolam (Versed) IV 75mcg fentanyl (Sublimaze) IV DEVICE(S): 11 gauge Bone marrow biopsy needle One core specimen(s) sent to the laboratory for pathologic evaluation. . . PROCEDURE: CT guided Right bone marrow biopsy Prior to the procedure informed consent was obtained. Any appropriate prior imaging studies were rev iewed. Using automated exposure control and adjustment of the mA and/or kV according to patient size , radiation dose was kept as low as reasonably achievable to obtain optimal diagnostic quality images . DICOM format image data is available electronically for review and comparison. The site was prepped in a sterile fashion. Full sterile technique was used, including cap, mask, lyssa rile gloves and gown and a large sterile sheet. Hand hygiene and 2% chlorhexidine and/or betadine/al cohol prep was utilized per protocol for cutaneous antisepsis. The skin and subcutaneous tissues wer e infiltrated with local anesthetic solution. With CT guidance the previously identified target was localized. Biopsy was performed using the presc ribed needle as above. Following biopsy marrow aspiration was performed with repeat puncture. Adequa te hemostasis was obtained with compression at the puncture site. Follow-up CT scan reveals no hemorrhage. Conscious sedation was performed with the prescribed dosages and duration as above in the presence of an independent trained radiology nurse to assist in the monitoring of the patient. EKG and oximetry remained stable throughout the procedure. The patient tolerated the procedure well and there were no complications. The patient was sent to Radiology Outpatient Unit in stable condition. CONCLUSION: 1. Uncomplicated CT guided bone marrow aspirate. 2. Uncomplicated CT guided bone marrow biopsy. Electronically signed by: Anjel Boss MD 09/14/2018 4:32 PM EST
--- NOTE | 2018-09-14 17:09 | P.PNGS ---
Subjective Interval history: No acute events overnight Family at bedside Physical Exam Vital signs: Vital Signs 09/13/18 20:00 09/14/18 00:00 09/14/18 00:44 Temperature 97.2 F L 97.4 F L Pulse Rate 89 86 81 Respiratory Rate 18 18 20 Blood Pressure 145/76 H 149/79 H Pulse Oximetry 93 L 96 09/14/18 08:00 09/14/18 11:35 09/14/18 11:50 Temperature 97.3 F L 97.8 F Pulse Rate 94 H 93 H 98 H Respiratory Rate 18 Blood Pressure 165/87 H 129/79 129/73 Pulse Oximetry 93 L 92 L 95 09/14/18 12:20 Temperature Pulse Rate 101 H Respiratory Rate 20 Blood Pressure 118/74 Pulse Oximetry 94 L Intake & Output 09/13/18 09/14/18 09/14/18 18:59 06:59 18:59 Intake Total 1200 / 1200 1200 / 1200 200 / 200 Output Total 1550 / 1550 2325 / 2325 Balance -350 / -350 -1125 / -1125 200 / 200 Weight 138.2 kg Intake: IV 1200 / 1200 200 / 200 200 / 200 LR 1000 mL Inj 1,000 ML @ 75 1000 / 1000 mls/hr IV.CONT .[id number] [facility] Rx# :[id number] Unasyn Inj 3 GM In NS Inj 100 200 / 200 200 / 200 200 / 200 ML @ 200 mls/hr IV.SIG Q6H [facility] Rx#:[id number] Oral 1000 / 1000 Output: Urine 1550 / 1550 2300 / 2300 Wound Vac Amount 25 / 25 Right Groin 25 / Other: Mode Setting Right Groin Continuous Continuous Continuous Date of Last Bowel Movement 09/11/18 09/13/18 09/14/18 # Bowel Movements 4 1 Narrative: Alert and awake LEFT groin--- packing removed--- wound clean and dry--re-packed RIGHT groin---Wound Vac removed--- wound clean and dry--- packing inserted - Urinary Catheter Management Indwelling Urethral Catheter Cath placed during this visit: yes, but has since been removed by the nurse Reason for continuing: Severe pressure ulcer/wound Insertion date: 09/05/18 Insertion time: 00:53 Removal date: 09/13/18 Removal time: 01:15 Results - Labs 09/17/18 07:50 09/17/18 07:50 Laboratory Results - last 24 hr 09/14/18 09/14/18 06:34 06:34 WBC 3.3 L RBC 2.67 L Hgb 8.9 L Hct 26.5 L MCV 99.5 MCH 33.4 MCHC 33.6 RDW 19.8 H Plt Count 156 MPV 10.7 Prelim Diff (Auto) Manual diff required WBC Differential Manual diff final Seg Neuts % (Manual) 2 L Lymphocytes % (Manual) 47 H Monocytes % (Manual) 19 H Blast Cells % (Manual) 31 H Plasma Cell % (Manual) 1 H Abs Neuts (Manual) 0.1 L* Nucleated RBCs/100 WBC 179 H Differential Comment . Platelet Estimate Normal Platelet Morphology Normal Basophilic Stippling Moderate H Ovalocytes 1+ H Sodium 149 H Potassium 3.7 Chloride 114 H Carbon Dioxide 25.8 Anion Gap 9 BUN 21 H Creatinine 1.64 H Estimated GFR 40 L Random Glucose 105 Calcium 8.1 L Total Bilirubin 0.8 AST 21 ALT 12 Alkaline Phosphatase 51 Total Protein 6.9 Albumin 2.1 L TSH 2.160 - Imaging Imaging: ITS Impressions Abdomen/Pelvis CT 09/04/18 21:11 CONCLUSION: 1. 7.5 cm inflammatory and edematous area in the right inguinal region containing probable small loculated abscesses. Edematous change extends inferiorly through the lower aspect of both inguinal canals into the scrotum with marked scrotal wall thickening and small locules of air in the upper left scrotum that could represent a necrotizing infection. There is herniation of fat through both inguinal canals, worse on the left side with herniated fat in the left scrotum measuring up to 9.5 cm in diameter. 2. Hepatosplenomegaly. Moderate coronary calcifications. Small pericardial effusion. Abdomen X-Ray 09/12/18 00:00 CONCLUSION: Nonspecific, nonobstructive bowel gas pattern most characteristic of an ileus or gastroenteritis. Bone Marrow Biopsy w/ CT 09/14/18 00:00 CONCLUSION: 1. Uncomplicated CT guided bone marrow aspirate. 2. Uncomplicated CT guided bone marrow biopsy. 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 ANC 100; Bilateral inguinal abscess; Melina's gangrene. -Wound Vac removed -Dressing changes to bilateral groin daily and PRN -Diet as tolerated---okay for family to bring food from home -OOB as tolerated -ID following -Discussed with Azalia Matias--- she will discuss with the family about inpatient rehab---likely early next week Wounds clean; needs continued dressing changes and showering The exam, history, and the medical decision-making described in the above note were completed with the assistance of the mid-level provider. I reviewed and agree with the findings presented. I attest that I had a [id number] encounter with the patient on the same day, and personally performed and documented my assessment and findings in the medical record. (2) Infected wound Code(s): T14.8XXA - Other injury of unspecified body region, initial encounter; L08.9 - Local infection of the skin and subcutaneous tissue, unspecified Status: Acute (3) Neutropenia Code(s): D70.9 - Neutropenia, unspecified Status: Acute (4) Abscess of groin Code(s): L02.214 - Cutaneous abscess of groin Status: Acute (1) Cellulitis Qualifiers: Site of cellulitis: other site Qualified Code(s): L03.818 - Cellulitis of other sites
[2018-09-15] MEDS: Ampicillin/Sulbactam Inj 3 GM in Sodium Chloride 0.9% Inj 100 ML IV.SIG SCH ×4 (02:45→20:35)
[2018-09-15] MEDS: Levothyroxine 150 MCG Tablet PO SCH (05:26)
[2018-09-15 07:33] LABS: Hematocrit 24.8 % (39.0-51.0); Hemoglobin 8.4 gm/dL (13.0-17.0); Mean Corpuscular HGB Conc 33.7 % (32.0-36.0); Mean Corpuscular Hemoglobin 33.5 pg (27.0-34.0); Mean Corpuscular Volume 99.4 fL (80.0-100.0); Mean Platelet Volume 10.4 fL (7.0-11.0); Platelet Count 159 th/mm3 (150-450); Red Cell Distribution Width 19.8 % (11.6-17.2)
[2018-09-15 07:57] LABS: Albumin 2.3 g/dL (3.4-5.0); Anion Gap 10 meq/L (5-15); Aspartate Aminotransferase 17 U/L (15-37); Blood Urea Nitrogen 17 mg/dL (7-18); Calcium 7.7 mg/dL (8.5-10.1); Carbon Dioxide 28.5 meq/L (21.0-32.0); Chloride 111 meq/L (98-107); Glomerular Filtration Rate 40 mL/min (>89); Glucose,Random 114 mg/dL (74-106); Magnesium 1.8 mg/dL (1.5-2.5); Potassium 3.2 meq/L (3.5-5.1); Sodium 149 meq/L (136-145)
[2018-09-15 07:58] LABS: Alanine Aminotransferase 14 U/L (12-78); Phosphorus 3.1 mg/dL (2.5-4.9)
[2018-09-15 08:01] LABS: Alkaline Phosphatase 56 U/L (45-117); Total Protein 6.8 g/dL (6.4-8.2)
[2018-09-15 08:40] LABS: Basophilic Stippling Moderate; Blast Cells 27 % (0-0); Lymphocytes 48 % (9-44); Monocytes 23 % (0-8); Myelocytes 1 % (0-0); Tallied Nucleated RBC 146 (0-0)
[2018-09-15 08:41] LABS: Polychromasia 2.5 % (0.0-1.9)
[2018-09-15 08:42] LABS: Ovalocytes 1+; Platelet Estimate Normal (Normal)
[2018-09-15] MEDS: Polyethylene Glycol 3350 17 GM Packet PO SCH (08:46)
[2018-09-15] MEDS: Famotidine PF Inj 20 MG/2 ML Vial IV.PUSH SCH ×2 (08:48→20:36)
[2018-09-15] MEDS: Doxazosin 4 MG Tablet PO SCH (08:48)
[2018-09-15] MEDS: Senna/Docusate Sodium 8.6/50 MG Tablet PO SCH ×2 (08:49→20:35)
--- NOTE | 2018-09-15 11:55 | P.PNIM ---
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 He is independent for ADLs and lives alone, family checks on him periodically. Patient has history of leukopenia, ?MDS followed by Dr. Feliz had Neupogen treatment before but did not respond. He had low-grade fever a few days ago. Initially the groin pain was attributed to his inguinal hernia, however he decided to present to the ER today as he had noticed redness and open wounds with drainage in bilateral groins. In the emergency department patient was evaluated by Dr. Chang, A stat CT of the abdomen pelvis showed 7.5 cm inflammatory and edematous area in the right inguinal region containing probable small loculated abscesses. Edematous change extends inferiorly through the lower aspect of both inguinal canals into the scrotum with marked scrotal wall thickening and small locules of air in the upper left scrotum that could represent a necrotizing infection. There is herniation of fat through both inguinal canals. Patient received crystalloid resuscitation with 3 L normal saline boluses, was also given vancomycin clindamycin and Zosyn. Blood cultures and wound cultures were sent. Dr. Blake from general surgery, and Dr. Sunshine from urology were consulted by Dr. Chang at [place] ED. Plan is to transfer patient to the [facility], resuscitate adequately given antibiotics and plan for OR in a.m. 09/06: Patient is warm and well-perfused. Urine output is low but acceptable. I suspect he will need increased fluids as the day progresses however. Total neutrophil count of 100 is quite worrisome. Neupogen has been started by the hematology service. Timing of extubation will depend to some extent on the timing of subsequent debridement. Glucose control has not been a problem. 09/07: Total neutrophil count up to 190. Glucose control acceptable. Antibiotic coverage being narrowed, consistent with culture results. Tolerated extubation and comfortable on his home CPAP machine at night. Plan is for return to the OR on Tuesday. 09/08: Lying in bed remains stable. Remains leukopenic 2.6K. Plan for OR today. Family at bedside updated. 09/09: Improving leukopenia. Patient verbal and well spoken this morning. He does appear a bit confused however. No complaints of pain and he is hungry. He underwent an additional debridement yesterday afternoon which was well- tolerated. He requires a Diaz catheter in order to prevent contamination of the local area where there are large open wounds. 09/10: Pain controlled. Alert, conversant. Tolerating diet. 5 now transferred to medical Team, patient seen in his bedroom and discussed with patient and his Son in the room asking to be discharged. no nausea, vomit or diarrhea, continue antibiotics. 11-6 Follow-up bilateral inguinal hernia with I&D, hypertension, hypothyroidism , and chronic neutropenia with history of MDS and prostate cancer. Patient seen and examined laying in bed, slightly hard of hearing, complaint of shortness of breath. Patient denies any pain at this time, however with some discomfort on the abdomen and the groin area. Patient complaining about pain in urination stated he cannot urinate, discussed he had Diaz catheter and should be able to go and does not need to bear and going. Patient verbalized understanding. Patient denies any fever or chills, denies any headache or dizziness, denies any chest pain. Nurse in the room, repositioned in bed Nurse address concern about patient complaining of pain with the medication treatment not enough for him. 7 Follow-up bilateral inguinal hernia with I&D, hypertension, hypothyroidism , and chronic neutropenia with history of MDS and prostate cancer. Patient seen and examined, laying in bed, denies any pain or shortness of breath. Patient denies any abdominal pain, groin pain or discomfort. Family at bedside , address concern about pain medication, stated does not not want to be on the pain medication and was worried about patient participating in his care and will not be able to do that while on morphine. Son wants the patient to be totally of pain medication. Discussed also discharge planning son wants him to be going home and not going to any rehab facility. Stated that his sister lives with the father and should be able to take care of him. The patient denies any headache or dizziness, denies any chest pain or shortness of breath, denies any abdominal pain, diarrhea or constipation. Patient stated he just had a bowel movement today. Patient denies any fever or chills. 11-8 HAD BONE MARROW BIOPSY TODAY WITH INTERVENTIONAL RADIOLOGY DW RN AND PT AND FAMILY AND CM STILL HAS WOUND VACC IN PLACE DW SURGERY AM LABS 09-15 AWAIT BONE MARROW RESULTS WOUND VACC HAS BEEN REMOVED DW RN AND PT AND SURGERY HOPEFULLY TO [facility] OR [facility] NEXT WEEK Physical Exam Vital signs: Vital Signs 09/14/18 12:20 09/14/18 16:00 09/14/18 20:00 Temperature 97.2 F L 97.1 F L Pulse Rate 101 H 83 86 Respiratory Rate 20 17 18 Blood Pressure 118/74 137/70 149/83 H Pulse Oximetry 94 L 96 96 09/15/18 00:00 09/15/18 04:00 09/15/18 08:00 Temperature 97.8 F 97.4 F L 97.4 F L Pulse Rate 72 82 77 Respiratory Rate 17 17 18 Blood Pressure 150/81 H 160/80 H 165/84 H Pulse Oximetry 96 95 96 Intake & Output 09/14/18 09/15/18 09/15/18 18:59 06:59 18:59 Intake Total 200 / 200 680 / 680 Output Total 1800 / 1800 1999 Balance -1600 / -1600 -1320 / -1320 Weight 138 kg Intake: IV 200 / 200 200 / 200 Unasyn Inj 3 GM In NS Inj 100 200 / 200 200 / 200 ML @ 200 mls/hr IV.SIG Q6H CATHLEEN Rx#:[id number] Oral 480 / 480 Output: Urine 1800 / 1800 Urine Amount (Catheter) 1999 Indwelling Urethral Catheter 1999 Other: Mode Setting Right Groin Continuous Date of Last Bowel Movement 09/14/18 # Bowel Movements 1 Narrative: GENERAL: Well-developed, obese male, lying in bed in no acute distress SKIN: Warm and dry. HEAD: Atraumatic. Normocephalic. EYES: Pupils equal and round. No scleral icterus. No injection or drainage. ENT: No nasal bleeding or discharge. Mucous membranes pink and moist. NECK: Trachea midline. No JVD. CARDIOVASCULAR: Regular rate and rhythm. RESPIRATORY: No accessory muscle use. Clear to auscultation. Breath sounds equal bilaterally. GASTROINTESTINAL: Abdomen obese soft, non-tender, no abdominal distention. Hepatic and splenic margins not palpable. : Diaz catheter in place, scrotal and penile edema noted. Right groin site with wound VAC in place noted some slight drainage. Left groin site dressed with gauze packing no drainage noted MUSCULOSKELETAL: Extremities without clubbing, cyanosis, or edema. No obvious deformities. NEUROLOGICAL: Awake and alert and oriented x3. No obvious cranial nerve deficits. Motor grossly within normal limits. Generalized weakness, moving all 4 extremities. Normal speech PSYCHIATRIC: Appropriate mood and affect; insight and judgment unreliable - Urinary Catheter Management Indwelling Urethral Catheter Cath placed during this visit: yes, but has since been removed by the nurse Reason for continuing: Chronic Urinary Retention Insertion date: 09/05/18 Insertion time: 00:53 Removal date: 09/13/18 Removal time: 01:15 Results - Labs CBC & Chem 7: 09/15/18 06:53 09/15/18 06:53 Laboratory Results - last 24 hr 09/15/18 09/15/18 06:53 06:53 WBC 3.0 L RBC 2.50 L Hgb 8.4 L Hct 24.8 L MCV 99.4 MCH 33.5 MCHC 33.7 RDW 19.8 H Plt Count 159 MPV 10.4 Prelim Diff (Auto) Manual diff required WBC Differential Manual diff final Seg Neuts % (Manual) 1 L Lymphocytes % (Manual) 48 H Monocytes % (Manual) 23 H Myelocytes % (Man) 1 H Blast Cells % (Manual) 27 H Abs Neuts (Manual) 0.1 L* Nucleated RBCs/100 WBC 146 H Differential Comment . Platelet Estimate Normal Platelet Morphology Enlarged H Polychromasia 2.5 H Basophilic Stippling Moderate H Ovalocytes 1+ H Sodium 149 H Potassium 3.2 L Chloride 111 H Carbon Dioxide 28.5 Anion Gap 10 BUN 17 Creatinine 1.64 H Estimated GFR 40 L Random Glucose 114 H Calcium 7.7 L Phosphorus 3.1 Magnesium 1.8 Total Bilirubin 0.9 AST 17 ALT 14 Alkaline Phosphatase 56 Total Protein 6.8 Albumin 2.3 L - Imaging Impressions Bone Marrow Biopsy w/ CT 09/14/18 00:00 CONCLUSION: 1. Uncomplicated CT guided bone marrow aspirate. 2. Uncomplicated CT guided bone marrow biopsy. - Procedures - Preoperative Diagnosis (1) Infected wound (2) Abscess of groin - Postoperative Diagnosis (1) Infected wound (2) Abscess of groin Date of procedure: 09/05/18 Procedure: Incision and drainage bilateral groin abscesses Excision 100 cm skin and subcutaneous tissue. Placement of negative pressure VAC dressing Anesthesia: GETA Surgeon: Obinna Blake MD Elevator Attendant: Jorge Sunshine MD - Preoperative Diagnosis (1) Abscess of groin - Postoperative Diagnosis (1) Abscess of groin Date of procedure: 09/11/18 Procedure: Irrigation bilateral groin wounds with replacement of VAC dressing on the right Packing of wound on the left Anesthesia: GETA Surgeon: Obinna Blake MD 11-8 BONE MARROW BIOPSY BY INTERVENTIONAL RADIOLOGY Assessment and Plan - Assessment (1) Cellulitis Code(s): L03.90 - Cellulitis, unspecified Status: Acute (2) Infected wound Code(s): T14.8XXA - Other injury of unspecified body region, initial encounter; L08.9 - Local infection of the skin and subcutaneous tissue, unspecified Status: Acute (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 Status: Acute (4) Severe sepsis Code(s): A41.9 - Sepsis, unspecified organism; R65.20 - Severe sepsis without septic shock Status: Acute (5) Neutropenia Code(s): D70.9 - Neutropenia, unspecified Status: Acute (6) MDS (myelodysplastic syndrome) Code(s): D46.9 - Myelodysplastic syndrome, unspecified Status: Chronic (7) Abscess of groin Code(s): L02.214 - Cutaneous abscess of groin Status: Acute - Plan The patient is an 88 year old male with past medical history significant for 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 Melina's Gangrene/Severe Sepsis/Bilateral Inguinal abscess/ Immunosuppression. - on Broad spectrum antibiotics Vancomycin, Zosyn, Clindamycin, -ID specialist following - 09/05 status post Surgical debridement by Doctor Blake and Urology specialist Doctor Sunshine - Following Blood cultures and Urine culture, MSSA and Group B strep, culture showed Gram negative anaerobes, - Discontinued Vancomycin and Clindamycin - changed Zosyn to Unasyn IV, per ID recommendation -Status post I and D bilateral groin with right groin wound Vacuum replacement , left groin dressed with Packing -start on prn pain medication for pain control and bowel regimen -check CXray and KUB for SOB and bowel distention -Abdominal Xray: nonobstructive bowel gas pattern most characteristic of an ileus or gastroenteritis -continue increase dose frieda-colace,continue Miralax and prn Dulcolax Suppository, had good bowel movement today HAD WOUND VACC REMOVED BY SURGERY 09-14 Neutropenia/History of MDS History of Prostate Cancer -clinical trials specialist following -failed Neupogen -monitor -SP BONE MARROW BIOPSY ON 09-14 Hypothyroidism -monitor TSH -continue Levothyroxine VDRF improved -continue Aggressive Pulmonary Toilet - Bronchodilators - Extubated 09/06 Hypertension Sinus Tachycardia, improved BP elevated CHF on CXray, no known history, likely due to IVF CXray: slight CHF/pulmonary edema, No SOB, DC IVF, give Lasix 20 mg IV now and KCL, monitor BMP -2Decho, repeat CXray in am -continue dose of Nifedipine, resume doxazosin -hold on Lisinopril due to JIM -prn clonidine for SBP>160 or DBP >90 -monitor BP, adjust medications as necessary JIM Creat 1.1 on admission, increasing to 1.66 today -avoid nephrotoxins, Hold Lisinopril -monitor BMP -continue IVF DVT prophylaxis: Hold chemical prophylaxis due to surgery, will restart when cleared with surgical services GI prophylaxis with Famotidine HYPOKALEMIA WILL REPLACE Code Status: FULL CODE Discussed Condition With: RN AND PATIENT AND CM AND SURGERY Discharge Planning: PENDING CLEARANCE BY ALL TO [facility] OR [facility] NEXT WEEK (1) Cellulitis Qualifiers: Site of cellulitis: other site Qualified Code(s): L03.818 - Cellulitis of other sites
[2018-09-15] MEDS: Dextrose 5% in Water Inj 1,000 ML IV.CONT SCH (14:36)
--- NOTE | 2018-09-15 15:02 | P.PNGS ---
Subjective Interval history: Resting in bed Daughter at bedside CELESTINE Wylie at bedside Happy because he got a shower Physical Exam Vital signs: Vital Signs 09/14/18 16:00 09/14/18 20:00 09/15/18 00:00 Temperature 97.2 F L 97.1 F L 97.8 F Pulse Rate 83 86 72 Respiratory Rate 17 18 17 Blood Pressure 137/70 149/83 H 150/81 H Pulse Oximetry 96 96 96 09/15/18 04:00 09/15/18 08:00 09/15/18 12:00 Temperature 97.4 F L 97.4 F L 97.6 F Pulse Rate 82 77 81 Respiratory Rate 17 18 19 Blood Pressure 160/80 H 165/84 H 143/75 H Pulse Oximetry 95 98 96 Intake & Output 09/14/18 09/15/18 09/15/18 18:59 06:59 18:59 Intake Total 200 / 200 680 / 680 100 / 100 Output Total 1800 / 1800 1999 Balance -1600 / -1600 -1320 / -1320 100 / 100 Weight 138 kg Intake: IV 200 / 200 200 / 200 100 / 100 Unasyn Inj 3 GM In NS Inj 100 200 / 200 200 / 200 100 / 100 ML @ 200 mls/hr IV.SIG Q6H CATHLEEN Rx#:[id number] Oral 480 / 480 Output: Urine 1800 / 1800 Urine Amount (Catheter) 1999 Indwelling Urethral Catheter 1999 Other: Mode Setting Right Groin Continuous Date of Last Bowel Movement 09/14/18 # Bowel Movements 1 Narrative: Alert and awake Bilateral groins--- cleaned wound with Peroxide; packed loosely with moist 4x4 and secured ABD over with paper tape - Urinary Catheter Management Indwelling Urethral Catheter Cath placed during this visit: yes, but has since been removed by the nurse Reason for continuing: Chronic Urinary Retention Insertion date: 09/05/18 Insertion time: 00:53 Removal date: 09/13/18 Removal time: 01:15 Results - Labs 09/17/18 07:50 09/17/18 07:50 Laboratory Results - last 24 hr 09/15/18 09/15/18 06:53 06:53 WBC 3.0 L RBC 2.50 L Hgb 8.4 L Hct 24.8 L MCV 99.4 MCH 33.5 MCHC 33.7 RDW 19.8 H Plt Count 159 MPV 10.4 Prelim Diff (Auto) Manual diff required WBC Differential Manual diff final Seg Neuts % (Manual) 1 L Lymphocytes % (Manual) 48 H Monocytes % (Manual) 23 H Myelocytes % (Man) 1 H Blast Cells % (Manual) 27 H Abs Neuts (Manual) 0.1 L* Nucleated RBCs/100 WBC 146 H Differential Comment . Platelet Estimate Normal Platelet Morphology Enlarged H Polychromasia 2.5 H Basophilic Stippling Moderate H Ovalocytes 1+ H Sodium 149 H Potassium 3.2 L Chloride 111 H Carbon Dioxide 28.5 Anion Gap 10 BUN 17 Creatinine 1.64 H Estimated GFR 40 L Random Glucose 114 H Calcium 7.7 L Phosphorus 3.1 Magnesium 1.8 Total Bilirubin 0.9 AST 17 ALT 14 Alkaline Phosphatase 56 Total Protein 6.8 Albumin 2.3 L - Imaging Imaging: ITS Impressions Abdomen/Pelvis CT 09/04/18 21:11 CONCLUSION: 1. 7.5 cm inflammatory and edematous area in the right inguinal region containing probable small loculated abscesses. Edematous change extends inferiorly through the lower aspect of both inguinal canals into the scrotum with marked scrotal wall thickening and small locules of air in the upper left scrotum that could represent a necrotizing infection. There is herniation of fat through both inguinal canals, worse on the left side with herniated fat in the left scrotum measuring up to 9.5 cm in diameter. 2. Hepatosplenomegaly. Moderate coronary calcifications. Small pericardial effusion. Abdomen X-Ray 09/12/18 00:00 CONCLUSION: Nonspecific, nonobstructive bowel gas pattern most characteristic of an ileus or gastroenteritis. Bone Marrow Biopsy w/ CT 09/14/18 00:00 CONCLUSION: 1. Uncomplicated CT guided bone marrow aspirate. 2. Uncomplicated CT guided bone marrow biopsy. 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 ANC 100; Bilateral inguinal abscess; Melina's gangrene. -Dressing changes to bilateral groin daily and PRN -Diet as tolerated---okay for family to bring food from home -Okay to shower in between dressing changes ---remove packing prior -OOB as tolerated -ID following -Discussed with Azalia Matias--- she will discuss with the family about inpatient rehab---likely early next week ---Insurance authorization has been sent -GS will see PRN over the weekend; Please call with any questions Stable wounds; clean Rehab next week The exam, history, and the medical decision-making described in the above note were completed with the assistance of the mid-level provider. I reviewed and agree with the findings presented. I attest that I had a [id number] encounter with the patient on the same day, and personally performed and documented my assessment and findings in the medical record. (2) Infected wound Code(s): T14.8XXA - Other injury of unspecified body region, initial encounter; L08.9 - Local infection of the skin and subcutaneous tissue, unspecified Status: Acute (3) Neutropenia Code(s): D70.9 - Neutropenia, unspecified Status: Acute (4) Abscess of groin Code(s): L02.214 - Cutaneous abscess of groin Status: Acute (1) Cellulitis Qualifiers: Site of cellulitis: other site Qualified Code(s): L03.818 - Cellulitis of other sites
--- NOTE | 2018-09-15 19:31 | P.PNONC ---
Subjective Interval history: Patient feels better denies any fever Anxious to know the results of the bone marrow biopsy Objective Vital Signs/Intake & Output: Vital Signs 09/14/18 20:00 09/15/18 00:00 09/15/18 04:00 Temperature 97.1 F L 97.8 F 97.4 F L Pulse Rate 86 72 82 Respiratory Rate 18 17 17 Blood Pressure 149/83 H 150/81 H 160/80 H Pulse Oximetry 96 96 95 09/15/18 08:00 09/15/18 12:00 09/15/18 16:00 Temperature 97.4 F L 97.6 F 97.6 F Pulse Rate 77 81 80 Respiratory Rate 18 19 19 Blood Pressure 165/84 H 143/75 H 163/80 H Pulse Oximetry 98 96 96 Intake & Output 09/15/18 09/15/18 09/16/18 06:59 18:59 06:59 Intake Total 680 / 680 1400 / 1400 Output Total 1999 2600 / 2600 Balance -1320 / -1320 -1200 / -1200 Weight 138 kg Intake: IV 200 / 200 200 / 200 Unasyn Inj 3 GM In NS Inj 100 200 / 200 200 / 200 ML @ 200 mls/hr IV.SIG Q6H CATHLEEN Rx#:[id number] Oral 480 / 480 1200 / 1200 Output: Urine Amount (Catheter) 1999 2600 / 2600 Indwelling Urethral Catheter 1999 2600 / 2600 Other: # Bowel Movements 1 Result Diagrams: 09/15/18 06:53 09/15/18 06:53 Laboratory Results: Laboratory Results - last 24 hr 09/15/18 09/15/18 06:53 06:53 WBC 3.0 L RBC 2.50 L Hgb 8.4 L Hct 24.8 L MCV 99.4 MCH 33.5 MCHC 33.7 RDW 19.8 H Plt Count 159 MPV 10.4 Prelim Diff (Auto) Manual diff required WBC Differential Manual diff final Seg Neuts % (Manual) 1 L Lymphocytes % (Manual) 48 H Monocytes % (Manual) 23 H Myelocytes % (Man) 1 H Blast Cells % (Manual) 27 H Abs Neuts (Manual) 0.1 L* Nucleated RBCs/100 WBC 146 H Differential Comment . Platelet Estimate Normal Platelet Morphology Enlarged H Polychromasia 2.5 H Basophilic Stippling Moderate H Ovalocytes 1+ H Sodium 149 H Potassium 3.2 L Chloride 111 H Carbon Dioxide 28.5 Anion Gap 10 BUN 17 Creatinine 1.64 H Estimated GFR 40 L Random Glucose 114 H Calcium 7.7 L Phosphorus 3.1 Magnesium 1.8 Total Bilirubin 0.9 AST 17 ALT 14 Alkaline Phosphatase 56 Total Protein 6.8 Albumin 2.3 L Medications: Active Medications Generic Name Dose Route Start Last Admin Trade Name Freq PRN Reason Stop Dose Admin Acetaminophen 650 mg 09/05/18 22:19 09/13/18 14:24 Tylenol Liq NG/OG 650 mg Q6H PRN Administration TEMP > 101 Albuterol 2.5 mg 09/05/18 00:27 09/14/18 00:46 Albuterol Neb (Prn) NEB 2.5 mg Q2HR NEB PRN Administration SHORTNESS OF BREATH/WHEEZING Clonidine HCl 0.1 mg 09/12/18 18:29 09/15/18 05:56 Catapres PO 0.1 mg Q8H PRN Administration SBP>160 DBP>90 Diphenhydramine HCl 25 mg 09/13/18 23:57 09/14/18 00:00 Benadryl PO 25 mg HS PRN Administration INSOMNIA Doxazosin Mesylate 8 mg 09/13/18 15:00 09/15/18 08:48 Cardura PO 8 mg DAILY CATHLEEN Administration Famotidine 10 mg 09/12/18 21:00 09/15/18 08:48 Pepcid Pf Inj IV.PUSH 10 mg Q12HR CATHLEEN Administration Ampicillin Sodium/Sulbactam 100 mls @ 200 mls/hr 09/10/18 14:00 09/15/18 15: 20 Sodium 3 gm/ Sodium Chloride IV.SIG Infused Q6H CATHLEEN Infusion Dextrose 1,000 mls @ 84 mls/hr 09/15/18 12:00 09/15/18 14:36 D5w Inj IV.CONT 84 mls/hr .[id number] CATHLEEN Administration Levothyroxine Sodium 150 mcg 09/13/18 06:00 09/15/18 05:26 Synthroid PO 150 mcg DAILY@0600 CATHLEEN Administration Nifedipine 30 mg 09/13/18 14:15 09/15/18 08:48 Procardia Xl PO 30 mg DAILY CATHLEEN Administration Polyethylene Glycol 17 gm 09/12/18 13:30 09/15/18 08:46 Miralax PO Not Given DAILY CATHLEEN Senna/Docusate Sodium 1 tab 09/05/18 09:00 09/15/18 08:49 Sunshine-Colace PO Not Given BID CATHLEEN Sodium Chloride 2 ml 09/05/18 09:00 09/15/18 08:48 Ns Flush IV.FLUSH 2 ml BID CATHLEEN Administration Tamsulosin HCl 0.4 mg 09/06/18 20:00 09/15/18 08:48 Flomax PO 0.4 mg DAILY CATHLEEN Administration Objective Remarks: GENERAL: Chronically ill-appearing elderly male patient, in no acute distress. SKIN: Warm and dry. Wound VAC to right groin, left groin with dressing dry/ intact. 2 x 2 gauze dressing to posterior iliac dry, intact. HEAD: Normocephalic. EYES: No scleral icterus. No injection or drainage. NECK: Supple, trachea midline. CARDIOVASCULAR: Regular rate and rhythm without murmurs. RESPIRATORY: Breath sounds equal bilaterally. Nonlabored at rest. GASTROINTESTINAL: Abdomen large, soft, non-tender. Edema to the scrotum. + Diaz catheter, draining yellow urine with sediment. EXTREMITIES: No cyanosis, or edema. MUSCULOSKELETAL: Decreased muscle tone. NEUROLOGICAL: No obvious focal deficit. Awake and alert. INUPIAT. PSYCHIATRIC: Appropriate mood and affect; insight and judgment normal. Assessment/Plan - Plan Mr. Bishop is a pleasant 88-year-old gentleman, who was hospitalized and currently being treated for inguinal area abscesses. He has been on the ventilator and oncology was consulted for neutropenia. The patient has a history of myelofibrosis, diagnosed in November 2017. He is currently under the care of Dr. Feliz and has recently been evaluated at [facility]. Recommendations: 1. Neutropenia, ANC remains low at 100 today. Neupogen has been discontinued. Pt received 8 days of neupogen. Status post bone marrow biopsy today. 2. 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 Surgery plans to remove wound VAC today. 3. Await bone marrow biopsy results. 4. Continue neutropenic precautions. 09/15/2018 Patient remains neutropenic Bone marrow aspirate and biopsy result is still pending Wound is improving. Wound VAC has been removed from the right side as well Patient will benefit from going to [facility]
[2018-09-16] MEDS: Ampicillin/Sulbactam Inj 3 GM in Sodium Chloride 0.9% Inj 100 ML IV.SIG SCH ×4 (02:28→19:38)
[2018-09-16] MEDS: Dextrose 5% in Water Inj 1,000 ML IV.CONT SCH ×4 (02:28→23:58)
[2018-09-16] MEDS: Levothyroxine 150 MCG Tablet PO SCH (05:25)
[2018-09-16 06:06] LABS: Hematocrit 25.5 % (39.0-51.0); Hemoglobin 8.5 gm/dL (13.0-17.0); Mean Corpuscular HGB Conc 33.4 % (32.0-36.0); Mean Corpuscular Hemoglobin 33.1 pg (27.0-34.0); Mean Corpuscular Volume 99.1 fL (80.0-100.0); Mean Platelet Volume 10.9 fL (7.0-11.0); Platelet Count 138 th/mm3 (150-450); Red Blood Count 2.57 mil/mm3 (4.50-5.90); Red Cell Distribution Width 20.1 % (11.6-17.2); White Blood Count 3.1 th/mm3 (4.0-11.0)
[2018-09-16 06:38] LABS: Alanine Aminotransferase 13 U/L (12-78); Albumin 2.1 g/dL (3.4-5.0); Anion Gap 9 meq/L (5-15); Aspartate Aminotransferase 17 U/L (15-37); Calcium 7.7 mg/dL (8.5-10.1); Carbon Dioxide 27.7 meq/L (21.0-32.0); Chloride 110 meq/L (98-107); Glomerular Filtration Rate 42 mL/min (>89); Glucose,Random 97 mg/dL (74-106); Magnesium 1.7 mg/dL (1.5-2.5); Phosphorus 3.1 mg/dL (2.5-4.9); Potassium 3.5 meq/L (3.5-5.1); Sodium 147 meq/L (136-145)
[2018-09-16 06:40] LABS: Alkaline Phosphatase 59 U/L (45-117); Blood Urea Nitrogen 14 mg/dL (7-18); Total Protein 6.5 g/dL (6.4-8.2)
[2018-09-16 08:05] LABS: Blast Cells 15 % (0-0); Lymphocytes 60 % (9-44); Monocytes 24 % (0-8); Tallied Nucleated RBC 97 (0-0)
[2018-09-16 08:12] LABS: Ovalocytes 1+; Polychromasia 3.1 % (0.0-1.9)
[2018-09-16 08:13] LABS: Basophilic Stippling Moderate
[2018-09-16] MEDS: Polyethylene Glycol 3350 17 GM Packet PO SCH (09:55)
[2018-09-16] MEDS: Famotidine PF Inj 20 MG/2 ML Vial IV.PUSH SCH ×2 (09:56→20:09)
[2018-09-16] MEDS: Doxazosin 4 MG Tablet PO SCH (09:57)
[2018-09-16] MEDS: Senna/Docusate Sodium 8.6/50 MG Tablet PO SCH ×2 (09:57→20:12)
--- NOTE | 2018-09-16 11:13 | P.PNIM ---
Subjective Interval history: Pt seen and examined for f/u inguinal abscesses, Melina's, and neutropenia. Patient's son and daughter present at the bedside. Agree to try and remove Diaz for bladder trials. Patient is anxious to get his bone marrow biopsy results and go home. Case management and family working with [facility]. Denies CP, SOB, abdominal pain, N/V. Tolerating PO. Family reports green, loose stools multiple times throughout the day and incontinence. Patient with some lesions in his mouth and discomfort when he eats. Family requesting appetite stimulant. Physical Exam Vital signs: Vital Signs 09/15/18 12:00 09/15/18 16:00 09/15/18 20:00 Temperature 97.6 F 97.6 F 97.2 F L Pulse Rate 81 80 89 Respiratory Rate 19 19 18 Blood Pressure 143/75 H 163/80 H 136/72 Pulse Oximetry 96 96 97 09/16/18 00:00 09/16/18 08:00 Temperature 97.8 F 97.6 F Pulse Rate 81 73 Respiratory Rate 18 17 Blood Pressure 127/70 145/79 H Pulse Oximetry 96 95 Intake & Output 09/15/18 09/16/18 09/16/18 18:59 06:59 18:59 Intake Total 1400 / 1400 1958 / 1958 Output Total 2600 / 2600 1800 / 1800 Balance -1200 / -1200 158 / 158 Weight 138 kg Intake: IV 200 / 200 1478 / 1478 D5W Inj 1,000 ML @ 84 mls/hr IV 1278 / 1278 .CONT .[id number] CATHLEEN Rx#:[id number] Unasyn Inj 3 GM In NS Inj 100 200 / 200 200 / 200 ML @ 200 mls/hr IV.SIG Q6H CATHLEEN Rx#:[id number] Oral 1200 / 1200 480 / 480 Output: Urine 1800 / 1800 Urine Amount (Catheter) 2600 / 2600 Indwelling Urethral Catheter 2600 / 2600 Other: Date of Last Bowel Movement 09/15/18 # Bowel Movements 1 Narrative: GENERAL: WN, WD male sitting up in chair in NAD. SKIN: Warm and dry. Seborrheic keratosis over neck, back, and chest. HEENT: AT/NC. Pupils equal and round. MMM. +oral thrush. HEART: RRR no m/r/g. LUNGS: CTAB without wheezes or crackles. ABDOMEN: +BS, soft, NT, ND. EXTREMITIES: No LE edema. Calves supple. NEURO: Awake and alert. Very hard of hearing. PSYCH: Depressed affect. - Urinary Catheter Management Indwelling Urethral Catheter Cath placed during this visit: yes, but has since been removed by the nurse Reason for continuing: Chronic Urinary Retention Insertion date: 09/05/18 Insertion time: 00:53 Removal date: 09/13/18 Removal time: 01:15 Results - Labs CBC & Chem 7: 09/16/18 05:00 09/16/18 05:00 Laboratory Results - last 24 hr 09/14/18 09/16/18 09/16/18 10:30 05:00 05:00 WBC 3.1 L RBC 2.57 L Hgb 8.5 L Hct 25.5 L MCV 99.1 MCH 33.1 MCHC 33.4 RDW 20.1 H Plt Count 138 L MPV 10.9 Prelim Diff (Auto) Manual diff required WBC Differential Manual diff final Seg Neuts % (Manual) 1 L Lymphocytes % (Manual) 60 H Monocytes % (Manual) 24 H Blast Cells % (Manual) 15 H Abs Neuts (Manual) 0.0 L* Nucleated RBCs/100 WBC 97 H Differential Comment . Platelet Estimate Low L Platelet Morphology Enlarged H Polychromasia 3.1 H Basophilic Stippling Moderate H Ovalocytes 1+ H Sodium 147 H Potassium 3.5 Chloride 110 H Carbon Dioxide 27.7 Anion Gap 9 BUN 14 Creatinine 1.57 H Estimated GFR 42 L Random Glucose 97 Calcium 7.7 L Phosphorus 3.1 Magnesium 1.7 Total Bilirubin 0.9 AST 17 ALT 13 Alkaline Phosphatase 59 Total Protein 6.5 Albumin 2.1 L Marrow Immunophenotype - Procedures - Preoperative Diagnosis (1) Infected wound (2) Abscess of groin - Postoperative Diagnosis (1) Infected wound (2) Abscess of groin Date of procedure: 09/05/18 Procedure: Incision and drainage bilateral groin abscesses Excision 100 cm skin and subcutaneous tissue. Placement of negative pressure VAC dressing Anesthesia: REGI Surgeon: Obinna Blake MD Smelter Charger: Jorge Sunshine MD - Preoperative Diagnosis (1) Abscess of groin - Postoperative Diagnosis (1) Abscess of groin Date of procedure: 09/11/18 Procedure: Irrigation bilateral groin wounds with replacement of VAC dressing on the right Packing of wound on the left Anesthesia: SHIA Surgeon: Obinna Blake MD 09-14 BONE MARROW BIOPSY BY INTERVENTIONAL RADIOLOGY Assessment and Plan - Assessment (1) Cellulitis Code(s): L03.90 - Cellulitis, unspecified Status: Acute (2) Infected wound Code(s): T14.8XXA - Other injury of unspecified body region, initial encounter; L08.9 - Local infection of the skin and subcutaneous tissue, unspecified Status: Acute (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 Status: Acute (4) Severe sepsis Code(s): A41.9 - Sepsis, unspecified organism; R65.20 - Severe sepsis without septic shock Status: Acute (5) Neutropenia Code(s): D70.9 - Neutropenia, unspecified Status: Acute (6) MDS (myelodysplastic syndrome) Code(s): D46.9 - Myelodysplastic syndrome, unspecified Status: Chronic (7) Abscess of groin Code(s): L02.214 - Cutaneous abscess of groin Status: Acute - Plan 88 year old male with leukopenia, ?MDS, HTN, hypothryoidism, history of prostate cancer, and chronic bilateral inguinal hernias admitted on 09/04 for fever, pain, and bilateral open wounds along his groin. CT scan showed 7.5 cm inflammatory and edematous area in the right inguinal region containing probable small loculated abscesses. Edematous change extends inferiorly through the lower aspect of both inguinal canals into the scrotum with marked scrotal wall thickening and small locules of air in the upper left scrotum that could represent a necrotizing infection. There is herniation of fat through both inguinal canals. 1. Sepsis - Met sepsis criteria based on tachycardia, hypotension, and source of infection (bilateral inguinal abscess/Melina's gangrene), lactic acid 2.0 - Patient originally admitted to ICU, resuscitated with IV fluids, and started on broad-spectrum abx - ID following - Blood cultures negative - Wound culture growing MSSA, Group B strep, and mixed anaerobes - See plans below regarding infection 2. Melina's gangrene, bilateral inguinal abscess - General surgery and urology consulted - S/P debridement with wound vac placed on 09/05, 09/08, and 09/11 - Wound vac removed 09/14 - ID following, changed to Unasyn, last seen on 09/10 3. Neutropenia - ?h/o MDS - Hematology following - Received 8 days of Neupogen - Bone marrow biopsy done on 09/14 - Neutropenic precautions 4. Diarrhea - Likely secondary to antibiotics but will repeat C. diff - D/C Miralax - Start Lactinex 5. Hypothyroidism - Continue levothyroxine 6. Hypertension - BPs stable - Continue nifedipine and doxazosin - Holding home Lisinopril due to JIM - Clonidine PRN - Continue to monitor BPs 7. Pulmonary edema - resolved - 2D echo 09/14 with EF 50-55% - Caution with fluids 8. Hypernatremia - Sodium coming down (147 this AM), continue D5W and monitor 9. JIM - Creatinine 1.1 on admission, increased up to 1.66 - Down slightly to 1.57 this AM - Continue gentle hydration - Avoid nephrotoxins - Continue to monitor renal function 10. Thrush - Start Nystatin s&s 11. 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
--- NOTE | 2018-09-16 14:46 | P.PNONC ---
Subjective Interval history: Afebrile. Patient sleeping on approach, awakens easily to voice. His son and daughter at the bedside. Family reports the patient is "not doing too good". They report a sore on his bottom lip and diarrhea which began yesterday. They have questions in regards to rehab and would like to discuss this further with case management. Objective Vital Signs/Intake & Output: Vital Signs 09/15/18 16:00 09/15/18 20:00 09/16/18 00:00 Temperature 97.6 F 97.2 F L 97.8 F Pulse Rate 80 89 81 Respiratory Rate 19 18 18 Blood Pressure 163/80 H 136/72 127/70 Pulse Oximetry 96 97 96 09/16/18 08:00 09/16/18 12:00 Temperature 97.6 F 97.9 F Pulse Rate 73 78 Respiratory Rate 17 15 Blood Pressure 145/79 H 133/66 Pulse Oximetry 95 98 Intake & Output 09/15/18 09/16/18 09/16/18 18:59 06:59 18:59 Intake Total 1400 / 1400 1958 / 1958 100 / 100 Output Total 2600 / 2600 1800 / 1800 Balance -1200 / -1200 158 / 158 100 / 100 Weight 138 kg Intake: IV 200 / 200 1478 / 1478 100 / 100 D5W Inj 1,000 ML @ 84 mls/hr IV 1278 / 1278 .CONT .[id number] [facility]ATHLE[facility] Rx#:[id number] Unasyn Inj 3 GM In NS Inj 100 200 / 200 200 / 200 100 / 100 ML @ 200 mls/hr IV.SIG Q6H CATHLE[facility] Rx#:[id number] Oral 1200 / 1200 480 / 480 Output: Urine 1800 / 1800 Urine Amount (Catheter) 2600 / 2600 Indwelling Urethral Catheter 2600 / 2600 Other: Date of Last Bowel Movement 09/15/18 # Bowel Movements 1 Result Diagrams: 09/16/18 05:00 09/16/18 05:00 Laboratory Results: Laboratory Results - last 24 hr 09/14/18 09/16/18 09/16/18 10:30 05:00 05:00 WBC 3.1 L RBC 2.57 L Hgb 8.5 L Hct 25.5 L MCV 99.1 MCH 33.1 MCHC 33.4 RDW 20.1 H Plt Count 138 L MPV 10.9 Prelim Diff (Auto) Manual diff required WBC Differential Manual diff final Seg Neuts % (Manual) 1 L Lymphocytes % (Manual) 60 H Monocytes % (Manual) 24 H Blast Cells % (Manual) 15 H Abs Neuts (Manual) 0.0 L* Nucleated RBCs/100 WBC 97 H Differential Comment . Platelet Estimate Low L Platelet Morphology Enlarged H Polychromasia 3.1 H Basophilic Stippling Moderate H Ovalocytes 1+ H Sodium 147 H Potassium 3.5 Chloride 110 H Carbon Dioxide 27.7 Anion Gap 9 BUN 14 Creatinine 1.57 H Estimated GFR 42 L Random Glucose 97 Calcium 7.7 L Phosphorus 3.1 Magnesium 1.7 Total Bilirubin 0.9 AST 17 ALT 13 Alkaline Phosphatase 59 Total Protein 6.5 Albumin 2.1 L Marrow Immunophenotype Medications: Active Medications Generic Name Dose Route Start Last Admin Trade Name Freq PRN Reason Stop Dose Admin Acetaminophen 650 mg 09/05/18 22:19 09/13/18 14:24 Tylenol Liq NG/OG 650 mg Q6H PRN Administration TEMP > 101 Albuterol 2.5 mg 09/05/18 00:27 09/14/18 00:46 Albuterol Neb (Prn) NEB 2.5 mg Q2HR NEB PRN Administration SHORTNESS OF BREATH/WHEEZING Clonidine HCl 0.1 mg 09/12/18 18:29 09/15/18 05:56 Catapres PO 0.1 mg Q8H PRN Administration SBP>160 DBP>90 Diphenhydramine HCl 25 mg 09/13/18 23:57 09/14/18 00:00 Benadryl PO 25 mg HS PRN Administration INSOMNIA Doxazosin Mesylate 8 mg 09/13/18 15:00 09/16/18 09:57 Cardura PO 8 mg DAILY CATHLEEN Administration Famotidine 10 mg 09/12/18 21:00 09/16/18 09:56 Pepcid Pf Inj IV.PUSH 10 mg Q12HR CATHLEEN Administration Ampicillin Sodium/Sulbactam 100 mls @ 200 mls/hr 09/10/18 14:00 09/16/18 14: 24 Sodium 3 gm/ Sodium Chloride IV.SIG 200 mls/hr Q6H CATHLENE Administration Dextrose 1,000 mls @ 84 mls/hr 09/15/18 12:00 09/16/18 13:13 D5w Inj IV.CONT Not Given .[id number] CATHLEEN Levothyroxine Sodium 150 mcg 09/13/18 06:00 09/16/18 05:25 Synthroid PO 150 mcg DAILY@0600 CATHLEEN Administration Nifedipine 30 mg 09/13/18 14:15 09/16/18 09:56 Procardia Xl PO 30 mg DAILY CATHLEEN Administration Polyethylene Glycol 17 gm 09/12/18 13:30 09/16/18 09:55 Miralax PO 17 gm DAILY CATHLEEN Administration Senna/Docusate Sodium 1 tab 09/05/18 09:00 09/16/18 09:57 Sunshine-Colace PO 1 tab BID CATHLEEN Administration Sodium Chloride 2 ml 09/05/18 09:00 09/16/18 10:00 Ns Flush IV.FLUSH Not Given BID CATHLEEN Tamsulosin HCl 0.4 mg 09/06/18 20:00 09/16/18 09:57 Flomax PO 0.4 mg DAILY CATHLEEN Administration Objective Remarks: GENERAL: Chronically ill-appearing elderly male patient, in no acute distress. SKIN: Warm and dry. HEAD: Normocephalic. MOUTH: Ulcer to left bottom inner lip, small white patches to posterior soft palate. Poor dentition. EYES: No scleral icterus. No injection or drainage. NECK: Supple, trachea midline. CARDIOVASCULAR: Regular rate and rhythm without murmurs. RESPIRATORY: Breath sounds equal bilaterally. Nonlabored at rest. GASTROINTESTINAL: Abdomen large, soft, non-tender. Edema to the scrotum. + Diaz catheter, draining yellow urine with sediment. EXTREMITIES: No cyanosis, or edema. MUSCULOSKELETAL: Decreased muscle tone. NEUROLOGICAL: No obvious focal deficit. Sleeping, awakens easily to voice. PSYCHIATRIC: Appropriate mood and affect; insight and judgment normal. Assessment/Plan - Plan Mr. Bishop is a pleasant 88-year-old gentleman, who was hospitalized and currently being treated for inguinal area abscesses. He has been on the ventilator and oncology was consulted for neutropenia. The patient has a history of myelofibrosis, diagnosed in November 2017. He is currently under the care of Dr. Feliz and has recently been evaluated at [facility]. Recommendations: 1. Remains neutropenic. Neupogen has been discontinued. Pt received 8 days of neupogen. Status post bone marrow biopsy, flow cytometry findings are consistent with myelodysplasia. 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 Marrow analysis rotations are pending. 2. 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 Wound vacs have been removed. 3. Await complete bone marrow biopsy results. 4. Continue neutropenic precautions. 5. Diarrhea, management per attending, D-diff testing has been ordered. - Attending Statement The exam, history, and the medical decision-making described in the above note were completed with the assistance of the mid-level provider. I reviewed and agree with the findings presented. I attest that I had a [id number] encounter with the patient on the same day, and personally performed and documented my assessment and findings in the medical record. Patient is complaining of weakness and fatigue Groin wound is healing nicely Bone marrow biopsy results are still pending Monitor CBC
[2018-09-16] MEDS: Nystatin/Diphenhydramine/Lidocaine Mouthwash (Adult) 120 ML Botttle SWISH-SWAL SCH ×3 (16:48→20:08)
[2018-09-16] MEDS: Heparin - SQ 10,000 UNITS/ML Vial SQ SCH (20:09)
[2018-09-16] MEDS: Mirtazapine 15 MG Tablet PO SCH (20:12)
[2018-09-17] MEDS: Ampicillin/Sulbactam Inj 3 GM in Sodium Chloride 0.9% Inj 100 ML IV.SIG SCH ×4 (02:17→20:15)
[2018-09-17] MEDS: Levothyroxine 150 MCG Tablet PO SCH (05:31)
[2018-09-17] MEDS: Dextrose 5% in Water Inj 1,000 ML IV.CONT SCH (05:32)
[2018-09-17 08:21] LABS: Hematocrit 26.2 % (39.0-51.0); Hemoglobin 8.9 gm/dL (13.0-17.0); Mean Corpuscular HGB Conc 34.1 % (32.0-36.0); Mean Corpuscular Hemoglobin 33.7 pg (27.0-34.0); Mean Corpuscular Volume 98.9 fL (80.0-100.0); Mean Platelet Volume 9.9 fL (7.0-11.0); Platelet Count 112 th/mm3 (150-450); Red Blood Count 2.65 mil/mm3 (4.50-5.90); Red Cell Distribution Width 19.9 % (11.6-17.2); White Blood Count 2.8 th/mm3 (4.0-11.0)
[2018-09-17 08:37] LABS: Calcium 7.9 mg/dL (8.5-10.1); Carbon Dioxide 26.9 meq/L (21.0-32.0); Potassium 3.2 meq/L (3.5-5.1)
[2018-09-17 09:00] LABS: Blast Cells 16 % (0-0); Lymphocytes 47 % (9-44); Monocytes 35 % (0-8); Tallied Nucleated RBC 75 (0-0)
[2018-09-17 09:02] LABS: Basophilic Stippling Moderate; Platelet Morphology Normal (Normal)
[2018-09-17 09:04] LABS: Ovalocytes 1+; Polychromasia 3.5 % (0.0-1.9)
[2018-09-17] MEDS: Doxazosin 4 MG Tablet PO SCH (09:43)
[2018-09-17] MEDS: Senna/Docusate Sodium 8.6/50 MG Tablet PO SCH ×2 (09:43→20:15)
[2018-09-17] MEDS: Famotidine PF Inj 20 MG/2 ML Vial IV.PUSH SCH ×2 (09:43→20:19)
[2018-09-17] MEDS: Heparin - SQ 10,000 UNITS/ML Vial SQ SCH ×2 (09:43→20:14)
[2018-09-17] MEDS: Nystatin/Diphenhydramine/Lidocaine Mouthwash (Adult) 120 ML Botttle SWISH-SWAL SCH ×4 (09:44→20:15)
--- NOTE | 2018-09-17 09:50 | P.PNIM ---
Subjective Interval history: Pt seen and examined. D/W RN. Patient not having diarrhea. Stool is brown and soft and he is having small amounts at a time. Pt denies abdominal pain, CP, SOB, N/V. BM biopsy results still pending. Physical Exam Vital signs: Vital Signs 09/16/18 12:00 09/16/18 16:00 09/16/18 20:00 Temperature 97.9 F 97.7 F 97.9 F Pulse Rate 78 80 84 Respiratory Rate 15 17 20 Blood Pressure 133/66 143/69 H 146/79 H Pulse Oximetry 98 95 96 09/16/18 20:04 09/17/18 00:00 09/17/18 08:00 Temperature 97.1 F L 98.5 F Pulse Rate 88 78 Respiratory Rate 21 17 Blood Pressure 159/86 H 153/75 H Pulse Oximetry 95 95 96 Intake & Output 09/16/18 09/17/18 09/17/18 18:59 06:59 18:59 Intake Total 1562 / 1562 1560 / 1560 Output Total 3245 / 3245 Balance -1683 / -1683 1560 / 1560 Weight 138 kg Intake: IV 922 / 922 1200 / 1200 D5W Inj 1,000 ML @ 84 mls/hr IV 722 / 722 1000 / 1000 .CONT .[id number] CATHLEEN Rx#:[id number] Unasyn Inj 3 GM In NS Inj 100 200 / 200 200 / 200 ML @ 200 mls/hr IV.SIG Q6H CATHLEEN Rx#:[id number] Oral 640 / 640 360 / 360 Output: Urine 1845 / 1845 Urine Amount (Catheter) 1400 / 1400 Indwelling Urethral Catheter 1400 / 1400 Other: # Voids 3 5 Date of Last Bowel Movement 09/15/18 # Bowel Movements 5 Narrative: GENERAL: WN, WD male sitting up in chair in NAD. SKIN: Warm and dry. Seborrheic keratosis over neck, back, and chest. HEENT: AT/NC. Pupils equal and round. MMM. +oral thrush. HEART: RRR no m/r/g. LUNGS: CTAB without wheezes or crackles. ABDOMEN: +BS, soft, NT, ND. B/L inguinal wounds packed. No surrounding erythema. EXTREMITIES: No LE edema. Calves supple. NEURO: Awake and alert. Very hard of hearing. - Urinary Catheter Management Indwelling Urethral Catheter Cath placed during this visit: yes, but has since been removed by the nurse Reason for continuing: Chronic Urinary Retention Insertion date: 09/05/18 Insertion time: 00:53 Removal date: 09/13/18 Removal time: 01:15 Results - Labs CBC & Chem 7: 09/17/18 07:50 09/17/18 07:50 Laboratory Results - last 24 hr 09/16/18 09/17/18 09/17/18 19:13 07:50 07:50 WBC 2.8 L RBC 2.65 L Hgb 8.9 L Hct 26.2 L MCV 98.9 MCH 33.7 MCHC 34.1 RDW 19.9 H Plt Count 112 L MPV 9.9 Prelim Diff (Auto) Manual diff required WBC Differential Manual diff final Seg Neuts % (Manual) 2 L Lymphocytes % (Manual) 47 H Monocytes % (Manual) 35 H Blast Cells % (Manual) 16 H Abs Neuts (Manual) 0.1 L* Nucleated RBCs/100 WBC 75 H Differential Comment . Platelet Estimate Low L Platelet Morphology Normal Polychromasia 3.5 H Basophilic Stippling Moderate H Ovalocytes 1+ H Sodium 144 Potassium 3.2 L Chloride 107 Carbon Dioxide 26.9 Anion Gap 10 BUN 9 Creatinine 1.12 Estimated GFR 62 L Random Glucose 90 Calcium 7.9 L Stl C.difficile DNA Amp Negative St C. diff Tox Epid 027 Negative - Procedures - Preoperative Diagnosis (1) Infected wound (2) Abscess of groin - Postoperative Diagnosis (1) Infected wound (2) Abscess of groin Date of procedure: 09/05/18 Procedure: Incision and drainage bilateral groin abscesses Excision 100 cm skin and subcutaneous tissue. Placement of negative pressure VAC dressing Anesthesia: GETA Surgeon: Obinna Blake MD Physical Therapist Assistant: Jorge Sunshine MD - Preoperative Diagnosis (1) Abscess of groin - Postoperative Diagnosis (1) Abscess of groin Date of procedure: 09/11/18 Procedure: Irrigation bilateral groin wounds with replacement of VAC dressing on the right Packing of wound on the left Anesthesia: GETA Surgeon: Obinna Blake MD 11-8 BONE MARROW BIOPSY BY INTERVENTIONAL RADIOLOGY Assessment and Plan - Assessment (1) Cellulitis Code(s): L03.90 - Cellulitis, unspecified Status: Acute (2) Infected wound Code(s): T14.8XXA - Other injury of unspecified body region, initial encounter; L08.9 - Local infection of the skin and subcutaneous tissue, unspecified Status: Acute (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 Status: Acute (4) Severe sepsis Code(s): A41.9 - Sepsis, unspecified organism; R65.20 - Severe sepsis without septic shock Status: Acute (5) Neutropenia Code(s): D70.9 - Neutropenia, unspecified Status: Acute (6) MDS (myelodysplastic syndrome) Code(s): D46.9 - Myelodysplastic syndrome, unspecified Status: Chronic (7) Abscess of groin Code(s): L02.214 - Cutaneous abscess of groin Status: Acute - Plan 88 year old male with leukopenia, ?MDS, HTN, hypothryoidism, history of prostate cancer, and chronic bilateral inguinal hernias admitted on 09/04 for fever, pain, and bilateral open wounds along his groin. CT scan showed 7.5 cm inflammatory and edematous area in the right inguinal region containing probable small loculated abscesses. Edematous change extends inferiorly through the lower aspect of both inguinal canals into the scrotum with marked scrotal wall thickening and small locules of air in the upper left scrotum that could represent a necrotizing infection. There is herniation of fat through both inguinal canals. 1. Sepsis - Met sepsis criteria based on tachycardia, hypotension, and source of infection (bilateral inguinal abscess/Melina's gangrene), lactic acid 2.0 - Patient originally admitted to ICU, resuscitated with IV fluids, and started on broad-spectrum abx - ID following - Blood cultures negative - Wound culture growing MSSA, Group B strep, and mixed anaerobes - See plans below regarding infection 2. Melina's gangrene, bilateral inguinal abscess - General surgery and urology consulted - S/P debridement with wound vac placed on 09/05, 09/08, and 09/11 - Wound vac removed 09/14 - ID following, changed to Unasyn, last seen on 09/10 3. Neutropenia - ?h/o MDS - Hematology following - Received 8 days of Neupogen with no improvement - Bone marrow biopsy done on 09/14, resulting pending - BM cytology with findings of myelodysplasia as well as concurrent low-grade B- cell lymphoproliferative neoplasm - Neutropenic precautions 4. Diarrhea - improving - Likely secondary to antibiotics - C. diff negative - D/C'd Miralax - Continue Lactinex 5. Hypothyroidism - Continue levothyroxine 6. Hypertension - BPs a little high - Continue nifedipine and doxazosin - Resume home Lisinopril since JIM resolved - Clonidine PRN - Continue to monitor BPs 7. Pulmonary edema - resolved - 2D echo 09/14 with EF 50-55% - Caution with fluids 8. Hypernatremia - Resolved - Can D/C IV fluids 9. JIM - Creatinine 1.1 on admission, increased up to 1.66 and now back to 1.12 today - Avoid nephrotoxins - Continue to monitor renal function 10. Thrush - Continue Nystatin s&s - Soft diet 11. Protein calorie malnutrition - Albumin 2.1 - Start Remeron at bedtime - Add Ensure pudding to meals DVT prophylaxis: heparin Discharge Planning: Possibly in next 1-2 days if cleared by all specialists, case management assisting with placement into rehab, hopefully [facility] (1) Cellulitis Qualifiers: Site of cellulitis: other site Qualified Code(s): L03.818 - Cellulitis of other sites
--- NOTE | 2018-09-17 11:32 | P.PNONC ---
Subjective Interval history: Afebrile. No complaints at this time. Son is at the bedside. Objective Vital Signs/Intake & Output: Vital Signs 09/16/18 12:00 09/16/18 16:00 09/16/18 20:00 Temperature 97.9 F 97.7 F 97.9 F Pulse Rate 78 80 84 Respiratory Rate 15 17 20 Blood Pressure 133/66 143/69 H 146/79 H Pulse Oximetry 98 95 96 09/16/18 20:04 09/17/18 00:00 09/17/18 08:00 Temperature 97.1 F L 98.5 F Pulse Rate 88 78 Respiratory Rate 21 17 Blood Pressure 159/86 H 153/75 H Pulse Oximetry 95 95 96 Intake & Output 09/16/18 09/17/18 09/17/18 18:59 06:59 18:59 Intake Total 1562 / 1562 1560 / 1560 624 / 624 Output Total 3245 / 3245 Balance -1683 / -1683 1560 / 1560 624 / 624 Weight 138 kg Intake: IV 922 / 922 1200 / 1200 624 / 624 D5W Inj 1,000 ML @ 84 mls/hr IV 722 / 722 1000 / 1000 524 / 524 .CONT .[id number] CATHLEEN Rx#:[id number] Unasyn Inj 3 GM In NS Inj 100 200 / 200 200 / 200 100 / 100 ML @ 200 mls/hr IV.SIG Q6H CATHLEEN Rx#:[id number] Oral 640 / 640 360 / 360 Output: Urine 1845 / 1845 Urine Amount (Catheter) 1400 / 1400 Indwelling Urethral Catheter 1400 / 1400 Other: # Voids 3 5 Date of Last Bowel Movement 09/15/18 # Bowel Movements 5 Result Diagrams: 09/17/18 07:50 09/17/18 07:50 Laboratory Results: Laboratory Results - last 24 hr 09/16/18 09/17/18 09/17/18 19:13 07:50 07:50 WBC 2.8 L RBC 2.65 L Hgb 8.9 L Hct 26.2 L MCV 98.9 MCH 33.7 MCHC 34.1 RDW 19.9 H Plt Count 112 L MPV 9.9 Prelim Diff (Auto) Manual diff required WBC Differential Manual diff final Seg Neuts % (Manual) 2 L Lymphocytes % (Manual) 47 H Monocytes % (Manual) 35 H Blast Cells % (Manual) 16 H Abs Neuts (Manual) 0.1 L* Nucleated RBCs/100 WBC 75 H Differential Comment . Platelet Estimate Low L Platelet Morphology Normal Polychromasia 3.5 H Basophilic Stippling Moderate H Ovalocytes 1+ H Sodium 144 Potassium 3.2 L Chloride 107 Carbon Dioxide 26.9 Anion Gap 10 BUN 9 Creatinine 1.12 Estimated GFR 62 L Random Glucose 90 Calcium 7.9 L Stl C.difficile DNA Amp Negative St C. diff Tox Epid 027 Negative Medications: Active Medications Generic Name Dose Route Start Last Admin Trade Name Freq PRN Reason Stop Dose Admin Acetaminophen 650 mg 09/05/18 22:19 09/13/18 14:24 Tylenol Liq NG/OG 650 mg Q6H PRN Administration TEMP > 101 Albuterol 2.5 mg 09/05/18 00:27 09/14/18 00:46 Albuterol Neb (Prn) NEB 2.5 mg Q2HR NEB PRN Administration SHORTNESS OF BREATH/WHEEZING Clonidine HCl 0.1 mg 09/12/18 18:29 09/15/18 05:56 Catapres PO 0.1 mg Q8H PRN Administration SBP>160 DBP>90 Diphenhydramine HCl 25 mg 09/13/18 23:57 09/14/18 00:00 Benadryl PO 25 mg HS PRN Administration INSOMNIA Doxazosin Mesylate 8 mg 09/13/18 15:00 09/17/18 09:43 Cardura PO 8 mg DAILY CATHLEEN Administration Famotidine 10 mg 09/12/18 21:00 09/17/18 09:43 Pepcid Pf Inj IV.PUSH 10 mg Q12HR CATHLEEN Administration Heparin Sodium (Porcine) 5,000 units 09/16/18 21:00 09/17/18 09:43 Heparin Inj SQ 5,000 units Q12HR CATHLEEN Administration Ampicillin Sodium/Sulbactam 100 mls @ 200 mls/hr 09/10/18 14:00 09/17/18 11: 10 Sodium 3 gm/ Sodium Chloride IV.SIG Infused Q6H CATHLEEN Infusion Lactobacillus Acidophilus 1 gm 09/16/18 18:00 09/17/18 09:44 Lactinex Pkt PO 1 gm TID CATHLEEN Administration Levothyroxine Sodium 150 mcg 09/13/18 06:00 09/17/18 05:31 Synthroid PO 150 mcg DAILY@0600 CATHLEEN Administration Mirtazapine 15 mg 09/16/18 21:00 09/16/18 20:12 Remeron PO 15 mg HS CATHLEEN Administration Multi-Ingredient Mouthwash/Gargle 10 ml 09/16/18 18:00 09/17/18 09:44 Magic Mouthwash Adult Liq SWISH-SWAL 10 ml QID CATHLEEN Administration Nifedipine 30 mg 09/13/18 14:15 09/17/18 09:44 Procardia Xl PO 30 mg DAILY CATHLEEN Administration Senna/Docusate Sodium 1 tab 09/05/18 09:00 09/17/18 09:43 Sunshine-Colace PO 1 tab BID CATHLEEN Administration Sodium Chloride 2 ml 09/05/18 09:00 09/17/18 09:44 Ns Flush IV.FLUSH Not Given BID CATHLEEN Tamsulosin HCl 0.4 mg 09/06/18 20:00 09/17/18 09:43 Flomax PO 0.4 mg DAILY CATHLEEN Administration Objective Remarks: GENERAL: Chronically ill-appearing elderly male patient, in no acute distress. SKIN: Warm and dry. Bilateral groin dressings dry/intact. HEAD: Normocephalic. MOUTH: Ulcer to left bottom inner lip, light brown scab. Poor dentition. EYES: No scleral icterus. No injection or drainage. NECK: Supple, trachea midline. CARDIOVASCULAR: Regular rate and rhythm without murmurs. RESPIRATORY: Breath sounds equal bilaterally. Nonlabored at rest. GASTROINTESTINAL: Abdomen large, soft, non-tender. Edema to the scrotum. + Diaz catheter. EXTREMITIES: No cyanosis, or edema. MUSCULOSKELETAL: Decreased muscle tone. NEUROLOGICAL: No obvious focal deficit. Awake and alert. PSYCHIATRIC: Appropriate mood and affect; insight and judgment normal. Assessment/Plan - Plan Mr. Bishop is a pleasant 88-year-old gentleman, who was hospitalized and currently being treated for inguinal area abscesses. He has been on the ventilator and oncology was consulted for neutropenia. The patient has a history of myelofibrosis, diagnosed in November 2017. He is currently under the care of Dr. Feliz and has recently been evaluated at [facility]. Recommendations: 1. Remains neutropenic. Status post bone marrow biopsy, pending. 2. 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 3. Await bone marrow biopsy results. 4. Continue neutropenic precautions. - Attending Statement The exam, history, and the medical decision-making described in the above note were completed with the assistance of the mid-level provider. I reviewed and agree with the findings presented. I attest that I had a [id number] encounter with the patient on the same day, and personally performed and documented my assessment and findings in the medical record. Patient feels better Anxious to know the results of the bone marrow biopsy The biopsy results are still pending Continue to monitor CBC
[2018-09-17] MEDS: Mirtazapine 15 MG Tablet PO SCH (20:14)
[2018-09-17] MEDS: Lisinopril 5 MG Tablet PO SCH (20:15)
[2018-09-18] MEDS: Ampicillin/Sulbactam Inj 3 GM in Sodium Chloride 0.9% Inj 100 ML IV.SIG SCH ×4 (03:10→20:07)
[2018-09-18] MEDS: Levothyroxine 150 MCG Tablet PO SCH (06:19)
[2018-09-18] MEDS: Heparin - SQ 10,000 UNITS/ML Vial SQ SCH ×2 (08:33→20:09)
[2018-09-18] MEDS: Famotidine PF Inj 20 MG/2 ML Vial IV.PUSH SCH ×2 (08:34→20:08)
[2018-09-18] MEDS: Doxazosin 4 MG Tablet PO SCH (08:34)
[2018-09-18] MEDS: Nystatin/Diphenhydramine/Lidocaine Mouthwash (Adult) 120 ML Botttle SWISH-SWAL SCH ×4 (08:35→20:10)
[2018-09-18] MEDS: Senna/Docusate Sodium 8.6/50 MG Tablet PO SCH ×2 (08:35→20:09)
[2018-09-18] MEDS: Lisinopril 5 MG Tablet PO SCH ×2 (08:35→20:09)
--- NOTE | 2018-09-18 12:06 | P.PN ---
Subjective Interval history: Follow-up Melina disease/neutropenic fever September 18, 2018-patient seen and examined, afebrile, some episode of anxiety per nurse report otherwise patient stable. Case discussed with patient's Son at the bedside. Physical Exam Vital signs: Vital Signs 09/17/18 12:00 09/17/18 16:00 09/17/18 17:28 Temperature 97.8 F 98.1 F Pulse Rate 98 H 88 Respiratory Rate 17 18 Blood Pressure 110/69 129/74 Pulse Oximetry 98 97 97 09/17/18 20:00 09/18/18 00:00 09/18/18 08:00 Temperature 98.2 F 98.0 F 98.2 F Pulse Rate 81 81 80 Respiratory Rate 22 21 20 Blood Pressure 162/76 H 169/77 H 136/71 Pulse Oximetry 96 98 97 Intake & Output 09/17/18 09/18/18 09/18/18 18:59 06:59 18:59 Intake Total 1199 / 1199 680 / 680 Output Total 775 / 775 1750 / 1750 Balance 424 / 424 -1070 / -1070 Weight 138 kg Intake: IV 724 / 724 200 / 200 D5W Inj 1,000 ML @ 84 mls/hr IV 524 / 524 .CONT .[id number] CATHLEEN Rx#:[id number] Unasyn Inj 3 GM In NS Inj 100 200 / 200 200 / 200 ML @ 200 mls/hr IV.SIG Q6H CATHLEEN Rx#:[id number] Oral 475 / 475 480 / 480 Output: Urine 775 / 775 1750 / 1750 Other: # Voids 5 2 Date of Last Bowel Movement 09/15/18 # Bowel Movements 4 2 Narrative: GENERAL: WN, WD in NAD. SKIN: Warm and dry. Seborrheic keratosis over neck, back, and chest. HEENT: AT/NC. Pupils equal and round. MMM. +oral thrush. HEART: RRR no m/r/g. LUNGS: CTAB without wheezes or crackles. ABDOMEN: +BS, soft, NT, ND. B/L inguinal wounds packed. No surrounding erythema. EXTREMITIES: No LE edema. Calves supple. NEURO: Awake and alert. Very hard of hearing. - Urinary Catheter Management Indwelling Urethral Catheter Cath placed during this visit: yes, but has since been removed by the nurse Reason for continuing: Chronic Urinary Retention Insertion date: 09/05/18 Insertion time: 00:53 Removal date: 09/13/18 Removal time: 01:15 Results - Labs CBC & Chem 7: 09/17/18 07:50 09/17/18 07:50 - Procedures - Preoperative Diagnosis (1) Infected wound (2) Abscess of groin - Postoperative Diagnosis (1) Infected wound (2) Abscess of groin Date of procedure: 09/05/18 Procedure: Incision and drainage bilateral groin abscesses Excision 100 cm skin and subcutaneous tissue. Placement of negative pressure VAC dressing Anesthesia: GETA Surgeon: Obinna Blake MD Allergist/Immunologist: Jorge Sunshine MD - Preoperative Diagnosis (1) Abscess of groin - Postoperative Diagnosis (1) Abscess of groin Date of procedure: 09/11/18 Procedure: Irrigation bilateral groin wounds with replacement of VAC dressing on the right Packing of wound on the left Anesthesia: GETA Surgeon: Obinna Blake MD 11-8 BONE MARROW BIOPSY BY INTERVENTIONAL RADIOLOGY Assessment and Plan - Assessment (1) Cellulitis Code(s): L03.90 - Cellulitis, unspecified Status: Acute (2) Infected wound Code(s): T14.8XXA - Other injury of unspecified body region, initial encounter; L08.9 - Local infection of the skin and subcutaneous tissue, unspecified Status: Acute (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 Sepsis-Resolved - Met sepsis criteria based on tachycardia, hypotension, and source of infection (bilateral inguinal abscess/Melina's gangrene), lactic acid 2.0 - ID following - Wound culture growing MSSA, Group B strep, and mixed anaerobes 2. Melina's gangrene, bilateral inguinal abscess - General surgery and urology ff - S/P debridement with wound vac placed on 09/05, 09/08, and 09/11 - Wound vac removed 09/14 - ID following, currently on Unasyn 3. Neutropenia - ?h/o MDS - Hematology ff - Received 8 days of Neupogen with no improvement - Bone marrow biopsy done on 09/14, pending report - BM cytology with findings of myelodysplasia as well as concurrent low-grade B- cell lymphoproliferative neoplasm - Neutropenic precautions 4. Diarrhea - improving - C. diff negative - Continue Lactinex 5. Hypothyroidism - Continue levothyroxine 6. Hypertension - Continue nifedipine and doxazosin as well as Lisinopril 7. Pulmonary edema - resolved - 2D echo 09/14 with EF 50-55% 8. Hypernatremia - Resolved 9. JIM - Avoid nephrotoxins - Continue to monitor renal function 10. Thrush - Continue Nystatin s&s 11. Protein calorie malnutrition - Albumin 2.1 - On Remeron HS DVT prophylaxis: heparin Discharge Planning: Likely discharge to [facility] today (1) Cellulitis Qualifiers: Site of cellulitis: other site Qualified Code(s): L03.818 - Cellulitis of other sites
--- NOTE | 2018-09-18 17:06 | P.PNONC ---
Subjective Interval history: Patient sleeping on approach, awakens easily to voice. He is asking if his bone marrow biopsy results are back. Objective Vital Signs/Intake & Output: Vital Signs 09/17/18 17:28 09/17/18 20:00 09/18/18 00:00 Temperature 98.2 F 98.0 F Pulse Rate 81 81 Respiratory Rate 22 21 Blood Pressure 162/76 H 169/77 H Pulse Oximetry 97 96 98 09/18/18 08:00 09/18/18 12:00 09/18/18 16:00 Temperature 98.2 F 98.0 F 98.7 F Pulse Rate 80 84 79 Respiratory Rate 20 18 20 Blood Pressure 136/71 124/63 137/70 Pulse Oximetry 97 98 96 Intake & Output 09/17/18 09/18/18 09/18/18 18:59 06:59 18:59 Intake Total 1199 / 1199 680 / 680 200 / 200 Output Total 775 / 775 1750 / 1750 Balance 424 / 424 -1070 / -1070 200 / 200 Weight 138 kg Intake: IV 724 / 724 200 / 200 200 / 200 D5W Inj 1,000 ML @ 84 mls/hr IV 524 / 524 .CONT .[id number] CATHLEEN Rx#:[id number] Unasyn Inj 3 GM In NS Inj 100 200 / 200 200 / 200 200 / 200 ML @ 200 mls/hr IV.SIG Q6H CATHLEEN Rx#:[id number] Oral 475 / 475 480 / 480 Output: Urine 775 / 775 1750 / 1750 Other: # Voids 5 2 Date of Last Bowel Movement 09/15/18 # Bowel Movements 4 2 Result Diagrams: 09/17/18 07:50 09/17/18 07:50 Medications: Active Medications Generic Name Dose Route Start Last Admin Trade Name Freq PRN Reason Stop Dose Admin Acetaminophen 650 mg 09/05/18 22:19 09/13/18 14:24 Tylenol Liq NG/OG 650 mg Q6H PRN Administration TEMP > 101 Albuterol 2.5 mg 09/05/18 00:27 09/14/18 00:46 Albuterol Neb (Prn) NEB 2.5 mg Q2HR NEB PRN Administration SHORTNESS OF BREATH/WHEEZING Clonidine HCl 0.1 mg 09/12/18 18:29 09/15/18 05:56 Catapres PO 0.1 mg Q8H PRN Administration SBP>160 DBP>90 Diphenhydramine HCl 25 mg 09/13/18 23:57 09/14/18 00:00 Benadryl PO 25 mg HS PRN Administration INSOMNIA Doxazosin Mesylate 8 mg 09/13/18 15:00 09/18/18 08:34 Cardura PO 8 mg DAILY CATHLEEN Administration Famotidine 10 mg 09/12/18 21:00 09/18/18 08:34 Pepcid Pf Inj IV.PUSH 10 mg Q12HR CATHLEEN Administration Heparin Sodium (Porcine) 5,000 units 09/16/18 21:00 09/18/18 08:33 Heparin Inj SQ 5,000 units Q12HR CATHLEEN Administration Ampicillin Sodium/Sulbactam 100 mls @ 200 mls/hr 09/10/18 14:00 09/18/18 15: 25 Sodium 3 gm/ Sodium Chloride IV.SIG Infused Q6H CATHLEEN Infusion Lactobacillus Acidophilus 1 gm 09/16/18 18:00 09/18/18 13:35 Lactinex Pkt PO 1 gm TID CATHLEEN Administration Levothyroxine Sodium 150 mcg 09/13/18 06:00 09/18/18 06:19 Synthroid PO 150 mcg DAILY@0600 CATHLEEN Administration Lisinopril 5 mg 09/17/18 21:00 09/18/18 08:35 Prinivil PO 5 mg BID CATHLEEN Administration Mirtazapine 15 mg 09/16/18 21:00 09/17/18 20:14 Remeron PO 15 mg HS CATHLEEN Administration Multi-Ingredient Mouthwash/Gargle 10 ml 09/16/18 18:00 09/18/18 13:35 Magic Mouthwash Adult Liq SWISH-SWAL 10 ml QID CATHLEEN Administration Mupirocin 1 applicatio 09/17/18 16:00 09/18/18 08:36 Bactroban 2% Oint TOPICAL 1 applicatio BID CATHLEEN Administration Nifedipine 30 mg 09/13/18 14:15 09/18/18 08:34 Procardia Xl PO 30 mg DAILY CATHLEEN Administration Senna/Docusate Sodium 1 tab 09/05/18 09:00 09/18/18 08:35 Sunshine-Colace PO 1 tab BID CATHLEEN Administration Sodium Chloride 2 ml 09/05/18 09:00 09/18/18 08:35 Ns Flush IV.FLUSH 2 ml BID CATHLEEN Administration Tamsulosin HCl 0.4 mg 09/06/18 20:00 09/18/18 08:35 Flomax PO 0.4 mg DAILY CATHLEEN Administration Objective Remarks: GENERAL: Chronically ill-appearing elderly male patient, in no acute distress. SKIN: Warm and dry. Bilateral groin dressings dry/intact. HEAD: Normocephalic. MOUTH: Ulcer to left bottom inner lip, light brown scab. Poor dentition. EYES: No scleral icterus. No injection or drainage. NECK: Supple, trachea midline. CARDIOVASCULAR: Regular rate and rhythm without murmurs. RESPIRATORY: Breath sounds equal bilaterally. Nonlabored at rest. GASTROINTESTINAL: Abdomen large, soft, non-tender. Edema to the scrotum. + Diaz catheter. EXTREMITIES: No cyanosis, or edema. MUSCULOSKELETAL: Decreased muscle tone. NEUROLOGICAL: No obvious focal deficit. Sleeping, awakens easily to voice. PSYCHIATRIC: Appropriate mood and affect; insight and judgment normal. Assessment/Plan - Plan Mr. Bishop is a pleasant 88-year-old gentleman, who was hospitalized and currently being treated for inguinal area abscesses. He has been on the ventilator and oncology was consulted for neutropenia. The patient has a history of myelofibrosis, diagnosed in November 2017. He is currently under the care of Dr. Feliz and has recently been evaluated at [facility]. Recommendations: 1. Remains neutropenic. Status post bone marrow biopsy, pending. 2. 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 3. We will request patient's previous bone marrow biopsy and cytogenetics from Dr. Feliz. 4. Patient cleared from a heme/on standpoint to be discharged to rehab. If his biopsy results show a myelodysplasia he will need several weeks for wound healing prior to starting any treatment. - Attending Statement The exam, history, and the medical decision-making described in the above note were completed with the assistance of the mid-level provider. I reviewed and agree with the findings presented. I attest that I had a [id number] encounter with the patient on the same day, and personally performed and documented my assessment and findings in the medical record. Patient is complaining of weakness Wound dressing was changed today Wound management per surgery Multiple family members are present today I have discussed with pathologist Dr. Alexander regarding the bone marrow biopsy results. He is doing immunostains and final bone marrow biopsy result will be ready later tomorrow afternoon or Tuesday The preliminary bone marrow biopsy is consistent with myelodysplastic syndrome/ myeloproliferative disorder. Chromosomes are still pending Patient had numerous peripheral blast after he had received Neupogen. The highest blast count was 40%. Since the Neupogen was stopped his blast count is coming down and now it is 16%. This is consistent with a preleukemia. Extensive discussion was held with the patient and multiple family members. Depending on the chromosome/cytogenetic results consider Vidaza chemotherapy as outpatient. The wound needs to be heal before he can have any chemotherapy. Chemotherapy can delay the wound healing and put him at a higher risk for infection again. I will obtain his previous bone marrow biopsy results from Dr. Feliz. Once we get the final pathology report and cytogenetic studies back then I will discuss with his oncologist Dr. Feliz and will come up with the treatment plan. Patient can be transferred to [facility] from my standpoint Neutropenic precaution needs to be continued as his ANC is only 100 Patient and his family have asked multiple questions. They have better understanding of the disease process. In my opinion without chemotherapy he is not going to get better. Due to severe neutropenia he is at high risk for sepsis/shock/. If cytogenetic comes back favorable then he could consider Vidaza chemotherapy to improve his blood count and decrease the risk of sepsis. Patient is not stable at this time to have chemotherapy. Continue to monitor CBC Further recommendations once we have the final pathology report and chromosomes studies available. The chromosome results take up to 10 business days to come back.
[2018-09-18] MEDS: Mirtazapine 15 MG Tablet PO SCH (20:09)
--- NOTE | 2018-09-18 23:51 | P.PNID ---
Subjective Remarks: On NC O2 afebrile neutropenic @ 0-100 Antibiotics: zosyn micafungin Past Medical History: neutropenia Allergies/Adverse Reactions: Allergies Sulfa (Sulfonamide Antibiotics) Allergy (Intermediate, Verified 09/05/18 02:09) RASH, SWELLING Objective Vital Signs 09/18/18 00:00 09/18/18 08:00 09/18/18 12:00 Temperature 98.0 F 98.2 F 98.0 F Pulse Rate 81 80 84 Respiratory Rate 21 20 18 Blood Pressure 169/77 H 136/71 124/63 Pulse Oximetry 98 97 98 09/18/18 16:00 09/18/18 20:00 Temperature 98.7 F 98.1 F Pulse Rate 79 81 Respiratory Rate 20 17 Blood Pressure 137/70 130/69 Pulse Oximetry 96 96 Intake & Output 09/18/18 09/18/18 09/19/18 06:59 18:59 06:59 Intake Total 680 / 680 2000 / 2000 100 / 100 Output Total 1750 / 1750 1200 / 1200 Balance -1070 / -1070 800 / 800 100 / 100 Weight 138 kg Intake: IV 200 / 200 200 / 200 100 / 100 Unasyn Inj 3 GM In NS Inj 100 200 / 200 200 / 200 100 / 100 ML @ 200 mls/hr IV.SIG Q6H CATHLEEN Rx#:[id number] Oral 480 / 480 1800 / 1800 Output: Urine 1750 / 1750 1200 / 1200 Other: # Voids 2 # Incontinent Voids 4 Date of Last Bowel Movement 09/15/18 # Bowel Movements 2 4 Lab - Hematology Results 09/17/18 07:50 WBC 2.8 L RBC 2.65 L Hgb 8.9 L Hct 26.2 L MCV 98.9 MCH 33.7 MCHC 34.1 RDW 19.9 H Plt Count 112 L MPV 9.9 Prelim Diff (Auto) Manual diff required WBC Differential Manual diff final Seg Neuts % (Manual) 2 L Lymphocytes % (Manual) 47 H Monocytes % (Manual) 35 H Blast Cells % (Manual) 16 H Abs Neuts (Manual) 0.1 L* Nucleated RBCs/100 WBC 75 H Differential Comment . Platelet Estimate Low L Platelet Morphology Normal Polychromasia 3.5 H Basophilic Stippling Moderate H Ovalocytes 1+ H Lab - Chemistry Results 09/17/18 07:50 Sodium 144 Potassium 3.2 L Chloride 107 Carbon Dioxide 26.9 Anion Gap 10 BUN 9 Creatinine 1.12 Estimated GFR 62 L Random Glucose 90 Calcium 7.9 L Imaging: ITS Impressions Abdomen/Pelvis CT 09/04/18 21:11 CONCLUSION: 1. 7.5 cm inflammatory and edematous area in the right inguinal region containing probable small loculated abscesses. Edematous change extends inferiorly through the lower aspect of both inguinal canals into the scrotum with marked scrotal wall thickening and small locules of air in the upper left scrotum that could represent a necrotizing infection. There is herniation of fat through both inguinal canals, worse on the left side with herniated fat in the left scrotum measuring up to 9.5 cm in diameter. 2. Hepatosplenomegaly. Moderate coronary calcifications. Small pericardial effusion. Abdomen X-Ray 09/12/18 00:00 CONCLUSION: Nonspecific, nonobstructive bowel gas pattern most characteristic of an ileus or gastroenteritis. Bone Marrow Biopsy w/ CT 09/14/18 00:00 CONCLUSION: 1. Uncomplicated CT guided bone marrow aspirate. 2. Uncomplicated CT guided bone marrow biopsy. Chest X-Ray 09/14/18 06:00 CONCLUSION: Stable chest appearance Physical Exam: GENERAL: NAD SKIN: Warm and dry. no rash EYES: Pupils equal and round. No scleral icterus. No injection or drainage. ENT: No nasal bleeding or discharge. Mucous membranes pink and moist. NECK: Trachea midline. No JVD. CARDIOVASCULAR: Regular rate and rhythm. RESPIRATORY: No accessory muscle use. Clear to auscultation. Breath sounds equal bilaterally. GASTROINTESTINAL: Abdomen soft, non-tender, nondistended. Hepatic and splenic margins not palpable. : +much improved suprapubic edema, erythema, L groin w/o induration, packed R groin tender to palpation and indurated, packed b/l groin VACs in pace with serosang d/c Penile soft edema MUSCULOSKELETAL: Extremities without clubbing, cyanosis, Assessment and Plan - Plan Immunosuppresed pt with idiopathic neutropenia. ANC 100 - probably myelofibrosis Bilateral inguinal abscess. Melina's gangrene: mixed aerobic/anaerobic infx Sp emergent debridement JIM - GFR improved slighly cont unasyn will chk stool for c.diff dw RN dw family @ b/s
[2018-09-19] MEDS: Ampicillin/Sulbactam Inj 3 GM in Sodium Chloride 0.9% Inj 100 ML IV.SIG SCH ×4 (06:37→17:20)
[2018-09-19] MEDS: Levothyroxine 150 MCG Tablet PO SCH (06:37)
[2018-09-19] MEDS: Heparin - SQ 10,000 UNITS/ML Vial SQ SCH ×2 (08:15→20:26)
[2018-09-19] MEDS: Lisinopril 5 MG Tablet PO SCH ×2 (08:16→20:26)
[2018-09-19] MEDS: Doxazosin 4 MG Tablet PO SCH (08:16)
[2018-09-19] MEDS: Senna/Docusate Sodium 8.6/50 MG Tablet PO SCH ×2 (08:16→20:26)
[2018-09-19] MEDS: Famotidine PF Inj 20 MG/2 ML Vial IV.PUSH SCH ×2 (08:16→20:25)
[2018-09-19] MEDS: Nystatin/Diphenhydramine/Lidocaine Mouthwash (Adult) 120 ML Botttle SWISH-SWAL SCH ×4 (08:17→20:26)
--- NOTE | 2018-09-19 10:50 | P.PN ---
Subjective Interval history: Follow-up Melina disease/neutropenic fever September 18, 2018-patient seen and examined, afebrile, some episode of anxiety per nurse report otherwise patient stable. Case discussed with patient's Son at the bedside. September 19, 2018-patient seen and examined, was waking up. No acute event overnight per nurse report. Vital stable this morning. Physical Exam Vital signs: Vital Signs 09/18/18 12:00 09/18/18 16:00 09/18/18 20:00 Temperature 98.0 F 98.7 F 98.1 F Pulse Rate 84 79 81 Respiratory Rate 18 20 17 Blood Pressure 124/63 137/70 130/69 Pulse Oximetry 98 96 96 09/19/18 00:00 09/19/18 08:00 Temperature 97.7 F 97.7 F Pulse Rate 85 77 Respiratory Rate 18 17 Blood Pressure 120/62 137/70 Pulse Oximetry 93 L 93 L Intake & Output 09/18/18 09/19/18 09/19/18 18:59 06:59 18:59 Intake Total 2000 / 2000 500 / 500 100 / 100 Output Total 1200 / 1200 Balance 800 / 800 500 / 500 100 / 100 Weight 135.8 kg Intake: IV 200 / 200 100 / 100 100 / 100 Unasyn Inj 3 GM In NS Inj 100 200 / 200 100 / 100 100 / 100 ML @ 200 mls/hr IV.SIG Q6H CATHLEEN Rx#:[id number] Oral 1800 / 1800 400 / 400 Output: Urine 1200 / 1200 Other: # Voids 3 # Incontinent Voids 4 Date of Last Bowel Movement 09/15/18 # Bowel Movements 4 1 Narrative: GENERAL: WN, WD in NAD. SKIN: Warm and dry. Seborrheic keratosis over neck, back, and chest. HEENT: AT/NC. Pupils equal and round. MMM. +oral thrush. HEART: RRR no m/r/g. LUNGS: CTAB without wheezes or crackles. ABDOMEN: +BS, soft, NT, ND. B/L inguinal wounds packed. No surrounding erythema. EXTREMITIES: No LE edema. Calves supple. NEURO: Awake and alert. Very hard of hearing. - Urinary Catheter Management Indwelling Urethral Catheter Cath placed during this visit: yes, but has since been removed by the nurse Reason for continuing: Chronic Urinary Retention Insertion date: 09/05/18 Insertion time: 00:53 Removal date: 09/13/18 Removal time: 01:15 Results - Labs CBC & Chem 7: 09/17/18 07:50 09/17/18 07:50 - Procedures - Preoperative Diagnosis (1) Infected wound (2) Abscess of groin - Postoperative Diagnosis (1) Infected wound (2) Abscess of groin Date of procedure: 09/05/18 Procedure: Incision and drainage bilateral groin abscesses Excision 100 cm skin and subcutaneous tissue. Placement of negative pressure VAC dressing Anesthesia: GETA Surgeon: Obinna Blake MD Electric Meter Technician: Jorge Sunshine MD - Preoperative Diagnosis (1) Abscess of groin - Postoperative Diagnosis (1) Abscess of groin Date of procedure: 09/11/18 Procedure: Irrigation bilateral groin wounds with replacement of VAC dressing on the right Packing of wound on the left Anesthesia: GETA Surgeon: Obinna Blake MD 11-8 BONE MARROW BIOPSY BY INTERVENTIONAL RADIOLOGY Assessment and Plan - Assessment (1) Cellulitis Code(s): L03.90 - Cellulitis, unspecified Status: Acute (2) Infected wound Code(s): T14.8XXA - Other injury of unspecified body region, initial encounter; L08.9 - Local infection of the skin and subcutaneous tissue, unspecified Status: Acute (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 Sepsis-Resolved - Met sepsis criteria based on tachycardia, hypotension, and source of infection (bilateral inguinal abscess/Melina's gangrene), lactic acid 2.0 - ID following - Wound culture growing MSSA, Group B strep, and mixed anaerobes 2. Melina's gangrene, bilateral inguinal abscess - General surgery and urology ff - S/P debridement with wound vac placed on 09/05, 09/08, and 09/11 - Wound vac removed 09/14 - ID following, currently on Unasyn and continue to monitor culture report 3. Neutropenia - ?h/o MDS - Hematology ff - Received 8 days of Neupogen with no improvement - Bone marrow biopsy done on 09/14, pending report - BM cytology with findings of myelodysplasia as well as concurrent low-grade B- cell lymphoproliferative neoplasm - Neutropenic precautions 4. Diarrhea - improving - C. diff negative - Continue Lactinex 5. Hypothyroidism - Continue levothyroxine 6. Hypertension - Continue nifedipine and doxazosin as well as Lisinopril 7. Pulmonary edema - resolved - 2D echo 09/14 with EF 50-55% 8. Hypernatremia - Resolved 9. JIM - Avoid nephrotoxins - Continue to monitor renal function 10. Thrush - Continue Nystatin s&s 11. Protein calorie malnutrition - Albumin 2.1 - On Remeron HS DVT prophylaxis: heparin Discharge Planning: Likely discharge to [facility] (1) Cellulitis Qualifiers: Site of cellulitis: other site Qualified Code(s): L03.818 - Cellulitis of other sites
--- NOTE | 2018-09-19 12:40 | P.PN ---
Subjective Interval history: Sitting eating lunch. Physical Exam Vital signs: Vital Signs 09/18/18 16:00 09/18/18 20:00 09/19/18 00:00 Temperature 98.7 F 98.1 F 97.7 F Pulse Rate 79 81 85 Respiratory Rate 20 17 18 Blood Pressure 137/70 130/69 120/62 Pulse Oximetry 96 96 93 L 09/19/18 08:00 09/19/18 12:00 Temperature 97.7 F 98.2 F Pulse Rate 77 86 Respiratory Rate 17 16 Blood Pressure 137/70 96/55 L Pulse Oximetry 93 L 98 Intake & Output 09/18/18 09/19/18 09/19/18 18:59 06:59 18:59 Intake Total 2000 / 2000 500 / 500 100 / 100 Output Total 1200 / 1200 Balance 800 / 800 500 / 500 100 / 100 Weight 135.8 kg Intake: IV 200 / 200 100 / 100 100 / 100 Unasyn Inj 3 GM In NS Inj 100 200 / 200 100 / 100 100 / 100 ML @ 200 mls/hr IV.SIG Q6H CATHLEEN Rx#:[id number] Oral 1800 / 1800 400 / 400 Output: Urine 1200 / 1200 Other: # Voids 3 # Incontinent Voids 4 Date of Last Bowel Movement 09/15/18 # Bowel Movements 4 1 - Urinary Catheter Management Indwelling Urethral Catheter Cath placed during this visit: yes, but has since been removed by the nurse Reason for continuing: Chronic Urinary Retention Insertion date: 09/05/18 Insertion time: 00:53 Removal date: 09/13/18 Removal time: 01:15 Results - Labs CBC & Chem 7: 09/17/18 07:50 09/17/18 07:50 - Procedures - Preoperative Diagnosis (1) Infected wound (2) Abscess of groin - Postoperative Diagnosis (1) Infected wound (2) Abscess of groin Date of procedure: 09/05/18 Procedure: Incision and drainage bilateral groin abscesses Excision 100 cm skin and subcutaneous tissue. Placement of negative pressure VAC dressing Anesthesia: REGI Surgeon: Obinna Blake MD Barrel Cooper: Jorge Sunshine MD - Preoperative Diagnosis (1) Abscess of groin - Postoperative Diagnosis (1) Abscess of groin Date of procedure: 09/11/18 Procedure: Irrigation bilateral groin wounds with replacement of VAC dressing on the right Packing of wound on the left Anesthesia: REGI Surgeon: Obinna Blake MD 11-8 BONE MARROW BIOPSY BY INTERVENTIONAL RADIOLOGY Assessment and Plan - Assessment (1) Cellulitis Code(s): L03.90 - Cellulitis, unspecified Status: Acute (2) Infected wound Code(s): T14.8XXA - Other injury of unspecified body region, initial encounter; L08.9 - Local infection of the skin and subcutaneous tissue, unspecified Status: Acute (3) Neutropenia Code(s): D70.9 - Neutropenia, unspecified Status: Acute (4) Abscess of groin Code(s): L02.214 - Cutaneous abscess of groin Status: Acute Plan: Continue daily dressing changes. I will need to see the patient in approximately 2 weeks in the office. We will remove stitches at that time. I will see as needed (1) Cellulitis Qualifiers: Site of cellulitis: other site Qualified Code(s): L03.818 - Cellulitis of other sites
[2018-09-19] MEDS: Mirtazapine 15 MG Tablet PO SCH (20:26)
[2018-09-20 00:23] VITALS: PULSE 74
[2018-09-20] MEDS: Ampicillin/Sulbactam Inj 3 GM in Sodium Chloride 0.9% Inj 100 ML IV.SIG SCH ×2 (00:43→05:28)
[2018-09-20] MEDS: Levothyroxine 150 MCG Tablet PO SCH (05:29)
[2018-09-20 08:25] VITALS: BP 124/70; RESP 18; TEMP 97.2; O2SAT 94
[2018-09-20] MEDS: Heparin - SQ 10,000 UNITS/ML Vial SQ SCH (08:54)
[2018-09-20] MEDS: Famotidine PF Inj 20 MG/2 ML Vial IV.PUSH SCH (08:54)
[2018-09-20] MEDS: Doxazosin 4 MG Tablet PO SCH (08:55)
[2018-09-20] MEDS: Lisinopril 5 MG Tablet PO SCH (08:56)
[2018-09-20] MEDS: Nystatin/Diphenhydramine/Lidocaine Mouthwash (Adult) 120 ML Botttle SWISH-SWAL SCH (08:57)
[2018-09-20] MEDS: Senna/Docusate Sodium 8.6/50 MG Tablet PO SCH (09:05)
--- NOTE | 2018-09-20 09:43 | P.PNGS ---
Subjective Interval history: Resting in bed Patient would like ice for his Gatorade He is eager to get to [place] Physical Exam Vital signs: Vital Signs 09/19/18 12:00 09/19/18 14:00 09/19/18 20:00 Temperature 98.2 F 97.8 F 98.0 F Pulse Rate 86 85 82 Respiratory Rate 16 16 18 Blood Pressure 96/55 L 118/59 L 122/65 Pulse Oximetry 98 96 95 09/20/18 00:00 09/20/18 08:00 Temperature 97.9 F 97.2 F L Pulse Rate 74 74 Respiratory Rate 19 18 Blood Pressure 133/63 124/70 Pulse Oximetry 93 L 94 L Intake & Output 09/19/18 09/20/18 09/20/18 18:59 06:59 18:59 Intake Total 1300 / 1300 700 / 700 Output Total 1000 / 1000 800 / 800 Balance 300 / 300 -100 / -100 Weight 135.8 kg Intake: IV 300 / 300 200 / 200 Unasyn Inj 3 GM In NS Inj 100 300 / 300 200 / 200 ML @ 200 mls/hr IV.SIG Q6H CATHLEEN Rx#:[id number] Oral 1000 / 1000 500 / 500 Output: Urine 1000 / 1000 800 / 800 Other: Date of Last Bowel Movement 09/15/18 # Bowel Movements 3 1 Narrative: Alert and awake; although extremely hard of hearing Bilateral groins --- dressings removed--- LEFT sutures in place -- wound beds clean and dry ---packing replaced - Urinary Catheter Management Indwelling Urethral Catheter Cath placed during this visit: yes, but has since been removed by the nurse Reason for continuing: Chronic Urinary Retention Insertion date: 09/05/18 Insertion time: 00:53 Removal date: 09/13/18 Removal time: 01:15 Results - Labs 09/17/18 07:50 09/17/18 07:50 - Imaging Imaging: ITS Impressions Abdomen/Pelvis CT 09/04/18 21:11 CONCLUSION: 1. 7.5 cm inflammatory and edematous area in the right inguinal region containing probable small loculated abscesses. Edematous change extends inferiorly through the lower aspect of both inguinal canals into the scrotum with marked scrotal wall thickening and small locules of air in the upper left scrotum that could represent a necrotizing infection. There is herniation of fat through both inguinal canals, worse on the left side with herniated fat in the left scrotum measuring up to 9.5 cm in diameter. 2. Hepatosplenomegaly. Moderate coronary calcifications. Small pericardial effusion. Abdomen X-Ray 09/12/18 00:00 CONCLUSION: Nonspecific, nonobstructive bowel gas pattern most characteristic of an ileus or gastroenteritis. Bone Marrow Biopsy w/ CT 09/14/18 00:00 CONCLUSION: 1. Uncomplicated CT guided bone marrow aspirate. 2. Uncomplicated CT guided bone marrow biopsy. 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 ANC 100; Bilateral inguinal abscess; Melina's gangrene. -Dressing changes to bilateral groin daily and PRN ----need to ensure area stays dry!!! -Diet as tolerated---okay for family to bring food from home -Okay to shower in between dressing changes ---remove packing prior -OOB as tolerated -ID following -Patient going to [place] today--- We will still continue to see patient a few times a week over a [place] -Discussed with RN Loreto As above; to rehab. Will check next week. The exam, history, and the medical decision-making described in the above note were completed with the assistance of the mid-level provider. I reviewed and agree with the findings presented. I attest that I had a [id number] encounter with the patient on the same day, and personally performed and documented my assessment and findings in the medical record. (2) Infected wound Code(s): T14.8XXA - Other injury of unspecified body region, initial encounter; L08.9 - Local infection of the skin and subcutaneous tissue, unspecified Status: Acute (3) Neutropenia Code(s): D70.9 - Neutropenia, unspecified Status: Acute (4) Abscess of groin Code(s): L02.214 - Cutaneous abscess of groin Status: Acute (1) Cellulitis Qualifiers: Site of cellulitis: other site Qualified Code(s): L03.818 - Cellulitis of other sites
--- NOTE | 2018-09-20 12:32 | P.PN ---
Subjective Interval history: Follow-up Melina disease/neutropenic fever September 20, 2018-patient seen and examined, no acute event overnight per nurse report. Patient denies any chest pain or shortness of breath. Afebrile. Physical Exam Vital signs: Vital Signs 09/19/18 14:00 09/19/18 20:00 09/20/18 00:00 Temperature 97.8 F 98.0 F 97.9 F Pulse Rate 85 82 74 Respiratory Rate 16 18 19 Blood Pressure 118/59 L 122/65 133/63 Pulse Oximetry 96 95 93 L 09/20/18 08:00 Temperature 97.2 F L Pulse Rate 74 Respiratory Rate 18 Blood Pressure 124/70 Pulse Oximetry 94 L Intake & Output 09/19/18 09/20/18 09/20/18 18:59 06:59 18:59 Intake Total 1300 / 1300 700 / 700 Output Total 1000 / 1000 800 / 800 Balance 300 / 300 -100 / -100 Weight 135.8 kg Intake: IV 300 / 300 200 / 200 Unasyn Inj 3 GM In NS Inj 100 300 / 300 200 / 200 ML @ 200 mls/hr IV.SIG Q6H CATHLEEN Rx#:[id number] Oral 1000 / 1000 500 / 500 Output: Urine 1000 / 1000 800 / 800 Other: Date of Last Bowel Movement 09/15/18 # Bowel Movements 3 1 Narrative: GENERAL: NAD SKIN: Warm and dry. HEAD: Atraumatic. Normocephalic. EYES: Pupils equal and round. No scleral icterus. No injection or drainage. ENT: No nasal bleeding or discharge. Mucous membranes pink and moist. NECK: Trachea midline. No JVD. CARDIOVASCULAR: Regular rate and rhythm. RESPIRATORY: No accessory muscle use. Clear to auscultation. Breath sounds equal bilaterally. GASTROINTESTINAL: Abdomen soft, non-tender, nondistended. Hepatic and splenic margins not palpable. MUSCULOSKELETAL: Extremities without clubbing, cyanosis, or edema. No obvious deformities. NEUROLOGICAL: Awake and alert. No obvious cranial nerve deficits. Motor grossly within normal limits. Five out of 5 muscle strength in the arms and legs. Normal speech. PSYCHIATRIC: Appropriate mood and affect; insight and judgment normal. - Urinary Catheter Management Indwelling Urethral Catheter Cath placed during this visit: yes, but has since been removed by the nurse Reason for continuing: Chronic Urinary Retention Insertion date: 09/05/18 Insertion time: 00:53 Removal date: 09/13/18 Removal time: 01:15 Results - Labs CBC & Chem 7: 09/17/18 07:50 09/17/18 07:50 Microbiology 09/05/18 07:40 Wound - Groin Fungal Smear - Final No fungal elements seen 09/05/18 07:40 Wound - Groin Fungal Culture - Preliminary No growth in 2 weeks 09/05/18 07:40 Wound - Groin Acid Fast Bacilli Smear - Final No acid fast bacilli seen 09/05/18 07:40 Wound - Groin Mycobacterial Culture - Preliminary No growth in 2 weeks 09/05/18 07:40 Wound - Groin Fungal Smear - Final No fungal elements seen 09/05/18 07:40 Wound - Groin Fungal Culture - Preliminary No growth in 2 weeks 09/05/18 07:40 Wound - Groin Acid Fast Bacilli Smear - Final No acid fast bacilli seen 09/05/18 07:40 Wound - Groin Mycobacterial Culture - Preliminary No growth in 2 weeks - Procedures - Preoperative Diagnosis (1) Infected wound (2) Abscess of groin - Postoperative Diagnosis (1) Infected wound (2) Abscess of groin Date of procedure: 09/05/18 Procedure: Incision and drainage bilateral groin abscesses Excision 100 cm skin and subcutaneous tissue. Placement of negative pressure VAC dressing Anesthesia: SHIA Surgeon: Obinna Blake MD Patient Centered Care Specialist: Jorge Sunshine MD - Preoperative Diagnosis (1) Abscess of groin - Postoperative Diagnosis (1) Abscess of groin Date of procedure: 09/11/18 Procedure: Irrigation bilateral groin wounds with replacement of VAC dressing on the right Packing of wound on the left Anesthesia: SHIA Surgeon: Obinna Blake MD 11-8 BONE MARROW BIOPSY BY INTERVENTIONAL RADIOLOGY Assessment and Plan - Assessment (1) Cellulitis Code(s): L03.90 - Cellulitis, unspecified Status: Acute (2) Infected wound Code(s): T14.8XXA - Other injury of unspecified body region, initial encounter; L08.9 - Local infection of the skin and subcutaneous tissue, unspecified Status: Acute (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 Sepsis-Resolved - Met sepsis criteria based on tachycardia, hypotension, and source of infection (bilateral inguinal abscess/Melina's gangrene), lactic acid 2.0 - ID following - Wound culture growing MSSA, Group B strep, and mixed anaerobes 2. Melina's gangrene, bilateral inguinal abscess - General surgery and urology ff - S/P debridement with wound vac placed on 09/05, 09/08, and 09/11 - Wound vac removed 09/14 - ID following, currently on Unasyn and continue to monitor culture report 3. Neutropenia - ?h/o MDS - Hematology ff - Received 8 days of Neupogen with no improvement - Bone marrow biopsy done on 09/14, pending report - BM cytology with findings of myelodysplasia as well as concurrent low-grade B- cell lymphoproliferative neoplasm - Neutropenic precautions 4. Diarrhea - improving - C. diff negative - Continue Lactinex 5. Hypothyroidism - Continue levothyroxine 6. Hypertension - Continue nifedipine and doxazosin as well as Lisinopril 7. Pulmonary edema - resolved - 2D echo 09/14 with EF 50-55% 8. Hypernatremia - Resolved 9. JIM - Avoid nephrotoxins - Continue to monitor renal function 10. Thrush - Continue Nystatin s&s 11. Protein calorie malnutrition - Albumin 2.1 - On Remeron HS DVT prophylaxis: heparin [facility] ([facility] Cellulitis Qualifiers: Site of cellulitis: other site Qualified Code(s): L03.818 - Cellulitis of other sites
--- NOTE | 2018-09-20 12:33 | P.DS ---
Date of admission: 09/04/18 23:33 Primary care physician: Frankie Colvin MD Brief History from admission: The patient is an 88 year old male with past medical history significant for probable MDS, hypertension, hypothyroidism, history of prostate cancer, chronic bilateral inguinal hernias who presented to the [facility] emergency department today with groin pain lasting for approximately 1 week. He is independent for ADLs and lives alone, family checks on him periodically. Patient has history of leukopenia, ?MDS followed by Dr. Feliz had Neupogen treatment before but did not respond. He had low-grade fever a few days ago. Initially the groin pain was attributed to his inguinal hernia, however he decided to present to the ER today as he had noticed redness and open wounds with drainage in bilateral groins. In the emergency department patient was evaluated by Dr. Chang, A stat CT of the abdomen pelvis showed 7.5 cm inflammatory and edematous area in the right inguinal region containing probable small loculated abscesses. Edematous change extends inferiorly through the lower aspect of both inguinal canals into the scrotum with marked scrotal wall thickening and small locules of air in the upper left scrotum that could represent a necrotizing infection. There is herniation of fat through both inguinal canals. Patient received crystalloid resuscitation with 3 L normal saline boluses, was also given vancomycin clindamycin and Zosyn. Blood cultures and wound cultures were sent. Dr. Blake from general surgery, and Dr. Sunshine from urology were consulted by Dr. Chang at [facility]. Plan is to transfer patient to the [facility], resuscitate adequately given antibiotics and plan for OR in a.m. I evaluated the patient in the [facility]. Currently he is lying in bed somnolent but wakes up easily using his home BiPAP. Temperature is 99 patient is normotensive after fluid boluses initially was tachycardic. Patient has absolute neutropenia with neutrophil count of 0.1. I will consult hematology DS: Diagnosis - Discharge Diagnosis (1) Cellulitis Status: Acute (2) Infected wound Status: Acute (3) Melina's gangrene Status: Acute (4) Severe sepsis Status: Acute (5) Neutropenia Status: Acute (6) MDS (myelodysplastic syndrome) Status: Chronic (7) Abscess of groin Status: Acute DS: Summary Hospital Course: While in hospital, patient was treated for: 1. Sepsis-Resolved - Met sepsis criteria based on tachycardia, hypotension, and source of infection (bilateral inguinal abscess/Melina's gangrene), lactic acid 2.0 - ID following - Wound culture growing MSSA, Group B strep, and mixed anaerobes 2. Melina's gangrene, bilateral inguinal abscess - General surgery and urology ff - S/P debridement with wound vac placed on 09/05, 09/08, and 09/11 - Wound vac removed 09/14 - ID following, currently on Unasyn and continue to monitor culture report 3. Neutropenia - ?h/o MDS - Hematology ff - Received 8 days of Neupogen with no improvement - Bone marrow biopsy done on 09/14, pending report - BM cytology with findings of myelodysplasia as well as concurrent low-grade B- cell lymphoproliferative neoplasm - Neutropenic precautions 4. Diarrhea - improving - C. diff negative - Continue Lactinex 5. Hypothyroidism - Continue levothyroxine 6. Hypertension - Continue nifedipine and doxazosin as well as Lisinopril 7. Pulmonary edema - resolved - 2D echo 09/14 with EF 50-55% 8. Hypernatremia - Resolved 9. JIM - Avoid nephrotoxins - Continue to monitor renal function 10. Thrush - Continue Nystatin s&s 11. Protein calorie malnutrition - Albumin 2.1 - On Remeron HS DVT prophylaxis: heparin - Time Spent with Patient Total time spent providing and/or coordinating discharge services: Greater than 30 minutes - Quality: VTE Deep Vein Thrombosis/Pulmonary Embolism Present on Admission: No Exam Vital signs: Vital Signs 09/19/18 14:00 09/19/18 20:00 09/20/18 00:00 Temperature 97.8 F 98.0 F 97.9 F Pulse Rate 85 82 74 Respiratory Rate 16 18 19 Blood Pressure 118/59 L 122/65 133/63 Pulse Oximetry 96 95 93 L 09/20/18 08:00 Temperature 97.2 F L Pulse Rate 74 Respiratory Rate 18 Blood Pressure 124/70 Pulse Oximetry 94 L Intake & Output 09/19/18 09/20/18 09/20/18 18:59 06:59 18:59 Intake Total 1300 / 1300 700 / 700 Output Total 1000 / 1000 800 / 800 Balance 300 / 300 -100 / -100 Weight 135.8 kg Intake: IV 300 / 300 200 / 200 Unasyn Inj 3 GM In NS Inj 100 300 / 300 200 / 200 ML @ 200 mls/hr IV.SIG Q6H CATHLEEN Rx#:[id number] Oral 1000 / 1000 500 / 500 Output: Urine 1000 / 1000 800 / 800 Other: Date of Last Bowel Movement 09/15/18 # Bowel Movements 3 1 Narrative: GENERAL: NAD SKIN: Warm and dry. HEAD: Atraumatic. Normocephalic. EYES: Pupils equal and round. No scleral icterus. No injection or drainage. ENT: No nasal bleeding or discharge. Mucous membranes pink and moist. NECK: Trachea midline. No JVD. CARDIOVASCULAR: Regular rate and rhythm. RESPIRATORY: No accessory muscle use. Clear to auscultation. Breath sounds equal bilaterally. GASTROINTESTINAL: Abdomen soft, non-tender, nondistended. Hepatic and splenic margins not palpable. MUSCULOSKELETAL: Extremities without clubbing, cyanosis, or edema. No obvious deformities. NEUROLOGICAL: Awake and alert. No obvious cranial nerve deficits. Motor grossly within normal limits. Five out of 5 muscle strength in the arms and legs. Normal speech. PSYCHIATRIC: Appropriate mood and affect; insight and judgment normal. Results Procedures completed during hospitalization: - Preoperative Diagnosis (1) Infected wound (2) Abscess of groin - Postoperative Diagnosis (1) Infected wound (2) Abscess of groin Date of procedure: 09/05/18 Procedure: Incision and drainage bilateral groin abscesses Excision 100 cm skin and subcutaneous tissue. Placement of negative pressure VAC dressing Anesthesia: SHIA Surgeon: Obinna Blake MD Zoo Veterinarian: Jorge Sunshine MD - Preoperative Diagnosis (1) Abscess of groin - Postoperative Diagnosis (1) Abscess of groin Date of procedure: 09/11/18 Procedure: Irrigation bilateral groin wounds with replacement of VAC dressing on the right Packing of wound on the left Anesthesia: SHIA Surgeon: Obinna Blake MD 11-8 BONE MARROW BIOPSY BY INTERVENTIONAL RADIOLOGY Labs on day of discharge: Preliminary micro results at discharge 09/05/18 07:40 Fungal Culture - Preliminary Wound - Groin No growth in 2 weeks 09/05/18 07:40 Mycobacterial Culture - Preliminary Wound - Groin No growth in 2 weeks 09/05/18 07:40 Fungal Culture - Preliminary Wound - Groin No growth in 2 weeks 09/05/18 07:40 Mycobacterial Culture - Preliminary Wound - Groin No growth in 2 weeks - Impressions ITS Impressions Abdomen/Pelvis CT 09/04/18 21:11 CONCLUSION: 1. 7.5 cm inflammatory and edematous area in the right inguinal region containing probable small loculated abscesses. Edematous change extends inferiorly through the lower aspect of both inguinal canals into the scrotum with marked scrotal wall thickening and small locules of air in the upper left scrotum that could represent a necrotizing infection. There is herniation of fat through both inguinal canals, worse on the left side with herniated fat in the left scrotum measuring up to 9.5 cm in diameter. 2. Hepatosplenomegaly. Moderate coronary calcifications. Small pericardial effusion. Abdomen X-Ray 09/12/18 00:00 CONCLUSION: Nonspecific, nonobstructive bowel gas pattern most characteristic of an ileus or gastroenteritis. Bone Marrow Biopsy w/ CT 09/14/18 00:00 CONCLUSION: 1. Uncomplicated CT guided bone marrow aspirate. 2. Uncomplicated CT guided bone marrow biopsy. Chest X-Ray 09/14/18 06:00 CONCLUSION: Stable chest appearance Discharge Plan - Discharge Disposition Patient Disposition: [facility] Rehab Inpatient - Discharge Order Discharge Orders: Discharge Order (Routine); Ordered 09/20/18 Ordered By: Ayush Mooney - Physicians Team Primary Care Provider: Frankie Colvin Attending Provider: Ayush Mooney Other Providers: Obinna Blake MD ; Jorge Sunshine MD ; Marlyn Holland MD ; Tracy Wells MD ; [facility]
--- NOTE | 2018-09-20 22:09 | P.PNONC ---
Subjective Interval history: Late entry Patient is feeling better groin wound dressing was just changed RN is at bedside Per RN the wound is healing Objective Vital Signs/Intake & Output: Vital Signs 09/20/18 00:00 09/20/18 08:00 Temperature 97.9 F 97.2 F L Pulse Rate 74 74 Respiratory Rate 19 18 Blood Pressure 133/63 124/70 Pulse Oximetry 93 L 94 L Intake & Output 09/20/18 09/20/18 09/21/18 06:59 18:59 06:59 Intake Total 700 / 700 Output Total 800 / 800 Balance -100 / -100 Weight 135.8 kg Intake: IV 200 / 200 Unasyn Inj 3 GM In NS Inj 100 200 / 200 ML @ 200 mls/hr IV.SIG Q6H CATHLEEN Rx#:[id number] Oral 500 / 500 Output: Urine 800 / 800 Other: # Bowel Movements 1 Result Diagrams: 09/17/18 07:50 09/17/18 07:50 Culture Results: Microbiology 09/05/18 07:40 Fungal Smear - Final Wound - Groin No fungal elements seen Fungal Culture - Preliminary No growth in 2 weeks 09/05/18 07:40 Acid Fast Bacilli Smear - Final Wound - Groin No acid fast bacilli seen Mycobacterial Culture - Preliminary No growth in 2 weeks 09/05/18 07:40 Fungal Smear - Final Wound - Groin No fungal elements seen Fungal Culture - Preliminary No growth in 2 weeks 09/05/18 07:40 Acid Fast Bacilli Smear - Final Wound - Groin No acid fast bacilli seen Mycobacterial Culture - Preliminary No growth in 2 weeks Objective Remarks: GENERAL: Chronically ill-appearing elderly male patient, in no acute distress. SKIN: Warm and dry. Bilateral groin dressings dry/intact. HEAD: Normocephalic. MOUTH: Ulcer to left bottom inner lip, light brown scab. Poor dentition. EYES: No scleral icterus. No injection or drainage. NECK: Supple, trachea midline. CARDIOVASCULAR: Regular rate and rhythm without murmurs. RESPIRATORY: Breath sounds equal bilaterally. Nonlabored at rest. GASTROINTESTINAL: Abdomen large, soft, non-tender. Edema to the scrotum. + Diaz catheter. EXTREMITIES: No cyanosis, or edema. MUSCULOSKELETAL: Decreased muscle tone. NEUROLOGICAL: No obvious focal deficit. Sleeping, awakens easily to voice. PSYCHIATRIC: Appropriate mood and affect; insight and judgment normal. Assessment/Plan - Plan Mr. Bishop is a pleasant 88-year-old gentleman, who was hospitalized and currently being treated for inguinal area abscesses. He has been on the ventilator and oncology was consulted for neutropenia. The patient has a history of myelofibrosis, diagnosed in November 2017. He is currently under the care of Dr. Feliz and has recently been evaluated at [facility]. Recommendations: 1. Remains neutropenic. Status post bone marrow biopsy, pending. 2. 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 3. We will request patient's previous bone marrow biopsy and cytogenetics from Dr. Feliz. 4. Patient cleared from a heme/on standpoint to be discharged to rehab. If his biopsy results show a myelodysplasia he will need several weeks for wound healing prior to starting any treatment. 09/20/2018 Final pathology discussed with the patient. No family members were present Pathology report shows myelodysplastic syndrome. Also he has mild lymphoproliferative disorder which is not clinically significant at this time. The chromosome studies are still pending. The results will come out sometime next week Patient is stable to be discharged to rehab Discussed with patient's RN as well
== END 2018-09-20 10:30 ==
LOC: PHED 19:25 → PHEDA 23:33 → N03 09-05 03:00 → N07 09-11 22:07
PROVIDERS: ADMIT Hospitalist; ATTEND Hospitalist